=== PATIENT | female | born 1945 | race Caucasian/White ===

== ENCOUNTER 2020-10-23 08:03 | Outpatient (REF) | payer MEDICARE, SELFPAY ==
--- NOTE | 2020-10-23 08:09 | MM_ITS ---
EXAMINATION: MM SCREENING DIGITAL BREAST TOMOSYNTHESIS, BILATERAL CLINICAL INFORMATION: Screening. Asymptomatic. The lifetime risk of breast cancer based on the Tyrer-Cuzick Model is 13.2%. COMPARISON: Mammography: October 20, 2019 and studies dating back to July 12, 2014 TECHNIQUE: Digital breast tomosynthesis is performed in both the craniocaudal and mediolateral oblique views along with computer-aided detection (CAD). Synthesized 2D images are generated from the tomosynthesis. Left breast exaggerated craniocaudal view also performed. FINDINGS: There are scattered areas of fibroglandular density (ACR BI-RADS breast composition Category b). There are no significant masses, abnormal calcifications, or other abnormalities. MM/MM tomosynthesis screening BI IMPRESSION: There are no significant changes from prior study. ASSESSMENT: BI-RADS 1: Negative RECOMMENDATION: Routine annual mammography screening. This patient's information was entered into a reminder system with a target due date for their next mammogram.
[2020-10-23 10:04] LABS: MANUAL DIFF FLAG NO
[2020-10-23 10:19] LABS: Basophils Absolute Auto 0.1 X10*3/uL (0.0-0.2); Basophils Percent Auto 1.2 % (0-2); Eosinophils Absolute Auto 0.1 X10*3/uL (0.0-0.4); Eosinophils Percent Auto 1.5 % (0-4); Hemoglobin 13.6 g/dl (12.0-16.0); Imm Gran Abs Auto 0.01 X10*3/uL (0.00-0.03); Imm Gran Pct Auto 0.2 % (0.0-0.4); Lymphocytes Percent Auto 29.8 % (20-40); Mean Corpuscular HGB Conc 33.2 g/dl (31.0-35.0); Mean Corpuscular Hemoglobin 33.5 pg (27.0-33.0); Mean Platelet Volume 10.3 fL (9.4-12.3); Monocytes Absolute Auto 0.6 X10*3/uL (0.1-1.2); Monocytes Percent Auto 9.6 % (2-11); Neutrophils Absolute Auto 3.8 X10*3/uL (2.0-8.3); Neutrophils Percent Auto 57.7 % (45-73); Platelet Count 315 X10*3/uL (160-400); Red Blood Count 4.06 X10*6/uL (4.20-5.50); Red Cell Distribution Width 13.2 % (11.0-16.0); White Blood Count 6.6 X10*3/uL (4.8-10.8)
[2020-10-23 10:36] LABS: Alanine Aminotransferase 16 U/L (0-31); Albumin Level 4.3 g/dL (3.5-5.0); Alkaline Phosphatase 64 U/L (39-117); Anion Gap 15 (12-20); Aspartate Amino Transferase 23 U/L (5-31); Bilirubin Total 0.8 mg/dL (0.0-1.0); Blood Urea Nitrogen 23 mg/dL (9-16); Calcium 9.4 mg/dL (8.4-10.2); Carbon Dioxide 27 mmol/L (22-29); Chloride 103 mmol/L (96-108); Estimated Glomerular Filt Rate 59; Glucose Fasting 102 mg/dL (60-99); Sodium 141 mmol/L (135-145); Total Protein 6.9 g/dL (6.5-8.0)
[2020-10-23 11:13] LABS: Folate > 20.0 ng/mL (> or = 4.0); Vitamin B12 1158 pg/mL (200-900)
== END 2020-10-23 08:04 | disposition home or self-care (01) ==
LOC: HO.MAMMO 08:03
PROVIDERS: PCP Internal Medicine; Visit Provider Internal Medicine
DX: E78.00 Pure hypercholesterolemia, unspecified (principal); F80.1 Expressive language disorder; H47.391 Other disorders of optic disc, right eye; I10 Essential (primary) hypertension; Z12.31 Encounter for screening mammogram for malignant neoplasm of breast
CPT/HCPCS: 36415; 77063; 77067; 80053; 82607; 82746; 85025

== ENCOUNTER 2020-11-04 09:21 | Outpatient (REF) | payer MEDICARE, SELFPAY | END 2020-11-04 09:22 | disposition home or self-care (01) | LOC: HO.10HDL 09:21 | PROVIDERS: PCP Internal Medicine; Visit Provider Internal Medicine | DX: Z13.89 Encounter for screening for other disorder (principal) ==

== ENCOUNTER 2020-11-05 08:58 | Outpatient (REF) | payer MEDICARE, SELFPAY ==
[2020-11-05 11:14] LABS: Alanine Aminotransferase 13 U/L (0-31); Albumin Level 4.1 g/dL (3.5-5.0); Alkaline Phosphatase 62 U/L (39-117); Anion Gap 13 (12-20); Aspartate Amino Transferase 19 U/L (5-31); Bilirubin Total 0.7 mg/dL (0.0-1.0); Blood Urea Nitrogen 18 mg/dL (9-16); Calcium 9.2 mg/dL (8.4-10.2); Carbon Dioxide 28 mmol/L (22-29); Chloride 105 mmol/L (96-108); Cholesterol 184 mg/dL; Estimated Glomerular Filt Rate > 60; Glucose Fasting 103 mg/dL (60-99); HDL Cholesterol 55 mg/dL; LDL Cholesterol Calculated 101 mg/dl; Potassium 4.1 mmol/l (3.3-5.1); Sodium 142 mmol/L (135-145); Total Protein 6.6 g/dL (6.5-8.0); Triglycerides 144 mg/dL
== END 2020-11-05 08:59 | disposition home or self-care (01) ==
LOC: HO.10HDL 08:58
PROVIDERS: PCP Internal Medicine; Visit Provider Internal Medicine
DX: E78.00 Pure hypercholesterolemia, unspecified (principal); F80.1 Expressive language disorder; H47.391 Other disorders of optic disc, right eye; I10 Essential (primary) hypertension
CPT/HCPCS: 80053; 80061

== ENCOUNTER 2021-05-02 09:12 | Emergency (ER) | payer MEDICARE, SELFPAY ==
--- NOTE | ~2021-05-02 | CT_ITS ---
EXAMINATION: CT HEAD, CT CERVICAL SPINE WITHOUT CONTRAST. LEFT FOREARM AND LEFT HAND. CLINICAL INFORMATION: Fell 2 days ago. Pain. COMPARISON: None TECHNIQUE: 5 mm thin axial and reformatted 2 mm thin sagittal and coronal images of brain were obtained. Subsequently axial 3 mm thin and reformatted 2 mm thin sagittal and coronal images of cervical spine were obtained. DLP [id number] FINDINGS: Brain: There is no acute intra-axial, extra-axial bleed, collection or midline shift. There is no acute infarct in evolution. There is a subtle hypodensity in the left midbrain on axial image 25/5. Question artifact versus underlying infarct. The lateral ventricles are enlarged and symmetrical. There is diffuse periventricular hypodensity in both cerebral hemispheres. Bone windows reveal no calvarial abnormality. Bilateral paranasal sinuses and mastoid air cells are well-aerated. Cervical spine: On sagittal reconstructed images there is maintained cervical lordosis minimal grade 1 anterolisthesis C2 over C3 is noted. There is loss of C3-C4, C4-C5 and C5-C6 disc heights with posterior spondylosis. Rest the disc heights are normal. The vertebral heights are preserved. The craniovertebral junction and the C1-C2 alignment is normal. The left C2 transversarium foramina is enlarged on axial image 24/13. This could be secondary and ectatic dilated left vertebral artery or underlying neural tumor. There is mild uncovertebral hypertrophic changes narrowing the left neural foramina at C3-C4, C4-C5 disc levels. No lytic or sclerotic process seen. There is minimal bilateral apical pleural thickening and apical parenchymal scarring. The prevertebral and the paravertebral soft tissues are normal. Thyroid lobes are symmetrical and normal. Left jugular vein is dominant. Left forearm: There is an oblique comminuted nondisplaced fracture left proximal ulna. There is a nondisplaced fracture of right radial neck. There is positive anterior and posterior fat pad sign. Left hand: Diffuse osteopenia. There are degenerative osteophytic changes PIP and DIP joints with soft tissue swelling. No underlying fracture or dislocation seen. CT/CT cervical spine wo con IMPRESSION: No acute intracranial process seen. Age-related cerebral volume loss with chronic small vessel ischemic changes. Grade 1 anterolisthesis C2 over C3. There are degenerative disc changes C3-C4, C4-C5 and C5-C6 disc levels. No visible acute fracture, dislocation or lytic process seen. Comminuted nondisplaced fracture left proximal ulna and a nondisplaced proximal right radial neck. Positive anterior and posterior fat pad sign. Osteoarthritic changes PIP and DIP joints left hand. No visible fracture or dislocation.
[2021-05-02 09:25] VITALS: BP 159/60; PULSE 93; RESP 18; TEMP 36.7; O2SAT 98; BMI 21.8
[2021-05-02 09:44] VITALS: BP 150/94; PULSE 93; RESP 16; O2SAT 100
--- NOTE | 2021-05-02 09:56 | PC.NURSE ---
pt arrives through triage with . She was initially alone in room for interview. Speech garbled, pt having difficulty finding words. She is able to answer questions, is oriented to self and month, was able after struggle to state the year but not the day, date, president or town where she lives. was brought to room and states her speech is worse than usual, but is vague. HE is unable to report if her speech seems more garbles than usual, later states she has had speech changes over the last year. PA to bedside for eval. Pt on monitor
--- NOTE | 2021-05-02 10:03 | ED_ITS ---
HPI - Fall General Chief Complaint: Fall Stated Complaint: fall - arm injury Time Seen by Provider: 05/02/21 09:48 Source: patient Mode of arrival: ambulatory Limitations: no limitations History of Present Illness HPI Narrative: Patient comes to the ED for left arm pain due to fall 4 days ago. As per patient and she fell while there at [facility] tripping over stairs. Did not remember if patient fell and hit her head. Patient denies having any chest pain, dizziness, shortness of breath, abdominal pain, headache, or weakness before falling. Patient states she clearly trpeed. states patient has been diagnosed with dementia 1 year ago and has had memory issues, forgetting words, and forgetting new memories. Patient and do not remember if patient hit her head or not. Related Data Previous Rx's Medication Instructions Recorded naproxen 500 mg PO BID PRN #20 tab 05/02/21 Allergies Allergy/AdvReac Type Severity Reaction Status Date / Time codeine Allergy Unknown Verified 05/02/21 09:28 Review of Systems Review of Systems: Yes all other systems are reviewed and are negative Constitutional: Constitutional: Reports as per HPI and Reports no additional constitutional complaints Eyes: Eyes: Reports as per HPI and Reports no additional eye complaints ENT: Reports system reviewed and no additional complaints, except as d ocumented and Reports as per HPI Cardiovascular: Cardiovascular: Reports as per HPI and Reports no additional cardiovascular complaints Respiratory: Respiratory: Reports as per HPI and Reports no additional respiratory complaints Gastrointestinal: Gastrointestinal: Reports as per HPI and Reports no additional gastrointestinal complaints Genitourinary: Genitourinary: Reports no additional female genitourinary complaints and Reports as per HPI Musculoskeletal: Musculoskeletal: Reports no additional musculoskeletal complaints and Reports as per HPI Neurologic: Reports system reviewed and no additional complaints, except as documented and Reports as per HPI FORMERLY [facility] Past Medical History Medical History (Updated 05/02/21 @ 15:17 by BOBBY Snyder) No known health problems Social History Social History Alcohol intake: never Patient Tobacco Use Status: Former Tobacco user Smoked in Last 30 Days: No Use of substances other than those prescribed or required for medical reasons: No Advance Directives: No Advance Directives Information Provided: No Physical Exam Vital Signs: Vital Signs: Last Vital Signs Temp 98.0 F 05/02/21 09:25 Pulse 90 05/02/21 15:34 Resp 16 05/02/21 09:44 BP 148/84 H 05/02/21 15:34 Pulse Ox 100 05/02/21 15:34 Body Mass Index 21.8 Const: General: cooperative, healthy appearing, comfortable, no acute distress, well developed, alert, awake and Physically active Orientation/consciousness: patient oriented x3 HENMT: Head: Yes normal to inspection, Yes No palpable skull fracture present, Yes normocephalic, Yes atraumatic, No abrasion, No Acrocyanosis present, No Chaves's sign, No contusion, No cranial bruits, No hematoma, No laceration, No occipital foramen tenderness, No palpable skull fracture, No raccoon eyes, No scalp lesion, No scalp tenderness, No Temporal artery tenderness present and No periorbital ecchymosis Eyes: General: appearance normal, both eyes and all related structures Neck: Neck: Yes normal visual inspection, Yes full ROM, Yes no lymphadenopathy, Yes no meningeal signs, Yes trachea midline and Yes supple Chest: Chest palpation & inspection: normal inspection of the chest and normal palpation of entire chest wall Resp: Effort & Inspection: normal respiratory effort and able to speak in com plete sentences Auscultation: clear to auscultation bilaterally Cardio: Jugular venous distension: no JVD Heart sounds: S1 normal heart sound present and S2 normal heart sound present GI: Inspection: Yes normal to inspection and No abdominal wall ecchymosis Palpation (GI): Soft to palpation, not firm, nontender, no guarding and not rigid : General: No CVA tenderness and Yes no CVA tenderness Back/Spine/Pelvis: Back: no CVA tenderness, No CVA tenderness and No back tenderness Skin: General skin exam: no rashes or lesions noted and elasticity normal Neuro: Other: Negative facial droop. Negative slurred speech. Negative pronator drift. All extremities equal strength 5+. [id number] rapid hand movement tach. Negative Romberg. Left upper extremity motor exam limited due to pain/fracture General: patient oriented x3, gait normal, no meningeal signs and CN's II-XI intact bilaterally Cranial nerves: Yes CN's II-XII intact bilaterally Extrem: General: Yes normal to inspection and Yes full ROM Psych: Appearance: grossly normal, well kempt and not disheveled Course Course Course Narrative: Though there is no signs of head trauma patient will do head CT cervical spine due to and patient unaware if patient hitting head when she fell. Also the EKG labs. Reevaluation(s) Reevaluation #1: EKG negative for STEMI. First troponin negative. Labs normal. Head CT and C-spine normal. Positive for radial and ulna bone fracture with positive posterior anterior fat pad sign indicating elbow fracture also. Spoke with Rosita of orthopedic PA and she states patient could be splinted and discharged. Will get physical therapy and case management to evaluate patient to see if she is safe discharge due to patient having Alzheimer's and falling. Time: 10:26 Reevaluation #2: Patient cleared by Physical therapy and Case Management to go back home at a safe discharge. Patient placed in splint. Second troponin did not increased by 50%. Patient will be discharged with orthopedic follow-up Time: 15:14 MDM - Fall MDM Narrative Medical decision making narrative: Forearm fracture and elbow fracture Lab Data Result diagrams: 05/02/21 10:26 05/02/21 10: Labs: Lab Results 05/02/21 05/02/21 05/02/21 Range/Units 10:26 10:26 10:26 WBC 8.0 (4.8-10.8) X10*3/uL RBC 3.31 L (4.20-5.50) X10*6/uL Hgb 11.3 L (12.0-16.0) g/dl Hct 32.9 L (37-47) % MCV 99.4 H (80-98) fL MCH 34.1 H (27.0-33.0) pg MCHC 34.3 (31.0-35.0) g/dl RDW 13.0 (11.0-16.0) % Plt Count 224 D (160-400) X10*3/uL MPV 9.4 (9.4-12.3) fL Immature Gran % (Auto) 0.3 (0.0-0.4) % Neut % (Auto) 72.4 (45-73) % Lymph % (Auto) 13.1 L (20-40) % Hoke % (Auto) 13.6 H (2-11) % Eos % (Auto) 0.1 (0-4) % Baso % (Auto) 0.5 (0-2) % Lymph # (Auto) 1.1 L (1.2-4.9) X10*3/uL Hoke # (Auto) 1.1 (0.1-1.2) X10*3/uL Eos # (Auto) 0.0 (0.0-0.4) X10*3/uL Baso # (Auto) 0.0 (0.0-0.2) X10*3/uL Abs Immat Gran (auto) 0.02 (0.00-0.03) X10*3/uL Absolute Neuts (auto) 5.8 (2.0-8.3) X10*3/uL Absolute Nucleated RBC 0.000 (0.0-0.012) X10*3/uL Nucleated RBC % (auto) 0.0 (0.0-0.2) /100WBC PT 13.6 H (10.8-13.0) SEC INR 1.1 (0.9-1.1) APTT 35.5 (24.1-38.0) SEC Sodium 142 (135-145) mmol/L Potassium 3.6 (3.3-5.1) mmol/L Chloride 104 (96-108) mmol/L Carbon Dioxide 27 (22-29) mmol/L Anion Gap 15 (12-20) BUN 22 H (9-16) mg/dL Creatinine 0.83 (0.5-1.4) mg/dL Estim Creat Clear Calc 51.9 Estimated GFR > 60 Random Glucose 111 (60-115) mg/dL Calcium 9.2 (8.4-10.2) mg/dL Total Bilirubin 0.9 (0.0-1.0) mg/dL AST 17 (5-31) U/L ALT 13 (0-31) U/L Alkaline Phosphatase 62 (39-117) U/L Total Creatine Kinase 94 (26-140) U/L Troponin I High Sens (<3.5-17.0) ng/L Total Protein 6.4 L (6.5-8.0) g/dL Albumin 4.1 (3.5-5.0) g/dL 05/02/21 05/02/21 Range/Units 10:26 13:52 WBC (4.8-10.8) X10*3/uL RBC (4.20-5.50) X10*6/uL Hgb (12.0-16.0) g/dl Hct (37-47) % MCV (80-98) fL MCH (27.0-33.0) pg MCHC (31.0-35.0) g/dl RDW (11.0-16.0) % Plt Count (160-400) X10*3/uL MPV (9.4-12.3) fL Immature Gran % (Auto) (0.0-0.4) % Neut % (Auto) (45-73) % Lymph % (Auto) (20-40) % Hoke % (Auto) (2-11) % Eos % (Auto) (0-4) % Baso % (Auto) (0-2) % Lymph # (Auto) (1.2-4.9) X10*3/uL Hoke # (Auto) (0.1-1.2) X10*3/uL Eos # (Auto) (0.0-0.4) X10*3/uL Baso # (Auto) (0.0-0.2) X10*3/uL Abs Immat Gran (auto) (0.00-0.03) X10*3/uL Absolute Neuts (auto) (2.0-8.3) X10*3/uL Absolute Nucleated RBC (0.0-0.012) X10*3/uL Nucleated RBC % (auto) (0.0-0.2) /100WBC PT (10.8-13.0) SEC INR (0.9-1.1) APTT (24.1-38.0) SEC Sodium (135-145) mmol/L Potassium (3.3-5.1) mmol/L Chloride (96-108) mmol/L Carbon Dioxide (22-29) mmol/L Anion Gap (12-20) BUN (9-16) mg/dL Creatinine (0.5-1.4) mg/dL Estim Creat Clear Calc Estimated GFR Random Glucose (60-115) mg/dL Calcium (8.4-10.2) mg/dL Total Bilirubin (0.0-1.0) mg/dL AST (5-31) U/L ALT (0-31) U/L Alkaline Phosphatase (39-117) U/L Total Creatine Kinase (26-140) U/L Troponin I High Sens 7.1 8.7 (<3.5-17.0) ng/L Total Protein (6.5-8.0) g/dL Albumin (3.5-5.0) g/dL ECG Data Interpretation: Normal sinus rhythm. Ventricular rate 70. Pr interval 140. QRS 88. QTC 470. Negative STEMI Discharge Plan Discharge Clinical Impression: Forearm fracture, Elbow fracture, left Patient Disposition: Home, Self-Care Instructions: Arm Fracture in Adults (ED), Elbow Fracture (ED) Additional Instructions: Return to the ED for worsening pain, bluish discoloration of finger tips, numbness/tingling of extremity, increased swelling, redness, chest pain, shortness of breath, or any other concerning symptoms. He will be discharged with pain medication. Please follow-up with orthopedic Prescriptions: New naproxen 500 mg tablet 500 mg PO BID PRN (Reason: pain) Qty: 20 RF: 0 Referrals: Tony Boyd MD [Physician] - 2 days (Left forearm and elbow fracture. Placed in posterior splint) Interventions: ED Discharge Assessment Last Done: 05/02/21 15:56 Discharge Date/Time: 05/02/21 15:57 Print Language: Arabic
--- NOTE | 2021-05-02 10:06 | ECG_ITS ---
Test Reason : FALL Blood Pressure : / mmHG Vent. Rate : 070 BPM Atrial Rate : 070 BPM P-R Int : 140 ms QRS Dur : 088 ms QT Int : 436 ms P-R-T Axes : 048 000 049 degrees QTc Int : 470 ms Poor data quality, interpretation may be adversely affected Normal sinus rhythm Cannot exclude septal infarct but likely normal variant Otherwise normal EKG When compared with ECG of 15-JUN-2005 11:02, No significant changes seen Referred By: Richar Fernandez Electronically Signed By:JUANY MORAES
[2021-05-02 10:34] LABS: MANUAL DIFF FLAG NO
[2021-05-02 10:35] LABS: Basophils Percent Auto 0.5 % (0-2); Eosinophils Percent Auto 0.1 % (0-4); Hematocrit 32.9 % (37-47); Hemoglobin 11.3 g/dl (12.0-16.0); Imm Gran Abs Auto 0.02 X10*3/uL (0.00-0.03); Imm Gran Pct Auto 0.3 % (0.0-0.4); Lymphocytes Absolute Auto 1.1 X10*3/uL (1.2-4.9); Lymphocytes Percent Auto 13.1 % (20-40); Mean Corpuscular HGB Conc 34.3 g/dl (31.0-35.0); Mean Corpuscular Hemoglobin 34.1 pg (27.0-33.0); Mean Corpuscular Volume 99.4 fL (80-98); Mean Platelet Volume 9.4 fL (9.4-12.3); Monocytes Absolute Auto 1.1 X10*3/uL (0.1-1.2); Monocytes Percent Auto 13.6 % (2-11); Neutrophils Absolute Auto 5.8 X10*3/uL (2.0-8.3); Neutrophils Percent Auto 72.4 % (45-73); Platelet Count 224 X10*3/uL (160-400); Red Blood Count 3.31 X10*6/uL (4.20-5.50)
[2021-05-02 10:48] LABS: INTERNATIONAL NORM RATIO 1.1 (0.9-1.1); Prothrombin Time 13.6 SEC (10.8-13.0)
[2021-05-02 10:51] LABS: Partial Thromboplastin Time 35.5 SEC (24.1-38.0)
[2021-05-02 11:00] LABS: Alanine Aminotransferase 13 U/L (0-31); Albumin Level 4.1 g/dL (3.5-5.0); Alkaline Phosphatase 62 U/L (39-117); Anion Gap 15 (12-20); Aspartate Amino Transferase 17 U/L (5-31); Bilirubin Total 0.9 mg/dL (0.0-1.0); Blood Urea Nitrogen 22 mg/dL (9-16); Calcium 9.2 mg/dL (8.4-10.2); Carbon Dioxide 27 mmol/L (22-29); Chloride 104 mmol/L (96-108); Creatinine Clr Calc Pharmacy 51.9; Estimated Glomerular Filt Rate > 60; Glucose Random 111 mg/dL (60-115); Potassium 3.6 mmol/L (3.3-5.1); Sodium 142 mmol/L (135-145); Total Protein 6.4 g/dL (6.5-8.0)
[2021-05-02 11:05] LABS: Troponin-I High Sensitivity 7.1 ng/L (<3.5-17.0)
[2021-05-02] MEDS: Ketorolac Tromethamine 30 MG/ML VIAL IM (11:38)
[2021-05-02 14:35] LABS: Troponin-I High Sensitivity 8.7 ng/L (<3.5-17.0)
[2021-05-02 14:38] VITALS: BP 150/94; PULSE 93; O2SAT 100
--- NOTE | 2021-05-02 15:00 | MHC.CM.ED ---
Received case management consult from BOBBY Mcqueen. Patient came to ER due to a fall. Found to have a LUE fracture. Physical therapy eval completed. No services are recommended. Met with patient and , [facility]. They reside together. Patient ambulates independently and had no services prior to coming to the hospital. PCP verified. Patient denies having a HCP. Information provided. Kay[facility] will transport patient home when discharged. Richar ROSALES aware. Continue to monitor for d/c needs.
[2021-05-02 15:34] VITALS: BP 148/84; PULSE 90; O2SAT 100
--- NOTE | 2021-05-02 15:36 | PC.NURSE ---
has been at bedside, he is vague when reporting patient history and when talking about her garbled speech. He states she has been increasingly forgetful, also states the speech might be worse than usual but isn't sure. states Pt does food shopping and cooking. He states he drives. Discussed how pt would manage at home with fracture, pt states she wants to go home, quiet. Pt has some rambling aphasic speech, difficult to undertsnad at times. Case management has seen pt. Pt ready for discharge. Pt unable to repeat instructions back to staff, is able. Pt readied for discharge home.
== END 2021-05-02 15:57 | disposition home or self-care (01) ==
PROVIDERS: Physician Assistant; Emergency Provider Emergency Medicine; PCP Internal Medicine
DX: S52.002A Unspecified fracture of upper end of left ulna, initial encounter for closed fracture (principal); S52.135A Nondisplaced fracture of neck of left radius, initial encounter for closed fracture; G30.9 Alzheimer's disease, unspecified; F02.80 Dementia in other diseases classified elsewhere, unspecified severity, without behavioral disturbance, psychotic disturbance, mood disturbance, and anxiety; W10.9XXA Fall (on) (from) unspecified stairs and steps, initial encounter; Y93.9 Activity, unspecified; Y92.9 Unspecified place or not applicable; Y99.9 Unspecified external cause status
CPT/HCPCS: 29105; 36415; 70450; 72125; 73090; 73110; 73130; 80053; 82550; 84484; 85025; 85610; 85730; 93005; 96372; 97161; 99285; J1885

== ENCOUNTER → 2021-05-06 13:47 | Outpatient (BNVA) | payer MEDICARE, SELFPAY | PROVIDERS: PCP Internal Medicine; Visit Provider Physician Assistant | DX: S52.002A Unspecified fracture of upper end of left ulna, initial encounter for closed fracture (principal); S52.122A Displaced fracture of head of left radius, initial encounter for closed fracture | CPT/HCPCS: 24670; 99202 ==

== ENCOUNTER 2021-05-27 07:42 | Outpatient (REF) | payer MEDICARE, SELFPAY ==
--- NOTE | ~2021-05-27 | XR_ITS ---
EXAMINATION: XR ELBOW, LEFT CLINICAL INFORMATION: Follow-up fracture proximal radius and ulna. COMPARISON: Left forearm 05/02/2021. TECHNIQUE: AP, lateral, and oblique views of the left elbow. FINDINGS: There is a nondisplaced fracture neck of radius and comminuted fracture proximal ulna. No callus formation seen yet. Joint space is maintained. There is soft tissue swelling. XR/XR elbow LT min 3V IMPRESSION: Comminuted fracture proximal ulna and nondisplaced fracture radial neck.
== END 2021-05-27 07:43 | disposition home or self-care (01) ==
LOC: HO.HOSX 07:42
PROVIDERS: Visit Provider Physician Assistant
DX: S52.122A Displaced fracture of head of left radius, initial encounter for closed fracture (principal); S52.002A Unspecified fracture of upper end of left ulna, initial encounter for closed fracture; X58.XXXA Exposure to other specified factors, initial encounter; Y93.9 Activity, unspecified; Y92.9 Unspecified place or not applicable; Y99.9 Unspecified external cause status; Z87.891 Personal history of nicotine dependence
CPT/HCPCS: 29065; 73080; 99212

== ENCOUNTER 2021-06-24 08:05 | Outpatient (REF) | payer MEDICARE, SELFPAY ==
--- NOTE | ~2021-06-24 | XR_ITS ---
EXAMINATION: XR ELBOW, LEFT CLINICAL INFORMATION: Fractures, followup. COMPARISON: Radiographs left elbow 05/27/2021 TECHNIQUE: Left elbow is imaged in 3 views. FINDINGS: There is a comminuted fracture of proximal ulna and a transverse fracture base of radial head. There is interval callus formation. Fracture lines are still visible. There is no change in alignment from prior study. No dislocation or destructive process. XR/XR elbow LT min 3V IMPRESSION: Interval callus formation of the proximal ulnar and radial fractures. Stable alignment.
== END 2021-06-24 08:06 | disposition home or self-care (01) ==
LOC: HO.HOSX 08:05
PROVIDERS: Visit Provider Physician Assistant
DX: S52.122A Displaced fracture of head of left radius, initial encounter for closed fracture (principal); S52.002A Unspecified fracture of upper end of left ulna, initial encounter for closed fracture
CPT/HCPCS: 73080; 99212

== ENCOUNTER 2021-07-22 07:56 | Outpatient (REF) | payer MEDICARE, SELFPAY ==
--- NOTE | ~2021-07-22 | XR_ITS ---
EXAMINATION: XR ELBOW, LEFT CLINICAL INFORMATION: Pain left elbow. COMPARISON: Left elbow 06/24/2021 TECHNIQUE: AP, lateral, and oblique views of the left elbow. FINDINGS: There is a slow healing fractures with callus formation proximal radius and ulna. There is no abnormal joint effusion. There is ulnohumeral spurring. Mild suprapatellar joint effusion is present. XR/XR elbow LT min 3V IMPRESSION: Slowly healing fractures proximal ulnar and radius.
== END 2021-07-22 07:57 | disposition home or self-care (01) ==
LOC: HO.HOSX 07:56
PROVIDERS: Visit Provider Physician Assistant
DX: S52.002D Unspecified fracture of upper end of left ulna, subsequent encounter for closed fracture with routine healing (principal); S52.122D Displaced fracture of head of left radius, subsequent encounter for closed fracture with routine healing
CPT/HCPCS: 73080; 99212

== ENCOUNTER 2021-07-23 09:35 | Outpatient (REF) | payer MEDICARE, SELFPAY ==
[2021-07-23 10:29] LABS: MANUAL DIFF FLAG NO
[2021-07-23 10:32] LABS: Basophils Absolute Auto 0.1 X10*3/uL (0.0-0.2); Basophils Percent Auto 1.1 % (0-2); Eosinophils Absolute Auto 0.2 X10*3/uL (0.0-0.4); Eosinophils Percent Auto 3.1 % (0-4); Hemoglobin 12.1 g/dl (12.0-16.0); Imm Gran Abs Auto 0.02 X10*3/uL (0.00-0.03); Imm Gran Pct Auto 0.3 % (0.0-0.4); Lymphocytes Absolute Auto 1.8 X10*3/uL (1.2-4.9); Lymphocytes Percent Auto 27.2 % (20-40); Mean Corpuscular HGB Conc 32.7 g/dl (31.0-35.0); Mean Corpuscular Hemoglobin 33.2 pg (27.0-33.0); Mean Corpuscular Volume 101.6 fL (80-98); Mean Platelet Volume 10.1 fL (9.4-12.3); Monocytes Absolute Auto 0.6 X10*3/uL (0.1-1.2); Monocytes Percent Auto 9.6 % (2-11); Neutrophils Absolute Auto 3.8 X10*3/uL (2.0-8.3); Neutrophils Percent Auto 58.7 % (45-73); Platelet Count 295 X10*3/uL (160-400); Red Blood Count 3.64 X10*6/uL (4.20-5.50); Red Cell Distribution Width 13.9 % (11.0-16.0); White Blood Count 6.5 X10*3/uL (4.8-10.8)
[2021-07-23 11:07] LABS: Alanine Aminotransferase 11 U/L (0-31); Albumin Level 4.3 g/dL (3.5-5.0); Alkaline Phosphatase 60 U/L (39-117); Anion Gap 12 (12-20); Aspartate Amino Transferase 17 U/L (5-31); Blood Urea Nitrogen 16 mg/dL (9-16); Calcium 9.7 mg/dL (8.4-10.2); Carbon Dioxide 28 mmol/L (22-29); Chloride 105 mmol/L (96-108); Cholesterol 184 mg/dL; Estimated Glomerular Filt Rate > 60; Glucose Fasting 101 mg/dL (60-99); HDL Cholesterol 60 mg/dL; LDL Cholesterol Calculated 99 mg/dl; Sodium 141 mmol/L (135-145); Triglycerides 129 mg/dL
[2021-07-23 11:31] LABS: Thyroid Stimulating Hormone 1.03 uIU/mL (0.32-4.0); Vitamin D 25-OH Total 59.7 ng/mL (>30)
== END 2021-07-23 09:36 | disposition home or self-care (01) ==
LOC: HO.10HDL 09:35
PROVIDERS: Visit Provider Internal Medicine
DX: E78.00 Pure hypercholesterolemia, unspecified (principal); I10 Essential (primary) hypertension; M81.8 Other osteoporosis without current pathological fracture; R63.4 Abnormal weight loss
CPT/HCPCS: 36415; 80053; 80061; 82306; 84443; 85025

== ENCOUNTER 2021-12-15 15:07 | Inpatient (IN) | payer MEDICARE, SELFPAY ==
--- NOTE | ~2021-12-15 | CT_ITS ---
EXAMINATION: CT HEAD WITHOUT CONTRAST CLINICAL INFORMATION: Altered mental status. Developing cerebrovascular accident. COMPARISON: CT head from 12/15/2021 and 05/02/2021. TECHNIQUE: Contiguous axial imaging was performed from the skull base to vertex without intravenous administration of contrast. This CT examination was performed using dose optimization techniques as appropriate, variously including the following: *Automated exposure control. *Adjustment of mA and/or kV according to patient size (this includes techniques or standardized protocols for targeted exams where dose is matched to indication/reason for exam; i.e. extremities or head). *Use of iterative reconstruction technique. DLP: 619 mGy-cm FINDINGS: There is no evidence of acute intracranial hemorrhage or edematous territorial infarction. Scattered hypoattenuation in the periventricular and deep white matter are consistent with moderate microangiopathy. Fry-white matter differentiation is preserved. Proportional prominence of the ventricles and sulcal spaces. No evidence for obstructive hydrocephalus. No abnormal mass effect or midline shift. No extra-axial fluid collections. Improving small subgaleal hematoma along the right aspect of the occipital bone, measuring up to 0.5 cm in depth. No associated osseous abnormalities. Moderate mucosal thickening of the paranasal sinuses. Layering fluid within the maxillary and sphenoid sinuses. The mastoid air cells and middle ear cavities are clear. Bilateral lens extractions. CT/CT head/brain wo con IMPRESSION: 1. No evidence of acute intracranial hemorrhage or edematous territorial infarction. 2. Moderate underlying microangiopathy and generalized cerebral volume loss. 3. Small right posterior scalp hematoma. 4. Moderate sinonasal mucosal disease with layering fluid suggestive of active sinusitis.
--- NOTE | ~2021-12-15 | CT_ITS ---
EXAMINATION: CT CHEST WITHOUT CONTRAST CLINICAL INFORMATION: Thoracic back pain. Bilateral rib pain. COMPARISON: CT chest 03/30/2008 TECHNIQUE: Multidetector volumetric CT imaging of the chest was done. Axial MIP volume rendering provided. Sagittal and coronal reformatted images were obtained. This CT examination was performed using dose optimization techniques as appropriate, variously including the following: *Automated exposure control *Adjustment of mA and/or kV according to patient size (this includes techniques or standardized protocols for targeted exams where dose is matched to indication/reason for exam; i.e. extremities or head) *Use of iterative reconstruction technique DLP: 988 mGy-cm FINDINGS: LUNGS: The lungs are clear with no evidence of inflammation or nodules. Mild chronic bilateral apical pleural-parenchymal scarring unchanged since 2007. MEDIASTINUM: No mediastinal mass or significant lymphadenopathy. No aneurysm of aorta. Small volume of calcifications of thoracic aortic arch and descending aorta. The heart size is normal. No pericardial effusion. Moderate volume of coronary artery calcifications. No pericardial effusion. PLEURA: There is no pleural effusion. No pleural mass or thickening. AXILLA: No lymphadenopathy. UPPER ABDOMEN: Unremarkable. OSSEOUS STRUCTURES: Multilevel degenerative spondylosis spine. Anterior wedge compression deformity with about 30% loss of height of the T11 vertebrae. This appears to be an acute fracture with disruption of the anterior superior endplate and cortex of the vertebral body. No evidence of bone destruction. CT/CT chest wo con IMPRESSION: 1. Acute fracture of T11 vertebrae with approximately 30% loss of height of the vertebral body. No retropulsed fracture fragments. 2. No acute change of lungs or mediastinum. Fleischner guidelines were followed.
--- NOTE | ~2021-12-15 | CT_ITS ---
EXAMINATION: CT HEAD WITHOUT CONTRAST CLINICAL INFORMATION: Fall with altered mental status. COMPARISON: CT head dated from 05/02/2021. TECHNIQUE: Contiguous axial imaging was performed from the skull base to vertex without intravenous administration of contrast. This CT examination was performed using dose optimization techniques as appropriate, variously including the following: *Automated exposure control *Adjustment of mA and/or kV according to patient size (this includes techniques or standardized protocols for targeted exams where dose is matched to indication/reason for exam; i.e. extremities or head) *Use of iterative reconstruction technique DLP: 127 mGy-cm FINDINGS: There is no evidence of acute intracranial hemorrhage or edematous territorial infarction. Scattered hypoattenuation in the periventricular and deep white matter are consistent with moderate microangiopathy. Fry-white matter differentiation is preserved. Proportional prominence of the ventricles and sulcal spaces. No evidence for obstructive hydrocephalus. No abnormal mass effect or midline shift. No extra-axial fluid collections. Small right occipital scalp hematoma/contusion. No acute osseous abnormalities. Air-fluid levels in both maxillary sinuses which are partially opacified. There are also air-fluid levels in the sphenoidal sinuses and partial opacification of several ethmoid air cells. There is a trace right mastoid effusion. CT/CT head/brain wo con IMPRESSION: Right occipital scalp hematoma/contusion without evidence of acute intracranial hemorrhage or edematous territorial infarction. Paranasal sinus disease.
--- NOTE | ~2021-12-15 | CT_ITS ---
EXAMINATION: CT CERVICAL SPINE WITHOUT CONTRAST CLINICAL INFORMATION: Fall, altered mental status. COMPARISON: CT cervical spine dated from 05/02/2021. TECHNIQUE: Axial, coronal and sagittal images of the cervical spine without intravenous contrast were obtained. This CT examination was performed using dose optimization techniques as appropriate, variously including the following: *Automated exposure control *Adjustment of mA and/or kV according to patient size (this includes techniques or standardized protocols for targeted exams where dose is matched to indication/reason for exam; i.e. extremities or head) *Use of iterative reconstruction technique DLP: 127 mGy-cm FINDINGS: The atlantooccipital and atlantoaxial articulations remain well aligned. Redemonstration of minimal grade 1 anterolisthesis of C2 on C3 and minimal grade 1 retrolisthesis of C4 on C5. Otherwise, there is anatomic alignment of the vertebral bodies and posterior elements. No evidence of acute fracture or subluxation. Again noted moderate cervical spondylosis with disc space narrowing, osteophytes and uncovertebral hypertrophy leading to varying degrees of neural foraminal encroachment central canal narrowing. There is no prevertebral soft tissue swelling. A 0.6 cm hypoattenuating nodule in the right lobe of the thyroid is unchanged, not meeting size criteria for further follow-up. Remaining cervical soft tissues are normal in appearance. The lung apices demonstrate subpleural thickening/scarring. CT/CT cervical spine wo con IMPRESSION: No acute cervical fractures or malalignment. Moderate multilevel cervical spondylosis.
[2021-12-15 16:04] VITALS: BP 133/64; PULSE 123; RESP 18; TEMP 36.8; O2SAT 97; BMI 22.0
--- NOTE | 2021-12-15 16:11 | ECG_ITS ---
Test Reason : fall/ams Blood Pressure : / mmHG Vent. Rate : 144 BPM Atrial Rate : 000 BPM P-R Int : 000 ms QRS Dur : 084 ms QT Int : 288 ms P-R-T Axes : 000 074 257 degrees QTc Int : 445 ms Atrial fibrillation with rapid ventricular response Nonspecific ST and T wave abnormality ; Abnormal ECG When compared with ECG of 02-MAY-2021 10:25, Rhythm change Referred By: Generic ED Physician Electronically Signed By:JUANY MORAES
--- NOTE | 2021-12-15 16:54 | ED_ITS ---
HPI - Fall General Chief Complaint: Fall Stated Complaint: fell bump on back of head Time Seen by Provider: 12/15/21 16:25 Source: patient Mode of arrival: ambulatory History of Present Illness HPI Narrative: 76-year-old female with unknown past medical history presenting to the ED complaining of fall this afternoon with +head strike and posterior scalp laceration. Patient reports she was doing laundry when she fell, cannot recall events, altered/confused, unknown LOC. Denies symptoms prior to incident. Unclear patient on AC, history limited secondry to patient's acute mental status. Tetanus unknown MD complaint: fall Onset (ago): hour(s) Fall from: standing Related Data Home Medications Medication Instructions Recorded Confirmed calcium citrate 315 mg 1 tab PO DAILY 12/15/21 12/15/21 calcium-vitamin D3 6.25 mcg (250 unit) tablet (Citracal + Vitamin D Maximum) coenzyme Q10 100 mg capsule 100 mg PO DAILY 12/15/21 12/15/21 (CoQ-10) hydrochlorothiazide 12.5 mg tablet 1 tab PO DAILY 12/15/21 12/15/21 pravastatin 20 mg tablet 1 tab PO BEDTIME 12/15/21 12/15/21 Allergies Allergy/AdvReac Type Severity Reaction Status Date / Time codeine Allergy Unknown Verified 06/24/21 09:47 Review of Systems Verdana 4l Review of Systems: Verdana 4d Verdana 4d Constitutional: No Fever, No Chills ENT/Mouth: No Ear Pain, No Nasal Congestion, No sore throat Eyes: No Vision Changes Cardiovascular: No Chest Pain, No SOB Gastrointestinal: No Nausea, No Vomiting, No Abdominal pain Genitourinary: No UrinaryUrinary Incontinence Musculoskeletal: + back pain Skin: + Skin Lesions, No rash Neuro: +AMS, Unknown Loss of Consciousness, + Headache ROS limited secondary to patient's acute mental status Yes all other systems are reviewed and are negative [facility] Past Medical History Attestation statement: The following information was validated with the patient. Medical History No known health problems Social History Social History Alcohol intake: never Patient Tobacco Use Status: Former Tobacco user Advance Directives: No Advance Directives Information Provided: No Current occupational status: retired Current occupation: rt hand Physical Exam Verdana 4l Vital Signs: Verdana 4d Verdana 4d Vital Signs: Verdana 4d Verdana 4Bd Last Vital Signs Verdana 4d Flare Stitcher New 4d Flare Stitcher New 4d Temp 98.3 F 12/15/21 18:58 Flare Stitcher New 4d Pulse 107 H 12/15/21 18:58 Flare Stitcher New 4d Resp 16 12/15/21 18:58 BP 117/77 12/15/21 18:58 Pulse Ox 98 12/15/21 18:58 BMI result Body Mass Index 22.0 Const: General: cooperative, alert and awake Orientation/consciousness: oriented to place Limitations: altered mental status HENMT: Other: +posterior skull hematoma with overlying actively bleeding punctate wound Head: Yes hematoma and Yes laceration Ears: hearing grossly normal bilaterally General nose exam: Normal external nose present Face and sinus: Yes normal facial exam Throat: Yes posterior oropharynx normal and Yes uvula midline Eyes: General: appearance normal, both eyes and all related structures Pupils: Equal, round and reactive pupils present EOM: EOMs intact bilaterally Neck: Other: no midline cervical spinous ttp Neck: Yes normal visual inspection Chest: Chest palpation & inspection: normal inspection of the chest and no crepitus Resp: Effort & Inspection: normal respiratory effort and no respiratory distress Auscultation: clear to auscultation bilaterally Cardio: Rate: regular rate and tachycardic Rhythm: abnormal rhythm Heart sounds: S1 normal heart sound present and S2 normal heart sound present GI: Inspection: Yes normal to inspection Palpation (GI): Soft to palpation, nontender, no guarding and not rigid Back/Spine/Pelvis: Other: +mid-thoracic back swelling and ttp with paraspinal ttp. No midline lumbar spinous tenderness to palpation Skin: Rashes: no rashes Wounds: no wounds Neuro: General: oriented to place, tone normal, moves all extremities and CN's II-XI intact bilaterally Cranial nerves: Yes CN's II-XII intact bilaterally, Yes Equal, round and reactive pupils present and Yes Bilaterally intact EOM present Motor exam (neuro): 5/5 motor strength present throughout Extrem: General: Yes normal to inspection Course Course Course Narrative: -0037-- 0.25 mg/kg Cardizem given with improvement in heart rate 90-100 Spoke to patient's son Arthur reports patient has severe anxiety and becomes confused/difficult to understand during these episodes, however it is atypical for patient not to know the year and her birthday -1821--noted leukocytosis of 16.5 > likely reactive. Low concern for severe se psis, no evidence of infection at this time. Will obtain lactic/blood cultures -BUN 36, initial troponin 5.4 will obtain 3hr repeat CT head/brain wo con IMPRESSION: Right occipital scalp hematoma/contusion without evidence of acute intracranial hemorrhage or edematous territorial infarction. Paranasal sinus disease. > concern for CVA with new onset AFib/confusion. Plan will be admission for further w/u CT cervical spine wo con IMPRESSION: No acute cervical fractures or malalignment. Moderate multilevel cervical spondylosis. CT chest wo con IMPRESSION: 1. Acute fracture of T11 vertebrae with approximately 30% loss of height of the vertebral body. No retropulsed fracture fragments. 2. No acute change of lungs or mediastinum.? -2019--UA infected. Infection now suspected > IV Rocephin ordered ? MDM - Fall MDM Narrative Medical decision making narrative: 76-year-old female with unknown past medical history presenting to the ED complaining of fall this afternoon with +head strike and posterior scalp laceration. On exam pt in new onset AFib with RVR, A&O x1, confused/altered, otherwise exam nonfocal. Hematoma to posterior scalp with punctate wound that does not need repair, after cleaning bleeding controlled. Concern for ICH vs CVA vs infectious/metabolic etiology. R/o Fx, Low concern for cauda equina/cord compression Plan: EKG, labs, UA, head/C-spine CT, chest CT, anticipated admission Medical Records Attestation: I reviewed the patient's medical records. Lab Data Attestation: I reviewed the patient's lab results. Result diagrams: 12/15/21 17:55 12/15/21 17:55 Labs: Lab Results 12/15/21 12/15/21 12/15/21 Range/Units 17:55 17:55 17:55 WBC 16.5 H (4.8-10.8) X10*3/uL RBC 3.58 L (4.20-5.50) X10*6/uL Hgb 12.0 (12.0-16.0) g/dl Hct 35.3 L (37.0-47.0) % MCV 98.6 H (80.0-98.0) fL MCH 33.5 H (27.0-33.0) pg MCHC 34.0 (31.0-35.0) g/dl RDW 12.8 (11.0-16.0) % Plt Count 252 (160-400) X10*3/uL MPV 10.1 (9.4-12.3) fL Immature Gran % (Auto) 0.8 H (0.0-0.4) % Neut % (Auto) 86.7 H (45-73) % Lymph % (Auto) 4.5 L (20-40) % Vance % (Auto) 7.8 (2-11) % Eos % (Auto) 0.0 (0-4) % Baso % (Auto) 0.2 (0-2) % Lymph # (Auto) 0.7 L (1.2-4.9) X10*3/uL Vance # (Auto) 1.3 H (0.1-1.2) X10*3/uL Eos # (Auto) 0.0 (0.0-0.4) X10*3/uL Baso # (Auto) 0.0 (0.0-0.2) X10*3/uL Abs Immat Gran (auto) 0.13 H (0.00-0.03) X10*3/uL Absolute Neuts (auto) 14.3 H (2.0-8.3) x10*3/uL Absolute Nucleated RBC 0.000 (0.0-0.012) X10*3/uL Nucleated RBC % (auto) 0.0 (0.0-0.2) /100WBC PT 13.0 (9.9-13.0) SEC INR 1.1 (0.9-1.1) APTT 34.2 (24.1-38.0) SEC Sodium 140 (135-145) mmol/L Potassium 3.4 (3.3-5.1) mmol/L Chloride 105 (96-108) mmol/L Carbon Dioxide 25 (22-29) mmol/L Anion Gap 13 (12-20) BUN 36 H (9-16) mg/dL Creatinine 1.00 (0.5-1.4) mg/dL Estim Creat Clear Calc 47.5 Estimated GFR 54 Random Glucose 127 H (60-115) mg/dL Lactic Acid (0.5-2.0) mmol/L Calcium 9.8 (8.4-10.2) mg/dL Magnesium 1.9 (1.6-2.6) mg/dL Total Bilirubin 0.7 (0.0-1.0) mg/dL Direct Bilirubin 0.3 (0.0-0.5) mg/dL AST 26 D (5-31) U/L ALT 18 (0-31) U/L Alkaline Phosphatase 56 (39-117) U/L Troponin I High Sens (<3.5-17.0) ng/L Total Protein 6.5 (6.5-8.0) g/dL Albumin 3.9 (3.5-5.0) g/dL Urine Color Urine Appearance Urine pH (5.0-8.0) Ur Specific [place] (1.005-1.025) Urine Protein (NEG-TRACE) MG/DL Urine Glucose (UA) (NEG) MG/DL Urine Ketones (NEG) MG/DL Urine Blood (NEG) Urine Nitrite (NEG) Ur Leukocyte Esterase (NEG) Urine RBC (0) /HPF Urine WBC (0-4) /HPF Ur Squamous Epith Cells /LPF Urine Bacteria /LPF COVID-19 (ROSITA) (Negative) COVID-19 Clin Com 12/15/21 12/15/21 12/15/21 Range/Units 17:55 17:55 18:26 WBC (4.8-10.8) X10*3/uL RBC (4.20-5.50) X10*6/uL Hgb (12.0-16.0) g/dl Hct (37.0-47.0) % MCV (80.0-98.0) fL MCH (27.0-33.0) pg MCHC (31.0-35.0) g/dl RDW (11.0-16.0) % Plt Count (160-400) X10*3/uL MPV (9.4-12.3) fL Immature Gran % (Auto) (0.0-0.4) % Neut % (Auto) (45-73) % Lymph % (Auto) (20-40) % Vance % (Auto) (2-11) % Eos % (Auto) (0-4) % Baso % (Auto) (0-2) % Lymph # (Auto) (1.2-4.9) X10*3/uL Vance # (Auto) (0.1-1.2) X10*3/uL Eos # (Auto) (0.0-0.4) X10*3/uL Baso # (Auto) (0.0-0.2) X10*3/uL Abs Immat Gran (auto) (0.00-0.03) X10*3/uL Absolute Neuts (auto) (2.0-8.3) x10*3/uL Absolute Nucleated RBC (0.0-0.012) X10*3/uL Nucleated RBC % (auto) (0.0-0.2) /100WBC PT (9.9-13.0) SEC INR (0.9-1.1) APTT (24.1-38.0) SEC Sodium (135-145) mmol/L Potassium (3.3-5.1) mmol/L Chloride (96-108) mmol/L Carbon Dioxide (22-29) mmol/L Anion Gap (12-20) BUN (9-16) mg/dL Creatinine (0.5-1.4) mg/dL Estim Creat Clear Calc Estimated GFR Random Glucose (60-115) mg/dL Lactic Acid 1.1 (0.5-2.0) mmol/L Calcium (8.4-10.2) mg/dL Magnesium (1.6-2.6) mg/dL Total Bilirubin (0.0-1.0) mg/dL Direct Bilirubin (0.0-0.5) mg/dL AST (5-31) U/L ALT (0-31) U/L Alkaline Phosphatase (39-117) U/L Troponin I High Sens 5.4 (<3.5-17.0) ng/L Total Protein (6.5-8.0) g/dL Albumin (3.5-5.0) g/dL Urine Color Urine Appearance Urine pH (5.0-8.0) Ur Specific [place] (1.005-1.025) Urine Protein (NEG-TRACE) MG/DL Urine Glucose (UA) (NEG) MG/DL Urine Ketones (NEG) MG/DL Urine Blood (NEG) Urine Nitrite (NEG) Ur Leukocyte Esterase (NEG) Urine RBC (0) /HPF Urine WBC (0-4) /HPF Ur Squamous Epith Cells /LPF Urine Bacteria /LPF COVID-19 (ROSITA) Negative (Negative) COVID-19 Clin Com See Note 12/15/21 Range/Units 19:52 WBC (4.8-10.8) X10*3/uL RBC (4.20-5.50) X10*6/uL Hgb (12.0-16.0) g/dl Hct (37.0-47.0) % MCV (80.0-98.0) fL MCH (27.0-33.0) pg MCHC (31.0-35.0) g/dl RDW (11.0-16.0) % Plt Count (160-400) X10*3/uL MPV (9.4-12.3) fL Immature Gran % (Auto) (0.0-0.4) % Neut % (Auto) (45-73) % Lymph % (Auto) (20-40) % Vance % (Auto) (2-11) % Eos % (Auto) (0-4) % Baso % (Auto) (0-2) % Lymph # (Auto) (1.2-4.9) X10*3/uL [place]ance # (Auto) (0.1-1.2) X10*3/uL Eos # (Auto) (0.0-0.4) X10*3/uL Baso # (Auto) (0.0-0.2) X10*3/uL Abs Immat Gran (auto) (0.00-0.03) X10*3/uL Absolute Neuts (auto) (2.0-8.3) x10*3/uL Absolute Nucleated RBC (0.0-0.012) X10*3/uL Nucleated RBC % (auto) (0.0-0.2) /100WBC PT (9.9-13.0) SEC INR (0.9-1.1) APTT (24.1-38.0) SEC Sodium (135-145) mmol/L Potassium (3.3-5.1) mmol/L Chloride (96-108) mmol/L Carbon Dioxide (22-29) mmol/L Anion Gap (12-20) BUN (9-16) mg/dL Creatinine (0.5-1.4) mg/dL Estim Creat Clear Calc Estimated GFR Random Glucose (60-115) mg/dL Lactic Acid (0.5-2.0) mmol/L Calcium (8.4-10.2) mg/dL Magnesium (1.6-2.6) mg/dL Total Bilirubin (0.0-1.0) mg/dL Direct Bilirubin (0.0-0.5) mg/dL AST (5-31) U/L ALT (0-31) U/L Alkaline Phosphatase (39-117) U/L Troponin I High Sens (<3.5-17.0) ng/L Total Protein (6.5-8.0) g/dL Albumin (3.5-5.0) g/dL Urine Color YELLOW Urine Appearance HAZY Urine pH 5.5 (5.0-8.0) Ur Specific [place] >= 1.030 H (1.005-1.025) Urine Protein NEG (NEG-TRACE) MG/DL Urine Glucose (UA) NEG (NEG) MG/DL Urine Ketones 5 (NEG) MG/DL Urine Blood TRACE (NEG) Urine Nitrite POS H (NEG) Ur Leukocyte Esterase 2+ H (NEG) Urine RBC 0-2 (0) /HPF Urine WBC 15-29 H (0-4) /HPF Ur Squamous Epith Cells 1+ /LPF Urine Bacteria 4+ /LPF COVID-19 ([facility]ITA) (Negative) COVID-19 Clin Com ECG Data Attestation: I personally reviewed and interpreted this ECG as follows: ECG interpretation date: 12/15/21 ECG interpretation time: 04:14 Prior ECG tracings: available for review Interpretation: AFib with RVR at a rate of 144. ST depression in inferior leads. T-wave inversion in inferior and lateral leads. QTC 445. No STEMI. Changed from prior Discharge Plan Discharge Clinical Impression: AMS (altered mental status), Atrial fibrillation, new onset, Closed fracture of T11 vertebra, Hematoma, Acute UTI Patient Disposition: Admitted As Inpatient Prescriptions: No Action pravastatin 20 mg tablet 1 tab PO BEDTIME 0RF hydrochlorothiazide 12.5 mg tablet 1 tab PO DAILY 0RF coenzyme Q10 [CoQ-10] 100 mg Capsule 100 mg PO DAILY 0RF calcium citrate-vitamin D3 [Citracal + D Maximum] 315 mg-6.25 mcg (250 unit) Tablet 1 tab PO DAILY 0RF
[2021-12-15] MEDS: dilTIAZem HCL 50 MG/10 ML VIAL 16.25 MG IVPUSH (17:43)
[2021-12-15 18:01] LABS: MANUAL DIFF FLAG NO
[2021-12-15 18:03] LABS: Basophils Percent Auto 0.2 % (0-2); Hematocrit 35.3 % (37.0-47.0); Imm Gran Abs Auto 0.13 X10*3/uL (0.00-0.03); Imm Gran Pct Auto 0.8 % (0.0-0.4); Lymphocytes Absolute Auto 0.7 X10*3/uL (1.2-4.9); Lymphocytes Percent Auto 4.5 % (20-40); Mean Corpuscular Hemoglobin 33.5 pg (27.0-33.0); Mean Corpuscular Volume 98.6 fL (80.0-98.0); Mean Platelet Volume 10.1 fL (9.4-12.3); Monocytes Absolute Auto 1.3 X10*3/uL (0.1-1.2); Monocytes Percent Auto 7.8 % (2-11); Neutrophils Absolute Auto 14.3 x10*3/uL (2.0-8.3); Neutrophils Percent Auto 86.7 % (45-73); Platelet Count 252 X10*3/uL (160-400); Red Blood Count 3.58 X10*6/uL (4.20-5.50); Red Cell Distribution Width 12.8 % (11.0-16.0); White Blood Count 16.5 X10*3/uL (4.8-10.8)
[2021-12-15 18:08] LABS: INTERNATIONAL NORM RATIO 1.1 (0.9-1.1)
[2021-12-15 18:10] LABS: Partial Thromboplastin Time 34.2 SEC (24.1-38.0)
[2021-12-15 18:18] LABS: Alanine Aminotransferase 18 U/L (0-31); Albumin Level 3.9 g/dL (3.5-5.0); Alkaline Phosphatase 56 U/L (39-117); Anion Gap 13 (12-20); Aspartate Amino Transferase 26 U/L (5-31); Bilirubin Direct 0.3 mg/dL (0.0-0.5); Bilirubin Total 0.7 mg/dL (0.0-1.0); Blood Urea Nitrogen 36 mg/dL (9-16); Calcium 9.8 mg/dL (8.4-10.2); Carbon Dioxide 25 mmol/L (22-29); Chloride 105 mmol/L (96-108); Creatinine Clr Calc Pharmacy 47.5; Estimated Glomerular Filt Rate 54; Glucose Random 127 mg/dL (60-115); Magnesium 1.9 mg/dL (1.6-2.6); Potassium 3.4 mmol/L (3.3-5.1); Sodium 140 mmol/L (135-145); Total Protein 6.5 g/dL (6.5-8.0)
[2021-12-15 18:21] LABS: COVID-19 Test Negative (Negative); IDNOW Serial# 55D5AD1C; Troponin-I High Sensitivity 5.4 ng/L (<3.5-17.0)
[2021-12-15 18:45] LABS: Lactic Acid 1.1 mmol/L (0.5-2.0)
[2021-12-15 18:58] VITALS: BP 117/77; PULSE 107; RESP 16; TEMP 36.8; O2SAT 98
[2021-12-15] MEDS: 0.9 % Sodium Chloride 1,000 ML 999 ML IV (19:15)
[2021-12-15 19:57] LABS: Appearance Urine HAZY; Color Urine YELLOW; Glucose Urine UA NEG (NEG); Leukocyte Esterase Urine 2+ (NEG); Nitrite Urine POS (NEG); PH 5.5 (5.0-8.0); Specific Gravity - Urine >= 1.030 (1.005-1.025); UACC Culture Trigger YES; Urine Blood TRACE (NEG); Urine Ketones 5 MG/DL (NEG); Urine Protein NEG (NEG-TRACE)
--- NOTE | 2021-12-15 20:01 | PHA.MEDREC ---
Pharmacy Consult ? Medication Reconciliation Pharmacy has completed the medication reconciliation.
[2021-12-15 20:02] LABS: Bacteria Urine 4+ /LPF
[2021-12-15 20:03] LABS: RBC Urine 0-2 /HPF (0); Squamous Epithelial Cell Urine 1+ /LPF
[2021-12-15] MEDS: cefTRIAXone sodium 1 GM in 0.9 % Sodium Chloride 50 ML IV (21:09)
--- NOTE | 2021-12-15 21:11 | P.HPHOSP_ITS ---
History of Present Illness Date of Service: 12/15/21 Chief Complaint: Fall [age]-year-old female with a past medical history of hypertension, hyperlipidemia, anxiety presented to the hospital with a chief complaint of fall. Patient is alert and awake, confused. Unable to provide history. Most of the history obtained from the records, ER staff, patient's son Arthur Reportedly patient probably had a fall at home-patient was wearing socks probably slipped and fell over, followed by she had head strike and son noticed that she has bleeding scalp; ; sent her to the ER for further evaluation. Denies patient complaining of any chest pain palpitations lightheadedness or dizziness present, denies patient having any signs of infection over the past 2 days like fever chills cough or urinary complaints. patient has been eating and drinking okayPer family. Reports that she has been having some speech issues or ER and has been Worked up as outpatient. review of all other systems is negative except mentioned above ER course: Per ER team patient at was confused, oriented to self, noted to have new onset AFib with rapid ventricular response with heart rate in 140s; given IV diltiazem IV push with improvement in heart rate to low 100s. On the CT scan noted to have scalp hematoma, no acute intracranial process CT of the cervical spine showed no acute findings CT of the chest showed no acute pulmonary findings but noted to have T11 compression fracture - no retropulsion; patient was neurologically intact no. Patient also noted to have UTI and given antibiotics. Admitted for further management. [facility] Medical History No known health problems Pertinent family history: Patient unable to provide information Social History Alcohol intake: never Patient Tobacco Use Status: Former Tobacco user Advance Directives: No Advance Directives Information Provided: No Current occupational status: retired Current occupation: rt hand Meds Allergies Allergy/AdvReac Type Severity Reaction Status Date / Time codeine Allergy Unknown Verified 06/24/21 09:47 Active Medications: Current Medications Pharmacy Consult (Consult Rx Perform Med Rec) 1 each MISCELLANE ONCE PRN PRN Reason: Consult order Home Medications Medication Instructions Recorded Confirmed Last Taken Type calcium citrate 1 tab PO DAILY 12/15/21 12/15/21 12/15/21 History 315 mg calcium-vitamin D3 6.25 mcg (250 unit) tablet (Citracal + Vitamin D Maximum) coenzyme Q10 100 100 mg PO DAILY 12/15/21 12/15/21 12/15/21 History mg capsule (CoQ-10) hydrochlorothiazi 1 tab PO DAILY 12/15/21 12/15/21 12/15/21 History de 12.5 mg tablet pravastatin 20 mg 1 tab PO BEDTIME 12/15/21 12/15/21 12/14/21 History tablet Physical Exam Verdana 4l Vital Signs and Narrative: Verdana 4d Verdana 4d Vital Signs: Verdana 4d Verdana 4Bd Last Vital Signs Verdana 4d Ammonia Refrigeration Technician New 4d Ammonia Refrigeration Technician New 4d Temp 98.3 F 12/15/21 18:58 Ammonia Refrigeration Technician New 4d Pulse 107 H 12/15/21 18:58 Ammonia Refrigeration Technician New 4d Resp 16 12/15/21 18:58 BP 117/77 12/15/21 18:58 Pulse Ox 98 12/15/21 18:58 BMI result Body Mass Index 22.0 Gen: Appears be in no acute distress HEENT: NCAT, Moist mucosa. Pulmonary: Vesicular breath sounds, fair air entry CVS: Normal S1-S2 Abdomen: BS+, Soft, Nontender Extremities: Warm well perfused Neuro: Alert and awake. Results Labs CBC and Chem 7: 12/15/21 17:55 12/15/21 17:55 Labs: Laboratory Results - last 24 hr 12/15/21 12/15/21 12/15/21 17:55 17:55 17:55 MCV 98.6 H MCH 33.5 H MCHC 34.0 RDW 12.8 Plt Count 252 MPV 10.1 Immature Gran % (Auto) 0.8 H Neut % (Auto) 86.7 H Lymph % (Auto) 4.5 L [place] % (Auto) 7.8 Eos % (Auto) 0.0 Baso % (Auto) 0.2 Lymph # (Auto) 0.7 L [place] # (Auto) 1.3 H Eos # (Auto) 0.0 Baso # (Auto) 0.0 Abs Immat Gran (auto) 0.13 H Absolute Neuts (auto) 14.3 H Absolute Nucleated RBC 0.000 Nucleated RBC % (auto) 0.0 PT 13.0 INR 1.1 APTT 34.2 Anion Gap 13 Estim Creat Clear Calc 47.5 Estimated GFR 54 Random Glucose 127 H Lactic Acid Calcium 9.8 Magnesium 1.9 Total Bilirubin 0.7 Direct Bilirubin 0.3 AST 26 D ALT 18 Alkaline Phosphatase 56 Troponin I High Sens Total Protein 6.5 Albumin 3.9 Urine Color Urine Appearance Urine pH Ur Specific [place] Urine Protein Urine Glucose (UA) Urine Ketones Urine Blood Urine Nitrite Ur Leukocyte Esterase Urine RBC Urine WBC Ur Squamous Epith Cells Urine Bacteria COVID-19 ([facility]) COVID-19 Clin Com 12/15/21 12/15/21 12/15/21 17:55 17:55 18:26 MCV MCH MCHC RDW Plt Count MPV Immature Gran % (Auto) Neut % (Auto) Lymph % (Auto) [place] % (Auto) Eos % (Auto) Baso % (Auto) Lymph # (Auto) [place] # (Auto) Eos # (Auto) Baso # (Auto) Abs Immat Gran (auto) Absolute Neuts (auto) Absolute Nucleated RBC Nucleated RBC % (auto) PT INR APTT Anion Gap Estim Creat Clear Calc Estimated GFR Random Glucose Lactic Acid 1.1 Calcium Magnesium Total Bilirubin Direct Bilirubin AST ALT Alkaline Phosphatase Troponin I High Sens 5.4 Total Protein Albumin Urine Color Urine Appearance Urine pH Ur Specific [place] Urine Protein Urine Glucose (UA) Urine Ketones Urine Blood Urine Nitrite Ur Leukocyte Esterase Urine RBC Urine WBC Ur Squamous Epith Cells Urine Bacteria COVID-19 ([facility]) Negative COVID-19 Clin Com See Note 12/15/21 19:52 MCV MCH MCHC RDW Plt Count MPV Immature Gran % (Auto) Neut % (Auto) Lymph % (Auto) [place] % (Auto) Eos % (Auto) Baso % (Auto) Lymph # (Auto) [place] # (Auto) Eos # (Auto) Baso # (Auto) Abs Immat Gran (auto) Absolute Neuts (auto) Absolute Nucleated RBC Nucleated RBC % (auto) PT INR APTT Anion Gap Estim Creat Clear Calc Estimated GFR Random Glucose Lactic Acid Calcium Magnesium Total Bilirubin Direct Bilirubin AST ALT Alkaline Phosphatase Troponin I High Sens Total Protein Albumin Urine Color YELLOW Urine Appearance HAZY Urine pH 5.5 Ur Specific [place] >= 1.030 H Urine Protein NEG Urine Glucose (UA) NEG Urine Ketones 5 Urine Blood TRACE Urine Nitrite POS H Ur Leukocyte Esterase 2+ H Urine RBC 0-2 Urine WBC 15-29 H Ur Squamous Epith Cells 1+ Urine Bacteria 4+ COVID-19 ([facility]) COVID-19 Clin Com Imaging Radiologist's Impressions: Impressions Cervical Spine CT 12/15/21 17:00 IMPRESSION: No acute cervical fractures or malalignment. Moderate multilevel cervical spondylosis. Chest CT 12/15/21 17:00 IMPRESSION: 1. Acute fracture of T11 vertebrae with approximately 30% loss of height of the vertebral body. No retropulsed fracture fragments. 2. No acute change of lungs or mediastinum. Fleischner guidelines were followed. Head CT 12/15/21 17:00 IMPRESSION: Right occipital scalp hematoma/contusion without evidence of acute intracranial hemorrhage or edematous territorial infarction. Paranasal sinus disease. Assessment and Plan (1) AMS (altered mental status): Status: Acute (2) Atrial fibrillation, new onset: Status: Acute (3) Closed fracture of T11 vertebra: Status: Acute (4) Hematoma: Status: Acute (5) Acute UTI: Status: Acute Plan 76-year-old female with a past medical history of hypertension, hyperlipidemia, anxiety presented to the hospital with a chief complaint of fall. Noted to be in confusion likely secondary to UTI. Also found to have new onset AFib with rapid ventricular response. Admitted to the hospital for further management Altered mental status: toxic metabolic encephalopathy Patient is currently Oriented to self. Exam grossly nonfocal. CT head showed no acute intracranial process. supportive care Will also obtain folate and B12 Fall: Mechanical in nature. Patient had head strike-resulting scalp hematoma. CT cervical spine showed no acute findings T 11 compression fracture: Patient currently grossly nonfocal. Supportive care. scalp hematoma: Secondary to fall and head strike. Stable H& H. Will continue to monitor. Hypertension: Hold home hydrochlorothiazide for now New onset AFib with rapid ventricular response: Patient heart rate was initially in 140s. Improved after diltiazem IV push in t he ER. Will keep the patient on diltiazem 15 mg q.i.d. echocardiogram. Cardiology consult for further inputs. Monitor on telemetry troponins negative TSH within normal limits UTI: Continue ceftriaxone. Follow up cultures. DVT prophylaxis: SCD boots. No pharmacologic Agent for now given scalp bleeding. code status: Full code. Spoke to the patient's son Arthur phone number [phone] Quality Stroke Does the patient have a stroke diagnosis?: No VTE Prior VTE?: No VTE Risk Level:: Medical - moderate - high VTE Device Contraindication: N/A - Device Ordered VTE Drug Contraindication: Treatment Not Indicated
[2021-12-15 21:15] LABS: Troponin-I High Sensitivity 6.5 ng/L (<3.5-17.0)
[2021-12-15 21:52] LABS: Thyroid Stimulating Hormone 0.88 uIU/mL (0.32-4.0)
[2021-12-15 22:15] LABS: Folate 14.5 ng/mL (> or = 4.0); Vitamin B12 548 pg/mL (200-900)
--- NOTE | 2021-12-15 22:37 | PC.NURSE ---
I assumed care of this pt at 1900. Since that time the pt has been oriented to self, not to place or time. She has c/o 5/10 mid-back pain (presumably at site of T fracture). Pt has ambulated to and from the bathroom independently and with steady gait. There are no noticeable neuro deficits. Afib on bedside monitor, rate 90's-low 100's. pt to ED overflow, nursing report to SENTHIL Paula.
[2021-12-15 22:40] VITALS: BP 140/73; PULSE 117; RESP 20; O2SAT 100
[2021-12-16 06:07] VITALS: BP 132/75; PULSE 139; RESP 24; TEMP 36.7; O2SAT 93
[2021-12-16 07:07] LABS: MANUAL DIFF FLAG NO
[2021-12-16 07:14] LABS: Basophils Percent Auto 0.2 % (0-2); Eosinophils Absolute Auto 0.1 X10*3/uL (0.0-0.4); Eosinophils Percent Auto 0.7 % (0-4); Hematocrit 32.4 % (37.0-47.0); Hemoglobin 10.9 g/dl (12.0-16.0); Imm Gran Abs Auto 0.04 X10*3/uL (0.00-0.03); Imm Gran Pct Auto 0.4 % (0.0-0.4); Lymphocytes Percent Auto 11.3 % (20-40); Mean Corpuscular HGB Conc 33.6 g/dl (31.0-35.0); Mean Corpuscular Hemoglobin 33.3 pg (27.0-33.0); Mean Corpuscular Volume 99.1 fL (80.0-98.0); Mean Platelet Volume 10.2 fL (9.4-12.3); Monocytes Absolute Auto 0.9 X10*3/uL (0.1-1.2); Monocytes Percent Auto 9.4 % (2-11); Neutrophils Absolute Auto 7.2 x10*3/uL (2.0-8.3); Platelet Count 239 X10*3/uL (160-400); Red Blood Count 3.27 X10*6/uL (4.20-5.50); White Blood Count 9.2 X10*3/uL (4.8-10.8)
[2021-12-16 07:31] LABS: Anion Gap 11 (12-20); Blood Urea Nitrogen 25 mg/dL (9-16); Carbon Dioxide 27 mmol/L (22-29); Chloride 106 mmol/L (96-108); Creatinine Clr Calc Pharmacy 56.5; Estimated Glomerular Filt Rate > 60; Glucose Random 98 mg/dL (60-115); Potassium 3.2 mmol/L (3.3-5.1); Sodium 141 mmol/L (135-145)
[2021-12-16] MEDS: dilTIAZem HCL 30 MG TABLET PO ×4 (08:43→20:59)
[2021-12-16] MEDS: 0.9 % Sodium Chloride Flush 3 ML SYRINGE IVFLUSH (08:43)
[2021-12-16 08:44] VITALS: BP 110/60; PULSE 126; RESP 14; O2SAT 99
--- NOTE | 2021-12-16 09:22 | PC.NURSE ---
Pt Alert, oriented to person and place only at this time. OOB to commode with standby assist. HR Afib between 110-120's but into the 160's with movement to the commode. Cardiology at bedside, aware of PO dose of Cardizem. Awaiting further orders at this time. Will continue to monitor.
--- NOTE | 2021-12-16 09:37 | P.CONCA_ITS ---
History of Present Illness History of Present Illness Date of Service: 12/16/21 Chief complaint: Ams Narrative: This is a cardiology consultation regarding atrial fibrillation. Background of hypertension, hyperlipidemia anxiety. It seems that she was admitted mainly for a fall. She has been found to have a UTI. In this context, also found to have atrial fibrillation with rapid rate and hence we have been asked to see her. To the extent patient can not answer questions, she is denying any symptoms like chest pain or shortness of breath or palpitations. Also denies any previous cardiac issues. Review of Systems Verdana 4l Review of Systems: Verdana 4d Yes all other systems are reviewed and are negative Verdana 4l Cardiovascular: Verdana 4d Verdana 4d Cardiovascular: Verdana 4d Reports as per HPI, Reports no additional cardiovascular complaints, Denies acrocyanosis, Denies cool extremities, Denies painful fingertips, Denies chest pain, Denies chest pain at rest, Denies diaphoresis, DeniesDenies syncope, Denies irregular heart rhythm, Denies claudication, Denies leg edema, Denies lightheadedness, Denies palp itations and Denies dyspnea Respiratory: Respiratory: Denies dyspnea Neurologic: Denies syncope Endocrine: Endocrine: Denies palpitations PMF Past Medical History Medical History No known health problems Family History Pertinent family history: Patient denies any significant family history. Social History Social History Alcohol intake: never Patient Tobacco Use Status: Former Tobacco user Advance Directives: No Advance Directives Information Provided: No Current occupational status: retired Current occupation: rt hand Meds Allergies Allergy/AdvReac Type Severity Reaction Status Date / Time codeine Allergy Unknown Verified 06/24/21 09:47 Active Medications: Current Medications Acetaminophen (Acetaminophen 325 Mg Tablet) 650 mg PO Q6H PRN PRN Reason: Pain, Mild (Pain Scale 1-3) Diltiazem HCl (Diltiazem Hcl 50 Mg/10 Ml Vial) 10 mg IVPUSH Q4H PRN PRN Reason: HR>125 Diltiazem HCl (Diltiazem Hcl 30 Mg Tablet) 30 mg PO QID [facility]; Protocol Last Admin: 12/16/21 08:43 Dose: 30 mg Documented by: Ceftriaxone Sodium 1 gm/ (Sodium Chloride) 50 mls @ 100 mls/hr IV Q24H JOHN Melatonin (Melatonin 3 Mg Tablet) 6 mg PO BEDTIME PRN PRN Reason: Insomnia Pharmacy Consult (Consult Rx Perform Med Rec) 1 each MISCELLANE ONCE PRN PRN Reason: Consult order Pravastatin Sodium (Pravastatin Sodium 20 Mg Tablet) 20 mg PO BEDTIME JOHN Senna (Sennosides 8.6 Mg Tablet) 17.2 mg PO BEDTIME PRN PRN Reason: Constipation Sodium Chloride (0.9 % Sodium Chloride Flush 3 Ml Syringe) 3 ml IVFLUSH QSHIFT JOHN Last Admin: 12/16/21 08:43 Dose: 3 ml Documented by: Home Medications Medication Instructions Recorded Confirmed Last Taken Type calcium citrate 1 tab PO DAILY 12/15/21 12/15/21 12/15/21 History 315 mg calcium-vitamin D3 6.25 mcg (250 unit) tablet (Citracal + Vitamin D Maximum) coenzyme Q10 100 100 mg PO DAILY 12/15/21 12/15/21 12/15/21 History mg capsule (CoQ-10) hydrochlorothiazi 1 tab PO DAILY 12/15/21 12/15/21 12/15/21 History de 12.5 mg tablet pravastatin 20 mg 1 tab PO BEDTIME 12/15/21 12/15/21 12/14/21 History tablet Physical Exam Verdana 4l Vital Signs: Verdana 4d Verdana 4d Vital Signs: Verdana 4d Verdana 4Bd Last Vital Signs Verdana 4d Set Illustrator New 4d Set Illustrator New 4d Temp 98.1 F 12/16/21 06:07 Set Illustrator New 4d Pulse 126 H 12/16/21 08:44 Set Illustrator New 4d Resp 14 12/16/21 08:44 BP 110/60 12/16/21 08:44 Pulse Ox 99 12/16/21 08:44 BMI result Body Mass Index 22.0 Const: General: no acute distress HENMT: Other: Unremarkable Neck: Neck: Yes normal visual inspection Chest: Chest palpation & inspection: normal inspection of the chest Resp: Other: few basal crackles Cardio: Palpation: normal PMI Heart sounds: S1 normal heart sound present, S2 normal heart sound present, no gallops, no murmurs and no rubs GI: Palpation (GI): Soft to palpation Back/Spine/Pelvis: Other: unremarkable Skin: Lesions: other Neuro: Cranial nerves: Yes Other cranial nerve findings present Extrem: General: Yes other Psych: Mental Status: other Objective Labs and Meds Result diagrams: 12/16/21 06:46 12/16/21 06:46 Lab results: Laboratory Results - last 24 hr 12/15/21 12/15/21 12/15/21 17:55 17:55 17:55 WBC 16.5 H RBC 3.58 L Hgb 12.0 Hct 35.3 L MCV 98.6 H MCH 33.5 H MCHC 34.0 RDW 12.8 Plt Count 252 MPV 10.1 Immature Gran % (Auto) 0.8 H Neut % (Auto) 86.7 H Lymph % (Auto) 4.5 L [place] % (Auto) 7.8 Eos % (Auto) 0.0 Baso % (Auto) 0.2 Lymph # (Auto) 0.7 L [place] # (Auto) 1.3 H Eos # (Auto) 0.0 Baso # (Auto) 0.0 Abs Immat Gran (auto) 0.13 H Absolute Neuts (auto) 14.3 H Absolute Nucleated RBC 0.000 Nucleated RBC % (auto) 0.0 PT 13.0 INR 1.1 APTT 34.2 Sodium 140 Potassium 3.4 Chloride 105 Carbon Dioxide 25 Anion Gap 13 BUN 36 H Creatinine 1.00 Estim Creat Clear Calc 47.5 Estimated GFR 54 Random Glucose 127 H Lactic Acid Calcium 9.8 Magnesium 1.9 Total Bilirubin 0.7 Direct Bilirubin 0.3 AST 26 D ALT 18 Alkaline Phosphatase 56 Troponin I High Sens Total Protein 6.5 Albumin 3.9 Vitamin B12 Folate TSH 0.88 Urine Color Urine Appearance Urine pH Ur Specific [place] Urine Protein Urine Glucose (UA) Urine Ketones Urine Blood Urine Nitrite Ur Leukocyte Esterase Urine RBC Urine WBC Ur Squamous Epith Cells Urine Bacteria COVID-19 ([facility]) COVID-19 Clin Com 12/15/21 12/15/21 12/15/21 17:55 17:55 17:55 WBC RBC Hgb Hct MCV MCH MCHC RDW Plt Count MPV Immature Gran % (Auto) Neut % (Auto) Lymph % (Auto) [place] % (Auto) Eos % (Auto) Baso % (Auto) Lymph # (Auto) [place] # (Auto) Eos # (Auto) Baso # (Auto) Abs Immat Gran (auto) Absolute Neuts (auto) Absolute Nucleated RBC Nucleated RBC % (auto) PT INR APTT Sodium Potassium Chloride Carbon Dioxide Anion Gap BUN Creatinine Estim Creat Clear Calc Estimated GFR Random Glucose Lactic Acid Calcium Magnesium Total Bilirubin Direct Bilirubin AST ALT Alkaline Phosphatase Troponin I High Sens 5.4 Total Protein Albumin Vitamin B12 548 Folate 14.5 TSH Urine Color Urine Appearance Urine pH Ur Specific [place] Urine Protein Urine Glucose (UA) Urine Ketones Urine Blood Urine Nitrite Ur Leukocyte Esterase Urine RBC Urine WBC Ur Squamous Epith Cells Urine Bacteria COVID-19 ([facility]) Negative COVID-19 Clin Com See Note 12/15/21 12/15/21 12/15/21 18:26 19:52 20:48 WBC RBC Hgb Hct MCV MCH MCHC RDW Plt Count MPV Immature Gran % (Auto) Neut % (Auto) Lymph % (Auto) [place] % (Auto) Eos % (Auto) Baso % (Auto) Lymph # (Auto) [place] # (Auto) Eos # (Auto) Baso # (Auto) Abs Immat Gran (auto) Absolute Neuts (auto) Absolute Nucleated RBC Nucleated RBC % (auto) PT INR APTT Sodium Potassium Chloride Carbon Dioxide Anion Gap BUN Creatinine Estim Creat Clear Calc Estimated GFR Random Glucose Lactic Acid 1.1 Calcium Magnesium Total Bilirubin Direct Bilirubin AST ALT Alkaline Phosphatase Troponin I High Sens 6.5 Total Protein Albumin Vitamin B12 Folate TSH Urine Color YELLOW Urine Appearance HAZY Urine pH 5.5 Ur Specific [place] >= 1.030 H Urine Protein NEG Urine Glucose (UA) NEG Urine Ketones 5 Urine Blood TRACE Urine Nitrite POS H Ur Leukocyte Esterase 2+ H Urine RBC 0-2 Urine WBC 15-29 H Ur Squamous Epith Cells 1+ Urine Bacteria 4+ COVID-19 ([facility]) COVID-19 Clin Com 12/16/21 12/16/21 06:46 06:46 WBC 9.2 RBC 3.27 L Hgb 10.9 L Hct 32.4 L MCV 99.1 H MCH 33.3 H MCHC 33.6 RDW 13.0 Plt Count 239 MPV 10.2 Immature Gran % (Auto) 0.4 Neut % (Auto) 78.0 H Lymph % (Auto) 11.3 L [place] % (Auto) 9.4 Eos % (Auto) 0.7 Baso % (Auto) 0.2 Lymph # (Auto) 1.0 L [place] # (Auto) 0.9 Eos # (Auto) 0.1 Baso # (Auto) 0.0 Abs Immat Gran (auto) 0.04 H Absolute Neuts (auto) 7.2 Absolute Nucleated RBC 0.000 Nucleated RBC % (auto) 0.0 PT INR APTT Sodium 141 Potassium 3.2 L Chloride 106 Carbon Dioxide 27 Anion Gap 11 L BUN 25 H Creatinine 0.84 Estim Creat Clear Calc 56.5 Estimated GFR > 60 Random Glucose 98 Lactic Acid Calcium 9.0 D Magnesium Total Bilirubin Direct Bilirubin AST ALT Alkaline Phosphatase Troponin I High Sens Total Protein Albumin Vitamin B12 Folate TSH Urine Color Urine Appearance Urine pH Ur Specific [place] Urine Protein Urine Glucose (UA) Urine Ketones Urine Blood Urine Nitrite Ur Leukocyte Esterase Urine RBC Urine WBC Ur Squamous Epith Cells Urine Bacteria COVID-19 ([facility]) COVID-19 Clin Com ECG Interpretation: EKG with atrial fibrillation at a rate of 144/Min with inferior and sarah- lateral T inversions. Imaging Radiologist's impression: Impressions Cervical Spine CT 12/15/21 17:00 IMPRESSION: No acute cervical fractures or malalignment. Moderate multilevel cervical spondylosis. Chest CT 12/15/21 17:00 IMPRESSION: 1. Acute fracture of T11 vertebrae with approximately 30% loss of height of the vertebral body. No retropulsed fracture fragments. 2. No acute change of lungs or mediastinum. Fleischner guidelines were followed. Head CT 12/15/21 17:00 IMPRESSION: Right occipital scalp hematoma/contusion without evidence of acute intracranial hemorrhage or edematous territorial infarction. Paranasal sinus disease. Assessment and Plan (1) Atrial fibrillation with rapid ventricular response: Status: Acute (2) AMS (altered mental status): Status: Acute Plan Her rate is still quite fast. Currently under tired and 30 mg q.i.d.. We can add digoxin to the regimen. Need to correct potassium. If no medical contraindications, then can start Eliquis 5 mg b.i.d.. Will follow up with you. Procedures Date of Service Date of Service: 12/16/21
[2021-12-16] MEDS: Potassium Chloride ER 20 MEQ TAB.ER.PRT 40 MEQ PO (13:20)
[2021-12-16] MEDS: Digoxin 0.25 MG TABLET PO ×2 (13:21→17:06)
[2021-12-16] MEDS: Potassium Chloride/H20 10 MEQ/100 ML PIGGYBACK 100 MEQ IV ×2 (13:21→14:35)
--- NOTE | 2021-12-16 14:47 | P.PNIM_ITS ---
Subjective Subjective Date of Service: 12/16/21 Interval History: the patient was seen and evaluated this morning Laying in bed, feels better since coming in Heart rate better controlled but still running fast Denies any fever, chills or shortness of breath No reported other overnight events. Systemic review: No fever, chills or weakness No chest pain, denies feeling any palpitation No shortness of breath or coughing No abdominal pain, nausea or vomiting No urinary symptoms No any rash or wounds Physical Exam Verdana 4l Vital Signs: Verdana 4d Verdana 4d Vital Signs: Verdana 4d Verdana 4Bd Last Vital Signs Verdana 4d Rock Crusher New 4d Rock Crusher New 4d Temp 98.1 F 12/16/21 06:07 Rock Crusher New 4d Pulse 126 H 12/16/21 08:44 Rock Crusher New 4d Resp 14 12/16/21 08:44 BP 110/60 12/16/21 08:44 Pulse Ox 99 12/16/21 08:44 BMI result Body Mass Index 22.0 Const: Other: Constitutional : Alert, oriented, not in distress Neck : Normal inspection, Supple Cardiovascular : Irregularly irregular, tachycardia no lower extremity edema Respiratory : Good bilateral air entry, no crackles, wheezes or rhonchi Gastrointestinal: soft, lax, Normal bowel sounds, Non tender Skin : Warm, Dry Neurological : Alert & oriented x3, No focal deficit Objective Data Active Medications Acetaminophen (Acetaminophen 325 Mg Tablet) 650 mg PO Q6H PRN PRN Reason: Pain, Mild (Pain Scale 1-3) Digoxin (Digoxin 0.25 Mg Tablet) 0.25 mg PO Q6H [facility] Stop: 12/16/21 17:01 Last Admin: 12/16/21 13:21 Dose: 0.25 mg Documented by: GEORGE Diltiazem HCl (Diltiazem Hcl 50 Mg/10 Ml Vial) 10 mg IVPUSH Q4H PRN PRN Reason: HR>125 Diltiazem HCl (Diltiazem Hcl 30 Mg Tablet) 30 mg PO QID [facility]; Protocol Last Admin: 12/16/21 13:20 Dose: 30 mg Documented by: GEORGE Ceftriaxone Sodium 1 gm/ (Sodium Chloride) 50 mls @ 100 mls/hr IV Q24H [facility] Melatonin (Melatonin 3 Mg Tablet) 6 mg PO BEDTIME PRN PRN Reason: Insomnia Pharmacy Consult (Consult Rx Perform Med Rec) 1 each MISCELLANE ONCE PRN PRN Reason: Consult order Pravastatin Sodium (Pravastatin Sodium 20 Mg Tablet) 20 mg PO BEDTIME JOHN Senna (Sennosides 8.6 Mg Tablet) 17.2 mg PO BEDTIME PRN PRN Reason: Constipation Sodium Chloride (0.9 % Sodium Chloride Flush 3 Ml Syringe) 3 ml IVFLUSH QSHIFT JOHN Last Admin: 12/16/21 08:43 Dose: 3 ml Documented by: GEORGE Labs CBC & Chem 7: 12/16/21 06:46 12/16/21 06:46 Labs: Laboratory Results - last 24 hr 12/15/21 12/15/21 12/15/21 17:55 17:55 17:55 MCV 98.6 H MCH 33.5 H MCHC 34.0 RDW 12.8 Plt Count 252 MPV 10.1 Immature Gran % (Auto) 0.8 H Neut % (Auto) 86.7 H Lymph % (Auto) 4.5 L [place] % (Auto) 7.8 Eos % (Auto) 0.0 Baso % (Auto) 0.2 Lymph # (Auto) 0.7 L [place] # (Auto) 1.3 H Eos # (Auto) 0.0 Baso # (Auto) 0.0 Abs Immat Gran (auto) 0.13 H Absolute Neuts (auto) 14.3 H Absolute Nucleated RBC 0.000 Nucleated RBC % (auto) 0.0 PT 13.0 INR 1.1 APTT 34.2 Anion Gap 13 Estim Creat Clear Calc 47.5 Estimated GFR 54 Random Glucose 127 H Lactic Acid Calcium 9.8 Magnesium 1.9 Total Bilirubin 0.7 Direct Bilirubin 0.3 AST 26 D ALT 18 Alkaline Phosphatase 56 Troponin I High Sens Total Protein 6.5 Albumin 3.9 Vitamin B12 Folate TSH 0.88 Urine Color Urine Appearance Urine pH Ur Specific [place] Urine Protein Urine Glucose (UA) Urine Ketones Urine Blood Urine Nitrite Ur Leukocyte Esterase Urine RBC Urine WBC Ur Squamous Epith Cells Urine Bacteria COVID-19 ([facility]) COVID-19 Clin Com 12/15/21 12/15/21 12/15/21 17:55 17:55 17:55 MCV MCH MCHC RDW Plt Count MPV Immature Gran % (Auto) Neut % (Auto) Lymph % (Auto) [place] % (Auto) Eos % (Auto) Baso % (Auto) Lymph # (Auto) [place] # (Auto) Eos # (Auto) Baso # (Auto) Abs Immat Gran (auto) Absolute Neuts (auto) Absolute Nucleated RBC Nucleated RBC % (auto) PT INR APTT Anion Gap Estim Creat Clear Calc Estimated GFR Random Glucose Lactic Acid Calcium Magnesium Total Bilirubin Direct Bilirubin AST ALT Alkaline Phosphatase Troponin I High Sens 5.4 Total Protein Albumin Vitamin B12 548 Folate 14.5 TSH Urine Color Urine Appearance Urine pH Ur Specific [place] Urine Protein Urine Glucose (UA) Urine Ketones Urine Blood Urine Nitrite Ur Leukocyte Esterase Urine RBC Urine WBC Ur Squamous Epith Cells Urine Bacteria COVID-19 ([facility]) Negative COVID-19 Clin Com See Note 12/15/21 12/15/21 12/15/21 18:26 19:52 20:48 MCV MCH MCHC RDW Plt Count MPV Immature Gran % (Auto) Neut % (Auto) Lymph % (Auto) [place] % (Auto) Eos % (Auto) Baso % (Auto) Lymph # (Auto) [place] # (Auto) Eos # (Auto) Baso # (Auto) Abs Immat Gran (auto) Absolute Neuts (auto) Absolute Nucleated RBC Nucleated RBC % (auto) PT INR APTT Anion Gap Estim Creat Clear Calc Estimated GFR Random Glucose Lactic Acid 1.1 Calcium Magnesium Total Bilirubin Direct Bilirubin AST ALT Alkaline Phosphatase Troponin I High Sens 6.5 Total Protein Albumin Vitamin B12 Folate TSH Urine Color YELLOW Urine Appearance HAZY Urine pH 5.5 Ur Specific [place] >= 1.030 H Urine Protein NEG Urine Glucose (UA) NEG Urine Ketones 5 Urine Blood TRACE Urine Nitrite POS H Ur Leukocyte Esterase 2+ H Urine RBC 0-2 Urine WBC 15-29 H Ur Squamous Epith Cells 1+ Urine Bacteria 4+ COVID-19 ([facility]) COVID-19 Clin Com 12/16/21 12/16/21 06:46 06:46 MCV 99.1 H MCH 33.3 H MCHC 33.6 RDW 13.0 Plt Count 239 MPV 10.2 Immature Gran % (Auto) 0.4 Neut % (Auto) 78.0 H Lymph % (Auto) 11.3 L [place] % (Auto) 9.4 Eos % (Auto) 0.7 Baso % (Auto) 0.2 Lymph # (Auto) 1.0 L [place] # (Auto) 0.9 Eos # (Auto) 0.1 Baso # (Auto) 0.0 Abs Immat Gran (auto) 0.04 H Absolute Neuts (auto) 7.2 Absolute Nucleated RBC 0.000 Nucleated RBC % (auto) 0.0 PT INR APTT Anion Gap 11 L Estim Creat Clear Calc 56.5 Estimated GFR > 60 Random Glucose 98 Lactic Acid Calcium 9.0 D Magnesium Total Bilirubin Direct Bilirubin AST ALT Alkaline Phosphatase Troponin I High Sens Total Protein Albumin Vitamin B12 Folate TSH Urine Color Urine Appearance Urine pH Ur Specific [place] Urine Protein Urine Glucose (UA) Urine Ketones Urine Blood Urine Nitrite Ur Leukocyte Esterase Urine RBC Urine WBC Ur Squamous Epith Cells Urine Bacteria COVID-19 ([facility]) COVID-19 Clin Com Microbiology Microbiology Results: Microbiology 12/15/21 19:59 Urine Culture - Preliminary Urine clean catch - Urine trevizo top Culture in progress. Assessment and Plan (1) Atrial fibrillation with rapid ventricular response: Status: Acute (2) AMS (altered mental status): Status: Acute (3) Atrial fibrillation, new onset: Status: Acute (4) Acute UTI: Status: Acute (5) Hematoma: Status: Acute Plan 76-year-old female with a past medical history of hypertension, hyperlipidemia, anxiety presented to the hospital with a chief complaint of fall. Noted to be in confusion likely secondary to UTI. Also found to have new onset AFib with rapid ventricular response. Admitted to the hospital for further management metabolic encephalopathy Improved Likely secondary to UTI CT head showed no acute intracranial process. supportive care New onset AFib with rapid ventricular response: Rate better controlled but still running fast TSH within normal limits Started Cardizem 30 mg q.i.d. Load with digoxin Pending echocardiogram. Cardiology input appreciated Monitor on telemetry UTI Continue ceftriaxone Follow up cultures. Fall, scalp hematoma Mechanical in nature. Patient had head strike-resulting scalp hematoma. CT cervical spine showed no acute findings Hold on anticoagulation for the time being To do physical therapy T 11 compression fracture Patient currently grossly nonfocal Supportive care. scalp hematoma Secondary to fall and head strike. Stable H& H. Will continue to monitor. Hypertension Hold home hydrochlorothiazide for now DVT prophylaxis: SCD boots. No pharmacologic Agent for now given scalp bleeding. code status: Full code. patient's son Arthur phone number [phone] Quality Stroke Does the patient have a stroke diagnosis?: No VTE Prior VTE?: No VTE Risk Level:: Medical - moderate - high VTE Device Contraindication: N/A - Device Ordered VTE Drug Contraindication: Treatment Not Indicated
[2021-12-16 14:48] VITALS: BP 117/65; PULSE 111; RESP 18; TEMP 36.9; O2SAT 97
--- NOTE | 2021-12-16 15:16 | PC.NURSE ---
Pt resting comfortable at this time, no complaints of pain. Alert to person and place only at this time. IV K+ running as per MAR orders. Son updated on POC, will continue to monitor. Call cordero within reach, bed alarm on.
--- NOTE | 2021-12-16 16:16 | MHC.CM.PN ---
PATIENT REPORTS THAT SHE LIVES WITH HER SPOUSE AND SON. SHE STATES ALSO THAT SHE HAS BEEN FULLY VACCINATED AGAINST COVID-19 BUT DOES NOT REMEMBER WHICH BRAND OR THE DATES. SHE DOES AGREE THAT SHE WAS BOOSTERED. PATIENT GIVES PERMISSION FOR THIS SUPERINTENDENT MENAGER[employer] TO REACH OUT TO FAMILY IF ADDITIONAL INFORMATION IS NEEDED. WHEN ASKED IF THERE IS ANY DME IN THE HOME, SHE IS UNABLE TO RECALL. WHEN IMM WAS DISCUSSED, SHE SAYS THAT SHE UNDERSTANDS HER RIGHTS, SIGNS, AND AGREES THAT A COPY CAN BE LEFT WITH HER, WELL ONE PLACED IN HER CHART. CASE MANAGEMENT TO FOLLOW FOR DC NEEDS. SHE DOES NOT RECALL IF SHE HAS AN ACTUAL HCP DOCUMENT AT HOME CASE MANAGEMENT CAN FOLLOW UP WITH FAMILY IN THIS IMM 12/16 IN CHART
[2021-12-16] MEDS: Pravastatin Sodium 20 MG TABLET PO (20:59)
[2021-12-16] MEDS: cefTRIAXone sodium 1 GM in 0.9 % Sodium Chloride 50 ML IV (21:00)
[2021-12-16 23:08] VITALS: PULSE 93; RESP 19
[2021-12-17] MEDS: OLANZapine 2.5 MG TABLET PO (03:37)
[2021-12-17 04:33] VITALS: PULSE 117; RESP 20
[2021-12-17] MEDS: QUEtiapine Fumarate 25 MG TABLET PO (06:13)
[2021-12-17] MEDS: dilTIAZem HCL 50 MG/10 ML VIAL 10 MG IVPUSH (07:02)
[2021-12-17 07:03] LABS: Hematocrit 33.3 % (37.0-47.0); Hemoglobin 11.3 g/dl (12.0-16.0); Mean Corpuscular HGB Conc 33.9 g/dl (31.0-35.0); Mean Corpuscular Hemoglobin 33.5 pg (27.0-33.0); Mean Corpuscular Volume 98.8 fL (80.0-98.0); Mean Platelet Volume 9.6 fL (9.4-12.3); Platelet Count 210 X10*3/uL (160-400); Red Blood Count 3.37 X10*6/uL (4.20-5.50); Red Cell Distribution Width 13.1 % (11.0-16.0); White Blood Count 9.1 X10*3/uL (4.8-10.8)
[2021-12-17 07:36] LABS: Anion Gap 11 (12-20); Blood Urea Nitrogen 15 mg/dL (9-16); Calcium 9.2 mg/dL (8.4-10.2); Carbon Dioxide 26 mmol/L (22-29); Chloride 108 mmol/L (96-108); Creatinine Clr Calc Pharmacy 63.3; Estimated Glomerular Filt Rate > 60; Glucose Random 101 mg/dL (60-115); Sodium 141 mmol/L (135-145)
--- NOTE | 2021-12-17 07:43 | PC.NURSE ---
Call [phone] and asked for hospitalist to call back on pt, and pt has been continuously getting up and out of bed. HR remains 140-150's sustained Afib RVR despite diltiazem PRN push. Caller states that MD Wilder will call back. RN will continue to monitor.
[2021-12-17 08:05] VITALS: BP 126/77; PULSE 124; RESP 18; TEMP 36.4; O2SAT 98
--- NOTE | 2021-12-17 08:05 | PC.NURSE ---
Received callback from MD Wilder. New orders received and carried out. Pt now resting in bed. Vitals WNL. RN will continue to monitor.
[2021-12-17] MEDS: Haloperidol Lactate 5 MG/ML VIAL IVPUSH (08:07)
--- NOTE | 2021-12-17 09:07 | PC.NURSE ---
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 Hallucinating and talking to people who are not in the room. Constantly attempting to get out of bed. Ordered received from MD Wilder and pt now resting in bed. Now that pt is resting, HR more controlled AFib 110's. Lungs clear. Pt abd flat and non-tender.
--- NOTE | 2021-12-17 09:51 | P.PNCA_ITS ---
Subjective Subjective Date of Service: 12/17/21 Interval history: Sleepy. Confused earlier per RN. Review of Systems Review of Systems unable to obtain Physical Exam Vital Signs: Last Vital Signs Temp 97.6 F 12/17/21 08:05 Pulse 124 H 12/17/21 08:05 Resp 18 12/17/21 08:05 BP 126/77 12/17/21 08:05 Pulse Ox 98 12/17/21 08:05 BMI result Verdana 4 Body Mass Index Verdana 4 22.0 Verdana 4 Verdana 4 Const General: no acute distress HENMT Other: Unremarkable Neck Neck: Yes normal visual inspection Chest Chest palpation & inspection: normal inspection of the chest Resp Other: few basal crackles Cardio Palpation: normal PMI Heart sounds: S1 normal heart sound present, S2 normal heart sound present, no gallops, no murmurs and no rubs GI Palpation (GI): Soft to palpation Back/Spine/Pelvis Other: unremarkable Skin Lesions: other Neuro Cranial nerves: Yes Other cranial nerve findings present Extrem General: Yes other Psych Mental Status: other Objective Labs and Meds Result diagrams: 12/17/21 06:45 12/17/21 06:45 Lab results: Laboratory Results - last 24 hr 12/17/21 12/17/21 06:45 06:45 WBC 9.1 RBC 3.37 L Hgb 11.3 L Hct 33.3 L MCV 98.8 H MCH 33.5 H MCHC 33.9 RDW 13.1 Plt Count 210 MPV 9.6 Absolute Nucleated RBC 0.000 Nucleated RBC % (auto) 0.0 Sodium 141 Potassium 4.0 D Chloride 108 Carbon Dioxide 26 Anion Gap 11 L BUN 15 Creatinine 0.75 Estim Creat Clear Calc 63.3 Estimated GFR > 60 Random Glucose 101 Calcium 9.2 Progress Note: A&P Assessment and plan (1) Atrial fibrillation with rapid ventricular response: Status: Acute (2) AMS (altered mental status): Status: Acute Plan Her rate is still in the faster side but she also has altered mental status and that might play a role. Complete digoxin load with 250 mcg x 4 doses total. Resume oral diltiazem and can avoid drip if possible. Anticoagulation. Echocardiogram. Will follow-up. Fall Risk Details Current Medications: Current Medications Acetaminophen (Acetaminophen 325 Mg Tablet) 650 mg PO Q6H PRN PRN Reason: Pain, Mild (Pain Scale 1-3) Apixaban (Apixaban 5 Mg Tablet) 5 mg PO BID [facility] Ceftriaxone Sodium 1 gm/ (Sodium Chloride) 50 mls @ 100 mls/hr IV Q24H [facility] Last Admin: 12/16/21 21:00 Dose: 100 mls/hr Documented by: Diltiazem HCl 125 mg/ Sodium (Chloride) 125 mls @ 0 mls/hr IVCONT .Q0M [facility]; Protocol Melatonin (Melatonin 3 Mg Tablet) 6 mg PO BEDTIME PRN PRN Reason: Insomnia Pharmacy Consult (Consult Rx Perform Med Rec) 1 each MISCELLANE ONCE PRN PRN Reason: Consult order Pravastatin Sodium (Pravastatin Sodium 20 Mg Tablet) 20 mg PO BEDTIME [facility] Last Admin: 12/16/21 20:59 Dose: 20 mg Documented by: Senna (Sennosides 8.6 Mg Tablet) 17.2 mg PO BEDTIME PRN PRN Reason: Constipation Sodium Chloride (0.9 % Sodium Chloride Flush 3 Ml Syringe) 3 ml IVFLUSH QSHIFT [facility] Last Admin: 12/17/21 07:49 Dose: Not Given Documented by: Time Spent With Patient Time: Total time spent is greater than 50% in coordination of care (as documented) at patient's floor/unit and/or counseling patient: Time with patient: less than 15 minutes Progress Note: Quality Stroke Does the patient have a stroke diagnosis?: No Procedures Date of Service Date of Service: 12/17/21
[2021-12-17] MEDS: dilTIAZem HCL 125 MG in 0.9 % Sodium Chloride 100 ML IVCONT ×2 (10:40→11:12)
--- NOTE | 2021-12-17 10:46 | PC.NURSE ---
Addendum entered by Sasha Wild RN 12/17/21 11:01: Now aware that digoxin is on back order and unable to admin. MD Wilder aware. Continue cardizem drip as ordered. Original Note: Pt assessed by MD Wiledr. Aware of pt's HR 130-140's now that pt is awake. New orders received for digoxin and D/C Diltiazam drip. Pt still very confused and asked for 1:1 order. RN will continue to monitor.
[2021-12-17 11:41] VITALS: BP 110/69; PULSE 120; RESP 16; TEMP 36.8; O2SAT 96
[2021-12-17] MEDS: Apixaban 5 MG TABLET PO ×2 (12:29→21:16)
[2021-12-17 13:48] VITALS: BP 150/80; PULSE 140; RESP 20; O2SAT 95
--- NOTE | 2021-12-17 15:21 | P.PNIM_ITS ---
Subjective Subjective Date of Service: 12/17/21 Interval History: cc: fall, ams interval history: agitated, confused Review of Systems Review of Systems: Yes Unobtainable due to mental condition Physical Exam Verdana 4l Vital Signs: Verdana 4d Verdana 4d Vital Signs: Verdana 4d Verdana 4Bd Last Vital Signs Verdana 4d [employer] New 4d [employer] New 4d Temp 98.3 F 12/17/21 11:41 [employer] New 4d Pulse 140 H 12/17/21 13:48 [employer] New 4d Resp 20 12/17/21 13:48 BP 150/80 H 12/17/21 13:48 Pulse Ox 95 12/17/21 13:48 BMI result Body Mass Index 22.0 General: confused, resteless, ill appearing Resp: CTA bilateral, no accessory muscles used CVS: S1,S2,RRR GI: soft, non tender, non distended Neuro: motor grossly intact, confused Psych: agitated affect, impaired insight Objective Data Active Medications Acetaminophen (Acetaminophen 325 Mg Tablet) 650 mg PO Q6H PRN PRN Reason: Pain, Mild (Pain Scale 1-3) Apixaban (Apixaban 5 Mg Tablet) 5 mg PO BID [facility] Last Admin: 12/17/21 12:29 Dose: 5 mg Documented by: DAVID Ceftriaxone Sodium 1 gm/ (Sodium Chloride) 50 mls @ 100 mls/hr IV Q24H [facility] Last Admin: 12/16/21 21:00 Dose: 100 mls/hr Documented by: SHERRIE Diltiazem HCl 125 mg/ Sodium (Chloride) 125 mls @ 0 mls/hr IVCONT .Q0M [facility]; Protocol Last Titration: 12/17/21 13:49 Dose: 10 mg/hr, 10 mls/hr Documented by: DAVID Melatonin (Melatonin 3 Mg Tablet) 6 mg PO BEDTIME PRN PRN Reason: Insomnia Pharmacy Consult (Consult Rx Perform Med Rec) 1 each MISCELLANE ONCE PRN PRN Reason: Consult order Pravastatin Sodium (Pravastatin Sodium 20 Mg Tablet) 20 mg PO BEDTIME [facility] Last Admin: 12/16/21 20:59 Dose: 20 mg Documented by: SHERRIE Senna (Sennosides 8.6 Mg Tablet) 17.2 mg PO BEDTIME PRN PRN Reason: Constipation Sodium Chloride (0.9 % Sodium Chloride Flush 3 Ml Syringe) 3 ml IVFLUSH QSHIFT [facility] Last Admin: 12/17/21 15:20 Dose: Not Given Documented by: DAVID Non-Admin Reason: Med Not Available Labs CBC & Chem 7: 12/17/21 06:45 12/17/21 06:45 Labs: Laboratory Results - last 24 hr 12/17/21 12/17/21 06:45 06:45 MCV 98.8 H MCH 33.5 H MCHC 33.9 RDW 13.1 Plt Count 210 MPV 9.6 Absolute Nucleated RBC 0.000 Nucleated RBC % (auto) 0.0 Anion Gap 11 L Estim Creat Clear Calc 63.3 Estimated GFR > 60 Random Glucose 101 Calcium 9.2 Microbiology Microbiology Results: Microbiology 12/15/21 19:59 Urine Culture - Preliminary Urine clean catch - Urine trevizo top Gram negative herbert 12/15/21 18:56 Blood Culture - Preliminary Blood - Venous No growth after 24 hours. 12/15/21 18:26 Blood Culture - Preliminary Blood - Venous No growth after 24 hours. Assessment and Plan (1) Atrial fibrillation with rapid ventricular response: Status: Acute (2) AMS (altered mental status): Status: Acute (3) Atrial fibrillation, new onset: Status: Deleted (4) Acute UTI: Status: Acute (5) Hematoma: Status: Acute Plan 76-year-old female with a past medical history of hypertension, hyperlipidemia, anxiety presented to the hospital with a chief complaint of fall. Noted to be confused, positive UA. Also found to have new onset AFib with rapid ventricular response. 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 scalp hematoma Secondary to fall and head strike. Stable H& H. Will continue to monitor. Hypertension Hold home hydrochlorothiazide for now DVT prophylaxis: SCD boots. No pharmacologic Agent for now given scalp bleeding. code status: DNR/DNI confirmed change with patient's son Arthur phone number [phone] Quality Stroke Does the patient have a stroke diagnosis?: No VTE Prior VTE?: No VTE Risk Level:: Medical - moderate - high VTE Device Contraindication: N/A - Device Ordered VTE Drug Contraindication: Treatment Not Indicated
[2021-12-17 19:50] VITALS: BP 140/83; PULSE 126; RESP 16; TEMP 36.7; O2SAT 96
[2021-12-17] MEDS: Pravastatin Sodium 20 MG TABLET PO (21:16)
[2021-12-17] MEDS: 0.9 % Sodium Chloride Flush 3 ML SYRINGE IVFLUSH (23:11)
[2021-12-17] MEDS: cefTRIAXone sodium 1 GM in 0.9 % Sodium Chloride 50 ML IV (23:11)
[2021-12-17 23:56] VITALS: BP 128/74; PULSE 103; RESP 16; TEMP 36.8; O2SAT 92
[2021-12-18] MEDS: dilTIAZem HCL 125 MG in 0.9 % Sodium Chloride 100 ML 10 MG IVCONT (00:59)
[2021-12-18 02:18] VITALS: BMI 21.7
[2021-12-18 03:18] VITALS: BP 133/79; PULSE 132; RESP 18; TEMP 37.9; O2SAT 95
[2021-12-18 06:28] LABS: Hematocrit 35.2 % (37.0-47.0); Hemoglobin 12.2 g/dl (12.0-16.0); Mean Corpuscular HGB Conc 34.7 g/dl (31.0-35.0); Mean Corpuscular Hemoglobin 34.1 pg (27.0-33.0); Mean Corpuscular Volume 98.3 fL (80.0-98.0); Mean Platelet Volume 10.1 fL (9.4-12.3); Platelet Count 228 X10*3/uL (160-400); Red Blood Count 3.58 X10*6/uL (4.20-5.50); Red Cell Distribution Width 13.2 % (11.0-16.0)
[2021-12-18 06:40] LABS: Anion Gap 14 (12-20); Blood Urea Nitrogen 16 mg/dL (9-16); Calcium 9.3 mg/dL (8.4-10.2); Carbon Dioxide 25 mmol/L (22-29); Chloride 107 mmol/L (96-108); Creatinine Clr Calc Pharmacy 62.5; Estimated Glomerular Filt Rate > 60; Glucose Fasting 108 mg/dL (60-99); Potassium 3.6 mmol/L (3.3-5.1); Sodium 142 mmol/L (135-145)
[2021-12-18 07:17] LABS: Glucose, Whole Blood 129 mg/dL (60-115)
[2021-12-18 07:51] VITALS: BP 129/65; PULSE 145; RESP 18; TEMP 37.2; O2SAT 94
[2021-12-18] MEDS: Acetaminophen 325 MG TABLET 650 MG PO (08:10)
[2021-12-18] MEDS: Apixaban 5 MG TABLET PO (08:10)
[2021-12-18] MEDS: 0.9 % Sodium Chloride Flush 3 ML SYRINGE IVFLUSH ×2 (08:10→19:02)
--- NOTE | 2021-12-18 09:26 | PC.NURSE ---
report from night time rn stated cardizen drip at 15 ml/hr. rate found to be 15 ml per hour. computer documentation adjusted to reflect that rate.
[2021-12-18] MEDS: dilTIAZem HCL 60 MG TABLET PO ×2 (09:55→14:46)
--- NOTE | 2021-12-18 10:19 | P.PNIM_ITS ---
Subjective Subjective Date of Service: 12/18/21 Interval History: cc: fall, ams interval history: agitated, confused Cardiovascular Cardiovascular: Reports no additional cardiovascular complaints Respiratory Respiratory: Reports no additional respiratory complaints Physical Exam Verdana 4l Vital Signs: Verdana 4d Verdana 4d Vital Signs: Verdana 4d Verdana 4Bd Last Vital Signs Verdana 4d Baker Apprentice New 4d [employer] Apprentice New 4d Temp 98.9 F 12/18/21 07:51 Baker Apprentice New 4d Pulse 145 H 12/18/21 07:51 Baker Apprentice New 4d Resp 18 12/18/21 07:51 BP 129/65 12/18/21 07:51 Pulse Ox 94 12/18/21 07:51 BMI result Body Mass Index 21.7 General: Alert, oriented to person, much more calm, conversational but very poor insigh, no acute distress Resp: CTA bilateral, no accessory muscles used CVS: S1,S2,RRR GI: soft, non tender, non distended Neuro: motor grossly intact, alert Psych: appropriate affect, impaired insight Objective Data Active Medications Acetaminophen (Acetaminophen 325 Mg Tablet) 650 mg PO Q6H PRN PRN Reason: Pain, Mild (Pain Scale 1-3) Last Admin: 12/18/21 08:10 Dose: 650 mg Documented by: FRANK Apixaban (Apixaban 5 Mg Tablet) 5 mg PO BID [facility] Last Admin: 12/18/21 08:10 Dose: 5 mg Documented by: FRANK Diltiazem HCl (Diltiazem Hcl 60 Mg Tablet) 60 mg PO QID [facility]; Protocol Last Admin: 12/18/21 09:55 Dose: 60 mg Documented by: EMILY Ceftriaxone Sodium 1 gm/ (Sodium Chloride) 50 mls @ 100 mls/hr IV Q24H [facility] Last Infusion: 12/17/21 23:45 Dose: 0 mls/hr Documented by: JANEL Melatonin (Melatonin 3 Mg Tablet) 6 mg PO BEDTIME PRN PRN Reason: Insomnia Pharmacy Consult (Consult Rx Perform Med Rec) 1 each MISCELLANE ONCE PRN PRN Reason: Consult order Pravastatin Sodium (Pravastatin Sodium 20 Mg Tablet) 20 mg PO BEDTIME [facility] Last Admin: 12/17/21 21:16 Dose: 20 mg Documented by: JANEL Senna (Sennosides 8.6 Mg Tablet) 17.2 mg PO BEDTIME PRN PRN Reason: Constipation Sodium Chloride (0.9 % Sodium Chloride Flush 3 Ml Syringe) 3 ml IVFLUSH QSHIFT [facility] Last Admin: 12/18/21 08:10 Dose: 3 ml Documented by: FRANK Labs CBC & Chem 7: 12/18/21 06:05 12/18/21 06:05 Labs: Laboratory Results - last 24 hr 12/18/21 12/18/21 12/18/21 06:05 06:05 07:01 MCV 98.3 H MCH 34.1 H MCHC 34.7 RDW 13.2 Plt Count 228 MPV 10.1 Absolute Nucleated RBC 0.000 Nucleated RBC % (auto) 0.0 Anion Gap 14 Estim Creat Clear Calc 62.5 Estimated GFR > 60 POC Glucose 129 H Fasting Glucose 108 H Calcium 9.3 Magnesium 2.0 Microbiology Microbiology Results: Microbiology 12/15/21 19:59 Urine Culture - Final Urine clean catch - Urine trevizo top Escherichia coli 12/15/21 18:56 Blood Culture - Preliminary Blood - Venous No growth after 48 hours. 12/15/21 18:26 Blood Culture - Preliminary Blood - Venous No growth after 48 hours. Assessment and Plan (1) Atrial fibrillation with rapid ventricular response: Status: Acute (2) AMS (altered mental status): Status: Acute (3) Atrial fibrillation, new onset: Status: Deleted (4) Acute UTI: Status: Acute (5) Hematoma: Status: Acute Plan 76-year-old female with a past medical history of hypertension, hyperlipidemia, anxiety presented to the hospital with a chief complaint of fall. Noted to be confused, positive UA. Also found to have new onset AFib with rapid ventricular response. 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 scalp hematoma Secondary to fall and head strike. Stable H& H. Will continue to monitor., repeat cth stable Hypertension Hold home hydrochlorothiazide for now DVT prophylaxis: SCD boots. No pharmacologic Agent for now given scalp bleeding. code status: DNR/DNI confirmed change with patient's son Arthur phone number [phone] Quality Stroke Does the patient have a stroke diagnosis?: No VTE Prior VTE?: No VTE Risk Level:: Medical - moderate - high VTE Device Contraindication: N/A - Device Ordered VTE Drug Contraindication: Treatment Not Indicated
--- NOTE | 2021-12-18 10:43 | PM.PNCARD ---
Subjective Subjective Date of Service: 12/18/21 Interval history: Still appears confused. Review of Systems Review of Systems Unable to obtain Physical Exam Vital Signs: Last Vital Signs Temp 98.9 F 12/18/21 07:51 Pulse 145 H 12/18/21 07:51 Resp 18 12/18/21 07:51 BP 129/65 12/18/21 07:51 Pulse Ox 94 12/18/21 07:51 BMI result Body Mass Index 21.7 Const General: no acute distress HENMT Other: Unremarkable Neck Neck: Yes normal visual inspection Chest Chest palpation & inspection: normal inspection of the chest Resp Other: few basal crackles Cardio Palpation: normal PMI Heart sounds: S1 normal heart sound present, S2 normal heart sound present, no gallops, no murmurs and no rubs GI Palpation (GI): Soft to palpation Back/Spine/Pelvis Other: unremarkable Skin Lesions: other Neuro Cranial nerves: Yes Other cranial nerve findings present Extrem General: Yes other Psych Mental Status: other Objective Labs and Meds Result diagrams: 12/18/21 06:05 12/18/21 06:05 Lab results: Laboratory Results - last 24 hr 12/18/21 12/18/21 12/18/21 06:05 06:05 07:01 WBC 11.0 H RBC 3.58 L Hgb 12.2 Hct 35.2 L MCV 98.3 H MCH 34.1 H MCHC 34.7 RDW 13.2 Plt Count 228 MPV 10.1 Absolute Nucleated RBC 0.000 Nucleated RBC % (auto) 0.0 Sodium 142 Potassium 3.6 Chloride 107 Carbon Dioxide 25 Anion Gap 14 BUN 16 Creatinine 0.76 Estim Creat Clear Calc 62.5 Estimated GFR > 60 POC Glucose 129 H Fasting Glucose 108 H Calcium 9.3 Magnesium 2.0 Imaging Radiologist's impression: Impressions Head CT 12/17/21 17:50 IMPRESSION: 1. No evidence of acute intracranial hemorrhage or edematous territorial infarction. 2. Moderate underlying microangiopathy and generalized cerebral volume loss. 3. Small right posterior scalp hematoma. 4. Moderate sinonasal mucosal disease with layering fluid suggestive of active sinusitis. Progress Note: A&P Assessment and plan (1) Atrial fibrillation with rapid ventricular response: Status: Acute (2) AMS (altered mental status): Status: Acute Plan Rate is still not well controlled. Altered mental status still likely plays a role. Currently on diltiazem 60 q.i.d.. Can add digoxin for maintenance. If blood pressure agrees, can also add some beta-blockers. Oral anticoagulation. Echocardiogram when she is able to cooperate. Fall Risk Details Current Medications: Current Medications Acetaminophen (Acetaminophen 325 Mg Tablet) 650 mg PO Q6H PRN PRN Reason: Pain, Mild (Pain Scale 1-3) Last Admin: 12/18/21 08:10 Dose: 650 mg Documented by: Apixaban (Apixaban 5 Mg Tablet) 5 mg PO BID [facility] Last Admin: 12/18/21 08:10 Dose: 5 mg Documented by: Diltiazem HCl (Diltiazem Hcl 60 Mg Tablet) 60 mg PO QID [facility]; Protocol Last Admin: 12/18/21 09:55 Dose: 60 mg Documented by: Ceftriaxone Sodium 1 gm/ (Sodium Chloride) 50 mls @ 100 mls/hr IV Q24H [facility] Last Infusion: 12/17/21 23:45 Dose: Infused Documented by: Melatonin (Melatonin 3 Mg Tablet) 6 mg PO BEDTIME PRN PRN Reason: Insomnia Pharmacy Consult (Consult Rx Perform Med Rec) 1 each MISCELLANE ONCE PRN PRN Reason: Consult order Pravastatin Sodium (Pravastatin Sodium 20 Mg Tablet) 20 mg PO BEDTIME [facility] Last Admin: 12/17/21 21:16 Dose: 20 mg Documented by: Senna (Sennosides 8.6 Mg Tablet) 17.2 mg PO BEDTIME PRN PRN Reason: Constipation Sodium Chloride (0.9 % Sodium Chloride Flush 3 Ml Syringe) 3 ml IVFLUSH QSHIFT [facility] Last Admin: 12/18/21 08:10 Dose: 3 ml Documented by: Time Spent With Patient Time: Total time spent is greater than 50% in coordination of care (as documented) at patient's floor/unit and/or counseling patient: Time with patient: less than 15 minutes Progress Note: Quality Stroke Does the patient have a stroke diagnosis?: No Procedures Date of Service Date of Service: 12/18/21
[2021-12-18 11:02] LABS: Glucose, Whole Blood 120 mg/dL (60-115)
[2021-12-18 11:44] VITALS: BP 144/80; PULSE 137; RESP 20; TEMP 36.9; O2SAT 95
[2021-12-18] MEDS: Metoprolol Tartrate 25 MG TABLET PO (12:16)
[2021-12-18] MEDS: Digoxin 0.125 MG TABLET PO (12:16)
[2021-12-18 15:11] VITALS: BP 102/51; PULSE 91; RESP 16; TEMP 36.7; O2SAT 95
[2021-12-18 19:28] VITALS: BP 104/79; PULSE 128; RESP 18; TEMP 36.7; O2SAT 93
[2021-12-18] MEDS: OLANZapine 10 MG VIAL 5 MG IM (19:52)
[2021-12-18] MEDS: cefTRIAXone sodium 1 GM in 0.9 % Sodium Chloride 50 ML IV (20:22)
[2021-12-18] MEDS: dilTIAZem HCL 50 MG/10 ML VIAL 10 MG IVPUSH (20:23)
[2021-12-18 23:20] VITALS: BP 124/66; PULSE 112; RESP 18; TEMP 36.2; O2SAT 95
[2021-12-19] MEDS: OLANZapine 10 MG VIAL 5 MG IM (02:11)
[2021-12-19] MEDS: dilTIAZem HCL 50 MG/10 ML VIAL 10 MG IVPUSH ×2 (02:12→05:46)
[2021-12-19] MEDS: 0.9 % Sodium Chloride Flush 3 ML SYRINGE IVFLUSH ×2 (02:12→10:11)
[2021-12-19 04:00] VITALS: BP 140/74; PULSE 114; PULSE 128; RESP 116; TEMP 36.4; TEMP 36.8; O2SAT 92; O2SAT 96
--- NOTE | 2021-12-19 05:03 | MHC.PIE ---
P: much agitation, wandering, refusing meds. Has 1:1 sitter; in rapid A-fib refusing both eliquis and all night meds including diltiazem, metoprolol, and pravachol I: notified MD, repeated attempts to medicate by multiple nurses with not consenting to take PO medications. E: Orders twice overnight for IV diltiazem 10 mg, as well as IM zyprexa 5 mg, given twice; some efficacy. Day shift nurse following up
--- NOTE | 2021-12-19 05:33 | PM.EVENT ---
Event Note Date of Service: 12/19/21 Event Note: delirium: Patient has been sundowning and delirious. Intermittently agitated and Refusing medications. Even after multiple at times patient refusing take p.o. medications. Psychiatric consult. Patient given Zyprexa With no affect. Will try Haldol. AFib with rapid ventricular response: Patient refusing medications. also worsened by her agitation / restlessness. Given IV diltiazem pushes.
[2021-12-19] MEDS: Haloperidol Lactate 5 MG/ML VIAL 1 MG IVPUSH (05:45)
[2021-12-19 07:31] VITALS: BP 140/80; PULSE 108; RESP 20; TEMP 35.9; O2SAT 96
--- NOTE | 2021-12-19 07:35 | PC.NURSE ---
Around 6:10 patient became Tahycardic to 170's-MD made aware- 10 mg of diltiazem IV ordered and given.
[2021-12-19 08:55] LABS: Digoxin 0.4 ng/mL (0.8-2.0)
--- NOTE | 2021-12-19 09:45 | P.CNPS_ITS ---
History of Present Illness Date of Service: 12/19/21 Chief Complaint: Ams Reason for Consult: Delirium, agitation, refusing medications. Requesting physician: Daren Villegas Discussed with referring provider: No (message sent to covering provider) Sources of Information: patient interviewed (Unable to interview patient, she was sleeping. ) and chart reviewed Additional Sources of Information: Constant reliability technician in room. HPI Narrative: Patient is a 76-year-old female with PMH of hypertension, hyperlipidemi a, anxiety. Presented to ED with complaint of a fall. Upon initial assessment in ED, patient was alert and oriented although confused. She was found to have new onset AFib with rapid ventricular response, hematoma, T11 compression fracture, UTI. She was admitted for further care and treatment. Psychiatry consulted due to altered mental status, with reports of delirium, agitation, refusing medications. Patient had received IV olanzapine 5 mg at 01:43 today for agitation, followed by IV haloperidol 1 mg at 0535 today. EKG on 12/15/2021 shows QTC of 445. Provider know from [id number] this a.m. states patient had refused medications, intermittently agitated, had been sundowning and delirious. Upon entrance to patient's room this morning, she was sleeping, appeared comfortable. Appropriate grooming. Constant reliability technician was present in room, reported that patient had been sleeping this morning after receiving atypical antipsychotics earlier in day. Past Psychiatric History: No history of psychiatric medications located in chart, including historical visits. No prior history at this facility, as noted through chart review, for any type of treatment regarding psychiatric illness. Medical Evaluation Reviewed: Yes Personal & Social History: Patient lives with and son, per chart review. Review of Systems Review of Systems Yes Unobtainable due to mental condition and Unobtainable due to mental status [facility] Medical History Dementia No known health problems Family History: unknown Social History: lives with and son Substance History: unknown Trauma History: unknown Diagnostics Vital Signs (24Hr): Vital Signs - 24 hr 12/18/21 11:44 12/18/21 15:11 12/18/21 19:28 Temperature 98.5 F 98.0 F 98.0 F Pulse Rate 137 H 91 128 H Respiratory Rate 20 16 18 Blood Pressure 144/80 H 102/51 L 104/79 Pulse Oximetry 95 95 93 12/18/21 23:20 12/19/21 04:00 12/19/21 07:31 Temperature 97.2 F 97.5 F 96.6 F L Pulse Rate 112 H 128 H 108 H Respiratory Rate 18 116 H 20 Blood Pressure 124/66 140/74 H 140/80 H Pulse Oximetry 95 92 96 BMI result Verdana 4 Body Mass Index Verdana 4 21.7 Verdana 4 Verdana 4 Labs Results: 12/18/21 06:05 12/18/21 06:05 Labs: Laboratory Results - last 48 hr 12/18/21 12/18/21 12/18/21 06:05 06:05 07:01 WBC 11.0 H RBC 3.58 L Hgb 12.2 Hct 35.2 L MCV 98.3 H MCH 34.1 H MCHC 34.7 RDW 13.2 Plt Count 228 MPV 10.1 Absolute Nucleated RBC 0.000 Nucleated RBC % (auto) 0.0 Sodium 142 Potassium 3.6 Chloride 107 Carbon Dioxide 25 Anion Gap 14 BUN 16 Creatinine 0.76 Estim Creat Clear Calc 62.5 Estimated GFR > 60 POC Glucose 129 H Fasting Glucose 108 H Calcium 9.3 Magnesium 2.0 Digoxin 12/18/21 12/19/21 10:55 07:35 WBC RBC Hgb Hct MCV MCH MCHC RDW Plt Count MPV Absolute Nucleated RBC Nucleated RBC % (auto) Sodium Potassium Chloride Carbon Dioxide Anion Gap BUN Creatinine Estim Creat Clear Calc Estimated GFR POC Glucose 120 H Fasting Glucose Calcium Magnesium Digoxin 0.4 L EKG EKG: reviewed Imaging Radiology Impressions: ITS Impressions Cervical Spine CT 12/15/21 17:00 IMPRESSION: No acute cervical fractures or malalignment. Moderate multilevel cervical spondylosis. Chest CT 12/15/21 17:00 IMPRESSION: 1. Acute fracture of T11 vertebrae with approximately 30% loss of height of the vertebral body. No retropulsed fracture fragments. 2. No acute change of lungs or mediastinum. Fleischner guidelines were followed. Head CT 12/15/21 17:00 IMPRESSION: Right occipital scalp hematoma/contusion without evidence of acute intracranial hemorrhage or edematous territorial infarction. Paranasal sinus disease. Head CT 12/17/21 17:50 IMPRESSION: 1. No evidence of acute intracranial hemorrhage or edematous territorial infarction. 2. Moderate underlying microangiopathy and generalized cerebral volume loss. 3. Small right posterior scalp hematoma. 4. Moderate sinonasal mucosal disease with layering fluid suggestive of active sinusitis. Mental Status Exam Mental Status Exam Narrative: Patient appeared to be resting comfortably in bed, in supine position. No ag itation or distress noted. No abnormal movements, no tics tremors noted. Unable to further assess. Patient Appearance: Well Grooomed and Fatigued Level of Consciousness: Sedated Patient Behavior: Asleep Medications Medications Current Medications Acetaminophen (Acetaminophen 325 Mg Tablet) 650 mg PO Q6H PRN PRN Reason: Pain, Mild (Pain Scale 1-3) Last Admin: 12/18/21 08:10 Dose: 650 mg Documented by: Apixaban (Apixaban 5 Mg Tablet) 5 mg PO BID [facility] Last Admin: 12/18/21 23:09 Dose: Not Given Documented by: Digoxin (Digoxin 0.125 Mg Tablet) 0.125 mg PO DAILY [facility] Last Admin: 12/18/21 12:16 Dose: 0.125 mg Documented by: Diltiazem HCl (Diltiazem Hcl 60 Mg Tablet) 60 mg PO QID [facility]; Protocol Last Admin: 12/18/21 23:09 Dose: Not Given Documented by: Diltiazem HCl (Diltiazem Hcl 50 Mg/10 Ml Vial) 10 mg IVPUSH Q4H PRN PRN Reason: HR>125 Last Admin: 12/19/21 05:46 Dose: 10 mg Documented by: Ceftriaxone Sodium 1 gm/ (Sodium Chloride) 50 mls @ 100 mls/hr IV Q24H [facility] Last Infusion: 12/18/21 23:03 Dose: Infused Documented by: Melatonin (Melatonin 3 Mg Tablet) 6 mg PO BEDTIME PRN PRN Reason: Insomnia Metoprolol Tartrate (Metoprolol Tartrate 25 Mg Tablet) 25 mg PO BID [facility]; Protocol Last Admin: 12/18/21 23:09 Dose: Not Given Documented by: Pharmacy Consult (Consult Rx Perform Med Rec) 1 each MISCELLANE ONCE PRN PRN Reason: Consult order Pravastatin Sodium (Pravastatin Sodium 20 Mg Tablet) 20 mg PO BEDTIME [facility] Last Admin: 12/18/21 23:09 Dose: Not Given Documented by: Senna (Sennosides 8.6 Mg Tablet) 17.2 mg PO BEDTIME PRN PRN Reason: Constipation Sodium Chloride (0.9 % Sodium Chloride Flush 3 Ml Syringe) 3 ml IVFLUSH QSHIFT JOHN Last Admin: 12/19/21 02:12 Dose: 3 ml Documented by: Allergies Allergies Allergy/AdvReac Type Severity Reaction Status Date / Time codeine Allergy Unknown Verified 06/24/21 09:47 Assessment & Plan Assessment & Plan (1) Dementia: Status: Acute Code(s): F03.90 - Unspecified dementia without behavioral disturbance Assessment and Plan: Psychiatry was asked to complete consultation related to reports of patient with delirium, agitation, refusing medications. Upon entering room, patient was sound asleep, in supine position. Appeared comfortable, in NAD. Patient had received IV olanzapine 5 mg at 01:43 today, with no effect. Had later received IV haloperidol 1 mg 0535 this morning for agitation and symptoms of delirium. Patient does carry diagnosis of dementia, as well as UTI. (2) AMS (altered mental status): Status: Acute Code(s): R41.82 - Altered mental status, unspecified Plan Recommendations: 1. Short-term use of IV haloperidol 0.5-1 mg, q.6 hours, p.r.n. for agitation. 2. Trazodone 12.5 at 14:00 daily, to help manage sundown symptoms. The following non-pharmacologic delirium prevention strategies are recommended as follows: 1. Lights on, shades up during day; lights off, shades drawn at night. 2. Minimize nighttime disruptions. 3. Help keep patient awake and engaged during the day as tolerated. 4. Maximize access to glasses/hearing aids. 5. Avoid benzodiazepines, anticholinergic medications. These these recommendations have been shared with Dr. Pio Wilder, via secure electronic messaging system. Thank you for this consultation. If you have any further questions or concerns, please do not hesitate to contact Psychiatry Service. I spent minutes with the patient and/or on the patient floor today, greater than?50% of which was spent counseling/coordinating care.
--- NOTE | 2021-12-19 10:26 | P.PNCA_ITS ---
Subjective Subjective Date of Service: 12/19/21 Interval history: Very sleepy. Not responding to commands. Had received sedation. Review of Systems Review of Systems Unable to obtain. Physical Exam Vital Signs: Last Vital Signs Temp 96.6 F L 12/19/21 07:31 Pulse 108 H 12/19/21 07:31 Resp 20 12/19/21 07:31 BP 140/80 H 12/19/21 07:31 Pulse Ox 96 12/19/21 07:31 BMI result Verdana 4 Body Mass Index Verdana 4 21.7 Verdana 4 Verdana 4 Const General: no acute distress [facility] Other: Unremarkable Neck Neck: Yes normal visual inspection Chest Chest palpation & inspection: normal inspection of the chest Resp Auscultation: no crackles and no wheezes Cardio Palpation: normal PMI Heart sounds: S1 normal heart sound present, S2 normal heart sound present, no gallops, no murmurs and no rubs GI Palpation (GI): Soft to palpation Back/Spine/Pelvis Other: unremarkable Skin Lesions: other Neuro Cranial nerves: Yes Other cranial nerve findings present Extrem General: Yes other Psych Mental Status: other Objective Labs and Meds Result diagrams: 12/18/21 06:05 12/18/21 06:05 Lab results: Laboratory Results - last 24 hr 12/18/21 12/19/21 10:55 07:35 POC Glucose 120 H Digoxin 0.4 L Progress Note: A&P Assessment and plan (1) Atrial fibrillation with rapid ventricular response: Status: Acute (2) AMS (altered mental status): Status: Acute Plan On telemetry, she is in atrial fibrillation at a rate of about 110/Min. Clinically, she is very sleepy and not really responding to commands most likely related to sedation. If unable to take oral medications and the rate is going too high, may need IV diltiazem. Otherwise when she is awake resume her oral diltiazem, metoprolol and digoxin. Echocardiogram when able. Previously, patient could not cooperate. Fall Risk Details Current Medications: Current Medications Acetaminophen (Acetaminophen 325 Mg Tablet) 650 mg PO Q6H PRN PRN Reason: Pain, Mild (Pain Scale 1-3) Last Admin: 12/18/21 08:10 Dose: 650 mg Documented by: Apixaban (Apixaban 5 Mg Tablet) 5 mg PO BID [facility] Last Admin: 12/19/21 10:11 Dose: 5 mg Documented by: Digoxin (Digoxin 0.125 Mg Tablet) 0.125 mg PO DAILY [facility] Last Admin: 12/19/21 10:11 Dose: 0.125 mg Documented by: Diltiazem HCl (Diltiazem Hcl 60 Mg Tablet) 60 mg PO QID [facility]; Protocol Last Admin: 12/19/21 10:11 Dose: 60 mg Documented by: Diltiazem HCl (Diltiazem Hcl 50 Mg/10 Ml Vial) 10 mg IVPUSH Q4H PRN PRN Reason: HR>125 Last Admin: 12/19/21 05:46 Dose: 10 mg Documented by: Ceftriaxone Sodium 1 gm/ (Sodium Chloride) 50 mls @ 100 mls/hr IV Q24H [facility] Last Infusion: 12/18/21 23:03 Dose: Infused Documented by: Melatonin (Melatonin 3 Mg Tablet) 6 mg PO BEDTIME PRN PRN Reason: Insomnia Metoprolol Tartrate (Metoprolol Tartrate 25 Mg Tablet) 25 mg PO BID [facility]; Prot ocol Last Admin: 12/19/21 10:12 Dose: 25 mg Documented by: Pharmacy Consult (Consult Rx Perform Med Rec) 1 each MISCELLANE ONCE PRN PRN Reason: Consult order Pravastatin Sodium (Pravastatin Sodium 20 Mg Tablet) 20 mg PO BEDTIME [facility] Last Admin: 12/18/21 23:09 Dose: Not Given Documented by: Senna (Sennosides 8.6 Mg Tablet) 17.2 mg PO BEDTIME PRN PRN Reason: Constipation Sodium Chloride (0.9 % Sodium Chloride Flush 3 Ml Syringe) 3 ml IVFLUSH QSHIFT [facility] Last Admin: 12/19/21 10:11 Dose: 3 ml Documented by: Time Spent With Patient Time: Total time spent is greater than 50% in coordination of care (as documented) at patient's floor/unit and/or counseling patient: Time with patient: less than 15 minutes Progress Note: Quality Stroke Does the patient have a stroke diagnosis?: No Procedures Date of Service Date of Service: 12/19/21
--- NOTE | 2021-12-19 11:24 | P.DS_ITS ---
DS: Providers Provider Date of Service: 12/19/21 Date of admission: 12/15/21 21:09 Primary care physician: Erinn Scherer MD Consults: 12/15/21 21:12 Consult to Cardiology Routine Consulting Provider: Javier Dykes Reason for consultation: afib RVR 12/19/21 01:43 Consult to Psychiatry Routine Consulting Provider: Psych Covering Reason for consultation: Delirium; Agitation; refusing meds DS: Diagnosis Discharge Diagnosis (1) Atrial fibrillation with rapid ventricular response: Status: Acute (2) AMS (altered mental status): Status: Acute DS: Summary Hospital Course Hospital Course: patient was admitted for fall, UTI, new onset afib with rvr. course was complicated by dementia with acute hospital delerium. for her uti, urine grew sensitive ecoli, she was treated with rocephin, will receive 3 more days of ceftin. for her afib, rate was controlled with metoprolol, cardizem, digoxin, however, during her delerium she did refuse meds and rate increased, but was well controlled while on them. she was started on eliquis for stroke prevention, she is at increased risk of fall, however, benefits currently outweigh risks. for her delerium, she initially recovered to baseline and did well with her son present, however, night prior to discharge patient sundowned and did require further sedating medications for patient safety. discussion was had with son who felt patient would be at risk for further decline and delerium with prolonged hospital stay and would do much better at home in her [facility] environment, which I do agree with. therefore, patient will be discharged home with her son, she should try to maintain appropriate sleep/wake cycles, social interactions, and time cues. Time Spent with Patient Time attestation: Total time spent providing and/or coordinating discharge services: Discharge coordination time: Greater than 30 minutes Quality: Stroke Does the patient have a stroke diagnosis?: No Physical Exam Verdana 4l Vital Signs: Verdana 4d Verdana 4d Vital Signs: Verdana 4d Verdana 4Bd Last Vital Signs Verdana 4d Supervisor [employer] New 4d Supervisor [employer] New 4d Temp 96.6 F L 12/19/21 07:31 Supervisor [employer] New 4d Pulse 108 H 12/19/21 07:31 Supervisor [employer]d Resp 20 12/19/21 07:31 BP 140/80 H 12/19/21 07:31 Pulse Ox 96 12/19/21 07:31 BMI result Body Mass Index 21.7 General: sleepy, confused Resp: CTA bilateral, no accessory muscles used CVS: S1,S2,Rapid irregular GI: soft, non tender, non distended Neuro: motor grossly intact Psych: impaired insight DS: Data Data Completed and Pending Labs on day of discharge: Laboratory Results - last 24 hr 12/19/21 07:35 Digoxin 0.4 L Preliminary micro results at discharge 12/15/21 18:56 Blood Culture - Preliminary Blood - Venous No growth after 48 hours. 12/15/21 18:26 Blood Culture - Preliminary Blood - Venous No growth after 48 hours. Discharge Plan Discharge Patient Disposition: Home, Self-Care Discharge Diagnosis: delerium, uti, afib Referrals: Erinn Scherer MD [Primary Care Provider] - 1 Week Discharge Medications: New Eliquis 5 mg Tablet 5 mg PO BID Qty: 60 0RF digoxin 125 mcg (0.125 mg) Tablet 0.125 mg PO DAILY Qty: 30 0RF metoprolol tartrate 25 mg Tablet 25 mg PO BID Qty: 60 0RF Protocol: Hold for SBP/HR < HOLD for SBP < : 90 HOLD for HR < : 60 diltiazem HCl [Cardizem CD] 180 mg capsule,extended release 24hr 180 mg PO DAILY Qty: 30 0RF cefuroxime axetil 500 mg tablet 500 mg PO Q12H Qty: 6 0RF Continued pravastatin 20 mg tablet 1 tab PO BEDTIME 0RF hydrochlorothiazide 12.5 mg tablet 1 tab PO DAILY 0RF coenzyme Q10 [CoQ-10] 100 mg Capsule 100 mg PO DAILY 0RF calcium citrate-vitamin D3 [Citracal + D Maximum] 315 mg-6.25 mcg (250 unit) Tablet 1 tab PO DAILY 0RF Discharge Orders: Discharge Order (Routine); Ordered 12/19/21 Ordered By: Pio Wilder Diet: advance to usual diet Activity on Discharge: As tolerated Stand Alone Forms: Patient Portal Discharge page Care Plan Goals: recovery Health Concerns: afib, delerium, uti Plan of Treatment: for uti - 3 more days ceftin for afib- eliquis to prevent strokes. digoxin, metoprolol, cardizem for rate control. please nore increased bleeding risk and traumatic falls now that she is on eliquis, follow up with cardiology for delerium - social interaction, time awareness, familiar surroundings. Assessment: see above
--- NOTE | 2021-12-19 11:26 | MHC.CM.PN ---
Patient has been medically cleared for dc to home today, no services. IMM addressed with Patient and original has been given to her and a copy has been placed on the chart.
--- NOTE | 2021-12-19 11:38 | MHC.CM.PN ---
DC order for home, self care is in. Patient appears lethargic; CM addressed IMM with Son/Neil and the original has been left at bedside, per discussion with Neil and a copy has been placed on the chart.
[2021-12-19 11:54] VITALS: BP 153/89; PULSE 118; RESP 20; TEMP 37.2; O2SAT 95
== END 2021-12-19 12:26 | disposition home or self-care (01) | DRG 689 ==
LOC: HO.ED 20:20 → HO.EDOVER 21:17 → HO.IMC 12-17 17:47
PROVIDERS: Physician Assistant; Student in an Organized Health Care Education/Training Program; Admitting Provider Hospitalist; Emergency Provider Internal Medicine; PCP Internal Medicine; Visit Provider Internal Medicine
DX: N39.0 Urinary tract infection, site not specified (principal); G93.41 Metabolic encephalopathy; S22.089A Unspecified fracture of T11-T12 vertebra, initial encounter for closed fracture; F05 Delirium due to known physiological condition; I48.91 Unspecified atrial fibrillation; S01.03XA Puncture wound without foreign body of scalp, initial encounter; Z20.822 Contact with and (suspected) exposure to COVID-19; E78.5 Hyperlipidemia, unspecified; F41.9 Anxiety disorder, unspecified; B96.20 Unspecified Escherichia coli [E. coli] as the cause of diseases classified elsewhere; W18.30XA Fall on same level, unspecified, initial encounter; Y93.E2 Activity, laundry; Y92.009 Unspecified place in unspecified non-institutional (private) residence as the place of occurrence of the external cause; Z87.891 Personal history of nicotine dependence; Z79.01 Long term (current) use of anticoagulants; Z79.899 Other long term (current) drug therapy; Z66 Do not resuscitate
CPT/HCPCS: 36415; 70450; 71250; 72125; 80048; 80076; 80162; 81001; 82607; 82746; 82947; 83605; 83735; 84443; 84484; 85025; 85027; 85610; 85730; 87040; 87086; 87088; 87186; 87635; 90471; 93005; 96361; 96365; 96375; 99285; J0696

== ENCOUNTER → 2022-03-09 12:37 | Outpatient (BNVA) | payer MEDICARE, SELFPAY | PROVIDERS: PCP Internal Medicine; Referring Provider Internal Medicine; Visit Provider Internal Medicine Cardiovascular Disease | DX: I48.91 Unspecified atrial fibrillation (principal); Z79.899 Other long term (current) drug therapy | CPT/HCPCS: 93005; 99212 ==

== ENCOUNTER → 2022-03-19 11:25 | Outpatient (REF) | payer MEDICARE, SELFPAY ==
--- NOTE | 2022-03-19 08:11 | HM_ITS ---
Conclusion: 1. Patient was monitored for total period of 3 days and 12 hours 2. Baseline with atrial fibrillation with average heart of 99 beats per minute with frequent rapid ventricular response with inadequate rate control 3. No significant pauses Or bradycardia noted 4. One 7 beat run of wide complexes suggestive aberrant conduction 5. No patient reported events MTDD
== END ==
LOC: HO.CARD 11:25
PROVIDERS: Visit Provider Internal Medicine Cardiovascular Disease
DX: I48.91 Unspecified atrial fibrillation (principal)
CPT/HCPCS: 93242

== ENCOUNTER 2022-04-01 10:41 | Outpatient (REF) | payer MEDICARE, SELFPAY ==
[2022-04-01 13:27] LABS: MANUAL DIFF FLAG NO
[2022-04-01 13:37] LABS: Basophils Absolute Auto 0.1 X10*3/uL (0.0-0.2); Basophils Percent Auto 1.3 % (0-2); Eosinophils Absolute Auto 0.1 X10*3/uL (0.0-0.4); Eosinophils Percent Auto 2.3 % (0-4); Hemoglobin 13.4 g/dl (12.0-16.0); Imm Gran Abs Auto 0.02 X10*3/uL (0.00-0.03); Imm Gran Pct Auto 0.4 % (0.0-0.4); Lymphocytes Absolute Auto 1.4 X10*3/uL (1.2-4.9); Mean Corpuscular HGB Conc 32.7 g/dl (31.0-35.0); Mean Corpuscular Hemoglobin 33.4 pg (27.0-33.0); Mean Corpuscular Volume 102.2 fL (80.0-98.0); Mean Platelet Volume 10.8 fL (9.4-12.3); Monocytes Absolute Auto 0.6 X10*3/uL (0.1-1.2); Monocytes Percent Auto 10.5 % (2-11); Neutrophils Absolute Auto 3.4 x10*3/uL (2.0-8.3); Neutrophils Percent Auto 60.5 % (45-73); Platelet Count 275 X10*3/uL (160-400); Red Blood Count 4.01 X10*6/uL (4.20-5.50); Red Cell Distribution Width 12.6 % (11.0-16.0); White Blood Count 5.6 X10*3/uL (4.8-10.8)
[2022-04-01 13:47] LABS: Alanine Aminotransferase 20 U/L (0-31); Albumin Level 4.2 g/dL (3.5-5.0); Alkaline Phosphatase 76 U/L (39-117); Anion Gap 11 (12-20); Aspartate Amino Transferase 24 U/L (5-31); Bilirubin Total 0.6 mg/dL (0.0-1.0); Blood Urea Nitrogen 24 mg/dL (9-16); Calcium 9.8 mg/dL (8.4-10.2); Carbon Dioxide 28 mmol/L (22-29); Chloride 105 mmol/L (96-108); Cholesterol 221 mg/dL; Estimated Glomerular Filt Rate > 60; Glucose Random 93 mg/dL (60-115); HDL Cholesterol 61 mg/dL; LDL Cholesterol Calculated 147 mg/dl; Potassium 4.3 mmol/L (3.3-5.1); Sodium 140 mmol/L (135-145); Triglycerides 66 mg/dL
[2022-04-01 14:10] LABS: TSH reflex Free T4 0.58 uIU/mL (0.32-4.0)
[2022-04-01 14:13] LABS: Vitamin B12 301 pg/mL (200-900)
== END 2022-04-01 10:42 | disposition home or self-care (01) ==
LOC: HO.10HDL 10:41
PROVIDERS: Visit Provider Internal Medicine
DX: E78.00 Pure hypercholesterolemia, unspecified (principal); F02.80 Dementia in other diseases classified elsewhere, unspecified severity, without behavioral disturbance, psychotic disturbance, mood disturbance, and anxiety; F80.1 Expressive language disorder; I10 Essential (primary) hypertension; I48.91 Unspecified atrial fibrillation; R63.6 Underweight
CPT/HCPCS: 36415; 80053; 80061; 82607; 84443; 85025

== ENCOUNTER → 2022-04-08 13:27 | Outpatient (BNVA) | payer MEDICARE, SELFPAY | PROVIDERS: PCP Internal Medicine; Referring Provider Internal Medicine; Visit Provider Nurse Practitioner Family | DX: I48.19 Other persistent atrial fibrillation (principal); F03.90 Unspecified dementia, unspecified severity, without behavioral disturbance, psychotic disturbance, mood disturbance, and anxiety; Z79.01 Long term (current) use of anticoagulants; Z79.899 Other long term (current) drug therapy | CPT/HCPCS: 99212 ==

== ENCOUNTER → 2022-07-14 13:54 | Outpatient (REF) | payer MEDICARE, SELFPAY ==
--- NOTE | 2022-07-14 13:57 | CA_ITS ---
Transthoracic Echocardiogram Patient (Last, First, Middle): Dacia Gurrola, Gender: Female Date of : 1945 Age: 77 Procedure Date: 07/14/2022 Procedure Type: Transthoracic Echocardiogram Location: OP Height: 165.1 cm Weight: 55.34 kg BSA: 1.60 m2 Heart Rate: bpm BP: 124 / 76 mmHg Script Editor: SB Referring MD: Ailyn Alfonso CANDY DIPPER-C Pointer Helper: Buddy Eubanks MD Symptoms: I48.91 - Unspecified atrial fibrillation Study Quality: Adequate ECG Rhythm: Afib w RVR Conclusions: - 1. Mildly reduced LV systolic function with LVEF of 45-50% with normal filling pressures 2. Mild mitral regurgitation and trace aortic regurgitation 3. Normal RV systolic pressure 4. No gross pericardial effusion Findings Left Ventricle Normal left ventricular cavity size. There is normal left ventricular wall thickness. The left ventricular systolic function is mildly decreased. The visually estimated ejection fraction is between 45-50%. Normal left ventricular filling pressures. Right Ventricle Normal right ventricular cavity size. There is mild to moderately decreased right ventricular systolic function. Atria The left atrium is normal in size. There is lipomatous hypertrophy of the interatrial septum. There is no evidence of interatrial shunt. The right atrium is normal in size. Aortic Valve Normal aortic valve structure and function. There is no aortic valve stenosis. There is trace (trivial) aortic valve regurgitation. Mitral Valve Normal mitral valve structure and function. There is mild mitral valve regurgitation. There is no mitral valve stenosis. Pulmonic Valve The pulmonic valve was not well visualized. Tricuspid Valve Likely normal tricuspid valve structure and function. There is mild tricuspid valve regurgitation. The right ventricular systolic pressure is normal. The right ventricular systolic pressure is 19 mmHg. Normal right atrial pressure. There is no evidence of pulmonary hypertension. Great Vessels All visible segments of the aorta are normal in size. The pulmonary artery was not well visualized. Venous The inferior vena cava is normal in size and collapses greater than 50% with inspiration. Pericardium/Pleural There is no evidence of pericardial effusion. Prior Study Comparison No prior study available for comparison. Measurements 2D Linear Measurements IVSd: 1.11 0.6-0.9/0.6-1.0 cm LVIDd: 4.24 3.9-5.3/4.2-5.9 cm LVIDd Index: 2.65 2.4-3.2/2.2-3.1 cm/m2 LVIDs: 3.11 2.0-3.6 cm LVPWd: 0.75 0.7-1.1 cm LA Diam: 3.60 2.7-3.8/3.0-4.0 cm LAIDs Index: 2.25 1.5-2.3 cm/m2 LV Mass: 156.55 67-162/88-224 g LV Mass Index: 97.85 43-95/49-115 g/m2 LVOT Diam: 2.30 3.0+(-)1.3 cm 2D Systolic Function EF 4C: 37.40 >55% EF 2C: 56.40 >55% EF BiP: 47.20 >55% Aortic Valve AoV Pk Miguel: 0.66 AoV Mn Miguel: 0.57 AoV VTI: 0.11 AoV Pk Grad: 2.00 Aov Mn Grad: 1.00 MAGDALENO Cont.VTI: 3.14 LVOT LVOT Pk Miguel: 0.57 LVOT Mn Miguel: 0.41 LVOT VTI: 0.09 LVOT Pk Grad: 1.00 LVOT Mn Grad: 1.00 LVOT Diam: 2.30 LVOT Area: 4.15 Right Ventricle TAPSE (mm): 8.90 TVS' Miguel: 5.50 Tricuspid Valve TR Pk Miguel: 1.99 TR Pk Grad: 16.00 RA Press: 3.00 RVSP: 19.00 Great Vessels Aorta Sinus of Valsalva: 3.20 2.0-3.5 cm Ao Asc: 3.00 2.1-3.4 cm Pulmonary Valve PV Pk Miguel: 0.69 Peak PV Grad: 2.00 Updated in Other Vendor System with Status of Final Buddy Eubanks MD electronically signed on 07/15/2022 4:30:32 PM with status of Final
== END ==
LOC: HO.CARD 13:54
PROVIDERS: Visit Provider Nurse Practitioner Family
DX: I48.91 Unspecified atrial fibrillation (principal)
CPT/HCPCS: 93306

== ENCOUNTER → 2022-08-13 13:23 | Outpatient (BNVA) | payer MEDICARE, SELFPAY | PROVIDERS: PCP Internal Medicine; Referring Provider Internal Medicine; Visit Provider Internal Medicine | DX: I48.19 Other persistent atrial fibrillation (principal); I42.9 Cardiomyopathy, unspecified; I25.10 Atherosclerotic heart disease of native coronary artery without angina pectoris | CPT/HCPCS: 99212 ==

== ENCOUNTER → 2022-12-01 10:36 | Outpatient (REF) | payer MEDICARE, SELFPAY ==
--- NOTE | 2022-12-01 10:41 | HM_ITS ---
Conclusion: 1. Patient was monitored for total period of 2 days and 23 hours 2. Baseline was atrial fibrillation with average heart of 105 beats per minute, in adequate heart rate control with maximum heart rate of 194 beats per minute 3. No significant pauses or bradycardia noted 4. Rare PVCs noted 5. No patient reported symptoms MTDD
== END ==
LOC: HO.CARD 10:36
PROVIDERS: PCP Internal Medicine; Visit Provider Internal Medicine
DX: I48.19 Other persistent atrial fibrillation (principal)
CPT/HCPCS: 93242

== ENCOUNTER 2022-12-02 09:38 | Outpatient (REF) | payer MEDICARE, SELFPAY ==
[2022-12-02 09:52] LABS: MANUAL DIFF FLAG NO
[2022-12-02 11:02] LABS: Basophils Absolute Auto 0.1 X10*3/uL (0.0-0.2); Basophils Percent Auto 1.4 % (0-2); Eosinophils Absolute Auto 0.1 X10*3/uL (0.0-0.4); Eosinophils Percent Auto 1.9 % (0-4); Imm Gran Abs Auto 0.02 X10*3/uL (0.00-0.03); Imm Gran Pct Auto 0.3 % (0.0-0.4); Lymphocytes Absolute Auto 1.7 X10*3/uL (1.2-4.9); Lymphocytes Percent Auto 26.4 % (20-40); Mean Corpuscular HGB Conc 33.3 g/dl (31.0-35.0); Mean Corpuscular Hemoglobin 34.7 pg (27.0-33.0); Mean Platelet Volume 10.8 fL (9.4-12.3); Monocytes Absolute Auto 0.6 X10*3/uL (0.1-1.2); Monocytes Percent Auto 9.7 % (2-11); Neutrophils Absolute Auto 3.8 x10*3/uL (2.0-8.3); Neutrophils Percent Auto 60.3 % (45-73); Platelet Count 289 X10*3/uL (160-400); Red Blood Count 3.75 X10*6/uL (4.20-5.50); White Blood Count 6.4 X10*3/uL (4.8-10.8)
[2022-12-02 11:45] LABS: Alanine Aminotransferase 13 U/L (0-31); Albumin Level 4.1 g/dL (3.5-5.0); Alkaline Phosphatase 83 U/L (39-117); Anion Gap 12 (12-20); Aspartate Amino Transferase 18 U/L (5-31); Blood Urea Nitrogen 21 mg/dL (9-16); Calcium 9.5 mg/dL (8.4-10.2); Carbon Dioxide 27 mmol/L (22-29); Chloride 108 mmol/L (96-108); Cholesterol 194 mg/dL; Estimated Glomerular Filt Rate 56; Glucose Random 93 mg/dL (60-115); HDL Cholesterol 56 mg/dL; LDL Cholesterol Calculated 117 mg/dl; Potassium 4.3 mmol/L (3.3-5.1); Sodium 143 mmol/L (135-145); Total Protein 6.6 g/dL (6.5-8.0); Triglycerides 105 mg/dL
== END 2022-12-02 09:39 | disposition home or self-care (01) ==
LOC: HO.LAB 09:38
PROVIDERS: PCP Internal Medicine; Visit Provider Internal Medicine
DX: E78.00 Pure hypercholesterolemia, unspecified (principal); I10 Essential (primary) hypertension; I48.91 Unspecified atrial fibrillation; Z79.02 Long term (current) use of antithrombotics/antiplatelets
CPT/HCPCS: 36415; 80053; 80061; 85025

== ENCOUNTER → 2022-12-14 10:45 | Outpatient (BNVA) | payer MEDICARE, SELFPAY | PROVIDERS: PCP Internal Medicine; Referring Provider Internal Medicine; Visit Provider Internal Medicine | DX: I48.19 Other persistent atrial fibrillation (principal); I42.9 Cardiomyopathy, unspecified; I25.10 Atherosclerotic heart disease of native coronary artery without angina pectoris | CPT/HCPCS: 93005; 99212 ==

== ENCOUNTER → 2023-01-26 15:09 | Outpatient (BNVA) | payer MEDICARE, SELFPAY | PROVIDERS: PCP Internal Medicine; Referring Provider Internal Medicine; Visit Provider Nurse Practitioner Family | DX: I48.19 Other persistent atrial fibrillation (principal); I42.9 Cardiomyopathy, unspecified; I25.10 Atherosclerotic heart disease of native coronary artery without angina pectoris; F03.90 Unspecified dementia, unspecified severity, without behavioral disturbance, psychotic disturbance, mood disturbance, and anxiety; Z79.01 Long term (current) use of anticoagulants; Z79.899 Other long term (current) drug therapy | CPT/HCPCS: 93005; 99212 ==

== ENCOUNTER 2023-04-19 09:19 | Emergency (ER) | payer MEDICARE, SELFPAY ==
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
[2023-04-19 09:28] VITALS: BP 160/87; BP 176/106; PULSE 115; PULSE 96; RESP 16; TEMP 36.7; O2SAT 100; O2SAT 98; BMI 17.3
[2023-04-19 09:35] VITALS: BP 160/87; PULSE 115; RESP 16; TEMP 36.7; O2SAT 98
--- NOTE | 2023-04-19 09:39 | ECG_ITS ---
Test Reason : chest pressure Blood Pressure : / mmHG Vent. Rate : 100 BPM Atrial Rate : 000 BPM P-R Int : 000 ms QRS Dur : 088 ms QT Int : 332 ms P-R-T Axes : 000 010 -41 degrees QTc Int : 428 ms Atrial fibrillation Minimal voltage criteria for LVH, may be normal variant ( Sokolow-Billy ) Septal infarct , age undetermined Abnormal ECG When compared with ECG of 15-DEC-2021 16:14, Questionable change in QRS axis Nonspecific T wave abnormality has replaced inverted T waves in Inferior leads Nonspecific T wave abnormality has replaced inverted T waves in Lateral leads Referred By: Zhane Serrato Electronically Signed By:Lazaro Vora
[2023-04-19 10:18] LABS: MANUAL DIFF FLAG NO
[2023-04-19 10:21] LABS: Basophils Percent Auto 0.8 % (0-2); Eosinophils Percent Auto 0.6 % (0-4); Hematocrit 40.4 % (37.0-47.0); Hemoglobin 13.7 g/dl (12.0-16.0); Imm Gran Abs Auto 0.02 X10*3/uL (0.00-0.03); Imm Gran Pct Auto 0.4 % (0.0-0.4); Lymphocytes Absolute Auto 0.9 X10*3/uL (1.2-4.9); Mean Corpuscular HGB Conc 33.9 g/dl (31.0-35.0); Mean Corpuscular Hemoglobin 33.7 pg (27.0-33.0); Mean Corpuscular Volume 99.5 fL (80.0-98.0); Mean Platelet Volume 9.8 fL (9.4-12.3); Monocytes Absolute Auto 0.4 X10*3/uL (0.1-1.2); Monocytes Percent Auto 9.3 % (2-11); Neutrophils Absolute Auto 3.2 x10*3/uL (2.0-8.3); Neutrophils Percent Auto 68.9 % (45-73); Platelet Count 220 X10*3/uL (160-400); Red Blood Count 4.06 X10*6/uL (4.20-5.50); Red Cell Distribution Width 12.9 % (11.0-16.0); White Blood Count 4.7 X10*3/uL (4.8-10.8)
[2023-04-19 10:28] LABS: INTERNATIONAL NORM RATIO 1.4 (0.9-1.1); Prothrombin Time 16.5 SEC (10.0-13.1)
[2023-04-19 10:34] LABS: Anion Gap 12 (12-20); Blood Urea Nitrogen 21 mg/dL (9-16); Calcium 9.4 mg/dL (8.4-10.2); Carbon Dioxide 26 mmol/L (22-29); Chloride 108 mmol/L (96-108); Creatinine Clr Calc Pharmacy 39.7; Estimated Glomerular Filt Rate > 60; Glucose Random 105 mg/dL (60-115); Potassium 4.2 mmol/L (3.3-5.1); Sodium 142 mmol/L (135-145)
[2023-04-19 10:43] LABS: Troponin-I High Sensitivity < 2.7 ng/L (<3.5-17.0)
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
[2023-04-19 11:15] VITALS: BP 157/98; PULSE 115; RESP 16; O2SAT 97
[2023-04-19 11:56] LABS: Appearance Urine Clear; Color Urine Yellow; Glucose Urine UA Negative (Negative); Leukocyte Esterase Urine Negative (Negative); Nitrite Urine Negative (Negative); PH 6.5 (5.0-9.0); Specific Gravity - Urine <= 1.005 (1.005-1.025); Urine Blood Negative (Negative); Urine Ketones Negative (Negative); Urine Protein Negative (Neg-Trace)
== END 2023-04-19 14:20 | disposition left against medical advice (07) ==
PROVIDERS: Registered Nurse Emergency; Emergency Provider Emergency Medicine; PCP Internal Medicine
DX: Z04.1 Encounter for examination and observation following transport accident (principal); Z79.02 Long term (current) use of antithrombotics/antiplatelets; Z79.01 Long term (current) use of anticoagulants; Z79.899 Other long term (current) drug therapy
CPT/HCPCS: 36415; 70450; 72125; 80048; 81003; 84484; 85025; 85610; 93005; 99284

== ENCOUNTER 2023-06-04 06:46 | Inpatient (IN) | payer MEDICARE, SELFPAY ==
[2023-06-04] VITALS (8 sets, daily range): BP systolic 125–162; BP diastolic 69–92; PULSE 72–121; RESP 12–20; TEMP 36.6–37.1; O2SAT 97–100; BMI 17.2
--- NOTE | ~2023-06-04 | XR_ITS ---
EXAMINATION: XR PELVIS CLINICAL INFORMATION: Status post right hip semi arthroplasty. COMPARISON: 06/04/2023 at 7:27 AM fluoroscopic, 06/04/2023 at 8:00 AM x-ray. TECHNIQUE: AP view of the pelvis. FINDINGS: Single AP view of the lower pelvis demonstrates incompletely visualized right femoral intramedullary herbert and proximal compression/lag screw transfixing the right femoral intertrochanteric fracture with alignment improved from preoperative exam of 06/04/2023 at 8:00 AM. Distal portion of intramedullary herbert is not included in the image. Bones are diffusely demineralized. Degenerative changes left hip joint. Evaluation limited due to overlying air-filled loops of bowel. XR/XR pelvis 1-2V IMPRESSION: Status post ORIF of right femoral intertrochanteric fracture.
--- NOTE | ~2023-06-04 | XR_ITS ---
EXAMINATION: XR CHEST CLINICAL INFORMATION: Preop COMPARISON: Previous chest CT most recent November 2021 TECHNIQUE: Frontal view of the chest was obtained. FINDINGS: The cardiac and mediastinal contours are stable. The lungs are well inflated. There are nodular opacities at the lung bases that are symmetric and likely represent nipple shadows. These are otherwise clear. No pleural effusion or pneumothorax. Degenerative changes of the spine. XR/XR chest 1V IMPRESSION: Well-inflated lungs. No evidence for acute disease in the chest.
--- NOTE | ~2023-06-04 | FL_ITS ---
EXAMINATION: XR FLUOROSCOPY WITH IMAGES CLINICAL INFORMATION: Femoral nailing right hip COMPARISON: Previous x-ray 06/04/2023 TECHNIQUE: Fluoroscopy Supervised By: Dr. Tony Boyd. Fluoroscopy Time: 0.8 minutes. Cumulative Dose: 12 mGy. DAP: 0.2 Gycm2. Images: 4. FINDINGS: Images demonstrate an intramedullary herbert and proximal compression/lag screw and distal cortical screw transfixing the right femoral intertrochanteric fracture with improved alignment. FL/FL guidance in OR IMPRESSION: ORIF of right femoral intertrochanteric fracture.
--- NOTE | ~2023-06-04 | CT_ITS ---
EXAMINATION: CT HEAD WITHOUT CONTRAST CLINICAL INFORMATION: Fall COMPARISON: Previous head CT most recent April 2023 TECHNIQUE: Contiguous axial imaging was performed from the skull base to vertex without intravenous administration of contrast. This CT examination was performed using dose optimization techniques as appropriate, variously including the following: *Automated exposure control *Adjustment of mA and/or kV according to patient size (this includes techniques or standardized protocols for targeted exams where dose is matched to indication/reason for exam; i.e. extremities or head) *Use of iterative reconstruction technique DLP: 575 mGy-cm FINDINGS: There is no evidence of an extra-axial collection. There is no evidence of intra or extra-axial hemorrhage. The ventricles and extra-axial CSF spaces are prominent suggestive of generalized atrophy. There is nonspecific periventricular white matter disease. No mass, mass effect or infarct is seen. No skull fracture. Visualized paranasal sinuses, mastoid air cells and middle ears are clear. CT/CT head/brain wo IV con IMPRESSION: No acute findings. Generalized atrophy and nonspecific periventricular white matter disease similar to previous exams.
--- NOTE | ~2023-06-04 | CT_ITS ---
EXAMINATION: CT CERVICAL SPINE WITHOUT CONTRAST CLINICAL INFORMATION: Fall COMPARISON: Previous cervical spine CT most recent April 2023 TECHNIQUE: Axial images through the cervical spine without contrast. Sagittal and coronal reconstructions on the technologist workstation were performed. This CT examination was performed using dose optimization techniques as appropriate, variously including the following: *Automated exposure control *Adjustment of mA and/or kV according to patient size (this includes techniques or standardized protocols for targeted exams where dose is matched to indication/reason for exam; i.e. extremities or head) *Use of iterative reconstruction technique This CT examination was performed using dose optimization techniques as appropriate, variously including the following: *Automated exposure control *Adjustment of mA and/or kV according to patient size (this includes techniques or standardized protocols for targeted exams where dose is matched to indication/reason for exam; i.e. extremities or head) *Use of iterative reconstruction technique DLP: 212 mGy-cm FINDINGS: Mild 2 mm anterior subluxation of C2 with respect to C3. This is similar to previous exams. Bone alignment is normal. Osteophyte or old trauma to the left inferior lateral mandible. No other fracture or dislocation. Multilevel degenerative spondylosis and degenerative disc disease from C2-C3 to C5-C6. Prevertebral soft tissues are normal. Biapical pleural and parenchymal scarring. Stable small right thyroid nodule. CT/CT cervical spine wo IV con IMPRESSION: Degenerative changes. No acute fracture or dislocation. Fleischner guidelines were followed.
--- NOTE | ~2023-06-04 | XR_ITS ---
EXAMINATION: XR HIP, RIGHT CLINICAL INFORMATION: Trauma COMPARISON: None available. TECHNIQUE: Two views of the right hip. FINDINGS: There is a right femoral intertrochanteric fracture. There is some impaction and varus angulation at the fracture. No other fracture is seen. Bones of the pelvis are somewhat obscured due to overlying bowel gas. There is arthritis at both hip joints. There are degenerative changes of the lower lumbar spine. XR/XR hip RT w PEL1V IMPRESSION: Right femoral intertrochanteric fracture.
--- NOTE | 2023-06-04 07:11 | ED.FALL ---
HPI - Fall General Chief Complaint: Fall Stated Complaint: Hip Pain/Shortening s/p fall Time Seen by Provider: 06/04/23 07:02 Source: EMS Mode of arrival: EMS Limitations: other (expressive aphasia) History of Present Illness HPI Narrative: 77 years old female presented to the emergency department complaining of right hip pain. Per EMS fell home. Patient unable to give any history because of the expressive aphasia. MD complaint: fall Onset (ago): hour(s) (2) Fall from: standing Fall witnessed: yes, by family Place fall occurred: home Loss of consciousness: none Prolonged down time: no Associated symptoms (after fall): denies Related Data Home Medications Medication Instructions Recorded Confirmed calcium citrate 315 mg 1 tab PO DAILY 12/15/21 01/26/23 calcium-vitamin D3 6.25 mcg (250 unit) tablet (Citracal + Vitamin D Maximum) coenzyme Q10 100 mg capsule 100 mg PO DAILY 12/15/21 01/26/23 (CoQ-10) pravastatin 20 mg tablet 20 mg PO DAILY 01/26/23 01/26/23 Previous Rx's Medication Instructions Recorded apixaban 5 mg tablet (Eliquis) 5 mg PO BID #60 tabs 03/09/22 digoxin 125 mcg (0.125 mg) tablet 125 mcg PO DAILY #90 tabs 12/07/22 (Digox) metoprolol tartrate 50 mg tablet 75 mg PO BID 90 days #270 tabs 12/14/22 Allergies Allergy/AdvReac Type Severity Reaction Status Date / Time codeine Allergy Unknown Verified 01/26/23 15:18 Review of Systems Review of Systems: Yes Unobtainable due to mental condition (expressive aphasia and dementia) [facility] Past Medical History Medical History Atrial fibrillation with rapid ventricular response Dementia No known health problems Surgical History No pertinent past surgical history Family History Family History Mother No problems noted. Father No problems noted. Social History Social History Household Members: Unknown / Unable to assess Housing: Unknown / Unable to assess Alcohol intake: never Patient Tobacco Use Status: Former Tobacco user Years Smoked: 30 +/- Smoked in Last 30 Days: No Use of substances other than those prescribed or required for medical reasons: No Advance Directives: No service: No Current occupational status: retired Current occupation: rt hand Physical Exam Vital Signs: Vital Signs: Last Vital Signs Temp 97.8 F 06/04/23 07:04 Pulse 111 H 06/04/23 07:37 Resp 18 06/04/23 07:04 BP 155/79 H 06/04/23 07:04 Pulse Ox 100 06/04/23 07:04 O2 Del Method Room Air 06/04/23 07:04 BMI result Body Mass Index 17.2 Const: Other: She is awake alert , she is not in distress, there is no sign of injury in the face the scalp, General: cooperative, comfortable, no acute distress, well developed, alert and awake HEENT: Other: No sign of injury Eyes: Other: Pupils equal reactive Neck: Other: No neck tenderness full range of motion Neck: Yes normal visual inspection and Yes full ROM Chest: Chest palpation & inspection: normal inspection of the chest Resp: Effort & Inspection: normal respiratory effort Auscultation: clear to auscultation bilaterally Cardio: Other: Regular rate and rhythm with tachycardia Rate: tachycardic GI: Inspection: Yes normal to inspection Palpation (GI): Soft to palpation, not firm, nontender and no guarding Skin: General skin exam: no rashes or lesions noted and elasticity normal Rashes: no rashes Extrem: Other: The right lower extremities has started is shortened pain during range of motion Course Reevaluation(s) Reevaluation #1: spoke with the son pt has hx of aphasia 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 she is on eliquis she fell last night tripped and fell Time: 07:33 Medications Administered Generic Name Dose Route Start Last Admin Trade Name Freq PRN Reason Stop Dose Admin Morphine Sulfate 2 mg 06/04/23 07:07 06/04/23 07:34 Morphine Sulfate 2 Mg/Ml Cartridge IVPUSH 2 mg Q5M PRN Administration Chest Pain Protocol Discontinued Medications Generic Name Dose Route Start Last Admin Trade Name Freq PRN Reason Stop Dose Admin Sodium Chloride 1,000 mls @ 999 mls/hr 06/04/23 07:15 07/21/23 07:35 Ns IVCONT 06/04/23 08:15 999 mls/hr .Q1H1M JOHN Administration Ondansetron HCl 4 mg 06/04/23 07:07 06/04/23 07:34 Ondansetron Hcl 4 Mg/2 Ml Vial IVPUSH 06/04/23 07:08 4 mg ONCE ONE Administration Medical Decision Making Medical Decision Making [facility] Narrative: Patient presented with a fall since last night, she arrived with the legs extra rotated, x-ray confirm the diagnosis of intertrochanteric fracture of the right hip, I spoke with orthopedic surgeon Dr Boyd and I spoke with the hospitalist Differential Diagnosis Differential Diagnoses: The differential diagnosis associated with the presentation includes Differential diagnosis a dislocated hip/femoral neck fracture/intertrochanteric fracture Admission/Observation Consideration of admission/observation: Escalation of care including admission/observation considered Consult Healthcare Provider Management of the patient was discussed with: Hospitalist and Chair Pad Maker Dr Byod Lab Data [facility] Lab Attestation statement: I reviewed the patient's lab results. 06/04/23 07:35 06/04/23 07:34 Labs: Lab Results 06/04/23 06/04/23 06/04/23 Range/Units 07:34 07:34 07:34 WBC (4.8-10.8) X10*3/uL RBC (4.20-5.50) X10*6/uL Hgb (12.0-16.0) g/dl Hct (37.0-47.0) % MCV (80.0-98.0) fL MCH (27.0-33.0) pg MCHC (31.0-35.0) g/dl RDW (11.0-16.0) % Plt Count (160-400) X10*3/uL MPV (9.4-12.3) fL Immature Gran % (Auto) (0.0-0.4) % Neut % (Auto) (45-73) % Lymph % (Auto) (20-40) % Meeker % (Auto) (2-11) % Eos % (Auto) (0-4) % Baso % (Auto) (0-2) % Lymph # (Auto) (1.2-4.9) X10*3/uL Meeker # (Auto) (0.1-1.2) X10*3/uL Eos # (Auto) (0.0-0.4) X10*3/uL Baso # (Auto) (0.0-0.2) X10*3/uL Abs Immat Gran (auto) (0.00-0.03) X10*3/uL Absolute Neuts (auto) (2.0-8.3) x10*3/uL Absolute Nucleated RBC (0.0-0.012) X10*3/uL Nucleated RBC % (auto) (0.0-0.2) /100WBC PT 13.3 H (10.0-13.1) SEC INR 1.2 H (0.9-1.1) APTT 30.6 (26.0-36.4) SEC Sodium 140 (135-145) mmol/L Potassium 4.1 (3.3-5.1) mmol/L Chloride 107 (96-108) mmol/L Carbon Dioxide 23 (22-29) mmol/L Anion Gap 14 (12-20) BUN 28 H (9-16) mg/dL Creatinine 1.06 (0.5-1.4) mg/dL Estim Creat Clear Calc 33.3 Estimated GFR 50 Random Glucose 119 H (60-115) mg/dL Calcium 9.7 (8.4-10.2) mg/dL Total Bilirubin 1.2 H (0.0-1.0) mg/dL AST 19 (5-31) U/L ALT 18 (0-31) U/L Alkaline Phosphatase 52 (39-117) U/L Total Protein 6.7 (6.5-8.0) g/dL Albumin 4.1 (3.5-5.0) g/dL Blood Type Antibody Screen 06/04/23 06/04/23 Range/Units 07:34 07:35 WBC 11.2 H (4.8-10.8) X10*3/uL RBC 3.76 L (4.20-5.50) X10*6/uL Hgb 12.9 (12.0-16.0) g/dl Hct 37.6 (37.0-47.0) % MCV 100.0 H (80.0-98.0) fL MCH 34.3 H (27.0-33.0) pg MCHC 34.3 (31.0-35.0) g/dl RDW 13.2 (11.0-16.0) % Plt Count 208 (160-400) X10*3/uL MPV 9.7 (9.4-12.3) fL Immature Gran % (Auto) 0.4 (0.0-0.4) % Neut % (Auto) 87.5 H (45-73) % Lymph % (Auto) 3.7 L (20-40) % Meeker % (Auto) 8.2 (2-11) % Eos % (Auto) 0.0 (0-4) % Baso % (Auto) 0.2 (0-2) % Lymph # (Auto) 0.4 L (1.2-4.9) X10*3/uL Meeker # (Auto) 0.9 (0.1-1.2) X10*3/uL Eos # (Auto) 0.0 (0.0-0.4) X10*3/uL Baso # (Auto) 0.0 (0.0-0.2) X10*3/uL Abs Immat Gran (auto) 0.05 H (0.00-0.03) X10*3/uL Absolute Neuts (auto) 9.8 H (2.0-8.3) x10*3/uL Absolute Nucleated RBC 0.000 (0.0-0.012) X10*3/uL Nucleated RBC % (auto) 0.0 (0.0-0.2) /100WBC PT (10.0-13.1) SEC INR (0.9-1.1) APTT (26.0-36.4) SEC Sodium (135-145) mmol/L Potassium (3.3-5.1) mmol/L Chloride (96-108) mmol/L Carbon Dioxide (22-29) mmol/L Anion Gap (12-20) BUN (9-16) mg/dL Creatinine (0.5-1.4) mg/dL Estim Creat Clear Calc Estimated GFR Random Glucose (60-115) mg/dL Calcium (8.4-10.2) mg/dL Total Bilirubin (0.0-1.0) mg/dL AST (5-31) U/L ALT (0-31) U/L Alkaline Phosphatase (39-117) U/L Total Protein (6.5-8.0) g/dL Albumin (3.5-5.0) g/dL Blood Type O Positive Antibody Screen NEGATIVE Independent Interpretation I performed an independent interpretation of an: Plain X-Ray and CT Scan Interpretation: Review and interpreted the x-ray of the hip personally agree with the radiology reading Radiology Impression Discussion of test interpretation with radiology: I have reviewed the radiologist's reading. Independent Historian Clinical information obtained from an independent historian. History obtained from or confirmed by: Other son External Record Review External record reviewed: Inpatient record Prescription Management I considered prescription management with: Pain Medication Chronic Conditions Aphasia,A.Fib Discharge Plan Discharge Clinical Impression: Closed hip fracture Patient Disposition: Admitted As Inpatient
--- NOTE | 2023-06-04 07:15 | ECG_ITS ---
Test Reason : tachycardia Blood Pressure : / mmHG Vent. Rate : 113 BPM Atrial Rate : 000 BPM P-R Int : 000 ms QRS Dur : 084 ms QT Int : 304 ms P-R-T Axes : 000 010 254 degrees QTc Int : 416 ms Atrial fibrillation with rapid ventricular response Minimal voltage criteria for LVH, may be normal variant ( Sokolow-Billy ) Septal infarct (cited on or before 19-APR-2023) ST & T wave abnormality, consider inferolateral ischemia Abnormal ECG When compared with ECG of 19-APR-2023 09:58, Inverted T waves have replaced nonspecific T wave abnormality in Lateral leads Referred By: Satish Christine Electronically Signed By:Lazaro Vora
[2023-06-04] MEDS: ondansetron HCL 4 MG/2 ML VIAL IVPUSH (07:34)
[2023-06-04] MEDS: Morphine Sulfate 2 MG/ML CARTRIDGE IVPUSH (07:34)
[2023-06-04] MEDS: 0.9 % Sodium Chloride 1,000 ML 999 ML IVCONT (07:35)
[2023-06-04 07:40] LABS: MANUAL DIFF FLAG NO
--- NOTE | 2023-06-04 07:40 | PC.NURSE ---
pt a&ox3 with aphasia from previous stroke. respirations even and unlabored. skin warm pink and dry. a fib on tele with rate from 111-120s. pt reports pain on the right hip due to a fall 6 hours ago. pt tripped and fell and twisted her leg at home. no loc reported. right leg rotated outwards, no redness, swelling or bruising noted. bilateral pedal pulses noted with intact CMS.
[2023-06-04 07:42] LABS: Basophils Percent Auto 0.2 % (0-2); Hematocrit 37.6 % (37.0-47.0); Hemoglobin 12.9 g/dl (12.0-16.0); Imm Gran Abs Auto 0.05 X10*3/uL (0.00-0.03); Imm Gran Pct Auto 0.4 % (0.0-0.4); Lymphocytes Absolute Auto 0.4 X10*3/uL (1.2-4.9); Lymphocytes Percent Auto 3.7 % (20-40); Mean Corpuscular HGB Conc 34.3 g/dl (31.0-35.0); Mean Corpuscular Hemoglobin 34.3 pg (27.0-33.0); Mean Platelet Volume 9.7 fL (9.4-12.3); Monocytes Absolute Auto 0.9 X10*3/uL (0.1-1.2); Monocytes Percent Auto 8.2 % (2-11); Neutrophils Absolute Auto 9.8 x10*3/uL (2.0-8.3); Neutrophils Percent Auto 87.5 % (45-73); Platelet Count 208 X10*3/uL (160-400); Red Blood Count 3.76 X10*6/uL (4.20-5.50); Red Cell Distribution Width 13.2 % (11.0-16.0); White Blood Count 11.2 X10*3/uL (4.8-10.8)
[2023-06-04 07:55] LABS: Alanine Aminotransferase 18 U/L (0-31); Albumin Level 4.1 g/dL (3.5-5.0); Alkaline Phosphatase 52 U/L (39-117); Anion Gap 14 (12-20); Aspartate Amino Transferase 19 U/L (5-31); Bilirubin Total 1.2 mg/dL (0.0-1.0); Blood Urea Nitrogen 28 mg/dL (9-16); Calcium 9.7 mg/dL (8.4-10.2); Carbon Dioxide 23 mmol/L (22-29); Chloride 107 mmol/L (96-108); Creatinine Clr Calc Pharmacy 33.3; Estimated Glomerular Filt Rate 50; Glucose Random 119 mg/dL (60-115); Potassium 4.1 mmol/L (3.3-5.1); Sodium 140 mmol/L (135-145); Total Protein 6.7 g/dL (6.5-8.0)
[2023-06-04 08:05] LABS: INTERNATIONAL NORM RATIO 1.2 (0.9-1.1); Prothrombin Time 13.3 SEC (10.0-13.1)
[2023-06-04 08:08] LABS: Partial Thromboplastin Time 30.6 SEC (26.0-36.4)
--- NOTE | 2023-06-04 09:14 | PM.IMHP ---
History of Present Illness Date of Service: 06/04/23 Chief Complaint: fall, right hip pain 77F PMH alzheimer's dementia (baseline ambulatory, significant memory impairment and moderate aphasia), paroxysmal afib on eliquis, HTN, hld, chronic systolic chf, presented with mechanical fall. patient and family report fall at home night prior to presentation, was not witnessed, fell on right side, had right hip pain, no LOC, in ED found to have right hip fracture. patient deneis chest pain, sob, fever, chills. Review of Systems Review of Systems: Yes all other systems are reviewed and are negative [facility] Medical History Atrial fibrillation with rapid ventricular response Dementia No known health problems Family History Mother No problems noted. Father No problems noted. Surgical History No pertinent past surgical history Social History Household Members: Unknown / Unable to assess Housing: Unknown / Unable to assess Alcohol intake: never Patient Tobacco Use Status: Former Tobacco user Years Smoked: 30 +/- Smoked in Last 30 Days: No Use of substances other than those prescribed or required for medical reasons: No Advance Directives: No service: No Current occupational status: retired Current occupation: rt hand Meds Allergies Allergy/AdvReac Type Severity Reaction Status Date / Time codeine Allergy Unknown Verified 01/26/23 15:18 Active Medications: Current Medications Enoxaparin Sodium (Enoxaparin Sodium 40 Mg/0.4 Ml Syringe) 40 mg SUBCUT Q24H [facility] Morphine Sulfate (Morphine Sulfate 2 Mg/Ml Cartridge) 2 mg IVPUSH Q5M PRN; Protocol PRN Reason: Chest Pain Last Admin: 06/04/23 07:34 Dose: 2 mg Morphine Sulfate (Morphine Sulfate 2 Mg/Ml Cartridge) 2 mg IVPUSH Q4H PRN; Protocol PRN Reason: moderate pain Pharmacy Consult (Consult Rx Perform Med Rec) 1 each MISCELLANE ONCE PRN PRN Reason: Consult order Sodium Chloride (0.9 % Sodium Chloride Flush 3 Ml Syringe) 3 ml IVFLUSH QSHIFT [facility] Home Medications Medication Instructions Recorded Confirmed Last Taken Type pravastatin 20 mg tablet 20 mg PO DAILY 01/26/23 06/04/23 06/03/23 History Physical Exam Vital Signs and Narrative: Vital Signs: Last Vital Signs Temp 97.8 F 06/04/23 07:04 Pulse 107 H 06/04/23 08:38 Resp 16 06/04/23 08:38 BP 137/88 06/04/23 08:38 Pulse Ox 98 06/04/23 08:38 O2 Del Method Room Air 06/04/23 08:38 BMI result Body Mass Index 17.2 alert, oriented to name and place, answers simple questions with significant expressive aphasia, right leg shortened/rotated Results Labs 06/04/23 07:35 06/04/23 07:34 Labs: Laboratory Results - last 24 hr 06/04/23 06/04/23 06/04/23 07:34 07:34 07:34 MCV MCH MCHC RDW Plt Count MPV Immature Gran % (Auto) Neut % (Auto) Lymph % (Auto) Power % (Auto) Eos % (Auto) Baso % (Auto) Lymph # (Auto) Power # (Auto) Eos # (Auto) Baso # (Auto) Abs Immat Gran (auto) Absolute Neuts (auto) Absolute Nucleated RBC Nucleated RBC % (auto) PT 13.3 H INR 1.2 H APTT 30.6 Anion Gap 14 Estim Creat Clear Calc 33.3 Estimated GFR 50 Random Glucose 119 H Calcium 9.7 Total Bilirubin 1.2 H AST 19 ALT 18 Alkaline Phosphatase 52 Total Protein 6.7 Albumin 4.1 Blood Type Antibody Screen 06/04/23 06/04/23 07:34 07:35 MCV 100.0 H MCH 34.3 H MCHC 34.3 RDW 13.2 Plt Count 208 MPV 9.7 Immature Gran % (Auto) 0.4 Neut % (Auto) 87.5 H Lymph % (Auto) 3.7 L Power % (Auto) 8.2 Eos % (Auto) 0.0 Baso % (Auto) 0.2 Lymph # (Auto) 0.4 L Power # (Auto) 0.9 Eos # (Auto) 0.0 Baso # (Auto) 0.0 Abs Immat Gran (auto) 0.05 H Absolute Neuts (auto) 9.8 H Absolute Nucleated RBC 0.000 Nucleated RBC % (auto) 0.0 PT INR APTT Anion Gap Estim Creat Clear Calc Estimated GFR Random Glucose Calcium Total Bilirubin AST ALT Alkaline Phosphatase Total Protein Albumin Blood Type O Positive Antibody Screen NEGATIVE Imaging Radiologist's Impressions: Impressions Cervical Spine CT 06/04/23 07:55 IMPRESSION: Degenerative changes. No acute fracture or dislocation. Fleischner guidelines were followed. Head CT 06/04/23 07:55 IMPRESSION: No acute findings. Generalized atrophy and nonspecific periventricular white matter disease similar to previous exams. Chest X-Ray 06/04/23 08:05 IMPRESSION: Well-inflated lungs. No evidence for acute disease in the chest. Hip/Pelvis X-Ray 06/04/23 08:05 IMPRESSION: Right femoral intertrochanteric fracture. Assessment and Plan (1) Closed hip fracture: Status: Acute Plan 77F PMH alzheimer's dementia (baseline ambulatory, significant memory impairment and moderate aphasia), paroxysmal afib on eliquis, HTN, hld, chronic systolic chf, presented with mechanical fall found to have right hip fracture acute right hip fracture due to mechanical fall due to alzheimers dementia. pain control plan for surgery atleast 48hrs after last eliquis (evening 06/03/23) ortho eval benefits of surgery outweight risks paroxysmal afib with rvr metoprolol, dig, holding eliquis hld statin dvt prophylaxis - lovenox full code patinet with hip fracture will require surgery, post op monitoring, therefore, expected to require atleast 2 midnights inpatient Time Spent With Patient Time: Total time managing care of this patient today ____ minutes. Quality Stroke Does the patient have a stroke diagnosis?: No VTE Prior VTE?: No VTE Risk Level:: Medical - moderate - high VTE Device Contraindication: Treatment Not Indicated VTE Drug Contraindication: N/A - Med Ordered
--- NOTE | 2023-06-04 10:20 | PHA.MEDREC ---
Pharmacy Consult ? Medication Reconciliation Pharmacy has completed the medication reconciliation. Spoke to Neil Gurrola (son) over phone and he reviewed list of pill bottles he found in his mother's house. States that patient has not filled her medication since November and still has pills left in her bottle so she must not be taking them as directed. Says that the Eliquis bottle was found in the back of a cabinet behind other things and was last filled in September and most of the pills are still there so he thinks she forgot it was there and is not taking it at all.
[2023-06-04] MEDS: Enoxaparin Sodium 40 MG/0.4 ML SYRINGE SUBCUT (10:25)
--- NOTE | 2023-06-04 12:22 | PM.CNOR ---
History of Present Illness HPI Consult date: 06/04/23 Chief complaint: Hip fracture Narrative: 77F H alzheimer's dementia (baseline ambulatory, significant memory impairment and moderate aphasia), paroxysmal afib on eliquis, HTN, hld, chronic systolic chf, presented with mechanical fall. The patient lives at home with her spouse and son. They claim they did not see the fall, but found her on the floor, states she fell on right side, had right hip pain, no LOC. While in ED, she was found to have right hip fracture. She was admitted to the medical service and orthopedics was consulted for surgical planning. Review of Systems Review of Systems: per [facility] Past Medical History Medical History Atrial fibrillation with rapid ventricular response Dementia No known health problems Family History Family History Mother No problems noted. Father No problems noted. Surgical History Surgical History No pertinent past surgical history Social History Social History Household Members: Unknown / Unable to assess Housing: Unknown / Unable to assess Alcohol intake: never Patient Tobacco Use Status: Former Tobacco user Years Smoked: 30 +/- Smoked in Last 30 Days: No Use of substances other than those prescribed or required for medical reasons: No Advance Directives: No service: No Current occupational status: retired Current occupation: rt hand Meds Allergies Allergy/AdvReac Type Severity Reaction Status Date / Time codeine Allergy Unknown Verified 01/26/23 15:18 Active Medications: Current Medications Enoxaparin Sodium (Enoxaparin Sodium 40 Mg/0.4 Ml Syringe) 40 mg SUBCUT Q24H JOHN Last Admin: 06/04/23 10:25 Dose: 40 mg Morphine Sulfate (Morphine Sulfate 2 Mg/Ml Cartridge) 2 mg IVPUSH Q5M PRN; Protocol PRN Reason: Chest Pain Last Admin: 06/04/23 07:34 Dose: 2 mg Morphine Sulfate (Morphine Sulfate 2 Mg/Ml Cartridge) 2 mg IVPUSH Q4H PRN; Protocol PRN Reason: moderate pain Pharmacy Consult (Consult Rx Perform Med Rec) 1 each MISCELLANE ONCE PRN PRN Reason: Consult order Sodium Chloride (0.9 % Sodium Chloride Flush 3 Ml Syringe) 3 ml IVFLUSH QSHIFT [facility] Home Medications Medication Instructions Recorded Confirmed Last Taken Type pravastatin 20 mg tablet 20 mg PO DAILY 01/26/23 06/04/23 06/03/23 History calcium carbonate 500 mg-vitamin 1 tab PO DAILY 06/04/23 06/04/23 Unknown History D3 10 mcg (400 unit) tablet (Calcium 500 + D) Physical Exam Vital Signs: Vital Signs: Last Vital Signs Temp 97.8 F 06/04/23 07:04 Pulse 108 H 06/04/23 09:39 Resp 12 06/04/23 09:39 BP 145/92 H 06/04/23 09:39 Pulse Ox 99 06/04/23 09:39 O2 Del Method Room Air 06/04/23 09:39 BMI result Body Mass Index 17.2 Const: General: cooperative, healthy appearing, comfortable and no acute distress Extrem: Other: Right hip short and ER, pain with log roll, NVI. Results Labs 06/04/23 07:35 06/04/23 07:34 Labs: Abnormal lab results 06/04/23 06/04/23 06/04/23 Range/Units 07:34 07:34 07:35 WBC 11.2 H (4.8-10.8) X10*3/uL RBC 3.76 L (4.20-5.50) X10*6/uL MCV 100.0 H (80.0-98.0) fL MCH 34.3 H (27.0-33.0) pg Neut % (Auto) 87.5 H (45-73) % Lymph % (Auto) 3.7 L (20-40) % Lymph # (Auto) 0.4 L (1.2-4.9) X10*3/uL Abs Immat Gran (auto) 0.05 H (0.00-0.03) X10*3/uL Absolute Neuts (auto) 9.8 H (2.0-8.3) x10*3/uL PT 13.3 H (10.0-13.1) SEC INR 1.2 H (0.9-1.1) BUN 28 H (9-16) mg/dL Random Glucose 119 H (60-115) mg/dL Total Bilirubin 1.2 H (0.0-1.0) mg/dL H & H 06/04/23 Range/Units 07:35 Hgb 12.9 (12.0-16.0) g/dl Hct 37.6 (37.0-47.0) % Coagulation 06/04/23 Range/Units 07:34 INR 1.2 H (0.9-1.1) All other labs normal. Diagnostic results Hip x-ray: image reviewed (XR hip RT w [id number] IMPRESSION: Right femoral intertrochanteric fracture.) Assessment and Plan (1) Closed hip fracture: Status: Acute Plan I discussed the case with Dr Boyd and explained the extent of the injury to the patient and options available which include surgical intervention. I explained the procedure in detail along with the length of recovery and rehab course. I explained the risk, benefits and alternatives. Risk including, but not limited to infection, blood clots, bleeding, non union or malunion and nerve/tissue damage to surrounding areas. I answered all their questions and with their understanding they have consented to move forward with Operative Fixation of the right hip . The patient will be T&S, med clearance obtained and NPO after midnight, for surgery on 06/06/23. Last dose of Eliquis 06/03/23 am dose Time Spent With Patient Time: Total time managing care of this patient today ____ minutes. Procedures Date of Service Date of Service: 06/04/23
--- NOTE | 2023-06-04 14:42 | PC.NURSE ---
report given to media center director school
[2023-06-04] MEDS: 0.9 % Sodium Chloride Flush 3 ML SYRINGE IVFLUSH (20:01)
[2023-06-05 03:29] VITALS: BP 140/88; PULSE 80; RESP 16; TEMP 36.7; O2SAT 96
[2023-06-05 07:32] VITALS: BP 128/82; PULSE 103; RESP 18; TEMP 36.3; O2SAT 99
[2023-06-05 07:40] LABS: Hematocrit 33.7 % (37.0-47.0); Hemoglobin 11.3 g/dl (12.0-16.0); Mean Corpuscular HGB Conc 33.5 g/dl (31.0-35.0); Mean Corpuscular Hemoglobin 34.1 pg (27.0-33.0); Mean Corpuscular Volume 101.8 fL (80.0-98.0); Mean Platelet Volume 10.8 fL (9.4-12.3); Platelet Count 185 X10*3/uL (160-400); Red Blood Count 3.31 X10*6/uL (4.20-5.50); Red Cell Distribution Width 13.2 % (11.0-16.0); White Blood Count 9.8 X10*3/uL (4.8-10.8)
[2023-06-05 07:57] LABS: Anion Gap 12 (12-20); Blood Urea Nitrogen 13 mg/dL (9-16); Calcium 8.7 mg/dL (8.4-10.2); Carbon Dioxide 26 mmol/L (22-29); Chloride 108 mmol/L (96-108); Creatinine Clr Calc Pharmacy 47.1; Estimated Glomerular Filt Rate > 60; Glucose Fasting 106 mg/dL (60-99); Potassium 3.7 mmol/L (3.3-5.1); Sodium 142 mmol/L (135-145)
--- NOTE | 2023-06-05 08:48 | HO.PM.IMPN ---
Subjective Subjective Date of Service: 06/05/23 Interval History: hip pain controlled Physical Exam Vital Signs: Vital Signs: Last Vital Signs Temp 97.3 F 06/05/23 07:32 Pulse 103 H 06/05/23 07:32 Resp 18 06/05/23 07:32 BP 128/82 06/05/23 07:32 Pulse Ox 99 06/05/23 07:32 O2 Del Method Room Air 06/05/23 07:32 BMI result Body Mass Index 17.2 alert, oriented to name and place, answers simple questions with significant expressive aphasia, right leg shortened/rotated Objective Data Active Medications Digoxin (Digoxin 0.125 Mg Tablet) 0.125 mg PO DAILY [facility] Enoxaparin Sodium (Enoxaparin Sodium 40 Mg/0.4 Ml Syringe) 40 mg SUBCUT Q24H [facility] Last Admin: 06/04/23 10:25 Dose: 40 mg Documented By: SUDHEER Metoprolol Tartrate (Metoprolol Tartrate 25 Mg Tablet) 75 mg PO BID [facility]; Protocol Morphine Sulfate (Morphine Sulfate 2 Mg/Ml Cartridge) 2 mg IVPUSH Q5M PRN; Protocol PRN Reason: Chest Pain Last Admin: 06/04/23 07:34 Dose: 2 mg Documented By: EVELIA Morphine Sulfate (Morphine Sulfate 2 Mg/Ml Cartridge) 2 mg IVPUSH Q4H PRN; Protocol PRN Reason: moderate pain Pharmacy Consult (Consult Rx Perform Med Rec) 1 each MISCELLANE ONCE PRN PRN Reason: Consult order Sodium Chloride (0.9 % Sodium Chloride Flush 3 Ml Syringe) 3 ml IVFLUSH QSHIFT [facility] Last Admin: 06/04/23 20:01 Dose: 3 ml Documented By: MARCO Labs 06/05/23 06:47 06/05/23 06:47 Labs: Laboratory Results - last 24 hr 06/05/23 06/05/23 06:47 06:47 MCV 101.8 H MCH 34.1 H MCHC 33.5 RDW 13.2 Plt Count 185 MPV 10.8 Absolute Nucleated RBC 0.000 Nucleated RBC % (auto) 0.0 Anion Gap 12 Estim Creat Clear Calc 47.1 Estimated GFR > 60 Fasting Glucose 106 H Calcium 8.7 D Assessment and Plan (1) Closed hip fracture: Status: Acute Plan 77F [facility] alzheimer's dementia (baseline ambulatory, significant memory impairment and moderate aphasia), paroxysmal afib on eliquis, HTN, hld, chronic systolic chf, presented with mechanical fall found to have right hip fracture acute right hip fracture due to mechanical fall due to alzheimers dementia. pain control plan for surgery 06/06/23 benefits of surgery outweight risks paroxysmal afib with rvr metoprolol, dig, holding eliquis hld statin dvt prophylaxis - lovenox full code reason for continued hospitalization:plan for surgery Time Spent With Patient Time: Total time managing care of this patient today ____ minutes. Quality Stroke Does the patient have a stroke diagnosis?: No VTE Prior VTE?: No VTE Risk Level:: Medical - moderate - high VTE Device Contraindication: Treatment Not Indicated VTE Drug Contraindication: N/A - Med Ordered
[2023-06-05] MEDS: Enoxaparin Sodium 40 MG/0.4 ML SYRINGE SUBCUT (08:59)
[2023-06-05] MEDS: Digoxin 0.125 MG TABLET PO (09:00)
[2023-06-05] MEDS: Metoprolol Tartrate 25 MG TABLET 75 MG PO ×2 (09:00→19:59)
[2023-06-05] MEDS: 0.9 % Sodium Chloride Flush 3 ML SYRINGE IVFLUSH ×3 (09:00→20:00)
[2023-06-05 15:30] VITALS: BP 140/84; PULSE 104; RESP 18; TEMP 36.4; O2SAT 97
[2023-06-05 19:46] VITALS: BP 128/90; PULSE 118; RESP 17; TEMP 36.5; O2SAT 96
[2023-06-05] MEDS: Morphine Sulfate 2 MG/ML CARTRIDGE IVPUSH (23:42)
[2023-06-05 23:52] VITALS: BP 129/79; PULSE 107; RESP 17; TEMP 36.1; O2SAT 96
[2023-06-06] VITALS (10 sets, daily range): BP systolic 94–153; BP diastolic 58–94; PULSE 88–127; RESP 16–18; TEMP 36.1–37.2; O2SAT 95–100
--- NOTE | 2023-06-06 08:40 | P.PNIM_ITS ---
Subjective Subjective Date of Service: 06/06/23 Interval History: hip pain Physical Exam Vital Signs: Vital Signs: Last Vital Signs Temp 98.0 F 06/06/23 08:00 Pulse 120 H 06/06/23 08:00 Resp 16 06/06/23 08:00 BP 150/88 H 06/06/23 08:00 Pulse Ox 97 06/06/23 08:00 O2 Del Method Room Air 06/06/23 08:00 BMI result Body Mass Index 17.2 alert, oriented to name and place, answers simple questions with significant expressive aphasia, right leg shortened/rotated Objective Data Active Medications Digoxin (Digoxin 0.125 Mg Tablet) 0.125 mg PO DAILY [facility] Last Admin: 06/05/23 09:00 Dose: 0.125 mg Documented By: RAYMOND Enoxaparin Sodium (Enoxaparin Sodium 40 Mg/0.4 Ml Syringe) 40 mg SUBCUT Q24H [facility] Last Admin: 06/05/23 08:59 Dose: 40 mg Documented By: RAYMOND Cefazolin Sodium/Dextrose (Ancef) 2 gm in 50 mls @ 100 mls/hr IV PREOP ONE Stop: 06/06/23 09:29 Metoprolol Tartrate (Metoprolol Tartrate 25 Mg Tablet) 75 mg PO BID [facility]; Protocol Last Admin: 06/05/23 19:59 Dose: 75 mg Documented By: YANA Morphine Sulfate (Morphine Sulfate 2 Mg/Ml Cartridge) 2 mg IVPUSH Q5M PRN; Protocol PRN Reason: Chest Pain Last Admin: 06/05/23 23:42 Dose: 2 mg Documented By: YANA Morphine Sulfate (Morphine Sulfate 2 Mg/Ml Cartridge) 2 mg IVPUSH Q4H PRN; Protocol PRN Reason: moderate pain Pharmacy Consult (Consult Rx Perform Med Rec) 1 each MISCELLANE ONCE PRN PRN Reason: Consult order Sodium Chloride (0.9 % Sodium Chloride Flush 3 Ml Syringe) 3 ml IVFLUSH QSHIFT [facility] Last Admin: 06/05/23 20:00 Dose: 3 ml Documented By: YANA Labs 06/05/23 06:47 06/05/23 06:47 Assessment and Plan (1) Closed hip fracture: Status: Acute Plan 77F PMH alzheimer's dementia (baseline ambulatory, significant memory impairment and moderate aphasia), paroxysmal afib on eliquis, HTN, hld, chronic systolic chf, presented with mechanical fall found to have right hip fracture acute right hip fracture due to mechanical fall due to alzheimers dementia. pain control plan for surgery today, 06/06/23 benefits of surgery outweight risks paroxysmal afib with rvr metoprolol, dig, holding eliquis hld statin dvt prophylaxis - lovenox full code reason for continued hospitalization:plan for surgery Time Spent With Patient Time: Total time managing care of this patient today ____ minutes. Quality Stroke Does the patient have a stroke diagnosis?: No VTE Prior VTE?: No VTE Risk Level:: Medical - moderate - high VTE Device Contraindication: Treatment Not Indicated VTE Drug Contraindication: N/A - Med Ordered
--- NOTE | 2023-06-06 09:03 | HO.ANESPROP2 ---
[facility] Active Problems Active Problems: All Active Problems (Updated 06/04/23 @ 08:29 by Satish Christine MD) Closed hip fracture (Acute) Coronary artery calcification seen on CAT scan (Acute) Cardiomyopathy (Acute) Persistent atrial fibrillation (Acute) Atrial fibrillation with rapid ventricular response (Acute) Dementia (Acute) AMS (altered mental status) (Acute) Closed fracture of T11 vertebra (Acute) Hematoma (Acute) Acute UTI (Acute) Left radial head fracture (Acute) Fracture of proximal end of left ulna (Acute) Past Medical History Medical History Atrial fibrillation with rapid ventricular response Dementia No known health problems Family History Family History Mother No problems noted. Father No problems noted. Family history of problems with anesthesia: No Surgical History Surgical History No pertinent past surgical history History of Problems with Anesthesia: No Social History Social History Household Members: Family Housing: House Do you presently have visiting nurse or other home services: No Alcohol intake: never Patient Tobacco Use Status: Former Tobacco user Years Smoked: 30 +/- service: No Current occupational status: retired Current occupation: rt hand Meds Allergies Allergy/AdvReac Type Severity Reaction Status Date / Time codeine Allergy Unknown Verified 01/26/23 15:18 Active Medications: Current Medications Digoxin (Digoxin 0.125 Mg Tablet) 0.125 mg PO DAILY [facility] Last Admin: 06/05/23 09:00 Dose: 0.125 mg Enoxaparin Sodium (Enoxaparin Sodium 40 Mg/0.4 Ml Syringe) 40 mg SUBCUT Q24H [facility] Last Admin: 06/05/23 08:59 Dose: 40 mg Cefazolin Sodium/Dextrose (Ancef) 2 gm in 50 mls @ 100 mls/hr IV PREOP ONE Stop: 06/06/23 09:29 Metoprolol Tartrate (Metoprolol Tartrate 25 Mg Tablet) 75 mg PO BID [facility]; Protocol Last Admin: 06/05/23 19:59 Dose: 75 mg Morphine Sulfate (Morphine Sulfate 2 Mg/Ml Cartridge) 2 mg IVPUSH Q5M PRN; Protocol PRN Reason: Chest Pain Last Admin: 06/05/23 23:42 Dose: 2 mg Morphine Sulfate (Morphine Sulfate 2 Mg/Ml Cartridge) 2 mg IVPUSH Q4H PRN; Protocol PRN Reason: moderate pain Pharmacy Consult (Consult Rx Perform Med Rec) 1 each MISCELLANE ONCE PRN PRN Reason: Consult order Sodium Chloride (0.9 % Sodium Chloride Flush 3 Ml Syringe) 3 ml IVFLUSH QSHIFT [facility] Last Admin: 06/05/23 20:00 Dose: 3 ml Home Medications Medication Instructions Recorded Confirmed Last Taken Type pravastatin 20 mg tablet 20 mg PO DAILY 01/26/23 06/04/23 06/03/23 History calcium carbonate 500 mg-vitamin 1 tab PO DAILY 06/04/23 06/04/23 Unknown History D3 10 mcg (400 unit) tablet (Calcium 500 + D) Exam Exam Date and Time: June 06, 2023 0903 Height,Weight and Vital Signs: Height 5 ft 6 in Weight 48.3 kg Last Vital Signs Temp 98.0 F 06/06/23 08:00 Pulse 120 H 06/06/23 08:00 Resp 16 06/06/23 08:00 BP 150/88 H 06/06/23 08:00 Pulse Ox 97 06/06/23 08:00 O2 Del Method Room Air 06/06/23 08:00 Pertinent Lab Results Pertinent Lab Results: Laboratory Tests 06/04/23 06/04/23 06/04/23 07:34 07:34 07:34 WBC RBC Hgb Hct MCV MCH MCHC RDW Plt Count MPV Immature Gran % (Auto) Neut % (Auto) Lymph % (Auto) [place] % (Auto) Eos % (Auto) Baso % (Auto) Lymph # (Auto) [place] # (Auto) Eos # (Auto) Baso # (Auto) Abs Immat Gran (auto) Absolute Neuts (auto) Absolute Nucleated RBC Nucleated RBC % (auto) PT 13.3 H INR 1.2 H APTT 30.6 Sodium 140 Potassium 4.1 Chloride 107 Carbon Dioxide 23 Anion Gap 14 BUN 28 H Creatinine 1.06 Estim Creat Clear Calc 33.3 Estimated GFR 50 Random Glucose 119 H Fasting Glucose Calcium 9.7 Total Bilirubin 1.2 H AST 19 ALT 18 Alkaline Phosphatase 52 Total Protein 6.7 Albumin 4.1 Blood Type Antibody Screen 06/04/23 06/04/23 06/05/23 07:34 07:35 06:47 WBC 11.2 H 9.8 RBC 3.76 L 3.31 L Hgb 12.9 11.3 L Hct 37.6 33.7 L MCV 100.0 H 101.8 H MCH 34.3 H 34.1 H MCHC 34.3 33.5 RDW 13.2 13.2 Plt Count 208 185 MPV 9.7 10.8 Immature Gran % (Auto) 0.4 Neut % (Auto) 87.5 H Lymph % (Auto) 3.7 L [place] % (Auto) 8.2 Eos % (Auto) 0.0 Baso % (Auto) 0.2 Lymph # (Auto) 0.4 L [place] # (Auto) 0.9 Eos # (Auto) 0.0 Baso # (Auto) 0.0 Abs Immat Gran (auto) 0.05 H Absolute Neuts (auto) 9.8 H Absolute Nucleated RBC 0.000 0.000 Nucleated RBC % (auto) 0.0 0.0 PT INR APTT Sodium Potassium Chloride Carbon Dioxide Anion Gap BUN Creatinine Estim Creat Clear Calc Estimated GFR Random Glucose Fasting Glucose Calcium Total Bilirubin AST ALT Alkaline Phosphatase Total Protein Albumin Blood Type O Positive Antibody Screen NEGATIVE 06/05/23 06:47 WBC RBC Hgb Hct MCV MCH MCHC RDW Plt Count MPV Immature Gran % (Auto) Neut % (Auto) Lymph % (Auto) [place] % (Auto) Eos % (Auto) Baso % (Auto) Lymph # (Auto) [place] # (Auto) Eos # (Auto) Baso # (Auto) Abs Immat Gran (auto) Absolute Neuts (auto) Absolute Nucleated RBC Nucleated RBC % (auto) PT INR APTT Sodium 142 Potassium 3.7 Chloride 108 Carbon Dioxide 26 Anion Gap 12 BUN 13 Creatinine 0.75 Estim Creat Clear Calc 47.1 Estimated GFR > 60 Random Glucose Fasting Glucose 106 H Calcium 8.7 D Total Bilirubin AST ALT Alkaline Phosphatase Total Protein Albumin Blood Type Antibody Screen Airway Mallampati Class: III TM Dist: >3cm Neck ROM: Full Assessment and Plan Assessment Anesthesia Assessment: Anesthesia Plan Discussed and Chart Reviewed Final Anesthetic Review Family History of Problems with Anesthesia: No History of Problems with Anesthesia: No NPO: Yes ASA Class: III Final Preanesthetic Review: No Changes in Pt Med Stat, Meds/Allgs Chart Reviewed, Consent Obtained/Reviewed and Anes Risks/Benef Reviewed Patient Risk: Intermediate Procedure Risk: Intermediate Anesthetic Plan Anesthetic Plan: GA Disposition: Standard PACU
--- NOTE | 2023-06-06 09:08 | MHC.SHP ---
Pre-Procedural Eval Section A Date of Service: 06/06/23 The patient is an INPATIENT: Yes Changes since office visit: No Cold of Flu in the past 2 weeks, No New Medical Problems, No Changes in Medication and No Patient answered all questions The History & Physical has been completed within 30 days and I have reviewed it.: Yes Section B Chief Complaint: Hip fracture Allergies: Allergies Allergy/AdvReac Type Severity Reaction Status Date / Time codeine Allergy Unknown Verified 01/26/23 15:18 Plan I have reviewed the history and physical and performed a pertinent physical examination on my patient. No changes have occurred unless specified. Time Spent With Patient Time: Total time managing care of this patient today ____ minutes.
--- NOTE | 2023-06-06 11:19 | PM.OP ---
Brief Operative Note Date of Service: 06/06/23 Pre-op diagnosis: Right hip fracutre Post-op diagnosis: same Procedure: Right hip IMN Implants: Valeria 125 deg 360mm x 11 imn with 95 mm hip screw and 45 mm distal interlock Surgeon: Tony Boyd MD Anesthesia: GETA and local Was an Mechanical Fitter used for this Procedure?: No Estimated blood loss (mL): 100 IV fluids (mL): 800 Pathology: none sent Condition: stable Disposition: PACU
--- NOTE | 2023-06-06 13:16 | MHC.CM.PN ---
IMM 06/06. Pt admitted with left hip fracture, will need surgical repair. Pt lives at home with her with dementia, and an adult son, was self-care, no DME/services. Pt has confusion and this CM spoke with patients other son/HCP Neil [phone] for information. Copy of HCP requested. D/C plan likely for STR. Pts son Neil did not have a preferred facility. Transportation will be BLS/[facility]. PCP: Erinn Scherer
[2023-06-06] MEDS: ceFAZolin Sodium/Dextrose,Iso 2 GM/50 ML PIGGYBACK IV (15:26)
[2023-06-06] MEDS: 0.9 % Sodium Chloride Flush 3 ML SYRINGE IVFLUSH (15:30)
--- NOTE | 2023-06-06 19:28 | PC.NURSE ---
Addendum entered by Dayami Tenorio RN 06/06/23 19:57: straight cath for 650cc immediate return. Original Note: Pt becoming more restless at start of this nurses shift, tryig to climb out of bed. Asked if she needed to urinate, is confused but able to respond and say yes. Trial of bedpan without success, massage of bladder, warm packs, still no success. Bladder scanned for 543ml, page to covering provider Gus. Per Gus will place order for straight cath.
[2023-06-06] MEDS: Metoprolol Tartrate 25 MG TABLET 75 MG PO (20:29)
[2023-06-07] MEDS: 0.9 % Sodium Chloride Flush 3 ML SYRINGE IVFLUSH ×4 (00:34→20:41)
[2023-06-07 04:00] VITALS: BP 122/76; PULSE 104; RESP 16; TEMP 36.2; O2SAT 96
--- NOTE | 2023-06-07 06:10 | PC.NURSE ---
PATIENT NOTED WITH NO VOID AT 0530 AND WAS DTV BETWEEN 4-6AM. PT WAS LAST ST CATH'D AT 2200 FOR 650ML. PT PUT ON BEDPAN, REPOSITIONED, AND ALLOWED TIME TO PASS HER URINE WITH NO RESULTS. PT DENIED THE URGE TO VOID, BLADDER PAIN, OR PRESSURE. BLADDER SCAN REVEALED 49ML. WILL CONT TO MONITOR, FLUIDS ENCOURAGED AND DRANK 120ML WATER.
[2023-06-07 06:28] LABS: Anion Gap 12 (12-20); Blood Urea Nitrogen 21 mg/dL (9-16); Calcium 8.6 mg/dL (8.4-10.2); Carbon Dioxide 27 mmol/L (22-29); Chloride 107 mmol/L (96-108); Creatinine Clr Calc Pharmacy 45.9; Estimated Glomerular Filt Rate > 60; Glucose Fasting 115 mg/dL (60-99); Potassium 3.6 mmol/L (3.3-5.1); Sodium 142 mmol/L (135-145)
--- NOTE | 2023-06-07 07:57 | HO.POSTANES ---
Post Anesthesia Evaluation Post Anesthesia Evaluation Date of Service: 06/07/23 Vital Signs: Vital Signs Temp Pulse Resp BP Pulse Ox O2 Del Method 06/07/23 04:00 97.1 F 104 H 16 122/76 96 Room Air 06/06/23 23:32 97.0 F 107 H 16 108/64 95 Room Air Anesthesia: General Mental Status: Awake Pain Control: Satisfactory Nausea/Vomiting: None Hydration: Adequate Anesthesia-Related Issues: No Anes. Related Issues
[2023-06-07 08:00] VITALS: BP 110/59; PULSE 116; RESP 18; TEMP 36.4; O2SAT 99
[2023-06-07] MEDS: Digoxin 0.125 MG TABLET PO (08:14)
[2023-06-07] MEDS: Metoprolol Tartrate 25 MG TABLET 75 MG PO ×2 (08:14→20:35)
[2023-06-07] MEDS: Morphine Sulfate 2 MG/ML CARTRIDGE IVPUSH ×2 (08:15→13:30)
--- NOTE | 2023-06-07 08:15 | P.PNIM_ITS ---
Subjective Subjective Date of Service: 06/07/23 Interval History: no pain Physical Exam Vital Signs: Vital Signs: Last Vital Signs Temp 97.1 F 06/07/23 04:00 Pulse 104 H 06/07/23 04:00 Resp 16 06/07/23 04:00 BP 122/76 06/07/23 04:00 Pulse Ox 96 06/07/23 04:00 O2 Del Method Room Air 06/07/23 04:00 O2 Flow Rate 2 06/06/23 11:13 BMI result Body Mass Index 17.2 alert, oriented to name and place, answers simple questions with significant expressive aphasia, Objective Data Active Medications Digoxin (Digoxin 0.125 Mg Tablet) 0.125 mg PO DAILY [facility] Last Admin: 06/06/23 10:07 Dose: Not Given Documented By: RAYMOND Non-Admin Reason: Off Unit: Surgery Enoxaparin Sodium (Enoxaparin Sodium 40 Mg/0.4 Ml Syringe) 40 mg SUBCUT Q24H [facility] Last Admin: 06/05/23 08:59 Dose: 40 mg Documented By: RAYMOND Fentanyl (Fentanyl Citrate/Pf 100 Mcg/2 Ml Vial) 50 mcg IVPUSH Q5M PRN; Protocol PRN Reason: Pain, Severe (Pain Scale 7-10) Metoprolol Tartrate (Metoprolol Tartrate 25 Mg Tablet) 75 mg PO BID [facility]; Protocol Last Admin: 06/06/23 20:29 Dose: 75 mg Documented By: SANDER Morphine Sulfate (Morphine Sulfate 2 Mg/Ml Cartridge) 2 mg IVPUSH Q5M PRN; Protocol PRN Reason: Chest Pain Last Admin: 06/05/23 23:42 Dose: 2 mg Documented By: YANA Morphine Sulfate (Morphine Sulfate 2 Mg/Ml Cartridge) 2 mg IVPUSH Q4H PRN; Protocol PRN Reason: moderate pain Ondansetron HCl (Ondansetron Hcl 4 Mg/2 Ml Vial) 4 mg IVPUSH ONCE PRN PRN Reason: Nausea and Vomiting Oxycodone HCl (Oxycodone Hcl Immed Release 5 Mg Tablet) 5 mg PO ONCE PRN PRN Reason: Pain, Severe (Pain Scale 7-10) Pharmacy Consult (Consult Rx Perform Med Rec) 1 each MISCELLANE ONCE PRN PRN Reason: Consult order Sodium Chloride (0.9 % Sodium Chloride Flush 3 Ml Syringe) 3 ml IVFLUSH QSHIFT [facility] Last Admin: 06/07/23 00:34 Dose: 3 ml Documented By: BENITO Labs 06/05/23 06:47 06/07/23 06:08 Labs: Laboratory Results - last 24 hr 06/07/23 06:08 Anion Gap 12 Estim Creat Clear Calc 45.9 Estimated GFR > 60 Fasting Glucose 115 H Calcium 8.6 Assessment and Plan (1) Closed hip fracture: Status: Acute Plan 77F PMH alzheimer's dementia (baseline ambulatory, significant memory impairment and moderate aphasia), paroxysmal afib on eliquis, HTN, hld, chronic systolic chf, presented with mechanical fall found to have right hip fracture acute right hip fracture due to mechanical fall due to alzheimers dementia. pain control POD 1 paroxysmal afib with rvr metoprolol, dig, eliquis hld statin dvt prophylaxis - eliquis full code reason for continued hospitalization:dispo planning Time Spent With Patient Time: Total time managing care of this patient today ____ minutes. Quality Stroke Does the patient have a stroke diagnosis?: No VTE Prior VTE?: No VTE Risk Level:: Medical - moderate - high VTE Device Contraindication: Treatment Not Indicated VTE Drug Contraindication: N/A - Med Ordered
--- NOTE | 2023-06-07 08:19 | P.PNOP_ITS ---
Subjective Subjective Date of Service: 06/07/23 Interval history: POD 1 s/p Rt hip hemiarthroplasty no overnight events resting in bed denies concerns Physical Exam Vital Signs: Vital Signs: Last Vital Signs Temp 97.5 F 06/07/23 08:00 Pulse 116 H 06/07/23 08:00 Resp 18 06/07/23 08:00 BP 110/59 L 06/07/23 08:00 Pulse Ox 99 06/07/23 08:00 O2 Del Method Room Air 06/07/23 08:00 O2 Flow Rate 2 06/06/23 11:13 BMI result Body Mass Index 17.2 Const: General: cooperative, healthy appearing and no acute distress Resp: Effort & Inspection: normal respiratory effort and able to speak in complete sentences Cardio: Rate: regular rate Peripheral pulses: Peripheral pulses 2+ throughout GI: Palpation (GI): Soft to palpation Skin: General skin exam: no rashes or lesions noted Extrem: Other: right hip incision clean, dry and intact. NVi. Procedures Date of Service Date of Service: 06/07/23 Progress Note: A&P Assessment and plan (1) Closed hip fracture: Status: Acute Assessment and Plan: * Continue pain mgmnt * Begin lovenosx for dvt ppx-resume eliquis 48 hrs post op * begin PT for RT hip kenney-posterior precautions * Dispo planning-Pending PT eval, pain mgmnt Time Spent With Patient Time: Total time managing care of this patient today ____ minutes. Quality Stroke Does the patient have a stroke diagnosis?: No VTE Prior VTE?: No VTE Risk Level:: Medical - moderate - high VTE Device Contraindication: Treatment Not Indicated VTE Drug Contraindication: N/A - Med Ordered
[2023-06-07 08:39] LABS: Hematocrit 28.6 % (37.0-47.0); Hemoglobin 9.6 g/dl (12.0-16.0); Mean Corpuscular HGB Conc 33.6 g/dl (31.0-35.0); Mean Corpuscular Hemoglobin 34.3 pg (27.0-33.0); Mean Corpuscular Volume 102.1 fL (80.0-98.0); Mean Platelet Volume 11.1 fL (9.4-12.3); Platelet Count 176 X10*3/uL (160-400); Red Cell Distribution Width 13.2 % (11.0-16.0)
[2023-06-07] MEDS: Enoxaparin Sodium 40 MG/0.4 ML SYRINGE SUBCUT (09:21)
--- NOTE | 2023-06-07 11:39 | P.CDIM_ITS ---
PROVIDER RESPONSE TEXT: To clarify, the appropriate diagnosis supported by the clinical indicators: Underweight QUERY TEXT: PHYSICIAN'S DOCUMENTATION REQUEST Date of Query: 06/07/2023 11:23 AM EDT Patient Name: Dacia Gurrola Admit Date: 06/04/2023 Dear Pio Wilder, A review of the medical record indicates additional documentation may be needed. Please review below and update the documentation accordingly. Clinical Indicators: BMI: 17 5ft 6in 48.3kg If possible, please provide an associated diagnosis related to the abnormal BMI, such as: Underweight Weight loss Other Other (explain)Clinically unable to determine (explain)Thank you, Gwendolyn Jonas, CCS, CDIS Use of terms such as suspected, likely, concern for, or probable (associated with a specific diagnosi s that is being evaluated, monitored, or treated as if it exists) are acceptable and can be coded in the inpatient se tting, when documented at the time of discharge. Please use your independent medical judgment in providing your response. THIS QUERY IS PART OF THE PERMANENT MEDICAL RECORD
[2023-06-07 11:50] VITALS: BP 102/62; PULSE 98; RESP 17; TEMP 37.3; O2SAT 97
--- NOTE | 2023-06-07 12:57 | MHC.CM.PN ---
PT recommends STR. The patients Son/HCP Neil was contacted for facility preference. The preferences were obtained and the referrals have been sent. Patient will transport via BLS at discharge.
[2023-06-07 13:48] VITALS: BMI 17.2
--- NOTE | 2023-06-07 14:02 | MHC.CLN ---
NUTRITION PATIENT WITH LIMITED INTAKE TODAY. QUALIFIES MODERATELY MALNOURISHED. ADDING ENSURE BID (700 KCALS, 40 G PROTEIN) TO IMPROVE NUTRITIONAL INTAKE. SEE CLINICAL NUTRITION ASSESSMENT 06/07/23.
[2023-06-07 15:46] VITALS: BP 108/60; PULSE 100; RESP 20; TEMP 36.8; O2SAT 93
--- NOTE | 2023-06-07 17:08 | W.PM.OPN ---
Operative Note Operative Note Date of Service: 06/07/23 Narrative: Date of Service: 06/06/23 Pre-op diagnosis: Right hip fracture Post-op diagnosis: same Procedure: Right hip IMN Implants: Valeria 125 deg 360mm x 11 imn with 95 mm hip screw and 45 mm distal interlock Surgeon: Tony Boyd MD Anesthesia: GETA and local Was an Airframe Design Engineer used for this Procedure?: No Estimated blood loss (mL): 100 IV fluids (mL): 800 Pathology: none sent Condition: stable Disposition: PACU Procedure in detail: Patient was brought to the operating room and prepped and draped in standard sterile fashion. Time-out was called to identify proper site procedure proper surgeon and IV antibiotics per weight were administered. She was positioned on the fracture table and a traction and slight internal rotation were performed and biplanar fluoroscopy confirmed initial fracture reduction. I then made a stab incision proximal to the greater trochanter in using a guidewire made a entry point just lateral to the tip of the greater trochanter and placed a guidewire into the femoral metadiaphysis. I then over-reamed with 15 mm Reamer placed my ball-tip guidewire down distally in the femur and measured my length. I selected a 360mm nail and reamed up to a 13. I then placed a 11 x 360 125 deg IMnail. I then turned my attention to the hip screw where I used a guidewire and a tip apex distance of less than 1.5 measured my hip screw (95mm). I then pre drilled and placed a hip screw using biplanar fluoroscopy. Once I was satisfied with the position of the hip screw I turned my attention to the distal aspect of the nail. Using perfect capitan grande technique I placed 1 static distal interlocking screw in standard AO technique. I then removed all I then tightened my set screw proximally and removed all extraneous instrumentation. Final biplanar radiographs were taken. I was satisfied with the position of the hardware and the fracture reduction. I think copiously irrigated closed with absorbable sutures génesis and injected 30 mL of into the area of the incisions. Traction was let down patient was placed in sterile dressing awakened from anesthesia brought to recovery room stable condition there were no known complications.
[2023-06-07 19:10] VITALS: BP 113/64; PULSE 109; RESP 17; TEMP 37.1; O2SAT 100
[2023-06-07 23:29] VITALS: BP 116/67; PULSE 100; RESP 16; TEMP 36.9; O2SAT 94
--- NOTE | 2023-06-08 | ECG_ITS ---
Test Reason : TACHYCARDIA Blood Pressure : / mmHG Vent. Rate : 127 BPM Atrial Rate : 000 BPM P-R Int : 000 ms QRS Dur : 082 ms QT Int : 314 ms P-R-T Axes : 000 011 249 degrees QTc Int : 456 ms Atrial fibrillation with rapid ventricular response Minimal voltage criteria for LVH, may be normal variant ( Stuart product ) ST & T wave abnormality, consider inferior ischemia ST & T wave abnormality, consider anterolateral ischemia Abnormal ECG When compared with ECG of 04-JUN-2023 07:14, No significant change was found Referred By: Pio Wilder Electronically Signed By:YAMILEX STOKES MD
[2023-06-08 03:35] VITALS: BP 129/67; PULSE 121; RESP 16; TEMP 36.4; O2SAT 95
--- NOTE | 2023-06-08 07:51 | P.PNOP_ITS ---
Subjective Subjective Date of Service: 06/08/23 Interval history: POD 2 s/p Rt hip hemiarthroplasty no overnight events resting in bed denies concerns Physical Exam Vital Signs: Vital Signs: Last Vital Signs Temp 97.5 F 06/08/23 03:35 Pulse 121 H 06/08/23 03:35 Resp 16 06/08/23 03:35 BP 129/67 06/08/23 03:35 Pulse Ox 95 06/08/23 03:35 O2 Del Method Room Air 06/08/23 03:35 O2 Flow Rate 2 06/06/23 11:13 BMI result Body Mass Index 17.2 Const: General: cooperative, healthy appearing and no acute distress Resp: Effort & Inspection: normal respiratory effort and able to speak in complete sentences Cardio: Rate: regular rate Peripheral pulses: Peripheral pulses 2+ throughout GI: Palpation (GI): Soft to palpation Skin: General skin exam: no rashes or lesions noted Extrem: Other: right hip incision clean, dry and intact. NVi. Procedures Date of Service Date of Service: 06/08/23 Progress Note: A&P Assessment and plan (1) Closed hip fracture: Status: Acute Assessment and Plan: * Continue pain mgmnt * contlovenosx for dvt ppx-resume eliquis 48 hrs post op * cont PT for RT hip kenney-posterior precautions * Dispo planning-Pending PT eval, pain mgmnt Time Spent With Patient Time: Total time managing care of this patient today ____ minutes. Quality Stroke Does the patient have a stroke diagnosis?: No VTE Prior VTE?: No VTE Risk Level:: Medical - moderate - high VTE Device Contraindication: Treatment Not Indicated VTE Drug Contraindication: N/A - Med Ordered
[2023-06-08 07:59] VITALS: BP 106/64; PULSE 121; RESP 17; TEMP 37.5; O2SAT 96
[2023-06-08] MEDS: Digoxin 0.125 MG TABLET PO (08:43)
[2023-06-08] MEDS: 0.9 % Sodium Chloride Flush 3 ML SYRINGE IVFLUSH (08:44)
[2023-06-08] MEDS: Enoxaparin Sodium 40 MG/0.4 ML SYRINGE SUBCUT (08:44)
[2023-06-08] MEDS: Metoprolol Tartrate 25 MG TABLET 75 MG PO ×2 (08:44→22:15)
--- NOTE | 2023-06-08 08:46 | HO.PM.IMPN ---
Subjective Subjective Date of Service: 06/08/23 Interval History: tired today, confused Physical Exam Vital Signs: Vital Signs: Last Vital Signs Temp 99.5 F 06/08/23 07:59 Pulse 121 H 06/08/23 07:59 Resp 17 06/08/23 07:59 BP 106/64 06/08/23 07:59 Pulse Ox 96 06/08/23 07:59 O2 Del Method Room Air 06/08/23 07:59 O2 Flow Rate 2 06/06/23 11:13 BMI result Body Mass Index 17.2 Const: General: cooperative, healthy appearing and no acute distress Resp: Effort & Inspection: normal respiratory effort and able to speak in complete sentences Cardio: Rate: regular rate Peripheral pulses: Peripheral pulses 2+ throughout GI: Palpation (GI): Soft to palpation Skin: General skin exam: no rashes or lesions noted Extrem: Other: right hip incision clean, dry and intact. NVi. Objective Data Active Medications Apixaban (Apixaban 5 Mg Tablet) 5 mg PO BID [facility] Digoxin (Digoxin 0.125 Mg Tablet) 0.125 mg PO DAILY [facility] Last Admin: 06/08/23 08:43 Dose: 0.125 mg Documented By: MICHELLE Fentanyl (Fentanyl Citrate/Pf 100 Mcg/2 Ml Vial) 50 mcg IVPUSH Q5M PRN; Protocol PRN Reason: Pain, Severe (Pain Scale 7-10) Metoprolol Tartrate (Metoprolol Tartrate 25 Mg Tablet) 75 mg PO BID [facility]; Protocol Last Admin: 06/08/23 08:44 Dose: 75 mg Documented By: MICHELLE Morphine Sulfate (Morphine Sulfate 2 Mg/Ml Cartridge) 2 mg IVPUSH Q5M PRN; Protocol PRN Reason: Chest Pain Last Admin: 06/05/23 23:42 Dose: 2 mg Documented By: YANA Morphine Sulfate (Morphine Sulfate 2 Mg/Ml Cartridge) 2 mg IVPUSH Q4H PRN; Protocol PRN Reason: moderate pain Last Admin: 06/07/23 13:30 Dose: 2 mg Documented By: KEITH Ondansetron HCl (Ondansetron Hcl 4 Mg/2 Ml Vial) 4 mg IVPUSH ONCE PRN PRN Reason: Nausea and Vomiting Oxycodone HCl (Oxycodone Hcl Immed Release 5 Mg Tablet) 5 mg PO ONCE PRN PRN Reason: Pain, Severe (Pain Scale 7-10) Pharmacy Consult (Consult Rx Perform Med Rec) 1 each MISCELLANE ONCE PRN PRN Reason: Consult order Sodium Chloride (0.9 % Sodium Chloride Flush 3 Ml Syringe) 3 ml IVFLUSH QSHIFT JOHN Last Admin: 06/08/23 08:44 Dose: 3 ml Documented By: MICHELLE Labs 06/07/23 06:08 06/07/23 06:08 Assessment and Plan (1) Closed hip fracture: Status: Acute Plan 77F PMH alzheimer's dementia (baseline ambulatory, significant memory impairment and moderate aphasia), paroxysmal afib on eliquis, HTN, hld, chronic systolic chf, presented with mechanical fall found to have right hip fracture acute right hip fracture due to mechanical fall due to alzheimers dementia. pain control POD 2 paroxysmal afib with rvr metoprolol, dig, eliquis to restart tomorrow gentle hydration chronic systolic chf metoprolol, outpatient follow up htn metoprolol hld statin dvt prophylaxis - lovenox today, restart eliquis tomorrow full code reason for continued hospitalization:dispo planning Time Spent With Patient Time: Total time managing care of this patient today ____ minutes. Quality Stroke Does the patient have a stroke diagnosis?: No VTE Prior VTE?: No VTE Risk Level:: Medical - moderate - high VTE Device Contraindication: Treatment Not Indicated VTE Drug Contraindication: N/A - Med Ordered
[2023-06-08] MEDS: 0.9 % Sodium Chloride 1,000 ML 75 ML IVCONT ×2 (08:58→22:19)
[2023-06-08 11:26] VITALS: BP 108/58; PULSE 103; RESP 17; TEMP 37.3; O2SAT 97
[2023-06-08 15:10] VITALS: BP 112/62; PULSE 98; RESP 18; TEMP 37.5; O2SAT 97
--- NOTE | 2023-06-08 15:23 | PC.NURSE ---
@ 0800 HR 120's. BP 106/64. Dr. Wilder notified. IV fluids at 75/hr ordered and EKG done. No changes on EKG. @1100 HR 103, BP 108/58. No void 7a-3p shift. Bladder scanned for 211cc. Dr. Wilder notified. Will monitor for now.
--- NOTE | 2023-06-08 18:06 | PC.NURSE ---
Pt unable void. Bladder scanned for 260ml. Dr Shannon notifeied. Per MD- Continue to monitor bladder scans
[2023-06-08 19:24] VITALS: BP 134/67; PULSE 93; RESP 18; TEMP 37.3; O2SAT 99
[2023-06-08] MEDS: Morphine Sulfate 2 MG/ML CARTRIDGE IVPUSH (22:20)
[2023-06-08 23:46] VITALS: BP 132/72; PULSE 101; RESP 16; TEMP 36.9; O2SAT 98
[2023-06-09 02:51] VITALS: BP 114/71; PULSE 97; RESP 16; TEMP 37; O2SAT 96
[2023-06-09 06:53] LABS: Hematocrit 26.2 % (37.0-47.0); Hemoglobin 8.6 g/dl (12.0-16.0); Mean Corpuscular HGB Conc 32.8 g/dl (31.0-35.0); Mean Corpuscular Volume 103.6 fL (80.0-98.0); Platelet Count 185 X10*3/uL (160-400); Red Blood Count 2.53 X10*6/uL (4.20-5.50); Red Cell Distribution Width 12.8 % (11.0-16.0); White Blood Count 5.4 X10*3/uL (4.8-10.8)
[2023-06-09 07:17] LABS: Anion Gap 9 (12-20); Blood Urea Nitrogen 15 mg/dL (9-16); Calcium 8.3 mg/dL (8.4-10.2); Carbon Dioxide 28 mmol/L (22-29); Chloride 108 mmol/L (96-108); Creatinine Clr Calc Pharmacy 55.2; Estimated Glomerular Filt Rate > 60; Glucose Fasting 103 mg/dL (60-99); Potassium 3.6 mmol/L (3.3-5.1); Sodium 141 mmol/L (135-145)
[2023-06-09 07:27] VITALS: BP 158/89; PULSE 110; RESP 18; TEMP 36.9; O2SAT 96
--- NOTE | 2023-06-09 07:28 | P.PNOP_ITS ---
Subjective Subjective Date of Service: 06/09/23 Interval history: POD2 s/p right hip IM Nail. No overnight events. Pain is managed. No additional complaints. Physical Exam Vital Signs: Vital Signs: Last Vital Signs Temp 98.6 F 06/09/23 02:51 Pulse 97 06/09/23 02:51 Resp 16 06/09/23 02:51 BP 114/71 06/09/23 02:51 Pulse Ox 96 06/09/23 02:51 O2 Del Method Room Air 06/09/23 02:51 O2 Flow Rate 2 06/06/23 11:13 BMI result Body Mass Index 17.2 Const: General: cooperative, healthy appearing and no acute distress Resp: Effort & Inspection: normal respiratory effort and able to speak in complete sentences Cardio: Rate: regular rate Peripheral pulses: Peripheral pulses 2+ throughout GI: Palpation (GI): Soft to palpation Skin: General skin exam: no rashes or lesions noted Extrem: Other: right hip incision clean, dry and intact. NVi. Procedures Date of Service Date of Service: 06/09/23 Progress Note: A&P Assessment and plan (1) Closed hip fracture: Status: Acute Assessment and Plan: * Continue pain mgmnt * Resume eliquis 48 hrs post op * cont PT for RT hip kenney-posterior precautions * Dispo planning-Pending PT eval, pain mgmnt Time Spent With Patient Time: Total time managing care of this patient today ____ minutes. Quality Stroke Does the patient have a stroke diagnosis?: No VTE Prior VTE?: No VTE Risk Level:: Medical - moderate - high VTE Device Contraindication: Treatment Not Indicated VTE Drug Contraindication: N/A - Med Ordered
[2023-06-09] MEDS: Metoprolol Tartrate 25 MG TABLET 75 MG PO (09:51)
[2023-06-09] MEDS: Digoxin 0.125 MG TABLET PO (09:51)
[2023-06-09] MEDS: Apixaban 5 MG TABLET PO (09:51)
--- NOTE | 2023-06-09 10:36 | MHC.CLN ---
F/U DIET=REGULAR. ENSURE BID TO IMPROVE NUTRITIONAL INTAKE. SUPPLEMENT PROVIDES 700 KCALS, 40 G PROTEIN. VARIABLE INTAKE WITH MOST RECENT 3 MEALS 1 X 25% AND 2 X 75%. CONTINUE TO FOLLOW FOR INTAKE.
--- NOTE | 2023-06-09 11:29 | PM.DS ---
DS: Providers Provider Date of Service: 06/09/23 Date of admission: 06/04/23 09:13 Primary care physician: Erinn Scherer MD Consults: 06/04/23 09:12 Consult to Orthopedics Routine Consulting [place] [facility] [place] [facility] Reason for consultation: right hip fracture DS: Diagnosis Discharge Diagnosis (1) Closed hip fracture: Status: Acute DS: Summary Hospital Course Hospital Course: history of presenting illness: Date of Service: 06/04/23 Chief Complaint: fall, right hip pain 77F PMH alzheimer's dementia (baseline ambulatory, significant memory impairment and moderate aphasia), paroxysmal afib on eliquis, HTN, hld, chronic systolic chf, presented with mechanical fall. patient and family report fall at home night prior to presentation, was not witnessed, fell on right side, had right hip pain, no LOC, in ED found to have right hip fracture. patient deneis chest pain, sob, fever, chills. hospital course: 7F PMH alzheimer's dementia (baseline ambulatory, significant memory impairment and moderate aphasia), paroxysmal afib on eliquis, HTN, hld, chronic systolic chf, presented with mechanical fall found to have right hip fracture, admitted to medical floor underwent right hip IMN surgery on 06/07/2023 postoperatively doing well continue Tylenol scheduled t.i.d. and oxycodone as needed, patient required straight catheterization in last 48 hours but voided fine this morning, continue Eliquis as before. paroxysmal afib with rvr continue home dose of metoprolol, digoxin and Eliquis chronic systolic chf no acute exacerbation noted in regard to hypertension and hyperlipidemia continue home medications Time Spent with Patient Time attestation: Total time managing care of this patient today ____ minutes. Discharge coordination time: Greater than 30 minutes Quality: Safe Use of Opioids Does Pt have an Active Cancer Diagnosis on the Problem List?: No Quality: Stroke Does the patient have a stroke diagnosis?: No Physical Exam Vital Signs: Vital Signs: Last Vital Signs Temp 98.4 F 06/09/23 07:27 Pulse 110 H 06/09/23 07:27 Resp 18 06/09/23 07:27 BP 158/89 H 06/09/23 07:27 Pulse Ox 96 06/09/23 07:27 O2 Del Method Room Air 06/09/23 07:27 O2 Flow Rate 2 06/06/23 11:13 BMI result Body Mass Index 17.2 Const: Other: General sitting c omfortably in no a cute distress. N helena supple no JVD. CVS regular rate rhythm, Respirato ry lungs clear to auscultation, no r espiratory distres s Gastrointestinal abdomen soft, non tender, bowel elizabeth nds audible Extrem ities no edema. Ne uro awake, alert, answers simple qu estions with signi ficant expressive aphasia Skin no ra sh psych poor insi ght DS: Data Data Completed and Pending Labs on day of discharge: Laboratory Results - last 24 hr 06/09/23 06/09/23 05:26 06:35 WBC 5.4 RBC 2.53 L Hgb 8.6 L Hct 26.2 L MCV 103.6 H MCH 34.0 H MCHC 32.8 RDW 12.8 Plt Count 185 MPV 10.0 Absolute Nucleated RBC 0.000 Nucleated RBC % (auto) 0.0 Sodium 141 Potassium 3.6 Chloride 108 Carbon Dioxide 28 Anion Gap 9 L BUN 15 Creatinine 0.63 Estim Creat Clear Calc 55.2 Estimated GFR > 60 Fasting Glucose 103 H Calcium 8.3 L Discharge Plan Discharge Anticipated Discharge Date/Time: 06/09/23 11:08 Patient Disposition: Xfer SNF Discharge Diagnosis: acute right hip fracture due to mechanical fall paroxysmal AFib with RVR chronic systolic congestive heart failure Referrals: Erinn Scherer MD [Primary Care Provider] - 1 Week Gianni Richard PA-C [Physician Puzzle Assembler] - 2 Weeks (06/24/23 2:30pm) Discharge Medications: New Eliquis 5 mg Tablet 5 mg PO BID Qty: 60 0RF acetaminophen 325 mg Tablet 650 mg PO TID Qty: 60 0RF oxycodone 5 mg Tablet 5 mg PO Q6H PRN (Reason: Pain, Severe (Pain Scale 7-10)) Qty: 20 0RF Rx Instructions: Partial Fill upon patient request. Continued digoxin [Digox] 125 mcg (0.125 mg) tablet 125 mcg PO DAILY Qty: 90 3RF calcium carbonate-vitamin D3 [Calcium 500 + D] 500 mg-10 mcg (400 unit) Tablet 1 tab PO DAILY metoprolol tartrate 50 mg tablet 75 mg PO BID 90 Days Qty: 270 3RF pravastatin 20 mg tablet 20 mg PO DAILY Discharge Orders: Discharge Order (Routine); Ordered 06/09/23 Ordered By: Hernando Johnson Diet: Advance to usual diet Activity on Discharge: As tolerated Stand Alone Forms: Patient Portal Discharge page Care Plan Goals: take Tylenol scheduled and oxycodone as needed for pain Health Concerns: atrial fibrillation /dementia Plan of Treatment: follow-up with primary care physician Assessment: Gait training, strengthening, ADLs Continue Eliquis Keep dressing clean,dry and intact-no showering or tub baths Follow up with Orthopedics in 2 weeks
[2023-06-09] MEDS: oxyCODONE HCl Immed Release 5 MG TABLET PO (11:36)
[2023-06-09] MEDS: Celecoxib 200 MG CAPSULE PO (11:36)
--- NOTE | 2023-06-09 11:43 | PC.NURSE ---
Addendum entered by Dayami Haynes RN 06/09/23 15:49: Patient voided 200cc in BR. Original Note: No void for 6 hours. Bladder scanned 231. Dr. Johnson notified. No cath ordered at present.
[2023-06-09 11:44] VITALS: BP 117/64; PULSE 96; RESP 18; TEMP 36.8; O2SAT 98
--- NOTE | 2023-06-09 14:08 | MHC.CM.PN ---
IMM 06/09/23 Patient is discharged today. Multiple bed offers were received. Family accepted the bed a [facility]. The patient will transport via BLS. All discharge information has been sent to the facility. The HCP was obtained from PCP office. It has been sent to the [facility].
== END 2023-06-09 16:00 | disposition skilled nursing facility (03) | DRG 481 ==
LOC: HO.ED 08:29 → HO.EDOVER 09:29 → HO.S3 13:23
PROVIDERS: Orthopaedic Surgery; Admitting Provider Internal Medicine; Emergency Provider Emergency Medicine; PCP Internal Medicine; Visit Provider Hospitalist
PROC: 0QS636Z Reposition Right Upper Femur with Intramedullary Internal Fixation Device, Percutaneous Approach (ICD-10-PCS; principal; 2023-06-06 09:00)
DX: S72.141A Displaced intertrochanteric fracture of right femur, initial encounter for closed fracture (principal); I50.22 Chronic systolic (congestive) heart failure; R47.01 Aphasia; Z68.1 Body mass index [BMI] 19.9 or less, adult; W19.XXXA Unspecified fall, initial encounter; I12.9 Hypertensive chronic kidney disease with stage 1 through stage 4 chronic kidney disease, or unspecified chronic kidney disease; R63.6 Underweight; I48.0 Paroxysmal atrial fibrillation; G30.9 Alzheimer's disease, unspecified; F02.80 Dementia in other diseases classified elsewhere, unspecified severity, without behavioral disturbance, psychotic disturbance, mood disturbance, and anxiety; Z87.891 Personal history of nicotine dependence; Z79.01 Long term (current) use of anticoagulants; Z79.899 Other long term (current) drug therapy
CPT/HCPCS: 36415; 70450; 71045; 72125; 72170; 73502; 80048; 80053; 85025; 85027; 85610; 85730; 86850; 86900; 86901; 93005; 97116; 97162; 97166; 97530; 97535; 99285; C1713; C1769; J0690; J1100; J1650; J2270; J2405; J3010

== ENCOUNTER → 2023-06-04 07:08 | Outpatient (BNV) | payer MEDICARE, SELFPAY | PROVIDERS: Emergency Provider Emergency Medicine; PCP Internal Medicine; Visit Provider Internal Medicine | DX: S72.001A Fracture of unspecified part of neck of right femur, initial encounter for closed fracture (principal) | CPT/HCPCS: 99223; 99232; 99239 ==

== ENCOUNTER → 2023-06-04 07:15 | Outpatient (BNV) | payer MEDICARE, SELFPAY | PROVIDERS: Admitting Provider Internal Medicine; Emergency Provider Emergency Medicine; PCP Internal Medicine; Visit Provider Internal Medicine Cardiovascular Disease | DX: I48.19 Other persistent atrial fibrillation (principal); R94.31 Abnormal electrocardiogram [ECG] [EKG] | CPT/HCPCS: 93010 ==

== ENCOUNTER 2023-06-04 09:13 | Outpatient (BNV) | payer MEDICARE, SELFPAY | END 2023-06-08 09:01 | PROVIDERS: Admitting Provider Internal Medicine; Emergency Provider Emergency Medicine; PCP Internal Medicine; Visit Provider Internal Medicine Cardiovascular Disease | DX: R00.0 Tachycardia, unspecified (principal) | CPT/HCPCS: 93010 ==

== ENCOUNTER → 2023-06-04 09:13 | Outpatient (BNV) | payer MEDICARE, SELFPAY | PROVIDERS: Admitting Provider Internal Medicine; Emergency Provider Emergency Medicine; PCP Internal Medicine; Visit Provider Physician Assistant | DX: S72.009A Fracture of unspecified part of neck of unspecified femur, initial encounter for closed fracture (principal) | CPT/HCPCS: 27245; 99024; 99222; 99232 ==

== ENCOUNTER 2023-06-24 13:37 | Outpatient (AMB) | payer MEDICARE, SELFPAY ==
--- NOTE | 2023-06-24 14:44 | A.OFFVIS_ITS ---
Intake Intake Visit Reasons: PO- s/p RT hip kenney arthroplasty 06/06/23 with NE Intake Note: Dacia a 78 year old female who presents today for a post operative right hip kenney arthroplasty on 06/06/23 NE. Patient reports she is doing well, denies pain. Allergies codeine Allergy (Verified 06/24/23 14:47) Unknown HPI PO- s/p RT hip kenney arthroplasty 06/06/23 with NE HPI Details 78-year-old female who returns to the office today for post-op right hip hemiarthroplasty, 06/06/[address] Boyd. She denies having any pain and is doing well overall. She has no concerns today. [facility] Medical History Atrial fibrillation with rapid ventricular response Dementia No known health problems Surgical History No pertinent past surgical history Family History Mother No problems noted. Father No problems noted. Social History Household Members: Family Housing: House Do you presently have visiting nurse or other home services: No Alcohol intake: never Patient Tobacco Use Status: Former Tobacco user Years Smoked: 30 +/- service: No Current occupational status: retired Current occupation: rt hand Review of Systems Const All systems reviewed & are unremarkable except as noted in HPI and below Physical Exam Extrem Other: Right hip: Incision clean, dry and intact. No erythema or drainage in the incision. Ni pain with hip flexion or ROM of hip. NVI. Results Reviewed Results Reviewed: Xrays were obtained in the office today and personally reviewed by me of the right hip show intact hardware with stable fracture pattern Assessment & Plan Assessment & Plan (1) Closed hip fracture: Code(s): S72.009A - Fracture of unspecified part of neck of unspecified femur, initial encounter for closed fracture Plan Baden removed, steri strips applied. She will continue with PT to continue working on Gait training, ROM and quad strength. No driving for another 4 weeks. She will f/u in 4 weeks, sooner if needed. Orders: Orders XR hip RT w PEL1V 06/24/23 M25.559 - Pain in unspecified hip XR knee RT 2V 06/24/23 M25.569 - Pain in unspecified knee Patient Instructions: Scribed for Gianni Richard PA-C, by Ga Samano certified medical records coder, on 06/24/2023 at 2:30 PM EST. Gianni Conde PA-C, have personally reviewed and agree with the information entered by the scribe. Coding Level of Care Code Global (88521) Diagnoses Closed hip fracture S72.009A
== END 2023-06-24 15:21 | disposition home or self-care (01) ==
PROVIDERS: PCP Internal Medicine; Visit Provider Physician Assistant
DX: S72.009A Fracture of unspecified part of neck of unspecified femur, initial encounter for closed fracture (principal)
CPT/HCPCS: 99024

== ENCOUNTER 2023-06-24 14:27 | Outpatient (REF) | payer OTHER, MEDICARE, SELFPAY ==
--- NOTE | ~2023-06-24 | XR_ITS ---
EXAMINATION: XR KNEE, RIGHT CLINICAL INFORMATION: Pain in unspecified knee COMPARISON: None available. TECHNIQUE: AP and lateral views of the right knee. FINDINGS: The bones are diffusely demineralized. The bones are intact. No joint effusion. The distal portion of an intramedullary herbert with horizontal screw is seen. No evidence of hardware complication. 3 skin génesis are noted posterior laterally at the level of the screw. There is mild narrowing of the patellofemoral joint. XR/XR knee RT 2V IMPRESSION: 1. No acute bony abnormality. 2. Status post ORIF of right femoral fracture. 3. Mild osteoarthritis of the patellofemoral joint.
--- NOTE | ~2023-06-24 | XR_ITS ---
EXAMINATION: XR HIP, RIGHT CLINICAL INFORMATION: Pain in unspecified hip COMPARISON: AP pelvis 06/07/2023 TECHNIQUE: Two views of the right hip. FINDINGS: The bones are diffusely demineralized. Incompletely visualized right femoral intramedullary herbert and proximal compression screw transfix the right femoral intertrochanteric fracture without change in overall change in position or alignment of the fracture fragments. Distal portion of the intramedullary herbert is not included in the image. Narrowing of both hip joint spaces with inferior marginal osteophyte extending off the femoral heads is again noted. There is degenerative change in the lower lumbar spine. The pubic symphysis is normal. The sacroiliac joints are obscured by overlying bowel gas. XR/XR hip RT w PEL1V IMPRESSION: Status post ORIF of right femoral intratrochanteric fracture.
== END 2023-06-24 14:28 | disposition home or self-care (01) ==
LOC: HO.HOSX 14:27
PROVIDERS: Visit Provider Physician Assistant
DX: S72.001D Fracture of unspecified part of neck of right femur, subsequent encounter for closed fracture with routine healing (principal); M25.561 Pain in right knee
CPT/HCPCS: 73502; 73560

== ENCOUNTER 2023-07-06 07:59 | Outpatient (REF) | payer MEDICARE, SELFPAY ==
[2023-07-06 08:28] LABS: MANUAL DIFF FLAG NO
[2023-07-06 08:51] LABS: Basophils Absolute Auto 0.1 X10*3/uL (0.0-0.2); Basophils Percent Auto 1.1 % (0-2); Eosinophils Absolute Auto 0.3 X10*3/uL (0.0-0.4); Eosinophils Percent Auto 4.7 % (0-4); Hematocrit 37.1 % (37.0-47.0); Hemoglobin 11.9 g/dl (12.0-16.0); Imm Gran Abs Auto 0.02 X10*3/uL (0.00-0.03); Imm Gran Pct Auto 0.3 % (0.0-0.4); Lymphocytes Absolute Auto 1.3 X10*3/uL (1.2-4.9); Lymphocytes Percent Auto 21.6 % (20-40); Mean Corpuscular HGB Conc 32.1 g/dl (31.0-35.0); Mean Corpuscular Hemoglobin 34.6 pg (27.0-33.0); Mean Corpuscular Volume 107.8 fL (80.0-98.0); Mean Platelet Volume 9.6 fL (9.4-12.3); Monocytes Absolute Auto 0.6 X10*3/uL (0.1-1.2); Monocytes Percent Auto 9.2 % (2-11); Neutrophils Absolute Auto 3.9 x10*3/uL (2.0-8.3); Neutrophils Percent Auto 63.1 % (45-73); Platelet Count 299 X10*3/uL (160-400); Red Blood Count 3.44 X10*6/uL (4.20-5.50); White Blood Count 6.1 X10*3/uL (4.8-10.8)
[2023-07-06 09:20] LABS: Alanine Aminotransferase 10 U/L (0-31); Albumin Level 3.9 g/dL (3.5-5.0); Alkaline Phosphatase 95 U/L (39-117); Anion Gap 11 (12-20); Aspartate Amino Transferase 15 U/L (5-31); Bilirubin Total 0.8 mg/dL (0.0-1.0); Blood Urea Nitrogen 23 mg/dL (9-16); Calcium 9.7 mg/dL (8.4-10.2); Carbon Dioxide 28 mmol/L (22-29); Chloride 107 mmol/L (96-108); Cholesterol 166 mg/dL (<200); Estimated Glomerular Filt Rate > 60; Glucose Random 98 mg/dL (60-115); HDL Cholesterol 53 mg/dL (>40); LDL Cholesterol Calculated 90 mg/dL (<100); Potassium 4.3 mmol/L (3.3-5.1); Sodium 142 mmol/L (135-145); Total Protein 6.7 g/dL (6.5-8.0); Triglycerides 115 mg/dL (<150)
[2023-07-06 09:37] LABS: Vitamin D 25-OH Total 39.2 ng/mL (>30)
[2023-07-06 09:43] LABS: Folate 11.9 ng/mL (> or = 4.0); Vitamin B12 311 pg/mL (200-900)
== END 2023-07-06 08:00 | disposition home or self-care (01) ==
LOC: HO.LAB 07:59
PROVIDERS: PCP Internal Medicine; Visit Provider Internal Medicine
DX: E78.00 Pure hypercholesterolemia, unspecified (principal); F02.80 Dementia in other diseases classified elsewhere, unspecified severity, without behavioral disturbance, psychotic disturbance, mood disturbance, and anxiety; I25.5 Ischemic cardiomyopathy; I48.91 Unspecified atrial fibrillation; M81.0 Age-related osteoporosis without current pathological fracture
CPT/HCPCS: 36415; 80053; 80061; 82306; 82607; 82746; 85025

== ENCOUNTER → 2023-07-20 13:03 | Outpatient (REF) | payer MEDICARE, SELFPAY ==
--- NOTE | 2023-07-20 13:07 | CA_ITS ---
Transthoracic Echocardiogram Patient (Last, First, Middle): Dacia Gurrola, Gender: Female Date of : 1945 Age: 78 Procedure Date: 07/20/2023 Procedure Type: Transthoracic Echocardiogram Location: OP Height: 170.18 cm Weight: 43.55 kg BSA: 1.48 m2 Heart Rate: 102 bpm BP: 118 / 60 mmHg Office Coordinator: SB Referring MD: Ailyn Alfonso STAND IN-C Signal Processing Engineer: Buddy Eubanks MD Symptoms: I42.9 - Cardiomyopathy, unspecified Study Quality: Adequate ECG Rhythm: Sinus Conclusions: - 1. Mildly to moderately reduced LV systolic function with LVEF of 40-45% 2. Mildly dilated left atrium 3. Mild aortic and mitral regurgitation 4. Normal RV systolic pressure 5. Upper limits normal ascending aortic size at 3.5 cm 6. Small pericardial effusion near the left ventricle Findings Left Ventricle Normal left ventricular cavity size. There is normal left ventricular wall thickness. The left ventricular systolic function is normal. The visually estimated ejection fraction is between 40-45%. There is mild global hypokinesis. Spectral Doppler is indicative of a normal filling pattern. There is mild septal asymmetric hypertrophy. Right Ventricle Normal right ventricular cavity size. Atria The left atrium is mildly dilated. Interatrial shunt cannot be excluded. The right atrium is likely dilated. Aortic Valve Normal aortic valve structure and function. There is no aortic valve stenosis. There is mild aortic valve regurgitation. Mitral Valve There is mild anterior mitral leaflet thickening. There is mild mitral valve regurgitation. There is no mitral valve stenosis. Pulmonic Valve The pulmonic valve is likely normal. There is trace pulmonic valve regurgitation. Tricuspid Valve Normal tricuspid valve structure. There is trace tricuspid valve regurgitation. The right ventricular systolic pressure is normal. The right ventricular systolic pressure is 21 mmHg. Normal right atrial pressure. There is no evidence of pulmonary hypertension. Great Vessels The pulmonary artery was not well visualized. There is no dilatation of the ascending aorta. Venous The inferior vena cava is normal in size and collapses greater than 50% with inspiration. Pericardium/Pleural There is a small loculated pericardial effusion overlying the left ventricle. Prior Study Comparison Changes noted compared to prior study dated: 07/14/2022. LV systolic function is marginally reduced Measurements 2D Linear Measurements IVSd: 1.37 0.6-0.9/0.6-1.0 cm LVIDd: 4.08 3.9-5.3/4.2-5.9 cm LVIDd Index: 2.76 2.4-3.2/2.2-3.1 cm/m2 LVIDs: 2.95 2.0-3.6 cm LVPWd: 0.80 0.7-1.1 cm LA Diam: 3.80 2.7-3.8/3.0-4.0 cm LAIDs Index: 2.57 1.5-2.3 cm/m2 LV Mass: 183.15 67-162/88-224 g LV Mass Index: 123.75 43-95/49-115 g/m2 LVOT Diam: 2.20 3.0+(-)1.3 cm Mitral Valve MV Pk E: 0.52 MR Vol - PW Dopp: 10.85 MR VTI: 1.55 MR ERO: 7.00 MR Alias Miguel: 0.39 MR RAD: 0.40 Aortic Valve AoV Pk Miguel: 0.84 AoV Pk Grad: 3.00 MAGDALENO: 2.40 LVOT LVOT Pk Miguel: 0.57 LVOT Mn Miguel: 0.41 LVOT VTI: 0.09 LVOT Pk Grad: 1.00 LVOT Mn Grad: 1.00 LVOT Diam: 2.20 LVOT Area: 3.80 Diastolic Function MV Pk E: 0.52 Right Ventricle TAPSE (mm): 8.00 TVS' Miguel: 5.50 Tricuspid Valve TR Pk Miguel: 2.11 TR Pk Grad: 18.00 RA Press: 3.00 RVSP: 21.00 Great Vessels Aorta Sinus of Valsalva: 3.20 2.0-3.5 cm Ao Asc: 3.50 2.1-3.4 cm Pulmonary Valve PV Pk Miguel: 0.64 Peak PV Grad: 2.00 Updated in Other Vendor System with Status of Final Buddy Eubanks MD electronically signed on 07/21/2023 9:44:51 AM with status of Final
== END ==
LOC: HO.CARD 13:03
PROVIDERS: PCP Internal Medicine; Visit Provider Nurse Practitioner Family
DX: I25.10 Atherosclerotic heart disease of native coronary artery without angina pectoris (principal); I42.9 Cardiomyopathy, unspecified
CPT/HCPCS: 93306

== ENCOUNTER → 2023-07-20 13:07 | Outpatient (BNV) | payer MEDICARE, SELFPAY | PROVIDERS: PCP Internal Medicine; Visit Provider Internal Medicine Cardiovascular Disease | DX: I35.1 Nonrheumatic aortic (valve) insufficiency (principal); I34.0 Nonrheumatic mitral (valve) insufficiency | CPT/HCPCS: 93306 ==

== ENCOUNTER 2023-07-22 06:47 | Outpatient (REF) | payer MEDICARE, SELFPAY ==
--- NOTE | ~2023-07-22 | XR_ITS ---
EXAMINATION: XR HIP, RIGHT CLINICAL INFORMATION: Pain. COMPARISON: Radiographs dated 06/24/2023. TECHNIQUE: AP and frog-leg lateral views of the right hip. FINDINGS: There is bony demineralization. There is moderate degenerative change of the right hip, with narrowing of the medial acetabular joint space and peripheral osteophyte formation. An orthopedic fixator herbert and compression screw are applied to the right femur. The fixator herbert is partially included in the [id number]. No hardware failure or loosening is seen. The previously noted intertrochanteric fracture line is now faint. No soft tissue gas or foreign body is seen. XR/XR hip RT w PEL1V IMPRESSION: 1. The previously noted intertrochanteric fracture line shows stable alignment and is now faintly seen. Intact orthopedic hardware is noted. 2. There is moderate osteoarthritic change of the right hip.
== END 2023-07-22 06:48 | disposition home or self-care (01) ==
LOC: HO.HOSX 06:47
PROVIDERS: Visit Provider Orthopaedic Surgery
DX: S72.001D Fracture of unspecified part of neck of right femur, subsequent encounter for closed fracture with routine healing (principal)
CPT/HCPCS: 73502

== ENCOUNTER 2023-07-22 11:30 | Outpatient (AMB) | payer MEDICARE, SELFPAY ==
--- NOTE | 2023-07-22 11:51 | A.OFFVIS_ITS ---
Intake Intake Visit Reasons: P.O -rt hip IMN x xrays Intake Note: Dacia a 78 year old female who presents today for a post operative right hip kenney arthroplasty on 06/06/23 NE. Patient reports she is doing well, denies pain. States little discomfort. Allergies codeine Allergy (Verified 07/22/23 12:03) Unknown HPI P.O -rt hip IMN x xrays HPI Details 78-year-old female who returns to the [facility] today for post-op right hip hemiarthroplasty, 06/06/[address] Boyd. She states she has no pain and but she does experiences mild discomfort in her hip. She is doing well otherwise and has no concerns today. [facility], [facility] Medical History Atrial fibrillation with rapid ventricular response Dementia No known health problems Surgical History No pertinent past surgical history Family History Mother No problems noted. Father No problems noted. Social History Household Members: Family Housing: House Do you presently have visiting nurse or other home services: No Alcohol intake: never Patient Tobacco Use Status: Former Tobacco user Years Smoked: 30 +/- service: No Current occupational status: retired Current occupation: rt hand Review of Systems Const All systems reviewed & are unremarkable except as noted in HPI and below Physical Exam Extrem Other: Right hip: Incision well healed. No pain with ROM of hip, no pain with hip flexion. NVI. Results Reviewed Results Reviewed: Xrays were obtained in the office today and personally reviewed by me of the right hip show intact hardware with stable fracture pattern Assessment & Plan Assessment & Plan (1) Closed hip fracture: Code(s): S72.009A - Fracture of unspecified part of neck of unspecified femur, initial encounter for closed fracture Qualifiers: Encounter type: subsequent encounter Laterality: right Fracture healing: with routine healing Qualified Code(s): S72.001D - Fracture of unspecified part of neck of right femur, subsequent encounter for closed fracture with routine healing Plan She is going to continue to work with physical therapy for gait training and strengthening. She will increase activity as tolerated and follow-up in our office in 6 weeks with new x-rays, sooner if needed. Orders: Orders XR hip RT min 2V Today M25.551 - Pain in right hip Remy Colon MD XR hip RT w PEL1V Today M25.559 - Pain in unspecified hip Gianni Richard PA-C Patient Instructions: Scribed for Gianni Richard PA-C, by Ga Samano associate medical director, on 07/22/2023 at 11:30 AM EST. I, Gianni Richard PA-C, have personally reviewed and agree with the information entered by the scribe. Coding Level of Care Code Global (59516) Diagnoses Closed fracture of right hip with routine healing, subsequent encounter S72.001D Encounter type: subsequent encounter Laterality: right Fracture healing: with routine healing
== END 2023-07-22 12:22 | disposition home or self-care (01) ==
PROVIDERS: PCP Internal Medicine; Visit Provider Physician Assistant
DX: S72.001D Fracture of unspecified part of neck of right femur, subsequent encounter for closed fracture with routine healing (principal)
CPT/HCPCS: 99024

== ENCOUNTER 2023-07-29 14:52 | Outpatient (AMB) | payer MEDICARE, SELFPAY ==
--- NOTE | 2023-07-29 14:53 | MHC.OFFVIS ---
Intake Vital Signs 07/29/23 14:55 Height 5 ft 6 in Weight 94 lb 12.78 oz BMI 15.3 BP 100/64 Blood Pressure Location Lt brachial Position Sitting Pulse 73 Intake Visit Reasons: 6 mth s/p echo Intake Note: 6 month follow up [employer] Principal Required: No Accompanied by: Son Allergies codeine Allergy (Verified 07/29/23 14:55) Unknown Medication List - Last Reconciled 07/29/23 by Javier Dykes MD apixaban (Eliquis) 5 mg PO BID digoxin (Digox) 125 mcg PO DAILY metoprolol tartrate 50 mg PO BID pravastatin 20 mg PO DAILY HPI HPI Comments History of Present Illness Details Dacia returns for follow-up. She is accompanied by her son. She has atrial fibrillation as well as mild cardiomyopathy. She also has underlying dementia. When I questioned her numerous times as to where she is, she is not really able to say current location. Speech is also difficult to comprehend. Overall, doubt she is actually oriented at all. [facility] Medical History Atrial fibrillation with rapid ventricular response Dementia No known health problems Surgical History No pertinent past surgical history Family History Mother No problems noted. Father No problems noted. Social History Household Members: Family Housing: House Do you presently have visiting nurse or other home services: No Alcohol intake: never Patient Tobacco Use Status: Former Tobacco user Years Smoked: 30 +/- service: No Current occupational status: retired Current occupation: rt hand Review of Systems Const Denies weakness ENT Denies dizziness Card Denies chest pain, Denies chest pain with activity, Denies syncope, Denies rapid heart rate, Denies pedal edema, Denies edema, Denies leg edema, Denies lightheadedness, Denies palpitations, Denies dyspnea, Denies dyspnea on exertion and Denies orthopnea Resp Denies cough, Denies dyspnea and Denies dyspnea on exertion GI Denies hematochezia and Denies change in stool character Musc Denies abnormal gait, Denies muscle cramps, Denies muscle weakness, Denies numbness, Denies radiating pain into limb and Denies tingling Neuro Reports Abnormal speech present, Denies abnormal gait, Denies dizziness, Denies syncope, Denies numbness, Denies tingling and Denies weakness Endo Denies palpitations Physical Exam Vital Signs: Last Vital Signs Pulse 73 07/29/23 14:55 BP 100/64 07/29/23 14:55 BMI result Body Mass Index 15.3 Const General: comfortable and no acute distress Orientation/consciousness: No patient oriented x3 HEENT Other: Unremarkable Head: Yes normal to inspection Neck Neck: Yes normal visual inspection Chest Chest palpation & inspection: normal inspection of the chest Resp Auscultation: clear to auscultation bilaterally Cardio Palpation: normal PMI Heart sounds: S1 normal heart sound present, S2 normal heart sound present, no gallops, no murmurs and no rubs GI Palpation (GI): Soft to palpation Back/Spine/Pelvis Other: unremarkable Skin General skin exam: no rashes or lesions noted Neuro General: No patient oriented x3 Speech: Abnormal speech present Extrem General: Yes normal to inspection Psych Mental Status: mental status grossly abnormal Assessment & Plan Assessment & Plan (1) Persistent atrial fibrillation: Code(s): I48.19 - Other persistent atrial fibrillation Plan: It seems meds have been changed recently. According to son, when she was in rehab metoprolol dose was increased to 75 mg b.i.d. and digoxin was stopped. After discharge, metoprolol is back to 50 mg b.i.d.. It seems heart rates are probably running on the higher side. We can resume the digoxin. Check Holter in about 4-6 weeks after starting digoxin. Continue Eliquis. (2) Cardiomyopathy: Code(s): I42.9 - Cardiomyopathy, unspecified Qualifiers: Cardiomyopathy type: other Qualified Code(s): I42.8 - Other cardiomyopathies Plan: In the most recent echocardiogram, LVEF 40-45%. Etiology could be atrial fibrillation. Less likely coronary disease but at her age certainly possible. She does not have any symptoms like chest pain and also considering dementia and little or no comprehension, not a good candidate for ischemic workup. (3) Dementia: Code(s): F03.90 - Unspecified dementia, unspecified severity, without behavioral disturbance, psychotic disturbance, mood disturbance, and anxiety Plan: Because of dementia, cardiac care is going to be conservative only. Plan Discussed with son who came for the appointment. Orders: Orders ECG 3 day holter monitor 4 Weeks I48.19 - Other persistent atrial fibrillation Medications: Refilled digoxin (Digox) 125 mcg PO DAILY 90 tabs 3RF Coding Level of Care Code Est Pt Level 4 (89668) Diagnoses Persistent atrial fibrillation I48.19 Other cardiomyopathy I42.8 Cardiomyopathy type: other Dementia F03.90
[2023-07-29 14:55] VITALS: BP 100/64; PULSE 73; BMI 15.3
== END 2023-07-29 15:12 | disposition home or self-care (01) ==
PROVIDERS: PCP Internal Medicine; Referring Provider Internal Medicine; Visit Provider Internal Medicine
DX: I48.19 Other persistent atrial fibrillation (principal); I42.8 Other cardiomyopathies; F03.90 Unspecified dementia, unspecified severity, without behavioral disturbance, psychotic disturbance, mood disturbance, and anxiety
CPT/HCPCS: 99214

== ENCOUNTER → 2023-07-29 14:52 | Outpatient (BNVA) | payer MEDICARE, SELFPAY | PROVIDERS: PCP Internal Medicine; Referring Provider Internal Medicine; Visit Provider Internal Medicine | DX: I48.19 Other persistent atrial fibrillation (principal); I42.8 Other cardiomyopathies; F03.90 Unspecified dementia, unspecified severity, without behavioral disturbance, psychotic disturbance, mood disturbance, and anxiety; Z79.01 Long term (current) use of anticoagulants; Z79.899 Other long term (current) drug therapy | CPT/HCPCS: 99212 ==

== ENCOUNTER → 2023-08-26 09:34 | Outpatient (REF) | payer MEDICARE, SELFPAY ==
--- NOTE | 2023-08-26 09:37 | HM_ITS ---
* Total monitoring time 3 days. * Underlying rhythm is atrial fibrillation as well as artifact. * Average ventricular rate 88/Min. Range 62 to 166/Min. About 21% the time, rate > 100/Min. * Rare ventricular ectopy. * No significant pauses or AV blocks. * No patient markers or events in diary. MTDD
== END ==
LOC: HO.CARD 09:34
PROVIDERS: PCP Internal Medicine; Visit Provider Internal Medicine
DX: I48.19 Other persistent atrial fibrillation (principal)
CPT/HCPCS: 93242

== ENCOUNTER → 2023-08-26 09:37 | Outpatient (BNV) | payer MEDICARE, SELFPAY | PROVIDERS: PCP Internal Medicine; Visit Provider Internal Medicine | DX: I48.19 Other persistent atrial fibrillation (principal) | CPT/HCPCS: 93244 ==

== ENCOUNTER 2023-09-02 11:23 | Outpatient (AMB) | payer MEDICARE, SELFPAY ==
--- NOTE | 2023-09-02 11:35 | A.OFFVIS_ITS ---
Intake Vital Signs 09/02/23 11:37 Height 5 ft 6 in Weight 94 lb BMI 15.2 Intake Visit Reasons: PO-f/u Rt him IMN 06/06/23 w xrays Intake Note: Dacia a 78 year old female who presents today for a post operative right hip IMN on 06/06/23 NE. Patient reports no pain or discomfort. Allergies codeine Allergy (Verified 07/29/23 14:55) Unknown HPI PO-f/u Rt him IMN 06/06/23 w xrays HPI Details 78-year-old female who returns to the [facility] today for post-op right hip IMN, 06/06/23. She states she has no pain or discomfort and is doing well overall. She has no concerns today. [facility] Medical History Atrial fibrillation with rapid ventricular response Dementia No known health problems Surgical History No pertinent past surgical history Family History Mother No problems noted. Father No problems noted. Social History Household Members: Family Housing: House Do you presently have visiting nurse or other home services: No Alcohol intake: never Patient Tobacco Use Status: Former Tobacco user Years Smoked: 30 +/- service: No Current occupational status: retired Current occupation: rt hand Review of Systems Const All systems reviewed & are unremarkable except as noted in HPI and below Physical Exam Vital Signs: BMI result Body Mass Index 15.2 Extrem Other: Right hip: Incision well healed. No pain with ROM of hip, no pain with hip flexion. NVI. Results Reviewed Results Reviewed: Xrays were obtained in the office today and personally reviewed by me of the right hip show intact hardware with stable fracture pattern Assessment & Plan Assessment & Plan (1) Closed hip fracture: Code(s): S72.009A - Fracture of unspecified part of neck of unspecified femur, initial encounter for closed fracture Qualifiers: Encounter type: subsequent encounter Fracture healing: with routine healing Laterality: right Qualified Code(s): S72.001D - Fracture of unspecified part of neck of right femur, subsequent encounter for closed fracture with routine healing Plan She is going to increase activity as tolerated. If symptoms persist or worsens, patient will contact the office, otherwise follow-up as needed. Orders: Orders XR femur RT 2V Today S72.142A - Displaced intertrochanteric fracture of left femur, initial encounter for closed fracture Patient Instructions: Scribed for Gianni Richard PA-C, by Ga Samano medical affairs manager, on 09/02/2023 at 11:30 AM EST. IGianni PA-C, have personally reviewed and agree with the information entered by the scribe. Coding Level of Care Code Global (10604) Diagnoses Closed fracture of right hip with routine healing, subsequent encounter S72.001D Encounter type: subsequent encounter Fracture healing: with routine healing Laterality: right
[2023-09-02 11:37] VITALS: BMI 15.2
== END 2023-09-02 12:11 | disposition home or self-care (01) ==
PROVIDERS: PCP Internal Medicine; Visit Provider Physician Assistant
DX: S72.001D Fracture of unspecified part of neck of right femur, subsequent encounter for closed fracture with routine healing (principal)
CPT/HCPCS: 99024

== ENCOUNTER 2023-09-02 16:03 | Outpatient (REF) | payer MEDICARE, SELFPAY ==
--- NOTE | ~2023-09-02 | XR_ITS ---
EXAMINATION: XR FEMUR, RIGHT CLINICAL INFORMATION: Femoral fracture. COMPARISON: Radiograph right hip 07/22/2023. TECHNIQUE: AP and lateral views of the right femur were obtained. FINDINGS: Right intramedullary femoral herbert with obliquely oriented lag screw traversing the right femoral intertrochanteric fracture, and additional horizontally oriented screw in the distal femur. No evidence of hardware fracture. No significant perihardware lucency to suspect loosening or infection. The intertrochanteric fracture line in this still visible, similar to prior. No new fractures. No subluxation. Moderate degenerative osteoarthritis in the right hip with joint space narrowing and subcortical sclerosis. No significant soft tissue abnormality. XR/XR femur RT 2V IMPRESSION: 1. No evidence of hardware failure or fracture. 2. Stable appearance of right intertrochanteric femoral fracture.
== END 2023-09-02 16:04 | disposition home or self-care (01) ==
LOC: HO.HOSX 16:03
PROVIDERS: Visit Provider Physician Assistant
DX: S72.141D Displaced intertrochanteric fracture of right femur, subsequent encounter for closed fracture with routine healing (principal); X58.XXXD Exposure to other specified factors, subsequent encounter
CPT/HCPCS: 73552

== ENCOUNTER 2023-11-02 09:25 | Outpatient (REF) | payer MEDICARE, SELFPAY ==
[2023-11-02 11:11] LABS: Alanine Aminotransferase 18 U/L (0-31); Alkaline Phosphatase 73 U/L (39-117); Anion Gap 11 (12-20); Aspartate Amino Transferase 24 U/L (5-31); Bilirubin Total 0.9 mg/dL (0.0-1.0); Blood Urea Nitrogen 24 mg/dL (9-16); Calcium 9.2 mg/dL (8.4-10.2); Carbon Dioxide 30 mmol/L (22-29); Chloride 106 mmol/L (96-108); Cholesterol 184 mg/dL (<200); Estimated Glomerular Filt Rate > 60; Glucose Random 97 mg/dL (60-115); HDL Cholesterol 64 mg/dL (>40); LDL Cholesterol Calculated 104 mg/dL (<100); Potassium 4.2 mmol/L (3.3-5.1); Sodium 143 mmol/L (135-145); Total Protein 6.8 g/dL (6.5-8.0); Triglycerides 83 mg/dL (<150)
== END 2023-11-02 09:26 | disposition home or self-care (01) ==
LOC: HO.10HDL 09:25
PROVIDERS: Visit Provider Internal Medicine
DX: E78.00 Pure hypercholesterolemia, unspecified (principal); F80.1 Expressive language disorder; I25.5 Ischemic cardiomyopathy; I48.91 Unspecified atrial fibrillation
CPT/HCPCS: 36415; 80053; 80061

== ENCOUNTER 2023-11-04 13:27 | Outpatient (AMB) | payer MEDICARE, SELFPAY ==
[2023-11-04 13:29] VITALS: BP 100/62; PULSE 83; BMI 17.9
--- NOTE | 2023-11-04 13:29 | A.OFFVIS_ITS ---
Intake Vital Signs 11/04/23 13:29 Height 5 ft 6 in Weight 111 lb 1.808 oz BMI 17.9 BP 100/62 Blood Pressure Location Lt brachial Position Sitting Pulse 83 Pulse Source Pulse Oximeter Intake Visit Reasons: Follow up Holter Glass Inspector: Glass Inspector Present Accompanied by: Son Allergies codeine Allergy (Verified 11/04/23 13:31) Unknown Medication List - Last Reconciled 11/04/23 by Ailyn Alfonso NP-C apixaban (Eliquis) 5 mg PO BID digoxin (Digox) 125 mcg PO DAILY metoprolol tartrate 75 mg (1.5 x 50 mg) PO BID 30 days pravastatin 20 mg PO DAILY HPI Follow up Holter HPI Details Dacia is a 78-year-old female with past medical history of dementia, cardiomyopathy, persistent atrial fibrillation who presents for follow-up. Today she reports that she feels well. She denies having heart palpitations, shortness of breath or chest discomfort. She is noted to be somewhat forgetful in conversation. Her son is present. He is helping to ensure that she takes her medications as directed. No bleeding issues or falls noted. [facility] Medical History Dementia Atrial fibrillation with rapid ventricular response No known health problems Surgical History No pertinent past surgical history Family History Mother No problems noted. Father No problems noted. Social History Household Members: Family Housing: House Do you presently have visiting nurse or other home services: No Alcohol intake: never Comment: 1:1 sitter Patient Tobacco Use Status: Former Tobacco user Years Smoked: 30 +/- service: No Current occupational status: retired Current occupation: rt hand Review of Systems Const All systems reviewed & are unremarkable except as noted in HPI and below ENT Denies dizziness Card Denies chest pain, Denies chest pain at rest, Denies chest pain with activity, Denies rapid heart rate, Denies pedal edema, Denies edema, Denies leg edema, Denies lightheadedness, Denies palpitations, Denies dyspnea, Denies dyspnea on exertion and Denies orthopnea Resp Denies cough, Denies dyspnea and Denies dyspnea on exertion GI Denies hematochezia and Denies change in stool character Musc Denies abnormal gait, Denies limited range of motion, Denies muscle cramps, Denies muscle weakness, Denies numbness, Denies radiating pain into limb, Denies stiffness and Denies tingling Neuro Denies abnormal gait, Denies dizziness, Denies numbness and Denies tingling Endo Denies palpitations Physical Exam Vital Signs: Last Vital Signs Pulse 83 11/04/23 13:29 BP 100/62 11/04/23 13:29 BMI result Body Mass Index 17.9 Const Other: Pleasantly confused General: cooperative, healthy appearing, comfortable and no acute distress Neck Neck: Yes normal visual inspection Resp Effort & Inspection: normal respiratory effort Auscultation: clear to auscultation bilaterally, no crackles, no rales, no rhonchi and no wheezes Cardio Jugular venous distension: no JVD Rate: regular rate Heart sounds: S1 normal heart sound present, S2 normal heart sound present, no murmurs and no rubs Extrem General: Yes normal to inspection, No no pedal edema and No calf tenderness Psych Appearance: grossly normal Mental Status: mental status grossly normal Speech and movement: Normal speech and movement present Assessment & Plan Assessment & Plan (1) Persistent atrial fibrillation: Code(s): I48.19 - Other persistent atrial fibrillation Plan: History of persistent atrial fibrillation. Holter monitor done on 08/26/2023 showed atrial fibrillation throughout, average heart rate 88, heart rate range 62 to 166 with 21% of time heart rate greater than 100. At that time her metoprolol was increased to 75 mg b.i.d. from 50 mg b.i.d.. She is on digoxin to help with heart rate control. Last digoxin level in our system 0.4 on 12/19/2021. No reports of heart palpitations. Pulse rate 83 at this visit. Last echocardiogram 08/09/2023 showed EF 40-45%, mild aortic and mitral regurgitation, mildly dilated left atrium. EF on last prior echo was 45-50%. Reduction may be related to uncontrolled AFib rates. Now with increased metoprolol it may be improved back to prior levels. She is on Eliquis for anticoagulation. No falls or bleeding issues reported. Labs done 11/02/2023 shows creatinine 0.87. Labs 07/06/2023 showed hematocrit 11.9. Continue on current med management. Will order digoxin level which can be done with next lab draw. Cardiology follow-up 6 months, sooner if needed (2) Coronary artery calcification seen on CAT scan: Code(s): I25.10 - Atherosclerotic heart disease of [place] coronary artery without angina pectoris Plan: Chest CT done 1 showing small volume of calcification in the thoracic aortic arch and descending aorta, moderate volume of coronary artery calcifications. She has no reports of chest discomfort at rest or with activity. Will continue on medical management for stable CAD. She is not on aspirin as she is on Eliquis. She is on metoprolol and she is on pravastatin with ideal LDL goal less than 70. Labs done 11/02/2023 shows LDL 104. No mention of myalgias with alternate statin. Will change her pravastatin to atorvastatin. Plan for a fasting lipid profile at next visit. (3) Cardiomyopathy: Code(s): I42.9 - Cardiomyopathy, unspecified Qualifiers: Cardiomyopathy type: other Qualified Code(s): I42.8 - Other cardiomyopa [place]an [place] Plan: Mild as above. Could be related to elevated AFib rates. Ischemia not excluded. She has no reports of anginal symptoms. She does have history of dementia. Prior note indicates she is not a good candidate for ischemic workup. (4) Dementia: Code(s): F03.90 - Unspecified dementia, unspecified severity, without behavioral disturbance, psychotic disturbance, mood disturbance, and anxiety Plan: As above Plan Time spent on chart review, documentation, interview and assessment Orders: Orders Digoxin Today I48.19 - Other persistent atrial fibrillation Medications: New atorvastatin Change from pravastatin to atorvastatin. Cholesterol lowering agent 1 tablet at bedtime daily 20 mg PO BEDTIME 30 tabs 5RF Coding Level of Care Code Est Pt Level 3 (96885) Diagnoses Persistent atrial fibrillation I48.19 Coronary artery calcification seen on CAT scan I25.10 Other cardiomyopathy I42.8 Cardiomyopathy type: other Dementia F03.90 Time Spent (min) 24
== END 2023-11-04 13:58 | disposition home or self-care (01) ==
PROVIDERS: PCP Internal Medicine; Visit Provider Nurse Practitioner Family
DX: I48.19 Other persistent atrial fibrillation (principal); I25.10 Atherosclerotic heart disease of native coronary artery without angina pectoris; I42.8 Other cardiomyopathies; F03.90 Unspecified dementia, unspecified severity, without behavioral disturbance, psychotic disturbance, mood disturbance, and anxiety
CPT/HCPCS: 99213

== ENCOUNTER → 2023-11-04 13:27 | Outpatient (BNVA) | payer MEDICARE, SELFPAY | PROVIDERS: PCP Internal Medicine; Visit Provider Nurse Practitioner Family | DX: I48.19 Other persistent atrial fibrillation (principal); I25.10 Atherosclerotic heart disease of native coronary artery without angina pectoris; I42.8 Other cardiomyopathies; F03.90 Unspecified dementia, unspecified severity, without behavioral disturbance, psychotic disturbance, mood disturbance, and anxiety | CPT/HCPCS: 99212 ==

== ENCOUNTER 2024-02-04 08:05 | Outpatient (REF) | payer MEDICARE, SELFPAY ==
[2024-02-04 11:36] LABS: MANUAL DIFF FLAG NO
[2024-02-04 11:43] LABS: Basophils Absolute Auto 0.1 X10*3/uL (0.0-0.2); Basophils Percent Auto 1.4 % (0-2); Eosinophils Absolute Auto 0.2 X10*3/uL (0.0-0.4); Eosinophils Percent Auto 3.5 % (0-4); Hematocrit 41.9 % (37.0-47.0); Imm Gran Abs Auto 0.01 X10*3/uL (0.00-0.03); Imm Gran Pct Auto 0.2 % (0.0-0.4); Lymphocytes Absolute Auto 1.1 X10*3/uL (1.2-4.9); Lymphocytes Percent Auto 22.8 % (20-40); Mean Corpuscular HGB Conc 33.4 g/dl (31.0-35.0); Mean Corpuscular Hemoglobin 34.4 pg (27.0-33.0); Mean Corpuscular Volume 102.9 fL (80.0-98.0); Mean Platelet Volume 10.7 fL (9.4-12.3); Monocytes Absolute Auto 0.5 X10*3/uL (0.1-1.2); Monocytes Percent Auto 10.1 % (2-11); Platelet Count 227 X10*3/uL (160-400); Red Blood Count 4.07 X10*6/uL (4.20-5.50); Red Cell Distribution Width 12.2 % (11.0-16.0); White Blood Count 4.8 X10*3/uL (4.8-10.8)
[2024-02-04 12:17] LABS: Cholesterol 190 mg/dL (<200); HDL Cholesterol 57 mg/dL (>40); LDL Cholesterol Calculated 118 mg/dL (<100); Triglycerides 79 mg/dL (<150)
== END 2024-02-04 08:06 | disposition home or self-care (01) ==
LOC: HO.10HDL 08:05
PROVIDERS: Visit Provider Internal Medicine
DX: E78.00 Pure hypercholesterolemia, unspecified (principal); R80.1 Persistent proteinuria, unspecified; I25.5 Ischemic cardiomyopathy; I48.91 Unspecified atrial fibrillation; Z91.199 Patient's noncompliance with other medical treatment and regimen due to unspecified reason
CPT/HCPCS: 36415; 80061; 85025

== ENCOUNTER 2024-03-14 10:28 | Emergency (ER) | payer MEDICARE, SELFPAY ==
--- NOTE | ~2024-03-14 | XR_ITS ---
EXAMINATION: XR CHEST CLINICAL INFORMATION: Mental status changes COMPARISON: Prior chest May 2023 TECHNIQUE: Frontal view of the chest was obtained. FINDINGS: No significant abnormality is noted involving the heart, lungs, mediastinum, bony thorax or soft tissues. XR/XR chest 1V IMPRESSION: Unremarkable examination.
[2024-03-14 10:46] VITALS: BP 128/74; BP 138/83; PULSE 110; PULSE 122; RESP 20; TEMP 37.1; O2SAT 98; BMI 22.6
--- NOTE | 2024-03-14 11:01 | ECG_ITS ---
Test Reason : AFIB Blood Pressure : / mmHG Vent. Rate : 110 BPM Atrial Rate : 000 BPM P-R Int : 000 ms QRS Dur : 086 ms QT Int : 344 ms P-R-T Axes : 000 -13 -84 degrees QTc Int : 465 ms Atrial fibrillation with rapid ventricular response Left ventricular hypertrophy with repolarization abnormality ( Sokolow-Billy ) Cannot rule out Septal infarct , age undetermined Abnormal ECG When compared with ECG of 08-JUN-2023 09:01, Minimal criteria for Septal infarct are now Present Referred By: Aliyah Curry Electronically Signed By:JUANY MORAES
--- NOTE | 2024-03-14 11:12 | ED.GENADULT ---
HPI - General Adult General Chief complaint: Arrhythmia/Palpitations Stated complaint: FOUND ON LEDGE OF BRIDGE,HIGH HR 150-170 PER EMS Time Seen by Provider: 03/14/24 10:39 Source: patient, EMS and old records reviewed Mode of arrival: EMS Limitations: physical limitation (Chronic dementia) History of Present Illness HPI narrative: 77-year-old female PMH Alzheimer dementia lives home with her son baseline ambulatory with significant memory impairment and moderate express aphasia, paroxysmal AFib on Eliquis, HTN, HLD, CHF, patient was found on the bridge wandering with a shopping bag full of clothes and shoe and tooth brush, initially found to have rapid AFib was given Cardizem 12.5 mg by EMS and 500 mL of fluid in the emergency department heart rate is 110, patient is unable to give valid history. Will attempt to contact the son meanwhile will check labs and keep her in the close monitoring. Related Data Previous Rx's ?Medication ?Instructions ?Recorded apixaban 5 mg tablet (Eliquis) 5 mg PO BID #60 tabs 06/09/23 digoxin 125 mcg (0.125 mg) tablet 125 mcg PO DAILY #90 tabs 07/29/23 (Digox) metoprolol tartrate 50 mg tablet 75 mg (1.5 x 50 mg) PO BID 30 days 09/13/23 #90 tabs atorvastatin 20 mg tablet 20 mg PO BEDTIME #30 tabs 11/04/23 Allergies Allergy/AdvReac Type Severity Reaction Status Date / Time codeine Allergy Unknown Verified 03/14/24 10:49 Review of Systems Review of Systems: Yes Unobtainable due to mental status PMFSH Past Medical History Medical History Dementia Atrial fibrillation with rapid ventricular response No known health problems Surgical History No pertinent past surgical history Family History Family History Mother No problems noted. Father No problems noted. Social History Social History Household Members: Family Housing: House Do you presently have visiting nurse or other home services: No Alcohol intake: never Comment: 1:1 sitter Patient Tobacco Use Status: Former Tobacco user Years Smoked: 30 +/- Smoked in Last 30 Days: No Use of substances other than those prescribed or required for medical reasons: No Advance Directives: No Advance Directives Information Provided: Yes Do you have a plan to hurt others: No Plan service: No Current occupational status: retired Current occupation: rt hand Physical Exam ED Vital Signs: Vital Signs - 24 hr 03/14/24 10:46 03/14/24 11:21 03/14/24 12:41 Temperature 98.8 F 98.8 F Pulse Rate 110 H 103 H 106 H Respiratory Rate 20 17 18 Blood Pressure 128/74 133/53 L Pulse Oximetry 98 95 97 Oxygen Delivery Method Room Air Room Air Room Air 03/14/24 12:42 03/14/24 15:30 03/14/24 15:39 Temperature 98.8 F Pulse Rate 108 H 111 H 111 H Respiratory Rate 18 15 15 Blood Pressure 151/100 H 151/100 H Pulse Oximetry 95 94 94 Oxygen Delivery Method Room Air Room Air Room Air BMI result Body Mass Index 22.6 Vital signs have been reviewed and appear to be correct. Blood pressure elevated. Heart rate normal. Respiratory rate normal. Temperature normal. Oxygen saturation normal. Appearance: Alert, disoriented x3, No acute distress. Head: Normal external exam. Normocephalic. Atraumatic. No Chaves signs noted. No raccoon eyes noted Eyes: PERRLA. EOMI. Conjunctiva and sclera normal. Eyelids normal. ENT: TM's Normal. Pharynx normal. Uvula midline. Moist mucous membranes. No trismus noted. No drooling noted. No muffled voice noted. Neck: Normal inspection. Neck supple. FROM. No adenopathy. Thyroid Normal. No meningeal signs. No neck mass noted. CVS: Normal heart rate and rhythm. Heart sound normal. No murmurs noted. Pulses normal throughout. Respiratory: No respiratory distress. Painless inspiration. Breath sounds normal. No wheezes/rales/rhonchi noted. Chest nontender. No accessory muscle usage noted or decreased air movement noted. Abdomen: Soft and nontender. Bowel sounds normal in all 4 quadrants. No distention noted. No organomegaly noted. No visible injury noted. Back: No CVA tenderness. Full range of motion noted. Skin: Skin warm and dry. Normal skin color. Normal skin turgor. No rashes/lesions/lacerations noted. Extremities: No lower extremity edema. Extremities exhibit normal range of motion. Extremities nontender. Neuro: Cranial nerve exam: II-XII are grossly intact No motor deficit. No sensory deficit. Reflexes normal. Course Reevaluation(s) Reevaluation #1: Granddaughter and is at bedside now both confirm patient at her baseline dementia and expressive aphasia, labs are unremarkable, family feels safe to discharge patient home. Patient remained asymptomatic otherwise no CP, no SOB, no dizziness. Time: 15:29 Medications Administered Discontinued Medications Generic Name Dose Route Start Last Admin Trade Name Freq PRN Reason Stop Dose Admin Sodium Chloride 1,000 mls @ 999 mls/hr 03/14/24 11:00 03/14/24 13:09 Ns IV 03/14/24 12:00 Infused .Q1H1M ONE Infusion Medical Decision Making Differential Diagnosis Differential Diagnoses: The differential diagnosis associated with the presentation includes (Electrolyte derangement, severe anemia, UTI, pneumonia, pneumothorax, pleural effusion, intracranial bleed, worsening of dementia.) Admission/Observation Consideration of admission/observation: Escalation of care including admission/observation considered Lab Data MDM Lab Attestation statement: I reviewed the patient's lab results. 03/14/24 11:39 03/14/24 11:39 Labs: Lab Results 03/14/24 03/14/24 03/14/24 Range/Units 11:31 11:38 11:39 WBC 7.0 (4.8-10.8) X10*3/uL RBC 3.75 L (4.20-5.50) X10*6/uL Hgb 13.2 (12.0-16.0) g/dl Hct 38.0 (37.0-47.0) % MCV 101.3 H (80.0-98.0) fL MCH 35.2 H (27.0-33.0) pg MCHC 34.7 (31.0-35.0) g/dl RDW 13.0 (11.0-16.0) % Plt Count 209 (160-400) X10*3/uL MPV 10.0 (9.4-12.3) fL Immature Gran % (Auto) 0.3 (0.0-0.4) % Neut % (Auto) 75.5 H (45-73) % Lymph % (Auto) 13.8 L (20-40) % [place] % (Auto) 9.7 (2-11) % Eos % (Auto) 0.3 (0-4) % Baso % (Auto) 0.4 (0-2) % Lymph # (Auto) 1.0 L (1.2-4.9) X10*3/uL [place] # (Auto) 0.7 (0.1-1.2) X10*3/uL Eos # (Auto) 0.0 (0.0-0.4) X10*3/uL Baso # (Auto) 0.0 (0.0-0.2) X10*3/uL Abs Immat Gran (auto) 0.02 (0.00-0.03) X10*3/uL Absolute Neuts (auto) 5.3 (2.0-8.3) x10*3/uL Absolute Nucleated RBC 0.000 (0.0-0.012) X10*3/uL Nucleated RBC % (auto) 0.0 (0.0-0.2) /100WBC Sodium 143 (135-145) mmol/L Potassium 4.2 (3.3-5.1) mmol/L Chloride 108 (96-108) mmol/L Carbon Dioxide 25 (22-29) mmol/L Anion Gap 14 (12-20) BUN 26 H (9-16) mg/dL Creatinine 0.95 (0.5-1.4) mg/dL Estim Creat Clear Calc 37.9 Estimated GFR 57 Random Glucose 99 (60-115) mg/dL Calcium 9.5 (8.4-10.2) mg/dL Total Bilirubin 1.0 (0.0-1.0) mg/dL Direct Bilirubin 0.3 (0.0-0.5) mg/dL AST 19 (5-31) U/L ALT 15 (0-31) U/L Alkaline Phosphatase 52 (39-117) U/L Troponin I High Sens 7.4 D (<3.5-17.0) ng/L Total Protein 6.4 L (6.5-8.0) g/dL Albumin 4.0 (3.5-5.0) g/dL Lipase 30 (8-78) U/L Urine Color Urine Appearance Urine pH (5.0-9.0) Ur Specific [place] (1.005-1.025) Urine Protein (Neg-Trace) mg/dL Urine Glucose (UA) (Negative) mg/dL Urine Ketones (Negative) mg/dL Urine Blood (Negative) Urine Nitrite (Negative) Ur Leukocyte Esterase (Negative) Urine RBC (0-2) /HPF Urine WBC (0-5) /HPF Ur Squamous Epith Cells (0-2) /HPF Urine Bacteria (None Seen) Hyaline Casts (0-2) /LPF Influenza Type A (PCR) NEGATIVE (Negative) Influenza Type B (PCR) NEGATIVE (Negative) RSV RNA Qual (PCR) NEGATIVE (Negative) SARS-CoV-2 RNA (RT-PCR) NEGATIVE (Negative) 03/14/24 Range/Units 13:11 WBC (4.8-10.8) X10*3/uL RBC (4.20-5.50) X10*6/uL Hgb (12.0-16.0) g/dl Hct (37.0-47.0) % MCV (80.0-98.0) fL MCH (27.0-33.0) pg MCHC (31.0-35.0) g/dl RDW (11.0-16.0) % Plt Count (160-400) X10*3/uL MPV (9.4-12.3) fL Immature Gran % (Auto) (0.0-0.4) % Neut % (Auto) (45-73) % Lymph % (Auto) (20-40) % [place] % (Auto) (2-11) % Eos % (Auto) (0-4) % Baso % (Auto) (0-2) % Lymph # (Auto) (1.2-4.9) X10*3/uL [place] # (Auto) (0.1-1.2) X10*3/uL Eos # (Auto) (0.0-0.4) X10*3/uL Baso # (Auto) (0.0-0.2) X10*3/uL Abs Immat Gran (auto) (0.00-0.03) X10*3/uL Absolute Neuts (auto) (2.0-8.3) x10*3/uL Absolute Nucleated RBC (0.0-0.012) X10*3/uL Nucleated RBC % (auto) (0.0-0.2) /100WBC Sodium (135-145) mmol/L Potassium (3.3-5.1) mmol/L Chloride (96-108) mmol/L Carbon Dioxide (22-29) mmol/L Anion Gap (12-20) BUN (9-16) mg/dL Creatinine (0.5-1.4) mg/dL Estim Creat Clear Calc Estimated GFR Random Glucose (60-115) mg/dL Calcium (8.4-10.2) mg/dL Total Bilirubin (0.0-1.0) mg/dL Direct Bilirubin (0.0-0.5) mg/dL AST (5-31) U/L ALT (0-31) U/L Alkaline Phosphatase (39-117) U/L Troponin I High Sens (<3.5-17.0) ng/L Total Protein (6.5-8.0) g/dL Albumin (3.5-5.0) g/dL Lipase (8-78) U/L Urine Color Yellow Urine Appearance Clear Urine pH 6.0 (5.0-9.0) Ur Specific [place] 1.015 (1.005-1.025) Urine Protein Negative (Neg-Trace) mg/dL Urine Glucose (UA) Negative (Negative) mg/dL Urine Ketones 15 (Negative) mg/dL Urine Blood Negative (Negative) Urine Nitrite Negative (Negative) Ur Leukocyte Esterase Trace H (Negative) Urine RBC 0-2 (0-2) /HPF Urine WBC 0-5 (0-5) /HPF Ur Squamous Epith Cells 0-2 (0-2) /HPF Urine Bacteria None Seen (None Seen) Hyaline Casts 3-5 (0-2) /LPF Influenza Type A (PCR) (Negative) Influenza Type B (PCR) (Negative) RSV RNA Qual (PCR) (Negative) SARS-CoV-2 RNA (RT-PCR) (Negative) Independent Interpretation I performed an independent interpretation of an: EKG (Atrial fibrillation at 110 beats per minute.) and Plain X-Ray (Chest: Unremarkable examination.) Radiology Impression Discussion of test interpretation with radiology: I have reviewed the radiologist's reading. Discharge Plan Discharge Clinical Impression: Dementia, Atrial fibrillation with rapid ventricular response Patient Disposition: Home, Self-Care Instructions: A-fib (Atrial Fibrillation) (ED) Prescriptions: No Action metoprolol tartrate 50 mg tablet 75 mg PO BID 30 Days Qty: 90 6RF Rx Instructions: New dose increase from 50mg twice a day to 75mg twice a day to help control fast heart rate Eliquis 5 mg Tablet 5 mg PO BID Qty: 60 0RF digoxin [Digox] 125 mcg (0.125 mg) tablet 125 mcg PO DAILY Qty: 90 3RF atorvastatin 20 mg tablet 20 mg PO BEDTIME Qty: 30 5RF Rx Instructions: Change from pravastatin to atorvastatin. Cholesterol lowering agent 1 tablet at bedtime daily Interventions: ED Discharge Assessment Last Done: 03/14/24 15:39 Print Language: Hebrew
[2024-03-14 11:21] VITALS: PULSE 103; RESP 17; O2SAT 95
[2024-03-14 11:43] LABS: MANUAL DIFF FLAG NO
[2024-03-14] MEDS: 0.9 % Sodium Chloride 1,000 ML 999 ML IV (11:43)
[2024-03-14 11:51] LABS: Basophils Percent Auto 0.4 % (0-2); Eosinophils Percent Auto 0.3 % (0-4); Hemoglobin 13.2 g/dl (12.0-16.0); Imm Gran Abs Auto 0.02 X10*3/uL (0.00-0.03); Imm Gran Pct Auto 0.3 % (0.0-0.4); Lymphocytes Percent Auto 13.8 % (20-40); Mean Corpuscular HGB Conc 34.7 g/dl (31.0-35.0); Mean Corpuscular Hemoglobin 35.2 pg (27.0-33.0); Mean Corpuscular Volume 101.3 fL (80.0-98.0); Monocytes Absolute Auto 0.7 X10*3/uL (0.1-1.2); Monocytes Percent Auto 9.7 % (2-11); Neutrophils Absolute Auto 5.3 x10*3/uL (2.0-8.3); Neutrophils Percent Auto 75.5 % (45-73); Platelet Count 209 X10*3/uL (160-400); Red Blood Count 3.75 X10*6/uL (4.20-5.50)
[2024-03-14 12:06] LABS: Alanine Aminotransferase 15 U/L (0-31); Alkaline Phosphatase 52 U/L (39-117); Anion Gap 14 (12-20); Aspartate Amino Transferase 19 U/L (5-31); Bilirubin Direct 0.3 mg/dL (0.0-0.5); Blood Urea Nitrogen 26 mg/dL (9-16); Calcium 9.5 mg/dL (8.4-10.2); Carbon Dioxide 25 mmol/L (22-29); Chloride 108 mmol/L (96-108); Creatinine Clr Calc Pharmacy 37.9; Estimated Glomerular Filt Rate 57; Glucose Random 99 mg/dL (60-115); Lipase 30 U/L (8-78); Potassium 4.2 mmol/L (3.3-5.1); Sodium 143 mmol/L (135-145); Total Protein 6.4 g/dL (6.5-8.0)
[2024-03-14 12:13] LABS: Troponin-I High Sensitivity 7.4 ng/L (<3.5-17.0)
[2024-03-14 12:41] VITALS: BP 133/53; PULSE 106; RESP 18; TEMP 37.1; O2SAT 97
[2024-03-14 12:42] VITALS: PULSE 108; RESP 18; O2SAT 95
[2024-03-14 12:54] LABS: Influenza A PCR NEGATIVE (Negative); Influenza B PCR NEGATIVE (Negative); Resp Syncy Virus RNA Qual PCR NEGATIVE (Negative); SARS COV2 PCR INHOUSE NEGATIVE (Negative)
[2024-03-14 13:19] LABS: Appearance Urine Clear; Color Urine Yellow; Glucose Urine UA Negative (Negative); Leukocyte Esterase Urine Trace (Negative); Nitrite Urine Negative (Negative); Specific Gravity - Urine 1.015 (1.005-1.025); UMIC TRIGGER UACC YES; Urine Blood Negative (Negative); Urine Ketones 15 mg/dL (Negative); Urine Protein Negative (Neg-Trace)
[2024-03-14 13:26] LABS: Bacteria Urine None Seen (None Seen); RBC Urine 0-2 /HPF (0-2); Squamous Epithelial Cell Urine 0-2 /HPF (0-2); WBC Urine 0-5 /HPF (0-5)
[2024-03-14 15:30] VITALS: BP 151/100; PULSE 111; RESP 15; O2SAT 94
[2024-03-14 15:39] VITALS: BP 151/100; PULSE 111; RESP 15; TEMP 37.1; O2SAT 94
== END 2024-03-14 15:53 | disposition home or self-care (01) ==
PROVIDERS: Emergency Provider Emergency Medicine
DX: I48.0 Paroxysmal atrial fibrillation (principal); I10 Essential (primary) hypertension; G30.9 Alzheimer's disease, unspecified; F02.80 Dementia in other diseases classified elsewhere, unspecified severity, without behavioral disturbance, psychotic disturbance, mood disturbance, and anxiety; Z79.01 Long term (current) use of anticoagulants; Z03.818 Encounter for observation for suspected exposure to other biological agents ruled out
CPT/HCPCS: 0241U; 36415; 71045; 80048; 80076; 81001; 83690; 84484; 85025; 93005; 96360; 99284; 99285

== ENCOUNTER → 2024-03-14 11:01 | Outpatient (BNV) | payer MEDICARE, SELFPAY | PROVIDERS: Emergency Provider Emergency Medicine; Visit Provider Internal Medicine | DX: I48.91 Unspecified atrial fibrillation (principal) | CPT/HCPCS: 93010 ==

== ENCOUNTER 2024-05-08 09:29 | Outpatient (AMB) | payer MEDICARE, SELFPAY ==
[2024-05-08 09:31] VITALS: BP 120/70; PULSE 137; BMI 19.9
--- NOTE | 2024-05-08 09:31 | MHC.OFFVIS ---
Vital Signs 05/08/24 09:31 Height 5 ft 2 in Weight 108 lb 14.534 oz BMI 19.9 BP 120/70 Blood Pressure Location Lt brachial Position Sitting Pulse 137 H Pulse Source Monitor Intake Visit Reasons: 6 mth fu Toe Former Stitchdowns Required: No Allergies codeine Allergy (Verified 05/08/24 09:34) Unknown Medication List - Last Reconciled 05/08/24 by Ailyn Alfonso NP-C No Known Home Meds HPI HPI 6 mth fu: Details: Dacia is a 78-year-old female with past medical history of Alzheimer's dementia, expressive aphasia, cardiomyopathy, persistent atrial fibrillation who presents for follow-up. Today she reports that she has been feeling well. She can feel her heart going fast. She denies having chest pain, shortness of breath or lightheadedness. She does issues with expressive aphasia which her son states has been present for over a year. She has no difficulty with movement of her arms and legs. She lives with her son. He tells me she has not been taking any medications at all for at least 6 months. He says he used to give them to her but then she was resistant and he is stopped. [facility], [facility] Medical History Dementia Atrial fibrillation with rapid ventricular response No known health problems Surgical History No pertinent past surgical history Family History Mother No problems noted. Father No problems noted. Social History Household Members: Family Housing: House Do you presently have visiting nurse or other home services: No Alcohol intake: never Comment: 1:1 sitter Patient Tobacco Use Status: Former Tobacco user Years Smoked: 30 +/- service: No Current occupational status: retired Current occupation: rt hand Review of Systems Const All systems reviewed & are unremarkable except as noted in HPI and below ENT Denies dizziness Card Denies chest pain, Denies chest pain at rest, Denies chest pain with activity, Reports rapid heart rate, Denies pedal edema, Denies edema, Denies leg edema, Denies lightheadedness, Denies palpitations, Denies dyspnea, Denies dyspnea on exertion and Denies orthopnea Resp Denies cough, Denies dyspnea and Denies dyspnea on exertion GI Denies hematochezia and Denies change in stool character Musc Denies abnormal gait, Denies limited range of motion, Denies muscle cramps, Denies muscle weakness, Denies numbness, Denies radiating pain into limb, Denies stiffness and Denies tingling Neuro Denies abnormal gait, Denies dizziness, Denies numbness and Denies tingling Endo Denies palpitations Physical Exam Vital Signs: Last Vital Signs Pulse 78 05/08/24 09:31 BP 120/70 05/08/24 09:31 BMI result Body Mass Index 19.9 Const General: cooperative, healthy appearing, comfortable and no acute distress Neck Neck: Yes normal visual inspection and Yes no JVD Resp Effort & Inspection: normal respiratory effort Auscultation: clear to auscultation bilaterally, no rales, no rhonchi and no wheezes Cardio Jugular venous distension: no JVD Rate: tachycardic Rhythm: abnormal rhythm Heart sounds: S1 normal heart sound present, S2 normal heart sound present, no murmurs and no rubs Skin General skin exam: no rashes or lesions noted Extrem Other: pitting edema in ankles, left > right Psych Other: normal movement, expressive aphagia Appearance: grossly normal Mental Status: mental status grossly normal Office Procedures EKG Details: Today, read by me, afib with RVR, ST/ T wave abn inferolateral leads, rate 137, QTc 465ms [id number], Complete Assessment & Plan Assessment & Plan (1) Persistent atrial fibrillation: Code(s): I48.19 - Other persistent atrial fibrillation Category: Medical Plan: History of persistent atrial fibrillation. Last Holter monitor done on 08/26/2023 showed atrial fibrillation throughout, average heart rate 88, heart rate range 62 to 166 with 21% of time heart rate greater than 100. Last echocardiogram 08/09/2023 showed EF 40-45%, mild aortic and mitral regurgitation, mildly dilated left atrium. EF on last prior echo was 45-50%. She had been on metoprolol and digoxin for heart rate control. She had been on Eliquis for anticoagulation. Her son now reports that she has been off all medications for the last 6 months. He states he was giving them to her but then she was resistant and he stopped. Patient does have dementia however does seem fairly appropriate at this visit. EKG done today showing atrial fibrillation with rapid ventricular response, rate 137. Recommended ER evaluation and patient adamantly declines. She was seen in the ER on 03/14/2024 and treated for AFib RVR and discharged at that time. Labs that day did show normal troponin and creatinine. I spent time discussing cardiomyopathy, Congestive heart failure, stroke risk, untreated AFib with RVR with patient and son. Patient became tearful and states that she will take her medicines as directed. Informed her that she can not give her son a hard time these meds will keep her out of the hospital. She does not appear to have decompensated heart failure at this time. There is some mild leg edema but lungs are clear and no noted shortness of breath. Will restart metoprolol tartrate 50 mg b.i.d.. Will restart Eliquis 5 mg b.i.d.. Will arrange for office EKG in 1 week. Will update echocardiogram. Signs and symptoms of heart failure reviewed in detail. Emergency care if needed for symptoms. Cardiology office visit in 3-4 weeks, sooner if needed. (2) Coronary artery calcification seen on CAT scan: Code(s): I25.10 - Atherosclerotic heart disease of [place] coronary artery without angina pectoris Category: Medical Plan: Chest CT done 1 showing small volume of calcification in the thoracic aortic arch and descending aorta, moderate volume of coronary artery calcifications. She has no reports of chest discomfort, however does have dementia. Will continue on medical management for stable CAD. She is not on aspirin as she is restarting on Eliquis. She restarting on metoprolol. She previously was on statin. Will address next visit. (3) Cardiomyopathy: Code(s): I42.9 - Cardiomyopathy, unspecified Category: Medical Qualifiers: Cardiomyopathy type: other Qualified Code(s): I42.8 - Other cardiomyopathies Plan: Mild as above. Could be related to elevated AFib rates. Ischemia not excluded. She has no reports of anginal symptoms. She does have history of dementia. Prior note indicates she is not a good candidate for ischemic workup. Updating echo as she has not been on meds for many months. (4) Dementia: Code(s): F03.90 - Unspecified dementia, unspecified severity, without behavioral disturbance, psychotic disturbance, mood disturbance, and anxiety Category: Medical Plan: As above Plan Time spent on chart review, documentation, interview and assessment Orders: Orders CA echo transthoracic complete Today I42.8 - Other cardiomyopathies, I48.19 - Other persistent atrial fibrillation Medications: New metoprolol tartrate 50 mg PO BID 60 tabs 5RF apixaban (Eliquis) 5 mg PO BID 60 tabs 5RF Coding Level of Care Code Est Pt Level 4 (74674) Diagnoses Persistent atrial fibrillation I48.19 Coronary artery calcification seen on CAT scan I25.10 Other cardiomyopathy I42.8 Cardiomyopathy type: other Dementia F03.90 CPT Codes EKG - CPT: 07115-[id number], Complete ([id number]) Time Spent (min) 36
== END 2024-05-08 10:17 | disposition home or self-care (01) ==
PROVIDERS: PCP Internal Medicine; Visit Provider Nurse Practitioner Family
DX: I48.19 Other persistent atrial fibrillation (principal); I25.10 Atherosclerotic heart disease of native coronary artery without angina pectoris; I42.8 Other cardiomyopathies; F03.90 Unspecified dementia, unspecified severity, without behavioral disturbance, psychotic disturbance, mood disturbance, and anxiety
CPT/HCPCS: 93010; 99214

== ENCOUNTER → 2024-05-08 09:29 | Outpatient (BNVA) | payer MEDICARE, SELFPAY | PROVIDERS: PCP Internal Medicine; Visit Provider Nurse Practitioner Family | DX: I48.19 Other persistent atrial fibrillation (principal); I25.10 Atherosclerotic heart disease of native coronary artery without angina pectoris; I42.8 Other cardiomyopathies; F03.90 Unspecified dementia, unspecified severity, without behavioral disturbance, psychotic disturbance, mood disturbance, and anxiety | CPT/HCPCS: 93005; 99212 ==

== ENCOUNTER → 2024-05-15 10:02 | Outpatient (BNVA) | payer MEDICARE, SELFPAY | PROVIDERS: PCP Internal Medicine; Visit Provider Nurse Practitioner Family ==

== ENCOUNTER → 2024-05-24 10:42 | Outpatient (REF) | payer MEDICARE, SELFPAY ==
--- NOTE | 2024-05-24 10:46 | CA_ITS ---
Transthoracic Echocardiogram Patient (Last, First, Middle): Dacia Gurrola, Gender: Female Date of : 1945 Age: 78 Procedure Date: 05/24/2024 Procedure Type: Transthoracic Echocardiogram Location: OP Height: 160.02 cm Weight: 45.36 kg BSA: 1.44 m2 Heart Rate: bpm BP: 108 / 80 mmHg Nuclear Design Engineer: RITO Referring MD: Ailyn Alfonso FIXED ASSETS ACCOUNTANT-C Genetic Scientist: Buddy Eubanks MD Symptoms: I48.19 - Other persistent atrial fibrillation Study Quality: Adequate, contrast ECG Rhythm: Sinus Conclusions: - 1. [id number] LV systolic dysfunction with LVEF of 40-45% 2. Mildly reduced RV systolic function 3. Severe right atrial enlargement and at least moderate left atrial enlargement 4. Mild aortic and toyb-ju-jxanxyuy mitral regurgitation noted 5. Normal RV systolic pressure with mildly elevated right atrial pressures 6. No gross pericardial effusion Findings Procedure Information Contrast agent, definity, is being given per protocol without apparent complications. Left Ventricle Normal left ventricular cavity size. There is normal left ventricular wall thickness. The left ventricular systolic function is mild to moderately decreased. The visually estimated ejection fraction is between 40-45%. Diastolic function is indeterminate on the basis of available data. Right Ventricle Mildly increased right ventricular cavity size. There is mildly decreased right ventricular systolic function. Atria The left atrium is moderately dilated. There is no evidence of interatrial shunt. The right atrium is severely dilated. Aortic Valve Normal aortic valve structure and function. There is no aortic valve stenosis. There is mild aortic valve regurgitation. Mitral Valve There is mild anterior and posterior mitral leaflet thickening. There is mild to moderate mitral valve regurgitation. There is no mitral valve stenosis. Pulmonic Valve The pulmonic valve is likely normal. There is trace to mild pulmonic valve regurgitation. Tricuspid Valve Normal tricuspid valve structure. There is mild tricuspid valve regurgitation. The right ventricular systolic pressure is normal. The right ventricular systolic pressure is 30 mmHg. Mildly elevated right atrial pressure. There is no evidence of pulmonary hypertension. Great Vessels The pulmonary artery was not well visualized. Small plaque is seen in the sino tubular ridge. Venous The inferior vena cava is mildly dilated and collapses greater than 50% with inspiration. Pericardium/Pleural There is no evidence of pericardial effusion. Prior Study Comparison Changes noted compared to prior study dated: 07/20/2023. no pericardial effusion noted Measurements 2D Linear Measurements IVSd: 0.99 0.6-0.9/0.6-1.0 cm LVIDd: 4.87 3.9-5.3/4.2-5.9 cm LVIDd Index: 3.38 2.4-3.2/2.2-3.1 cm/m2 LVIDs: 3.87 2.0-3.6 cm LVPWd: 0.94 0.7-1.1 cm LA Diam: 3.40 2.7-3.8/3.0-4.0 cm LAIDs Index: 2.36 1.5-2.3 cm/m2 LV Mass: 207.75 67-162/88-224 g LV Mass Index: 144.27 43-95/49-115 g/m2 LVOT Diam: 1.90 3.0+(-)1.3 cm 2D Systolic Function EF 4C: 35.00 >55% EF 2C: 44.20 >55% EF BiP: 40.10 >55% Mitral Valve MV Pk E: 0.62 MV Decel Time: 215.00 E'Lateral: 5.81 E'Medial: 4.52 E/E' Med: 13.60 E/E' Lat: 10.60 PHT: 63.00 MVA PHT: 3.49 Decel [place]: 3.08 Aortic Valve AoV Pk Miguel: 0.99 AoV Mn Miguel: 0.73 AoV VTI: 0.16 AoV Pk Grad: 4.00 Aov Mn Grad: 2.00 MAGDALENO Cont.VTI: 2.16 LVOT LVOT Pk Miguel: 0.66 LVOT Mn Miguel: 0.43 LVOT VTI: 0.12 LVOT Pk Grad: 2.00 LVOT Mn Grad: 1.00 LVOT Diam: 1.90 LVOT Area: 2.84 Diastolic Function MV Pk E: 0.62 E'Medial: 4.52 E/E' Med: 13.60 E' Laterial: 5.81 E/E' Lat: 10.60 Right Ventricle TAPSE (mm): 16.40 TVS' Miguel: 6.90 Tricuspid Valve TR Pk Miguel: 2.33 TR Pk Grad: 22.00 RA Press: 8.00 RVSP: 30.00 Great Vessels Aorta Sinus of Valsalva: 3.18 2.0-3.[address] [place]: 2.52 1.7-3.4 cm Ao Asc: 3.50 2.1-3.4 cm Updated in Other Vendor System with Status of Final Buddy Eubanks MD electronically signed on 05/24/2024 3:46:16 PM with status of Final
== END ==
LOC: HO.CARD 10:42
PROVIDERS: PCP Internal Medicine; Visit Provider Nurse Practitioner Family
DX: I48.19 Other persistent atrial fibrillation (principal); I42.8 Other cardiomyopathies
CPT/HCPCS: 93306; Q9957

== ENCOUNTER → 2024-05-24 10:46 | Outpatient (BNV) | payer MEDICARE, SELFPAY | PROVIDERS: PCP Internal Medicine; Visit Provider Internal Medicine Cardiovascular Disease | DX: I35.1 Nonrheumatic aortic (valve) insufficiency (principal); I34.0 Nonrheumatic mitral (valve) insufficiency; I36.1 Nonrheumatic tricuspid (valve) insufficiency; I51.7 Cardiomegaly | CPT/HCPCS: 93306 ==

== ENCOUNTER 2024-06-08 09:41 | Outpatient (REF) | payer MEDICARE, SELFPAY ==
[2024-06-08 12:27] LABS: Digoxin 0.5 ng/mL (0.8-2.0)
[2024-06-08 12:35] LABS: Anion Gap 13 (12-20); Blood Urea Nitrogen 19 mg/dL (9-16); Calcium 9.2 mg/dL (8.4-10.2); Carbon Dioxide 30 mmol/L (22-29); Chloride 106 mmol/L (96-108); Estimated Glomerular Filt Rate 55; Glucose Random 66 mg/dL (60-115); Sodium 145 mmol/L (135-145)
== END 2024-06-08 09:42 | disposition home or self-care (01) ==
LOC: HO.LAB 09:41
PROVIDERS: PCP Internal Medicine; Visit Provider Nurse Practitioner Family
DX: I48.19 Other persistent atrial fibrillation (principal); I42.8 Other cardiomyopathies; I25.10 Atherosclerotic heart disease of native coronary artery without angina pectoris; R94.31 Abnormal electrocardiogram [ECG] [EKG]; G30.9 Alzheimer's disease, unspecified; F02.80 Dementia in other diseases classified elsewhere, unspecified severity, without behavioral disturbance, psychotic disturbance, mood disturbance, and anxiety; Z87.891 Personal history of nicotine dependence
CPT/HCPCS: 36415; 80048; 80162; 93005; 99212

== ENCOUNTER 2024-06-08 09:41 | Outpatient (AMB) | payer MEDICARE, SELFPAY ==
[2024-06-08 09:43] VITALS: BP 102/74; PULSE 96; BMI 19.0
--- NOTE | 2024-06-08 09:43 | A.OFFVIS_ITS ---
Vital Signs 06/08/24 09:43 Height 5 ft 2 in Weight 104 lb 0.931 oz BMI 19.0 BP 102/74 Blood Pressure Location Lt brachial Position Sitting Pulse 96 Pulse Source Pulse Oximeter Intake Visit Reasons: 4 wk s/p echo Air Traffic Coordinator Required: No Trading Floor Operator: Trading Floor Operator Present Allergies codeine Allergy (Verified 06/08/24 09:46) Unknown Medication List - Last Reconciled 06/08/24 by Ailyn Alfonso, JUDY-C apixaban (Eliquis) 5 mg PO BID digoxin 125 mcg PO .every other day 90 days metoprolol tartrate 50 mg PO BID HPI HPI 4 wk s/p echo: Details: Dacia is a 78-year-old female with past medical history of Alzheimer's dementia, expressive aphasia, cardiomyopathy, persistent atrial fibrillation who presents for follow-up. Today she reports that she has been feeling well. She denies having heart palpitations, chest pain, shortness of breath or lightheadedness. Unclear accuracy of her responses as she does have advanced dementia. She does issues with expressive aphasia which her son states has been present for over a year. She has no difficulty with movement of her arms and legs. She lives with her son. He tells me she has now been taking her meds as directed. [facility] Medical History Dementia Atrial fibrillation with rapid ventricular response No known health problems Surgical History No pertinent past surgical history Family History Mother No problems noted. Father No problems noted. Social History Household Members: Family Housing: House Do you presently have visiting nurse or other home services: No Alcohol intake: never Comment: 1:1 sitter Patient Tobacco Use Status: Former Tobacco user Years Smoked: 30 +/- service: No Current occupational status: retired Current occupation: rt hand Review of Systems Const Details: pt denies any symptoms - unclear accuracy related to dementia All systems reviewed & are unremarkable except as noted in HPI and below and Unobtainable due to mental condition ENT Denies dizziness Card Denies chest pain, Denies chest pain at rest, Denies chest pain with activity, Denies rapid heart rate, Denies pedal edema, Denies edema, Denies leg edema, Denies lightheadedness, Denies palpitations, Denies dyspnea, Denies dyspnea on exertion and Denies orthopnea Resp Denies cough, Denies dyspnea and Denies dyspnea on exertion GI Denies hematochezia and Denies change in stool character Musc Denies abnormal gait, Denies limited range of motion, Denies muscle cramps, Denies muscle weakness, Denies numbness, Denies radiating pain into limb, Denies stiffness and Denies tingling Neuro Denies abnormal gait, Denies dizziness, Denies numbness and Denies tingling Endo Denies palpitations Physical Exam Vital Signs: Last Vital Signs Pulse 96 06/08/24 09:43 BP 102/74 06/08/24 09:43 BMI result Body Mass Index 19.0 Const General: cooperative, healthy appearing, comfortable and no acute distress Orientation/consciousness: patient oriented x3 Neck Neck: Yes normal visual inspection and Yes no JVD Resp Effort & Inspection: normal respiratory effort Auscultation: clear to auscultation bilaterally, no crackles, no rales, no rhonchi and no wheezes Cardio Jugular venous distension: no JVD Rate: regular rate Rhythm: regular rhythm Heart sounds: S1 normal heart sound present, S2 normal heart sound present, no murmurs and no rubs Neuro General: patient oriented x3 Extrem General: Yes normal to inspection and No no pedal edema Psych Appearance: grossly normal Mental Status: mental status grossly normal Speech and movement: Normal speech and movement present Office Procedures EKG Details: Today by me, atrial fibrillation, septal Q-wave, T-wave inversions inferior and far lateral leads, rate 84, QTC 437 milliseconds [id number], Complete Assessment & Plan Assessment & Plan (1) Persistent atrial fibrillation: Code(s): I48.19 - Other persistent atrial fibrillation Category: Medical Plan: History of persistent atrial fibrillation. Last Holter monitor done on 08/26/2023 showed atrial fibrillation throughout, average heart rate 88, heart rate range 62 to 166 with 21% of time heart rate greater than 100. Last echocardiogram 08/09/2023 showed EF 40-45%, mild aortic and mitral regurgitation, mildly dilated left atrium. She had been on metoprolol and digoxin for heart rate control. She had been on Eliquis for anticoagulation. On last visit in April her son reported that she had been off all her medications for the past 6 months. He stated he was giving them to her but then she was resistant and he stopped. Patient does have dementia and expressive aphasia. this visit. EKG at that time showed atrial fibrillation with rapid ventricular response, rate 137. She was put back on metoprolol and Eliquis. Follow-up EKG continued to show elevated heart rate and digoxin was re added. An echocardiogram was done on 05/24/2024 showing EF 40-45%, severe right atrial and moderate left atrial enlargement, mild aortic stenosis, [id number] mitral regurgitation. EKG done today is showing atrial fibrillation, rate 84, T-wave inversions inferior and far lateral leads. She denies having heart palpitations, shortness of breath. Her son reports compliance with meds now. No bleeding issues reported. Will have her continue on current med management. Will check digoxin level. Cardiology follow-up 6 months, sooner if needed. (2) Coronary artery calcification seen on CAT scan: Code(s): I25.10 - Atherosclerotic heart disease of [place] coronary artery without angina pectoris Category: Medical Plan: Chest CT done 1 showing small volume of calcification in the thoracic aortic arch and descending aorta, moderate volume of coronary artery calcifications. She has no reports of chest discomfort, however does have dementia. Her EKG today does have T-wave inversions in the inferior and far lateral leads. This is not entirely new. She has no clear anginal symptoms however does have dementia and aphasia. Her son says she does not complain of anything. With her dementia she is not a good candidate for ischemic evaluation and intervention. At this time will continue on medical management for stable CAD. She is not on aspirin as she is on Eliquis. She is on metoprolol. She previously was on statin but not at this time. Will restart atorvastatin 20 mg daily. Last known LDL 118 on 02/04/2024, off meds. (3) Cardiomyopathy: Code(s): I42.9 - Cardiomyopathy, unspecified Category: Medical Qualifiers: Cardiomyopathy type: other Qualified Code(s): I42.8 - Other cardiomyopathies Plan: Mild, stable as above. Could be related to elevated AFib rates. Ischemia not excluded. She has no reports of anginal symptoms. She does have history of dementia. No clinical signs of heart failure on exam. (4) Dementia: Code(s): F03.90 - Unspecified dementia, unspecified severity, without behavioral disturbance, psychotic disturbance, mood disturbance, and anxiety Category: Medical Plan: As above (5) Abnormal EKG: Code(s): R94.31 - Abnormal electrocardiogram [ECG] [EKG] Category: Medical Plan: As above Plan Time spent on chart review, documentation, interview and assessment Orders: Orders Basic Metabolic Panel Today I48.19 - Other persistent atrial fibrillation Medications: Changed From atorvastatin Change from pravastatin to atorvastatin. Cholesterol lowering agent 1 tablet at bedtime daily 20 mg PO BEDTIME 30 tabs 5RF To atorvastatin Cholesterol-lowering agent 1 tablet at bedtime daily 20 mg PO BEDTIME 30 tabs 5RF Coding Level of Care Code Est Pt Level 3 (31055) Diagnoses Persistent atrial fibrillation I48.19 Coronary artery calcification seen on CAT scan I25.10 Other cardiomyopathy I42.8 Cardiomyopathy type: other Dementia F03.90 Abnormal EKG R94.31 CPT Codes EKG - CPT: 33915-[id number], Complete ([id number]) Time Spent (min) 24
== END 2024-06-08 10:24 | disposition home or self-care (01) ==
PROVIDERS: PCP Internal Medicine; Visit Provider Nurse Practitioner Family
DX: I48.19 Other persistent atrial fibrillation (principal); I25.10 Atherosclerotic heart disease of native coronary artery without angina pectoris; I42.8 Other cardiomyopathies; F03.90 Unspecified dementia, unspecified severity, without behavioral disturbance, psychotic disturbance, mood disturbance, and anxiety; R94.31 Abnormal electrocardiogram [ECG] [EKG]
CPT/HCPCS: 93010; 99213

== ENCOUNTER 2024-10-30 10:23 | Outpatient (REF) | payer MEDICARE, SELFPAY ==
[2024-10-30 13:40] LABS: MANUAL DIFF FLAG NO
[2024-10-30 13:50] LABS: Basophils Absolute Auto 0.1 X10*3/uL (0.0-0.2); Basophils Percent Auto 1.6 % (0-2); Eosinophils Percent Auto 0.7 % (0-4); Hemoglobin 14.1 g/dl (12.0-16.0); Imm Gran Abs Auto 0.01 X10*3/uL (0.00-0.03); Imm Gran Pct Auto 0.2 % (0.0-0.4); Lymphocytes Absolute Auto 1.2 X10*3/uL (1.2-4.9); Lymphocytes Percent Auto 21.5 % (20-40); Mean Corpuscular HGB Conc 33.6 g/dl (31.0-35.0); Mean Corpuscular Hemoglobin 34.8 pg (27.0-33.0); Mean Corpuscular Volume 103.7 fL (80.0-98.0); Mean Platelet Volume 11.1 fL (9.4-12.3); Monocytes Absolute Auto 0.6 X10*3/uL (0.1-1.2); Monocytes Percent Auto 10.7 % (2-11); Neutrophils Absolute Auto 3.7 x10*3/uL (2.0-8.3); Neutrophils Percent Auto 65.3 % (45-73); Platelet Count 226 X10*3/uL (160-400); Red Blood Count 4.05 X10*6/uL (4.20-5.50); Red Cell Distribution Width 12.6 % (11.0-16.0); White Blood Count 5.7 X10*3/uL (4.8-10.8)
[2024-10-30 14:34] LABS: Alanine Aminotransferase 23 U/L (0-31); Alkaline Phosphatase 69 U/L (39-117); Anion Gap 12 (12-20); Aspartate Amino Transferase 31 U/L (5-31); Bilirubin Total 1.3 mg/dL (0.0-1.0); Blood Urea Nitrogen 18 mg/dL (9-16); Calcium 8.9 mg/dL (8.4-10.2); Carbon Dioxide 28 mmol/L (22-29); Chloride 105 mmol/L (96-108); Estimated Glomerular Filt Rate 55; Glucose Random 108 mg/dL (60-115); Potassium 4.2 mmol/L (3.3-5.1); Sodium 141 mmol/L (135-145); Total Protein 6.6 g/dL (6.5-8.0)
[2024-10-30 14:41] LABS: Digoxin 0.2 ng/mL (0.8-2.0)
== END 2024-10-30 10:24 | disposition home or self-care (01) ==
LOC: HO.10HDL 10:23
PROVIDERS: Visit Provider Internal Medicine
DX: E78.00 Pure hypercholesterolemia, unspecified (principal); F02.80 Dementia in other diseases classified elsewhere, unspecified severity, without behavioral disturbance, psychotic disturbance, mood disturbance, and anxiety; F80.1 Expressive language disorder; I25.5 Ischemic cardiomyopathy; I48.91 Unspecified atrial fibrillation; Z79.02 Long term (current) use of antithrombotics/antiplatelets
CPT/HCPCS: 36415; 80053; 80162; 85025

== ENCOUNTER 2024-12-07 09:14 | Outpatient (AMB) | payer MEDICARE, SELFPAY ==
--- NOTE | 2024-12-07 09:30 | A.OFFVIS_ITS ---
Vital Signs 12/07/24 09:31 Height 5 ft 2 in Weight 110 lb 3.698 oz BMI 20.2 BP 90/64 Blood Pressure Location Lt brachial Position Sitting Pulse 130 H Pulse Source Monitor Intake Visit Reasons: 6m follow up Intake Note: 6 mth f/up Special Education Kindergarten Teacher Required: No Accompanied by: Son Allergies codeine Allergy (Verified 12/07/24 10:51) Unknown Medication List - Last Reconciled 12/07/24 by Ailyn Alfonso NP-C apixaban (Eliquis) 5 mg PO BID atorvastatin 20 mg PO BEDTIME digoxin 125 mcg PO .every other day 90 days metoprolol tartrate 50 mg PO BID HPI HPI 6m follow up: Details: Dacia is a 78-year-old female with past medical history of Alzheimer's dementia, expressive aphasia, cardiomyopathy, persistent atrial fibrillation who presents for follow-up. Today she is mostly nonverbal and sits quietly without acute distress. Her son is present and says he is the primary detention sergeant for her. He says she has not taken medications in several months. He is actually unable to recall the last time she took them. He says that when he goes to give them to her she will not take them. He also says she is sleeping at times and he does not want to wake her to give her pills. Patient does have dementia and is unable to take them on her own. She nods no when asked if she has been having any trouble breathing or chest discomfort. Her son states she has been having swelling in her legs in recent months. She is mostly sedentary and sits in a chair much of the time. He tries to elevate her legs to keep the swelling down. [facility] Medical History Dementia Atrial fibrillation with rapid ventricular response No known health problems Surgical History No pertinent past surgical history Family History Mother No problems noted. Father No problems noted. Social History Household Members: Family Housing: House Do you presently have visiting nurse or other home services: No Alcohol intake: never Comment: 1:1 sitter Patient Tobacco Use Status: Former Tobacco user Years Smoked: 30 +/- service: No Current occupational status: retired Current occupation: rt hand Review of Systems Const Unobtainable due to mental status Card Denies chest pain and Denies dyspnea Resp Denies dyspnea Physical Exam Vital Signs: Last Vital Signs Pulse 130 H 12/07/24 09:31 BP 90/64 12/07/24 09:31 BMI result Body Mass Index 20.2 Const Other: frail, elderly, answers some questions with nod or one worse answer. General: cooperative, comfortable and no acute distress Neck Neck: Yes normal visual inspection and Yes no JVD Resp Other: Lungs diminished Effort & Inspection: normal respiratory effort Auscultation: clear to auscultation bilaterally, no rhonchi and no wheezes Cardio Rate: tachycardic Rhythm: abnormal rhythm Heart sounds: S1 normal heart sound present, S2 normal heart sound present, no murmurs and no rubs Extrem Other: soft pitting edema from foot to below knee Psych Appearance: grossly normal Office Procedures EKG Details: Today, read by me Afib with RVR,ST/ T wave abnormlity laterally, cant exclude ischemia, cant rule out prior anterior infarct, minimal foltage criteria for LVH,rate 130 [id number], Complete Assessment & Plan Assessment & Plan (1) Persistent atrial fibrillation: Code(s): I48.19 - Other persistent atrial fibrillation Category: Medical Plan: History of chronic atrial fibrillation that is being treated with heart rate control. There has been issues with med noncompliance in the past however on my last visit with her 05/2024 her son stated she was taking them as directed. He needs to give her medications to her as she has dementia. Today he states that she again is not taking medications for the last several months. He is actually unable to recall the last time she took them. It is unclear to me if patient actually refuses to take them when given or if he is not providing them to her. Her EKG today is showing atrial fibrillation with RVR, rate 130. She has signs of fluid overload, pitting edema in her lower extremities. Last echocardiogram done on 05/24/2024 showed EF 40-45%, severe right atrial and moderate left atrial enlargement, mild aortic stenosis, [id number] mitral regurgitation. She likely has a lower EF at this time as she likely has had uncontrolled heart rate for many months. Informed him that she is at high risk for acutely d ecompensated heart failure, stroke, CT by not taking medications. He does state understanding. She previously had been on metoprolol tartrate 50 mg b.i.d., digoxin, Eliquis 5 mg b.i.d.. Recommended ER evaluation. Her son had to call his brother to discuss and then was agreeable to have her evaluated and treated. Report called to the emergency room, Dr. Madison. She needs treatment for AFib RVR, Congestive heart failure, also recommended aids social worker evaluation for med compliance issues. Transported to the emergency room via wheelchair by our medical research scientist. Note when Eliquis is restarted recommend 2.5 mg b.i.d. based on her age and weight. (2) Coronary artery calcification seen on CAT scan: Code(s): I25.10 - Atherosclerotic heart disease of [place] coronary artery without angina pectoris Category: Medical Plan: Chest CT done 11/14/2022 showing small volume of calcification in the thoracic aortic arch and descending aorta, moderate volume of coronary artery calcifications. She nods no when asked if she has chest discomfort. Her EKG today does show ST and T-wave abnormalities in the far lateral leads which is unchanged from last EKG. With her dementia she is not a good candidate for ischemic evaluation and intervention. At this time will continue management for stable CAD. She has not been taking meds for many months. She had been on Eliquis, metoprolol, atorvastatin. She is being sent to the ER. (3) Cardiomyopathy: Code(s): I42.9 - Cardiomyopathy, unspecified Category: Medical Qualifiers: Cardiomyopathy type: other Qualified Code(s): I42.8 - Other cardiomyopathies Plan: As above (4) Dementia: Code(s): F03.90 - Unspecified dementia, unspecified severity, without behavioral disturbance, psychotic disturbance, mood disturbance, and anxiety Category: Medical Plan: As above (5) Abnormal EKG: Code(s): R94.31 - Abnormal electrocardiogram [ECG] [EKG] Category: Medical Plan: As above (6) Medication noncompliance due to cognitive impairment: Code(s): R41.9 - Unspecified symptoms and signs involving cognitive functions and awareness; Z91.148 - Patient's other noncompliance with medication regimen for other reason Category: Medical Plan: As above. Case management/aids social worker should be involved. Plan Time spent on chart review, documentation, interview and assessment Coding Level of Care Code Est Pt Level 5 (88819) Complex EM visit Add On G2211 Diagnoses Persistent atrial fibrillation I48.19 Coronary artery calcification seen on CAT scan I25.10 Other cardiomyopathy I42.8 Cardiomyopathy type: other Dementia F03.90 Abnormal EKG R94.31 Medication noncompliance due to cognitive impairment R41.9; Z91.148 CPT Codes EKG - CPT: 31786-Lwchffijnwlmwugdl, Complete ([id number]) Time Spent (min) 36
[2024-12-07 09:31] VITALS: BP 90/64; PULSE 130; BMI 20.2
== END 2024-12-07 10:48 | disposition home or self-care (01) ==
PROVIDERS: PCP Internal Medicine; Visit Provider Nurse Practitioner Family
DX: I48.19 Other persistent atrial fibrillation (principal); I25.10 Atherosclerotic heart disease of native coronary artery without angina pectoris; I42.8 Other cardiomyopathies; F03.90 Unspecified dementia, unspecified severity, without behavioral disturbance, psychotic disturbance, mood disturbance, and anxiety; R94.31 Abnormal electrocardiogram [ECG] [EKG]; R41.9 Unspecified symptoms and signs involving cognitive functions and awareness; Z91.148 Patient's other noncompliance with medication regimen for other reason
CPT/HCPCS: 93010; 99215; G2211

== ENCOUNTER → 2024-12-07 09:14 | Outpatient (BNVA) | payer MEDICARE, SELFPAY | PROVIDERS: PCP Internal Medicine; Visit Provider Nurse Practitioner Family ==

== ENCOUNTER 2024-12-07 10:20 | Inpatient (IN) | payer MEDICARE, SELFPAY ==
[2024-12-07] VITALS (12 sets, daily range): BP systolic 92–149; BP diastolic 35–108; PULSE 100–122; RESP 18–20; TEMP 35.9–36.5; O2SAT 95–99; BMI 20.3
--- NOTE | ~2024-12-07 | XR_ITS ---
EXAMINATION: XR CHEST CLINICAL INFORMATION: dyspnea COMPARISON: Chest x-ray 03/14/2024 TECHNIQUE: Frontal view of the chest was obtained. FINDINGS: The lungs are expanded with patchy opacity seen in the left lung base likely infiltrate/atelectasis/effusion. Left upper lobe in the right lung is expanded and clear. Heart size enlarged. Pulmonary vascularity is normal. No gross bony abnormality seen. XR/XR chest 1V IMPRESSION: Moderate opacity left lung base likely combination of effusion/atelectasis. Infiltrate is not excluded. Heart size is enlarged. Electronically signed by: Nnamdi Stanton MD 12/07/2024 12:19 PM [facility]
--- NOTE | 2024-12-07 10:24 | ECG_ITS ---
Test Reason : abnormal ekg Blood Pressure : */* mmHG Vent. Rate : 126 BPM Atrial Rate : * BPM P-R Int : * ms QRS Dur : 84 ms QT Int : 340 ms P-R-T Axes : * -24 245 degrees QTcB Int : 492 ms Atrial fibrillation with rapid ventricular response Minimal voltage criteria for LVH, may be normal variant ( [place] product ) Anteroseptal infarct (cited on or before 14-Mar-2024) ST & T wave abnormality, consider lateral ischemia Abnormal ECG When compared with ECG of 14-Mar-2024 11:01, Questionable change in initial forces of Anterior leads T wave inversion no longer evident in Anterior leads Referred By: Generic ED Physician Electronically Signed By: YAMILEX STOKES MD
[2024-12-07 11:08] LABS: MANUAL DIFF FLAG NO
[2024-12-07 11:09] LABS: Basophils Percent Auto 0.5 % (0-2); Eosinophils Absolute Auto 0.1 X10*3/uL (0.0-0.4); Eosinophils Percent Auto 0.9 % (0-4); Hematocrit 42.4 % (37.0-47.0); Hemoglobin 14.5 g/dl (12.0-16.0); Imm Gran Abs Auto 0.01 X10*3/uL (0.00-0.03); Imm Gran Pct Auto 0.2 % (0.0-0.4); Lymphocytes Absolute Auto 1.1 X10*3/uL (1.2-4.9); Lymphocytes Percent Auto 18.2 % (20-40); Mean Corpuscular HGB Conc 34.2 g/dl (31.0-35.0); Mean Corpuscular Hemoglobin 35.3 pg (27.0-33.0); Mean Corpuscular Volume 103.2 fL (80.0-98.0); Monocytes Absolute Auto 0.7 X10*3/uL (0.1-1.2); Monocytes Percent Auto 11.3 % (2-11); Neutrophils Percent Auto 68.9 % (45-73); Platelet Count 186 X10*3/uL (160-400); Red Blood Count 4.11 X10*6/uL (4.20-5.50); Red Cell Distribution Width 13.8 % (11.0-16.0); White Blood Count 5.8 X10*3/uL (4.8-10.8)
--- NOTE | 2024-12-07 11:17 | ED_ITS ---
HPI - General Adult General Chief complaint: Arrhythmia/Palpitations Stated complaint: abnormal ekg swelling of legs sent in by provider Time Seen by Provider: 12/07/24 10:49 Source: patient and family Mode of arrival: ambulatory Limitations: other (dementia) History of Present Illness HPI narrative: this is an 79-year-old woman with a past medical history of Alzheimer's dementia with significant memory impairment and aphasia, paroxysmal atrial fibrillation on Eliquis, hypertension, hyperlipidemia, CHF who presents for evaluation of lower extremity pitting edema and atrial fibrillation with rapid ventricular response. Son is present at time of history and exam. The son states that his belly has been refusing to take her medications and only really taking his medications once in a while. He states that this has been ongoing for the last few months. He states that she has had increased swelling in her legs that is waxing and waning in severity over the last several weeks. he states seeing the contact and service clerks supervisor today who recommended they come to the hospital or management of for heart rate a congestive heart failure. He states no recent fevers at home and otherwise she is acting her usual self is at Her mental baseline. Related Data Home Medications ?Medication ?Instructions ?Recorded ?Confirmed digoxin 125 mcg (0.125 mg) tablet 125 mcg PO Q48H 12/07/24 12/07/24 Previous Rx's ?Medication ?Instructions ?Recorded apixaban 5 mg tablet (Eliquis) 5 mg PO BID #60 tabs 05/08/24 metoprolol tartrate 50 mg tablet 50 mg PO BID #60 tabs 05/08/24 atorvastatin 20 mg tablet 20 mg PO BEDTIME #30 tabs 06/08/24 Allergies Allergy/AdvReac Type Severity Reaction Status Date / Time codeine Allergy Unknown Verified 12/07/24 10:51 Review of Systems 2 Review of Systems: ROS as per HPI [facility] Past Medical History Medical History Dementia Atrial fibrillation with rapid ventricular response No known health problems Surgical History No pertinent past surgical history Family History Family History Mother No problems noted. Father No problems noted. Social History Social History Household Members: Family Housing: House Do you presently have visiting nurse or other home services: No Alcohol intake: never Comment: 1:1 sitter Patient Tobacco Use Status: Former Tobacco user Years Smoked: 30 +/- Smoked in Last 30 Days: No Use of substances other than those prescribed or required for medical reasons: No Advance Directives: No Advance Directives Information Provided: Yes service: No Current occupational status: retired Current occupation: rt hand Physical Exam ED Vital Signs: Vital Signs - 24 hr 12/07/24 10:49 12/07/24 10:55 12/07/24 11:35 Temperature 97.5 F Pulse Rate 122 H 122 H 114 H Respiratory Rate 20 20 18 Blood Pressure 92/35 L 109/81 120/79 Pulse Oximetry 96 Oxygen Delivery Method Room Air 12/07/24 11:41 12/07/24 12:31 Temperature Pulse Rate 100 Respiratory Rate Blood Pressure 98/71 105/73 Pulse Oximetry Oxygen Delivery Method BMI result Body Mass Index 20.3 Gen: NAD, AOx3 HEENT: NCAT, EOMI, normal conjunctiva CV: Irregular rate and rhythm, 2+ bilateral lower extremity pretibial pitting edema Pulm: CTAB, no increased work of breathing GI: Soft, NTND, no rebound, guarding or rigidity Neuro: Grossly non focal Medications Administered Discontinued Medications Generic Name Dose Route Start Last Admin Trade Name Freq PRN Reason Stop Dose Admin Furosemide 20 mg 12/07/24 12:16 12/07/24 12:31 Furosemide 20 Mg/2 Ml Vial IVPUSH 12/07/24 12:17 20 mg ONCE ONE Administration Protocol Metoprolol Tartrate 5 mg 12/07/24 11:19 12/07/24 11:36 Metoprolol Tartrate 5 Mg/5 Ml Vial IVPUSH 12/07/24 11:20 5 mg ONCE ONE Administration Protocol Metoprolol Tartrate 25 mg 12/07/24 11:24 12/07/24 11:39 Metoprolol Tartrate 25 Mg Tablet PO 12/07/24 11:25 Not Given ONCE ONE Protocol Medical Decision Making Medical Decision Making MDM Narrative: Differential diagnosis includes, but is not limited to atrial fibrillation with rapid ventricular response, acute decompensated congestive heart failure, acute kidney injury, electrolyte abnormality. Reviewed patient's labs, EKG and chest x-ray as below. Patient is provided 5 mg IV Lopressor and 20 mg IV Lasix. I discussed the patient's case and management with the admitting hospitalist, Dr. Shannon, and patient is accepted for further workup and management. Critical Care Time: A total of 45 minutes spent in direct patient care with coordinating critical resuscitation, procedures, reviewing records, discussing with consultants, reviewing labs, and/or managing patient. Admission/Observation Consideration of admission/observation: Escalation of care including admission/observation considered Consult Healthcare Provider Management of the patient was discussed with: Hospitalist Lab Data MDM Lab Attestation statement: I reviewed the patient's lab results. I reviewed and interpreted the patient's labs. CBC is unremarkable. Metabolic panel is unremarkable with no electrolyte derangement or evidence of acute kidney injury. there is mild troponin elevation of 17.7, which I suspect is likely demand in the setting of congestive heart failure exacerbation. BNP is elevated at 1637 . Digoxin is undetectable. Repeat troponin is reassuring at 14.9. 12/07/24 11:03 12/07/24 11:04 Labs: Lab Results 12/07/24 12/07/24 12/07/24 Range/Units 11:03 11:04 13:15 WBC 5.8 (4.8-10.8) X10*3/uL RBC 4.11 L (4.20-5.50) X10*6/uL Hgb 14.5 (12.0-16.0) g/dl Hct 42.4 (37.0-47.0) % MCV 103.2 H (80.0-98.0) fL MCH 35.3 H (27.0-33.0) pg MCHC 34.2 (31.0-35.0) g/dl RDW 13.8 (11.0-16.0) % Plt Count 186 (160-400) X10*3/uL MPV 11.0 (9.4-12.3) fL Immature Gran % (Auto) 0.2 (0.0-0.4) % Neut % (Auto) 68.9 (45-73) % Lymph % (Auto) 18.2 L (20-40) % [place] % (Auto) 11.3 H (2-11) % Eos % (Auto) 0.9 (0-4) % Baso % (Auto) 0.5 (0-2) % Lymph # (Auto) 1.1 L (1.2-4.9) X10*3/uL [place] # (Auto) 0.7 (0.1-1.2) X10*3/uL Eos # (Auto) 0.1 (0.0-0.4) X10*3/uL Baso # (Auto) 0.0 (0.0-0.2) X10*3/uL Abs Immat Gran (auto) 0.01 (0.00-0.03) X10*3/uL Absolute Neuts (auto) 4.0 (2.0-8.3) x10*3/uL Absolute Nucleated RBC 0.000 (0.0-0.012) X10*3/uL Nucleated RBC % (auto) 0.0 (0.0-0.2) /100WBC Sodium 143 (135-145) mmol/L Potassium 4.5 (3.3-5.1) mmol/L Chloride 108 (96-108) mmol/L Carbon Dioxide 27 (22-29) mmol/L Anion Gap 13 (12-20) BUN 33 H (9-16) mg/dL Creatinine 0.93 (0.5-1.4) mg/dL Estim Creat Clear Calc 34.6 Estimated GFR 58 Random Glucose 101 (60-115) mg/dL Calcium 9.2 (8.4-10.2) mg/dL Magnesium 2.2 (1.6-2.6) mg/dL Troponin I High Sens 17.7 H D 14.9 (<3.5-17.0) ng/L B-Natriuretic Peptide 1637 H (<100) pg/mL Digoxin < 0.2 L (0.8-2.0) ng/mL Independent Interpretation I performed an independent interpretation of an: EKG and Plain X-Ray Interpretation: I independently reviewed and interpreted the patient's EKG, which demonstrates atrial fibrillation with rapid ventricular response at 126 beats per minute, QRS 84, QTC 492, no STEMI Radiology Impression Discussion of test interpretation with radiology: I have reviewed the radiologist's reading. Discharge Plan Discharge Clinical Impression: Atrial fibrillation with rapid ventricular response, Acute exacerbation of CHF (congestive heart failure) Patient Disposition: Admitted As Inpatient
[2024-12-07 11:23] LABS: Anion Gap 13 (12-20); Blood Urea Nitrogen 33 mg/dL (9-16); Calcium 9.2 mg/dL (8.4-10.2); Carbon Dioxide 27 mmol/L (22-29); Chloride 108 mmol/L (96-108); Creatinine Clr Calc Pharmacy 34.6; Estimated Glomerular Filt Rate 58; Glucose Random 101 mg/dL (60-115); Magnesium 2.2 mg/dL (1.6-2.6); Potassium 4.5 mmol/L (3.3-5.1); Sodium 143 mmol/L (135-145)
[2024-12-07 11:28] LABS: B Type Natriuretic Peptide 1637 pg/mL (<100)
[2024-12-07 11:29] LABS: Troponin-I High Sensitivity 17.7 ng/L (<3.5-17.0)
[2024-12-07] MEDS: Metoprolol Tartrate 5 MG/5 ML VIAL IVPUSH (11:36)
[2024-12-07] MEDS: Furosemide 20 MG/2 ML VIAL IVPUSH ×2 (12:31→17:34)
--- NOTE | 2024-12-07 12:53 | PM.IMHP ---
History of Present Illness Date of Service: 12/07/24 Attending physician on admission: Claudia Cedillo Chief Complaint: AFib, CHF Pt is an 79-year-old female with a PMH significant for?dementia, paroxysmal AFib on Eliquis, HFrEF, HTN, and HLD who presents to the ED from Cardiology office for concerns of CHF and after pt was noted to be in AFib with RVR. Pt with noted aphasia and has difficulty speaking, though is capable of following commands. Is accompanied by son who was at bedside. Reports he lives with his mother and she has been noncompliant with home medications for many months. Hx is rather vague, but it appears pt has not been taking any home meds since at least June of last year. Son reports he previously would put out medications for pt to take, though she would just throw them away so he eventually stopped even offering them to her. Reports she has had increased lower leg swelling for the past 3+ weeks and clear drainage from the left foot for 2-3 days. Has also not been eating much recently, though drinking normally. No other reported complaints, including N/V/D. Has not appreciated any cough. In the ED pt was tachycardic up to 130 and satting 96% RA. Labs were significant for BNP 1637 and initial troponin 17.7. No leukocytosis. Stable H&H. No significant electrolyte abnormalities. Renal function baseline. CXR showed moderate opacity left lung base likely effusion and atelectasis, though infiltrate not excluded. EKG demonstrated AFib with RVR of [address] and T-wave abnormalities. Pt was treated with metoprolol 5 mg IV and Lasix 20 mg. Pt will be admitted to the hospital for treatment and further evaluation of AFib with RVR and HFrEF exacerbation from medication noncompliance. Review of Systems Review of Systems: Yes Unobtainable due to mental status [facility] Medical History Dementia Atrial fibrillation with rapid ventricular response No known health problems Family History Mother No problems noted. Father No problems noted. Surgical History No pertinent past surgical history Social History Household Members: Family Housing: House Do you presently have visiting nurse or other home services: No Alcohol intake: never Comment: 1:1 sitter Patient Tobacco Use Status: Former Tobacco user Years Smoked: 30 +/- Smoked in Last 30 Days: No Use of substances other than those prescribed or required for medical reasons: No Advance Directives: No Advance Directives Information Provided: Yes service: No Current occupational status: retired Current occupation: rt hand Meds Allergies Allergy/AdvReac Type Severity Reaction Status Date / Time codeine Allergy Unknown Verified 12/07/24 10:51 Home Medications ?Medication ?Instructions ?Recorded ?Confirmed ?Last Taken ?Type digoxin 125 mcg (0.125 mg) tablet 125 mcg PO Q48H 12/07/24 12/07/24 Unknown History Physical Exam Vital Signs and Narrative: Vital Signs: Last Vital Signs Temp 97.5 F 12/07/24 10:49 Pulse 100 12/07/24 11:41 Resp 18 12/07/24 11:35 BP 105/73 12/07/24 12:31 Pulse Ox 96 12/07/24 10:49 O2 Del Method Room Air 12/07/24 10:49 BMI result Body Mass Index 20.3 General: AOx1, pt aphasic and difficult to understand, cachectic. In no acute distress. Resp: CTA bilaterally CVS: Irregularly irregular rhythm, tachycardic GI: +BS, NT, no distention Skin: Warm, dry Neuro: Cranial nerves II-XII grossly intact bilaterally. Motor grossly intact bilaterally. Extremities: No edema Psych: Able to follow commands. Results Labs 12/07/24 11:03 12/07/24 11:04 Labs: Laboratory Results - last 24 hr 12/07/24 12/07/24 11:03 11:04 MCV 103.2 H MCH 35.3 H MCHC 34.2 RDW 13.8 Plt Count 186 MPV 11.0 Immature Gran % (Auto) 0.2 Neut % (Auto) 68.9 Lymph % (Auto) 18.2 L [place] % (Auto) 11.3 H Eos % (Auto) 0.9 Baso % (Auto) 0.5 Lymph # (Auto) 1.1 L [place] # (Auto) 0.7 Eos # (Auto) 0.1 Baso # (Auto) 0.0 Abs Immat Gran (auto) 0.01 Absolute Neuts (auto) 4.0 Absolute Nucleated RBC 0.000 Nucleated RBC % (auto) 0.0 Anion Gap 13 Estim Creat Clear Calc 34.6 Estimated GFR 58 Random Glucose 101 Calcium 9.2 Magnesium 2.2 Troponin I High Sens 17.7 H D B-Natriuretic Peptide 1637 H Imaging Radiologist's Impressions: Impressions Chest X-Ray 12/07/24 12:00 IMPRESSION: Moderate opacity left lung base likely combination of effusion/atelectasis. Infiltrate is not excluded. Heart size is enlarged. Electronically signed by: Nnamdi Stanton MD 12/07/2024 12:19 PM [facility] Assessment and Plan (1) Acute exacerbation of CHF (congestive heart failure): Status: Acute (2) Medication noncompliance due to cognitive impairment: Status: Acute (3) Atrial fibrillation with rapid ventricular response: Status: Acute Plan Pt is an 79-year-old female with a PMH significant for?dementia, paroxysmal AFib on Eliquis, HFrEF, HTN, and HLD who presents to the ED from Cardiology office for concerns of CHF and after pt was noted to be in AFib with RVR. Pt will be admitted to the hospital for treatment and further evaluation of AFib with RVR and HFrEF exacerbation from medication noncompliance. AFib with RVR HR as high as 130s in Cardiology office and here at the ED Secondary to medication noncompliance, has not been on home meds since at least June of last year Was given metoprolol 5 mg IV in the ED Will treat with metoprolol 5 mg IV q.6 for now, attempt to transition to p.o. tomorrow Resume digoxin and Eliquis once no longer NPO Echocardiogram Cardiology consult Monitor on telemetry HFrEF exacerbation Pt with elevated BNP, LLE, CXR showing effusion Secondary to medication noncompliance, pt has not been on home meds since June of last year Will treat with Lasix 20 mg IV b.i.d. Follow lytes, I/O, daily weights Echocardiogram Cardiology consult Monitor on telemetry HLD Continue statin Diet Pt with aphasia and difficulty swallowing Son reports has not been eating much at home Will get formal swallow evaluation Dietitian and nutrition consult NPO for now Full Code Attending:?Dr. Cedillo DVT Prophylaxis: On Eliquis Pt will require a hospitalization of at least two nights for treatment of?AFib with RVR and acute CHF exacerbation secondary to medication noncompliance. Pt will require hospital level care for administration of IV diuretics, IV beta-blockers for rate controlling, as well as specialist consultation with Cardiology and additional workup with echocardiogram. Quality Stroke Does the patient have a stroke diagnosis?: No VTE Prior VTE?: No VTE Risk Level:: Medical - moderate - high VTE Device Contraindication: Treatment Not Indicated VTE Drug Contraindication: N/A - Med Ordered
--- NOTE | 2024-12-07 13:36 | PC.NURSE ---
Pt brought in from doctors office by son. Doctor sent pt to ER due to abnormal EKG and significant swelling in bilat lower extremities for past week. Pt is alert but has severe dementia per son, very confused, also has aphasia due to previous stroke. Breathing even and unlabored, skin warm and dry. Son reports pt normally walk around at home with walker but unable to lately due to swelling. Denies recent illnesses or falls for pt. Purewick placed for incontinence. Irregular rhythm on monitor.
[2024-12-07 13:38] LABS: Digoxin < 0.2 ng/mL (0.8-2.0)
--- NOTE | 2024-12-07 13:42 | PHA.MEDREC ---
Pharmacy Consult ? Medication Reconciliation Pharmacy has completed the medication reconciliation, spoke to son at pt's bedside. Son was not sure on doses and frequencies and claims were utilized to find directions. Son states patient has not been taking medications and occasionally takes eliquis.
[2024-12-07 13:43] LABS: Troponin-I High Sensitivity 14.9 ng/L (<3.5-17.0)
[2024-12-07] MEDS: 0.9 % Sodium Chloride Flush 3 ML SYRINGE IVFLUSH ×2 (15:17→22:59)
[2024-12-07] MEDS: Metoprolol Tartrate 5 MG in 0.9 % Sodium Chloride 50 ML 220 MG IV ×2 (17:36→22:57)
--- NOTE | 2024-12-07 18:39 | PC.NURSE ---
Pt having periods of increased agitation and aggression, easily redirected
[2024-12-07] MEDS: Haloperidol Lactate 5 MG/ML VIAL 3.5 MG IM (23:51)
[2024-12-08] VITALS (8 sets, daily range): BP systolic 91–135; BP diastolic 56–76; PULSE 91–130; RESP 14–20; TEMP 36–36.9; O2SAT 93–97
[2024-12-08] MEDS: Metoprolol Tartrate 5 MG in 0.9 % Sodium Chloride 50 ML 220 MG IV (05:54)
--- NOTE | 2024-12-08 07:00 | CA_ITS ---
Transthoracic Echocardiogram Patient (Last, First, Middle): Dacia Gurrola, Gender: Female Date of : 1945 Age: 79 Procedure Date: 12/08/2024 Procedure Type: Transthoracic Echocardiogram Location: [facility] [place] Height: 152.4 cm Weight: 47.17 kg BSA: 1.41 m2 Heart Rate: bpm BP: 105 / 73 mmHg [employer] Policy Specialist: JOHN Warren MD: Salas ROSALES Racing Manager: Buddy Eubanks MD Symptoms: AFib w/RVR, CHF exacerbation Study Quality: Adequate ECG Rhythm: Atrial Fibrillation w RVR Conclusions: - 1. Severely reduced LV ejection fraction at 25-30% 2. Moderately reduced RV systolic function 3. Severe biatrial enlargement 4. Mildly to moderately elevated right ventricular systolic pressure with significantly elevated right atrial pressures 5. No gross pericardial effusion Findings Procedure Information The quality of the study was technically difficult. The study quality is limited by an uncooperative patient. Left Ventricle Normal left ventricular cavity size. There is normal left ventricular wall thickness. The left ventricular systolic function is severely decreased. The visually estimated ejection fraction is between 25-30%. There is severe global hypokinesis. Diastolic function is indeterminate on the basis of available data. Right Ventricle Mildly increased right ventricular cavity size. There is moderate to severely decreased right ventricular systolic function. Atria Severe biatrial enlargement. There is no evidence of interatrial shunt. Aortic Valve Normal aortic valve structure and function. There is no aortic valve stenosis. There is trace (trivial) aortic valve regurgitation. Mitral Valve There is mild anterior and posterior mitral leaflet thickening. There is mild mitral valve regurgitation. There is no mitral valve stenosis. Pulmonic Valve The pulmonic valve is likely normal. There is trace pulmonic valve regurgitation. Tricuspid Valve Normal tricuspid valve structure. There is mild tricuspid valve regurgitation. Moderately elevated right atrial pressure. Mild to moderate pulmonary hypertension is present. Great Vessels All visible segments of the aorta are normal in size. The pulmonary artery was not well visualized. Venous The inferior vena cava is moderately dilated and does not collapse with inspiration. Pericardium/Pleural There is no evidence of pericardial effusion. Prior Study Comparison Changes noted compared to prior study dated: 05/24/2024. LV function is further reduced. Severe biatrial enlargement noted. RA pressure is significantly increased Measurements 2D Linear Measurements IVSd: 0.75 0.6-0.9/0.6-1.0 cm LVIDd: 5.22 3.9-5.3/4.2-5.9 cm LVIDd Index: 3.70 2.4-3.2/2.2-3.1 cm/m2 LVIDs: 4.43 2.0-3.6 cm LVPWd: 0.71 0.7-1.1 cm LA Diam: 4.30 2.7-3.8/3.0-4.0 cm LAIDs Index: 3.05 1.5-2.3 cm/m2 LV Mass: 162.49 67-162/88-224 g LV Mass Index: 115.24 43-95/49-115 g/m2 LVOT Diam: 1.90 3.0+(-)1.3 cm 2D Systolic Function EF 4C: 21.50 >55% EF 2C: 30.90 >55% EF BiP: 28.10 >55% Mitral Valve MV Pk E: 0.79 Aortic Valve AoV Pk Miguel: 0.63 AoV Pk Grad: 2.00 MAGDALENO: 2.82 LVOT LVOT Pk Miguel: 0.62 LVOT Mn Miguel: 0.43 LVOT VTI: 0.08 LVOT Pk Grad: 2.00 LVOT Mn Grad: 1.00 LVOT Diam: 1.90 LVOT Area: 2.84 Diastolic Function MV Pk E: 0.79 Right Ventricle TAPSE (mm): 12.20 TVS' Miguel: 5.98 Tricuspid Valve TR Pk Miguel: 2.80 TR Pk Grad: 31.00 RA Press: 15.00 RVSP: 46.00 Great Vessels Aorta Sinus of Valsalva: 3.30 2.0-3.5 cm Ao Asc: 3.50 2.1-3.4 cm Pulmonary Valve PV Pk Miguel: 0.36 Peak PV Grad: 1.00 Updated in Other Vendor System with Status of Final Buddy Eubanks MD electronically signed on 12/09/2024 12:03:42 PM with status of Final
[2024-12-08 07:57] LABS: Anion Gap 16 (12-20); Blood Urea Nitrogen 31 mg/dL (9-16); Calcium 8.5 mg/dL (8.4-10.2); Carbon Dioxide 20 mmol/L (22-29); Chloride 110 mmol/L (96-108); Creatinine Clr Calc Pharmacy 31.3; Estimated Glomerular Filt Rate 52; Glucose Random 106 mg/dL (60-115); Magnesium 2.2 mg/dL (1.6-2.6); Potassium 3.9 mmol/L (3.3-5.1); Sodium 142 mmol/L (135-145)
[2024-12-08] MEDS: Furosemide 20 MG/2 ML VIAL IVPUSH (08:59)
[2024-12-08] MEDS: Metoprolol Tartrate 50 MG TABLET PO ×2 (08:59→23:58)
[2024-12-08] MEDS: 0.9 % Sodium Chloride Flush 3 ML SYRINGE IVFLUSH ×2 (09:00→15:01)
--- NOTE | 2024-12-08 09:49 | P.CONCA_ITS ---
History of Present Illness History of Present Illness Date of Service: 12/08/24 Requesting physician: Claudia Cedillo Consult reason: atrial fibrillation and congestive heart failure Chief complaint: AFIB w/ RVR, CHF Narrative: I was consulted to see Dacia in cardiology consultation today for management of atrial fibrillation. He was referred to the hospital from our clinic yesterday as she was having uncontrolled atrial fibrillation with prior history of cardiomyopathy and suggestive of fluid overload. In the emergency room she was noted to have significantly elevated BNP. Patient is not participatory in her conversation. Does not offer any history. Patient has been at home been taking care of by her son although seems like patient has not been getting her medications at home as per son's admission. As per him patient has not had medications for months as noted in the chart. She was admitted here rate is better controlled after she is getting her med and she has been getting her meds in applesauce and taking it as given by the nurse. She does not offer any symptoms and appears to be comfortable laying in bed. Review of Systems 2 Review of Systems: Yes Unobtainable due to mental status Neurologic: Reports confusion Psychiatric: Psychiatric: Reports confusion [facility] Past Medical History Medical History Dementia Atrial fibrillation with rapid ventricular response No known health problems Family History Family History Mother No problems noted. Father No problems noted. Surgical History Surgical History No pertinent past surgical history Social History Social History Household Members: Family Housing: House Do you presently have visiting nurse or other home services: No Alcohol intake: never Comment: 1:1 sitter Patient Tobacco Use Status: Former Tobacco user Years Smoked: 30 +/- Smoked in Last 30 Days: No Use of substances other than those prescribed or required for medical reasons: No Currently Displaying Signs/Symptoms of Drug Intoxication Withdrawal: No Advance Directives: No Advance Directives Information Provided: Yes service: No Current occupational status: retired Current occupation: rt hand Meds Allergies Allergy/AdvReac Type Severity Reaction Status Date / Time codeine Allergy Unknown Verified 12/07/24 10:51 Active Medications: Current Medications Acetaminophen (Acetaminophen 325 Mg Tablet) 650 mg PO Q6H PRN PRN Reason: Pain, Mild 1-3,fever,headache Calcium Carbonate (Calcium Carbonate 750 Mg Tab.Chew) 750 mg PO Q4H PRN PRN Reason: Heartburn Furosemide (Furosemide 20 Mg/2 Ml Vial) 20 mg IVPUSH BID@0900,1800 [facility]; Protocol Last Admin: 12/08/24 08:59 Dose: 20 mg Metoprolol Tartrate 5 mg/ (Sodium Chloride) 55 mls @ 220 mls/hr IV Q6H PRN; Protocol PRN Reason: HR >140 Magnesium Hydroxide (Milk Of Magnesia 30 Ml Oral.Susp) 30 ml PO DAILY PRN PRN Reason: Constipation Melatonin (Melatonin 3 Mg Tablet) 6 mg PO BEDTIME PRN PRN Reason: Insomnia Metoprolol Tartrate (Metoprolol Tartrate 50 Mg Tablet) 50 mg PO BID [facility]; Protocol Last Admin: 12/08/24 08:59 Dose: 50 mg Sodium Chloride (0.9 % Sodium Chloride Flush 3 Ml Syringe) [facility] Last Admin: 12/08/24 09:00 Dose: 3 ml Home Medications ?Medication ?Instructions ?Recorded ?Confirmed ?Last Taken ?Type digoxin 125 mcg (0.125 mg) tablet 125 mcg PO Q48H 12/07/24 12/07/24 Unknown History Physical Exam 2 Vital Signs: Vital Signs: Last Vital Signs Temp 97.3 F 12/08/24 08:00 Pulse 115 H 12/08/24 08:00 Resp 14 12/08/24 08:00 BP 112/71 12/08/24 08:00 Pulse Ox 95 12/08/24 08:00 O2 Del Method Room Air 12/08/24 08:00 BMI result Body Mass Index 20.3 Const: General: alert, awake and confusion Nutritional Appearance: m alnourished and underweight Orientation/consciousness: confusion HEENT: Head: Yes normocephalic and Yes atraumatic Neck: Neck: Yes trachea midline, Yes supple and Yes no JVD Resp: Effort & Inspection: decreased respiratory effort Auscultation: d iminished lung sounds Cardio: Rate: tachycardic Rhythm: abnormal rhythm irregularly irregular Heart sounds: S1 normal heart sound present, S2 normal heart sound present, no click, no gallops and Murmur heart sound present systolic GI: Auscultation: normal bowel sounds Skin: General skin exam: no rashes or lesions noted Neuro: General: moves all extremities and confusion Extrem: General: Yes no clubbing, cyanosis or edema Objective Labs and Meds 12/07/24 11:03 12/08/24 07:11 Lab results: Laboratory Results - last 24 hr 12/07/24 12/07/24 12/07/24 11:03 11:04 13:15 WBC 5.8 RBC 4.11 L Hgb 14.5 Hct 42.4 MCV 103.2 H MCH 35.3 H MCHC 34.2 RDW 13.8 Plt Count 186 MPV 11.0 Immature Gran % (Auto) 0.2 Neut % (Auto) 68.9 Lymph % (Auto) 18.2 L [place] % (Auto) 11.3 H Eos % (Auto) 0.9 Baso % (Auto) 0.5 Lymph # (Auto) 1.1 L [place] # (Auto) 0.7 Eos # (Auto) 0.1 Baso # (Auto) 0.0 Abs Immat Gran (auto) 0.01 Absolute Neuts (auto) 4.0 Absolute Nucleated RBC 0.000 Nucleated RBC % (auto) 0.0 Sodium 143 Potassium 4.5 Chloride 108 Carbon Dioxide 27 Anion Gap 13 BUN 33 H Creatinine 0.93 Estim Creat Clear Calc 34.6 Estimated GFR 58 Random Glucose 101 Calcium 9.2 Magnesium 2.2 Troponin I High Sens 17.7 H D 14.9 B-Natriuretic Peptide 1637 H Digoxin < 0.2 L 12/08/24 07:11 WBC RBC Hgb Hct MCV MCH MCHC RDW Plt Count MPV Immature Gran % (Auto) Neut % (Auto) Lymph % (Auto) [place] % (Auto) Eos % (Auto) Baso % (Auto) Lymph # (Auto) [place] # (Auto) Eos # (Auto) Baso # (Auto) Abs Immat Gran (auto) Absolute Neuts (auto) Absolute Nucleated RBC Nucleated RBC % (auto) Sodium 142 Potassium 3.9 Chloride 110 H Carbon Dioxide 20 L Anion Gap 16 BUN 31 H Creatinine 1.03 Estim Creat Clear Calc 31.3 Estimated GFR 52 Random Glucose 106 Calcium 8.5 D Magnesium 2.2 Troponin I High Sens B-Natriuretic Peptide Digoxin Imaging Radiologist's impression: Impressions Chest X-Ray 12/07/24 12:00 IMPRESSION: Moderate opacity left lung base likely combination of effusion/atelectasis. Infiltrate is not excluded. Heart size is enlarged. Electronically signed by: Nnamdi Stanton MD 12/07/2024 12:19 PM [facility] Assessment and Plan (1) Acute exacerbation of CHF (congestive heart failure): Status: Acute Patient present with uncontrolled atrial fibrillation heart failure related to poor care at home. She requires case management involvement for safe placement either to a correction facility or 24 hour help at home. Can switch to p.o. Lasix 20 mg daily she does not appear to be in significant overt heart failure at this point time. Continue aggressive rate control, see below. Can add Jardiance 10 mg to regimen she does have systolic dysfunction but currently appears to be most likely tachycardia mediated. (2) Atrial fibrillation with rapid ventricular response: Status: Acute Atrial fibrillation with rapid ventricular response due to patient not getting her medications. She is not able to participate in origin care due to cognitive impairment. Require safer environment at discharge so she can get her medications. Agree with metoprolol 50 mg b.i.d. for now. Can also digitalize with 0.25 mg IV push q.6 times 3 doses followed by 0.125 3 times a week. Should be on oral anticoagulation Eliquis at 2.5 mg b.i.d.. Will sign of the case. Thank you for allowing me to partake in his care Procedures Date of Service Date of Service: 12/08/24
--- NOTE | 2024-12-08 10:28 | MHC.SL.SWA ---
Speech Pathologist Impression: WFL Dysphasia Diet Status:Start on REGULAR/THIN Liquid Consistency and Strategies for Safe Swallow: Liquid Intake Recommendation: Thin Solid Food Consistency: Dietary Recommendations: Regular Additional Modifications to Solid Foods: Unremarkable exam, swallow deemed functional in the oral and pharyngeal phase. Recommend UPGRADE from NPO, start on REGULAR solids and THIN liquids, pills WHOLE with LIQUID. Patient is able to feed herself, but w/ hx dementia, observed spilling on self. She is recommended direct supervision at meal time. Oral Medication Intake: Whole with Liquid Please contact the pharmacy regarding appropriate crushable or liquid drug formulations that are available whenever modified delivery is recommended. Compensatory Strategies and Precautions to be Taken for Safe Swallow: Sitting Upright (90 deg) Small Bites and Sips Rate of Ingestion Change Supervision While Eating and Drinking for Safe Swallow: Total Supervision (1:1) Recommendation for Speech: NA:Typical Evaluation Comment: Please re-refer with any changes or further concern. Frequency/Duration: Date Range for Service Req: Timeline to reassess: Security Field Supervisor Clinican/Clinical Fellow: No Supervisory Statement: I have reviewed and agree with the student/clinical fellow's documentation: N/A Speech Language Pathologist: Zara Mendoza M.A., CCC-SUPERVISOR [employer]
--- NOTE | 2024-12-08 11:34 | MHC.CM.PN ---
PT W/DEMENTIA, AFIB W/RVR AND CHF AND NONCOMPLIANCE W/MEDS. IMM 12/08/24 DELIVERED TO SON MARINE [phone] AT BEDSIDE, PT'S SON RIN IS ALSO AT BEDSIDE W/PT'S , PT HAD BEEN REFUSING AND THROWING OUT HER MEDS, PT OFF MEDS FOR QUITE A WHILE, HOSPITALIST ALSO IN ROOM And ENCOURAGING FAMILY TO CRUSH MEDS THAT ARE CRUSHABLE AND PUT THEM IN APPLESAUCE PT TOOK THEM THAT WAY THIS AM, BOTH SONS ON BOARD AND HOSPITALIST REPORTS HE WILL GIVE FAMILY A LIST OF WHICH MEDS CAN BE CRUSHED TOMORROW PRIOR TO ANTIC DC SATURDAY 12/09. PT WILL ALSO DC HOME W/NEW [facility] FOR SN/PT AND TASK SENT TO [facility] FOR NEW HOME SASH STICKER FOR BATHING/ADLS, FAMILY INTERESTED IN 2XWK VISITS AND [facility] HERE TODAY AND WILL MEET W/THEM IF THEY ARE STILL HERE THIS AFTERNOON VS CALLING. PT'S SON MARINE REPORTS PT AMBULATES INDEPENDENTLY, USES NO DME HOWEVER THEIR IS A WALKER AT HOME AND NO PRIOR HOME SERVICES.
--- NOTE | 2024-12-08 12:21 | MHC.CLN ---
RE; CONSULT PT WITH POOR PO PER FAMILY REVIEWED PREVIOUS WT HX FOLLOWS: 47.2KG (12/07/24) 47.2KG (06/08/24) 50.4KG (11/04/23) WT STABLE REGULAR DIET WILL ADD ENSURE BID TO INCREASE KCAL INTAKE SUPP TO PROVIDE 700KCALS, 40G PROTEIN MONITOR PO INTAKE
--- NOTE | 2024-12-08 13:15 | P.PNIM_ITS ---
Subjective Subjective Date of Service: 12/08/24 Interval History: seen and evaluated this morning looks comfortable HR better controlled but still runs to 130s no other events Review of Systems Review of Systems: Yes all other systems are reviewed and are negative Physical Exam 2 Vital Signs: Vital Signs: Last Vital Signs Temp 98.1 F 12/08/24 12:00 Pulse 91 12/08/24 12:00 Resp 16 12/08/24 12:00 BP 112/71 12/08/24 11:23 Pulse Ox 97 12/08/24 12:00 O2 Del Method Room Air 12/08/24 12:00 BMI result Body Mass Index 20.3 Const: Other: Constitutional : Awake, interactive, not in distress Neck : Normal inspection, Supple Cardiovascular : irregular irregular, no JVP, no lower extremity edema, tachycardia Respiratory : good bilateral air entry, no crackles, wheezes or rhonchi Gastrointestinal: soft, lax, Normal bowel sounds, Non tender Skin : Warm, Dry Neurological : Alert & disoriented , No focal deficit Objective Data Active Medications Acetaminophen (Acetaminophen 325 Mg Tablet) 650 mg PO Q6H PRN PRN Reason: Pain, Mild 1-3,fever,headache Calcium Carbonate (Calcium Carbonate 750 Mg Tab.Chew) 750 mg PO Q4H PRN PRN Reason: Heartburn Furosemide (Furosemide 20 Mg/2 Ml Vial) 20 mg IVPUSH BID@0900,1800 [facility]; Protocol Last Admin: 12/08/24 08:59 Dose: 20 mg Documented By: SARBJIT Metoprolol Tartrate 5 mg/ (Sodium Chloride) 55 mls @ 220 mls/hr IV Q6H PRN; Protocol PRN Reason: HR >140 Magnesium Hydroxide (Milk Of Magnesia 30 Ml Oral.Susp) 30 ml PO DAILY PRN PRN Reason: Constipation Melatonin (Melatonin 3 Mg Tablet) 6 mg PO BEDTIME PRN PRN Reason: Insomnia Metoprolol Tartrate (Metoprolol Tartrate 50 Mg Tablet) 50 mg PO BID [facility]; Protocol Last Admin: 12/08/24 08:59 Dose: 50 mg Documented By: SARBJIT Sodium Chloride (0.9 % Sodium Chloride Flush 3 Ml Syringe) [facility] Last Admin: 12/08/24 09:00 Dose: 3 ml Documented By: SARBJIT Labs 12/07/24 11:03 12/08/24 07:11 Labs: Laboratory Results - last 24 hr 12/07/24 12/08/24 13:15 07:11 Anion Gap 16 Estim Creat Clear Calc 31.3 Estimated GFR 52 Random Glucose 106 Calcium 8.5 D Magnesium 2.2 Troponin I High Sens 14.9 Digoxin < 0.2 L Assessment and Plan (1) Acute exacerbation of CHF (congestive heart failure): Status: Acute (2) Medication noncompliance due to cognitive impairment: Status: Acute Plan Pt is an 79-year-old female with a PMH significant for?dementia, paroxysmal AFib on Eliquis, HFrEF, HTN, and HLD who presents to the ED from Cardiology office for concerns of CHF and after pt was noted to be in AFib with RVR. Pt will be admitted to the hospital for treatment and further evaluation of AFib with RVR and HFrEF exacerbation from medication noncompliance. AFib with RVR HR as high as 130s secondary to medication noncompliance metoprolol 5 mg IV q.6 prn Metoprolol 50 mg bid Load digoxin IV then PO per Cardiology eval Eliquis adjusted dose 2.5 mg bid Cardiology input appreciated Monitor on telemetry HFrEF exacerbation improving switch to PO Follow lytes, I/O, daily weights Monitor on telemetry HLD Continue statin Diet [employer] rec regular diet Dietitian and nutrition consult Full Code DVT Prophylaxis: On Eliquis Pt will require a hospitalization overnight for treatment of?AFib with RVR and acute CHF exacerbation secondary to medication noncompliance. will require hospital level care for administration of IV diuretics, IV beta-blockers for rate controlling, Quality Stroke Does the patient have a stroke diagnosis?: No VTE Prior VTE?: No VTE Risk Level:: Medical - moderate - high VTE Device Contraindication: Treatment Not Indicated VTE Drug Contraindication: N/A - Med Ordered
[2024-12-08] MEDS: Apixaban 2.5 MG TABLET PO ×2 (14:59→20:44)
--- NOTE | 2024-12-08 20:36 | ECG_ITS ---
Test Reason : cp Blood Pressure : */* mmHG Vent. Rate : 138 BPM Atrial Rate : * BPM P-R Int : * ms QRS Dur : 84 ms QT Int : 318 ms P-R-T Axes : * -11 228 degrees QTcB Int : 481 ms Artifact in tracing Atrial fibrillation with rapid ventricular response with premature ventricular or aberrantly conducted complexes Anteroseptal infarct (cited on or before 14-Mar-2024) ST & T wave abnormality, consider inferolateral ischemia Abnormal ECG When compared with ECG of 07-Dec-2024 10:32, due to quality, cannot compare Referred By: Claudia Cedillo Electronically Signed By: JUANY MORAES
[2024-12-08] MEDS: Atorvastatin Calcium 20 MG TABLET PO (20:44)
[2024-12-08] MEDS: Haloperidol Lactate 5 MG/ML VIAL 2.5 MG IM (21:03)
[2024-12-08] MEDS: Digoxin 0.25 MG TABLET PO (21:05)
[2024-12-09] VITALS (8 sets, daily range): BP systolic 99–137; BP diastolic 56–85; PULSE 74–110; RESP 14–16; TEMP 36.1–36.4; O2SAT 92–94
[2024-12-09] MEDS: 0.9 % Sodium Chloride Flush 3 ML SYRINGE IVFLUSH ×4 (00:01→21:20)
[2024-12-09] MEDS: LORazepam 2 MG/ML VIAL 1 MG IVPUSH (01:42)
[2024-12-09 08:31] LABS: Anion Gap 15 (12-20); Blood Urea Nitrogen 31 mg/dL (9-16); Calcium 8.1 mg/dL (8.4-10.2); Carbon Dioxide 28 mmol/L (22-29); Chloride 104 mmol/L (96-108); Creatinine Clr Calc Pharmacy 39.8; Estimated Glomerular Filt Rate > 60; Glucose Random 85 mg/dL (60-115); Potassium 3.6 mmol/L (3.3-5.1); Sodium 143 mmol/L (135-145)
[2024-12-09 08:32] LABS: Digoxin 0.3 ng/mL (0.8-2.0)
[2024-12-09] MEDS: Digoxin 0.5 MG/2 ML AMPUL 0.25 MG IVPUSH ×2 (10:49→16:46)
[2024-12-09] MEDS: Metoprolol Tartrate 50 MG TABLET PO ×2 (13:12→18:24)
--- NOTE | 2024-12-09 13:46 | P.PNIM_ITS ---
Subjective Subjective Date of Service: 12/09/24 Interval History: seen and evaluated this morning HR better controlled Restless overnight, received Lorazepam and has been altered since then no other events Review of Systems Review of Systems: Yes Unobtainable due to mental status Physical Exam 2 Vital Signs: Vital Signs: Last Vital Signs Temp 97.6 F 12/09/24 11:04 Pulse 90 12/09/24 11:04 Resp 16 12/09/24 11:04 BP 137/78 12/09/24 11:04 Pulse Ox 94 12/09/24 11:04 O2 Del Method Room Air 12/09/24 11:04 BMI result Body Mass Index 20.3 Const: Other: Constitutional : altered, not in distress Neck : Normal inspection, Supple Cardiovascular : irregular irregular, no JVP, no lower extremity edema Respiratory : good bilateral air entry, no crackles, wheezes or rhonchi Gastrointestinal: soft, lax, Normal bowel sounds, Non tender Skin : Warm, Dry Neurological : sleeping, response to stimuli , No focal deficit Objective Data Active Medications Acetaminophen (Acetaminophen 325 Mg Tablet) 650 mg PO Q6H PRN PRN Reason: Pain, Mild 1-3,fever,headache Apixaban (Apixaban 2.5 Mg Tablet) 2.5 mg PO BID [facility] Last Admin: 12/09/24 10:51 Dose: Not Given Documented By: SARBJIT Non-Admin Reason: too somnolent to admin meds Atorvastatin Calcium (Atorvastatin Calcium 20 Mg Tablet) 20 mg PO BEDTIME [facility] Last Admin: 12/08/24 20:44 Dose: 20 mg Documented By: GREYSON Calcium Carbonate (Calcium Carbonate 750 Mg Tab.Chew) 750 mg PO Q4H PRN PRN Reason: Heartburn Digoxin (Digoxin 0.125 Mg Tablet) 0.125 mg PO Q48H [facility]; Protocol Digoxin (Digoxin 0.5 Mg/2 Ml Ampul) 0.25 mg IVPUSH Q6H [facility]; Protocol Stop: 12/09/24 16:31 Last Admin: 12/09/24 10:49 Dose: 0.25 mg Documented By: SARBJIT Empagliflozin (Empagliflozin 10 Mg Tablet) 10 mg PO DAILY [facility] Last Admin: 12/09/24 10:51 Dose: Not Given Documented By: SARBJIT Non-Admin Reason: too somnolent to admin meds safely Furosemide (Furosemide 20 Mg Tablet) 20 mg PO DAILY [facility]; Protocol Last Admin: 12/09/24 10:52 Dose: Not Given Documented By: SARBJIT Non-Admin Reason: too somnolent to admin meds safely Haloperidol Lactate (Haloperidol Lactate 5 Mg/Ml Vial) 5 mg IM ONCE PRN PRN Reason: anxiety/restlessness Metoprolol Tartrate 5 mg/ (Sodium Chloride) 55 mls @ 220 mls/hr IV Q6H PRN; Protocol PRN Reason: HR >140 Magnesium Hydroxide (Milk Of Magnesia 30 Ml Oral.Susp) 30 ml PO DAILY PRN PRN Reason: Constipation Melatonin (Melatonin 3 Mg Tablet) 6 mg PO BEDTIME PRN PRN Reason: Insomnia Metoprolol Tartrate (Metoprolol Tartrate 50 Mg Tablet) 50 mg PO Q6H [facility]; Protocol Last Admin: 12/09/24 13:12 Dose: 50 mg Documented By: SARBJIT Sodium Chloride (0.9 % Sodium Chloride Flush 3 Ml Syringe) 3 ml IVFLUSH QSHIFT [facility] Last Admin: 12/09/24 10:50 Dose: 3 ml Documented By: SARBJIT Labs 12/07/24 11:03 12/09/24 07:33 Labs: Laboratory Results - last 24 hr 12/09/24 07:33 Anion Gap 15 Estim Creat Clear Calc 39.8 Estimated GFR > 60 Random Glucose 85 Calcium 8.1 L Digoxin 0.3 L Assessment and Plan (1) Acute exacerbation of CHF (congestive heart failure): Status: Acute (2) Medication noncompliance due to cognitive impairment: Status: Acute (3) Atrial fibrillation with rapid ventricular response: Status: Acute Plan Pt is an 79-year-old female with a PMH significant for?dementia, paroxysmal AFib on Eliquis, HFrEF, HTN, and HLD who presents to the ED from Cardiology office for concerns of CHF and after pt was noted to be in AFib with RVR. Pt will be admitted to the hospital for treatment and further evaluation of AFib with RVR and HFrEF exacerbation from medication noncompliance. Acute toxic encephalopathy 2/2 Medications, delerium Hospital stay delerium , received Ativan Hold any Ativan Haldol PRN for restlessness AFib with RVR better controlled metoprolol 5 mg IV q.6 prn Metoprolol 50 mg bid Load digoxin IV then PO per Cardiology eval Eliquis adjusted dose 2.5 mg bid Cardiology input appreciated Monitor on telemetry HFrEF exacerbation switched to PO Follow lytes, I/O, daily weights Monitor on telemetry HLD Continue statin Diet [employer] rec regular diet Dietitian and nutrition consult Full Code DVT Prophylaxis: On Eliquis Pt will require a hospitalization overnight for treatment of?AFib with RVR and acute CHF exacerbation along with altered mentation. will require hospital level care for administration of IV diuretics, IV beta-blockers for rate controlling, Quality Stroke Does the patient have a stroke diagnosis?: No VTE Prior VTE?: No VTE Risk Level:: Medical - moderate - high VTE Device Contraindication: Treatment Not Indicated VTE Drug Contraindication: N/A - Med Ordered
[2024-12-09] MEDS: Melatonin 3 MG TABLET 6 MG PO (18:28)
[2024-12-09] MEDS: Apixaban 2.5 MG TABLET PO (21:19)
[2024-12-09] MEDS: Atorvastatin Calcium 20 MG TABLET PO (21:19)
[2024-12-10] VITALS (7 sets, daily range): BP systolic 84–141; BP diastolic 53–74; PULSE 53–81; RESP 16–18; TEMP 36–36.3; O2SAT 87–96
[2024-12-10 07:56] LABS: Anion Gap 13 (12-20); Blood Urea Nitrogen 20 mg/dL (9-16); Calcium 8.5 mg/dL (8.4-10.2); Carbon Dioxide 28 mmol/L (22-29); Chloride 104 mmol/L (96-108); Creatinine Clr Calc Pharmacy 40.2; Estimated Glomerular Filt Rate > 60; Glucose Random 79 mg/dL (60-115); Potassium 3.2 mmol/L (3.3-5.1); Sodium 142 mmol/L (135-145)
[2024-12-10] MEDS: Metoprolol Tartrate 50 MG TABLET PO (09:43)
[2024-12-10] MEDS: Digoxin 0.125 MG TABLET PO (09:46)
[2024-12-10] MEDS: Apixaban 2.5 MG TABLET PO (09:46)
[2024-12-10] MEDS: Furosemide 20 MG TABLET PO (09:47)
[2024-12-10] MEDS: 0.9 % Sodium Chloride Flush 3 ML SYRINGE IVFLUSH (09:48)
[2024-12-10] MEDS: Empagliflozin 10 MG TABLET PO (09:50)
[2024-12-10] MEDS: Potassium Chloride/H20 10 MEQ/100 ML PIGGYBACK 100 MEQ IV ×2 (11:12→12:08)
--- NOTE | 2024-12-10 11:46 | P.F2F_ITS ---
Service Date Service Date: 12/10/24 Encounter Date of encounter: 12/10/24 Reasons for Services Signs and symptoms assessed: medications non-compliance physical deconditioning Reason for group home: medication management and teach disease management Reason for physical therapy: home safety and mobility and therapeutic exercises Homebound: Leaving the home is medically contraindicated at this time without the asist of a device and/or another person due th the listed conditions above and below. Reason homebound: unsteady gait / fall risk Certification: Based on the above findings, I certify that this patient is confined to the home and needs intermittent group home care, physical therapy and/or speech therapy, or continues to need occupational therapy. The patient is under my care, and I have initiated the establishment of the plan of care. The patient will be followed by a physician who will periodically review the plan of care. Time Spent With Patient Time: Total time managing care of this patient today ____ minutes.
--- NOTE | 2024-12-10 11:47 | PM.DS ---
DS: Providers Provider Date of Service: 12/10/24 Date of admission: 12/07/24 13:32 Date of discharge: 12/10/24 Primary care physician: Erinn Scherer MD Consults: 12/07/24 13:36 Consult to Cardiology Routine Consulting Provider: [facility] Reason for consultation: AFib w/RVR, CHF exacerbation DS: Diagnosis Discharge Diagnosis (1) Acute exacerbation of CHF (congestive heart failure): Status: Acute (2) Medication noncompliance due to cognitive impairment: Status: Acute (3) Atrial fibrillation with rapid ventricular response: Status: Acute (4) Pneumonia: Status: Acute (5) Acute hypokalemia: Status: Acute DS: Summary Hospital Course Hospital Course: Admission note HPI Pt is an 79-year-old female with a PMH significant for?dementia, paroxysmal AFib on Eliquis, HFrEF, HTN, and HLD who presents to the ED from Cardiology office for concerns of CHF and after pt was noted to be in AFib with RVR. Pt with noted aphasia and has difficulty speaking, though is capable of following commands. Is accompanied by son who was at bedside. Reports he lives with his mother and she has been noncompliant with home medications for many months. Hx is rather vague, but it appears pt has not been taking any home meds since at least June of last year. Son reports he previously would put out medications for pt to take, though she would just throw them away so he eventually stopped even offering them to her. Reports she has had increased lower leg swelling for the past 3+ weeks and clear drainage from the left foot for 2-3 days. Has also not been eating much recently, though drinking normally. No other reported complaints, including N/V/D. Has not appreciated any cough. In the ED pt was tachycardic up to 130 and satting 96% RA. Labs were significant for BNP 1637 and initial troponin 17.7. No leukocytosis. Stable H&H. No significant electrolyte abnormalities. Renal function baseline. CXR showed moderate opacity left lung base likely effusion and atelectasis, though infiltrate not excluded. EKG demonstrated AFib with RVR of [address] and T-wave abnormalities. Pt was treated with metoprolol 5 mg IV and Lasix 20 mg. Pt will be admitted to the hospital for treatment and further evaluation of AFib with RVR and HFrEF exacerbation from medication noncompliance. Hospital course The patient was treated for the following: # AFib with RVR, better controlled with Metoprolol 50 mg PO and Load digoxin IV then PO per Cardiology evaluation. Will be dischared on Metoprolol 50 mg bid. she had problem with compliance which will be followed by visiting nurses and education to her son. Eliquis adjusted dose 2.5 mg bid based on her weight and age. # She was also treated for mild HFrEF exacerbation with IV lasix, switched to PO with addition of Jardiance. To follow with Cardiology as outpatient. # She developed Acute toxic encephalopathy 2/2 Medications, delerium from hospitalization. she could have aspirated as O2 sat dropped down. no fever documented. CXR on admission showed possible infiltrates. To cover with Augmentin for 1 week upon discharge. # Hypokalemia replaced with IV and PO potassium. Discharge plan Take home medications as prescribed: Decrease Eliquis to 2.5 mg two times a day Take Augmentin for 1 more week Start Jardiance and Lasix as prescribed for heart failure control increase physical activity as tolerated Time Attestation Discharge Coordination Time (in mins): 42 Quality: Safe Use of Opioids Does Pt have an Active Cancer Diagnosis on the Problem List?: No Quality: Stroke Does the patient have a stroke diagnosis?: No Physical Exam Vital Signs: Vital Signs: Last Vital Signs Temp 97.3 F 12/10/24 08:00 Pulse 81 12/10/24 08:00 Resp 18 12/10/24 08:00 BP 119/74 12/10/24 08:00 Pulse Ox 87 L 12/10/24 08:00 O2 Del Method Room Air 12/10/24 08:00 BMI result Body Mass Index 20.3 Const: Other: Constitutional : altered, not in distress Neck : Normal inspection, Supple Cardiovascular : irregular irregular, no JVP, no lower extremity edema Respiratory : good bilateral air entry, no crackles, wheezes or rhonchi Gastrointestinal: soft, lax, Normal bowel sounds, Non tender Skin : Warm, Dry Neurological : sleeping, response to stimuli , No focal deficit DS: Data Data Completed and Pending Completed studies during hospitalization [Text1]: Procedures Reposition Right Upper Femur with Intramedullary Internal Fixation Device, Percutaneous Approach (06/04/23) Labs on day of discharge: Laboratory Results - last 24 hr 12/10/24 07:01 Hold Purple Top SEE NOTE Sodium 142 Potassium 3.2 L Chloride 104 Carbon Dioxide 28 Anion Gap 13 BUN 20 H Creatinine 0.80 Estim Creat Clear Calc 40.2 Estimated GFR > 60 Random Glucose 79 Calcium 8.5 Imaging Chest x-ray: Radiologist's impression: ITS Impressions Chest X-Ray 12/07/24 12:00 IMPRESSION: Moderate opacity left lung base likely combination of effusion/atelectasis. Infiltrate is not excluded. Heart size is enlarged. Electronically signed by: Nnamdi Stanton MD 12/07/2024 12:19 PM [facility] Discharge Plan Discharge Anticipated Discharge Date/Time: 12/10/24 11:41 Patient Disposition: Home Health Service Discharge Diagnosis: Atrial fibrillation with rapid response Heart failure Referrals: [facility] [Other] - 1 Week (A REFERRAL HAS BEEN PLACED FOR HOME HEALTH SERVICES FOR PERSON CARE/BATHING. PLEASE FEEL FREE TO FOLLOW UP AT [phone].) [facility] [Outside] - 1 Week ([facility]) Erinn Scherer MD [Primary Care Provider] - 1 Week Discharge Medications: New furosemide 20 mg Tablet 20 mg PO Q OTHER DAY Qty: 60 0RF Protocol: Hold for SBP< HOLD for SBP < : 90 Jardiance 10 mg Tablet 10 mg PO DAILY Qty: 90 0RF amoxicillin-pot clavulanate 400-57 mg/5 mL suspension for reconstitution 10 ml PO BID Qty: 140 0RF Eliquis 2.5 mg Tablet 2.5 mg PO BID Qty: 180 0RF Continued digoxin 125 mcg (0.125 mg) tablet 125 mcg PO Q48H atorvastatin 20 mg tablet 20 mg PO BEDTIME Qty: 30 5RF Rx Instructions: Cholesterol-lowering agent 1 tablet at bedtime daily metoprolol tartrate 50 mg tablet 50 mg PO BID Qty: 60 5RF Discontinued Eliquis 5 mg tablet 5 mg PO BID Qty: 60 5RF Discharge Orders: Discharge Order (Routine); Ordered 12/10/24 Ordered By: Claudia Cedillo Diet: Low salt diet Activity on Discharge: As tolerated Stand Alone Forms: Patient Portal Discharge page Print Language: Mohawk Care Plan Goals: Take home medications as prescribed: Decrease Eliquis to 2.5 mg two times a day Take Augmentin for 1 more week Start Jardiance and Lasix as prescribed for heart failure control increase physical activity as tolerated Health Concerns: Atrial fibrillation heart failure Plan of Treatment: LAsix Metoprolol Assessment: as above
--- NOTE | 2024-12-10 15:34 | MHC.CM.PN ---
Pt is medically cleared for discharge home with [facility], pts son transported her home today.
== END 2024-12-10 14:39 | disposition home health service (06) | DRG 308 ==
LOC: HO.ED 11:15 → HO.EDOVER 13:39 → HO.IMC 17:52
PROVIDERS: Admitting Provider Student in an Organized Health Care Education/Training Program; Emergency Provider Emergency Medicine; PCP Internal Medicine; Visit Provider Student in an Organized Health Care Education/Training Program
DX: I48.0 Paroxysmal atrial fibrillation (principal); G92.8 Other toxic encephalopathy; I50.21 Acute systolic (congestive) heart failure; I50.23 Acute on chronic systolic (congestive) heart failure; R47.01 Aphasia; F05 Delirium due to known physiological condition; E87.6 Hypokalemia; G30.9 Alzheimer's disease, unspecified; E78.5 Hyperlipidemia, unspecified; I11.0 Hypertensive heart disease with heart failure; F02.80 Dementia in other diseases classified elsewhere, unspecified severity, without behavioral disturbance, psychotic disturbance, mood disturbance, and anxiety; Z91.148 Patient's other noncompliance with medication regimen for other reason; Z79.01 Long term (current) use of anticoagulants; Z79.899 Other long term (current) drug therapy
CPT/HCPCS: 36415; 71045; 80048; 80162; 83735; 83880; 84484; 85025; 92610; 93005; 93306; 97163; 97530; 99212; 99285; J1160; J1630; J1940; J2060; J3480; Q9957

== ENCOUNTER → 2024-12-07 10:49 | Outpatient (BNV) | payer MEDICARE, SELFPAY | PROVIDERS: Emergency Provider Emergency Medicine; PCP Internal Medicine; Visit Provider Radiology Diagnostic Radiology | DX: I51.7 Cardiomegaly (principal); R91.8 Other nonspecific abnormal finding of lung field | CPT/HCPCS: 71045 ==

== ENCOUNTER 2024-12-07 13:32 | Outpatient (BNV) | payer MEDICARE, SELFPAY | END 2024-12-08 07:00 | PROVIDERS: Admitting Provider Student in an Organized Health Care Education/Training Program; Emergency Provider Emergency Medicine; PCP Internal Medicine; Visit Provider Internal Medicine Cardiovascular Disease | DX: R94.31 Abnormal electrocardiogram [ECG] [EKG] (principal) | CPT/HCPCS: 93010; 93306 ==

== ENCOUNTER → 2024-12-07 13:32 | Outpatient (BNV) | payer MEDICARE, SELFPAY | PROVIDERS: Admitting Provider Student in an Organized Health Care Education/Training Program; Emergency Provider Emergency Medicine; PCP Internal Medicine; Visit Provider Student in an Organized Health Care Education/Training Program | DX: I50.9 Heart failure, unspecified (principal); R41.9 Unspecified symptoms and signs involving cognitive functions and awareness; Z91.148 Patient's other noncompliance with medication regimen for other reason; I48.91 Unspecified atrial fibrillation; J18.9 Pneumonia, unspecified organism; E87.6 Hypokalemia | CPT/HCPCS: 99233; 99239 ==

== ENCOUNTER 2025-05-01 11:15 | Outpatient (REF) | payer MEDICARE, SELFPAY ==
[2025-05-01 13:12] LABS: MANUAL DIFF FLAG NO
[2025-05-01 13:16] LABS: Basophils Percent Auto 0.7 % (0-2); Eosinophils Absolute Auto 0.1 X10*3/uL (0.0-0.4); Eosinophils Percent Auto 2.2 % (0-4); Hematocrit 43.8 % (37.0-47.0); Hemoglobin 14.7 g/dl (12.0-16.0); Lymphocytes Absolute Auto 1.5 X10*3/uL (1.2-4.9); Lymphocytes Percent Auto 27.4 % (20-40); Mean Corpuscular HGB Conc 33.6 g/dl (31.0-35.0); Mean Corpuscular Hemoglobin 34.7 pg (27.0-33.0); Mean Corpuscular Volume 103.3 fL (80.0-98.0); Mean Platelet Volume 10.5 fL (9.4-12.3); Monocytes Absolute Auto 0.6 X10*3/uL (0.1-1.2); Monocytes Percent Auto 11.4 % (2-11); Neutrophils Absolute Auto 3.1 x10*3/uL (2.0-8.3); Neutrophils Percent Auto 58.3 % (45-73); Platelet Count 219 X10*3/uL (160-400); Red Blood Count 4.24 X10*6/uL (4.20-5.50); Red Cell Distribution Width 12.7 % (11.0-16.0); White Blood Count 5.4 X10*3/uL (4.8-10.8)
[2025-05-01 13:27] LABS: Alanine Aminotransferase 16 U/L (0-31); Albumin Level 4.2 g/dL (3.5-5.0); Alkaline Phosphatase 68 U/L (39-117); Anion Gap 11 (12-20); Aspartate Amino Transferase 68 U/L (5-31); Bilirubin Total 0.7 mg/dL (0.0-1.0); Blood Urea Nitrogen 22 mg/dL (9-16); Calcium 9.7 mg/dL (8.4-10.2); Carbon Dioxide 34 mmol/L (22-29); Chloride 103 mmol/L (96-108); Cholesterol 168 mg/dL (<200); Estimated Glomerular Filt Rate 52; Glucose Random 90 mg/dL (60-115); HDL Cholesterol 58 mg/dL (>40); LDL Cholesterol Calculated 78 mg/dL (<100); Potassium 4.4 mmol/L (3.3-5.1); Sodium 144 mmol/L (135-145); Total Protein 6.9 g/dL (6.5-8.0); Triglycerides 161 mg/dL (<150)
[2025-05-01 13:52] LABS: Digoxin 0.3 ng/mL (0.8-2.0)
== END 2025-05-01 11:16 | disposition home or self-care (01) ==
LOC: HO.10HDL 11:15
PROVIDERS: Visit Provider Internal Medicine
DX: E78.00 Pure hypercholesterolemia, unspecified (principal); I25.5 Ischemic cardiomyopathy; I48.91 Unspecified atrial fibrillation; Z91.148 Patient's other noncompliance with medication regimen for other reason
CPT/HCPCS: 36415; 80053; 80061; 80162; 85025